=== PATIENT | male | born 1940 | race Caucasian/White ===

== ENCOUNTER 2023-05-21 11:57 | Outpatient (OUT) | payer MEDICARE, OTHER, SELFPAY ==
--- NOTE | 2023-05-21 12:23 | ECG_ITS ---
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
--- NOTE | 2023-05-21 12:59 | XR_ITS ---
The [address] [address] Patient Name: ERIK ALFONSO MRN: [id number] date: 1940 Sex: M Assigned Patient Location: [facility] Current Patient Location: [facility] Accession/Order Number: [id number] Exam Date: 05/21/2023 13:22 Report Date: 05/21/2023 13:56 At the request of: OTIS RODRIGUEZ Procedure: XR chest 2V EXAM: XR chest 2V HISTORY: PRE OP EXAM COMPARISON: None. TECHNIQUE: PA and lateral views of the chest. FINDINGS: The cardiomediastinal silhouette is normal. No focal consolidation is identified. There is no pneumothorax. No pleural effusion is noted. The osseous structures are intact. XR/XR chest 2V IMPRESSION: No acute cardiopulmonary process. Electronically authenticated by: DEVONTE FRYE Date: 05/21/2023 13:56
--- NOTE | 2023-05-21 13:30 | P.GSHP_ITS ---
History of Present Illness History of Present Illness Chief complaint: left uretero stone Narrative: Patient presents for preadmission testing. Please see HPI from Dr. Murphy dated 05/17/2023. Review of Systems ROS Narrative Please see ROS from Dr. Murphy dated 05/17/2023. [facility] Medical History (Updated 05/21/23 @ 13:29 by Jeannette Avila NP) Anticoagulated ?Z79.01 - correction (current) use of anticoagulants (ICD-10) Arthritis ?M19.90 - Unspecified osteoarthritis, unspecified site (ICD-10) BPH with obstruction/lower urinary tract symptoms ?N40.1 - Benign prostatic hyperplasia with lower urinary tract symptoms (ICD- 10) ?N13.8 - Other obstructive and reflux uropathy (ICD-10) Coronary artery disease ?I25.10 - Atherosclerotic heart disease of [place] coronary artery without angina pectoris (ICD-10) COVID-19 ?U07.1 - COVID-19 (ICD-10) Dysuria ?R30.0 - Dysuria (ICD-10) Flank pain ?R10.9 - Unspecified abdominal pain (ICD-10) Frequent urination ?R35.0 - Frequency of micturition (ICD-10) GERD (gastroesophageal reflux disease) ?K21.9 - Gastro-esophageal reflux disease without esophagitis (ICD-10) Gross hematuria ?R31.0 - Gross hematuria (ICD-10) High cholesterol ?E78.00 - Pure hypercholesterolemia, unspecified (ICD-10) History of blood transfusion (2019) ?Z92.89 - Personal history of other medical treatment (ICD-10) Hypertension ?I10 - Essential (primary) hypertension (ICD-10) Incomplete bladder emptying ?R33.9 - Retention of urine, unspecified (ICD-10) Kidney stones ?N20.0 - Calculus of kidney (ICD-10) Nocturia ?R35.1 - Nocturia (ICD-10) Pneumonia ?J18.9 - Pneumonia, unspecified organism (ICD-10) Rectal bleeding (2019) ?K62.5 - Hemorrhage of anus and rectum (ICD-10) Renal cyst ?N28.1 - Cyst of kidney, acquired (ICD-10) S/P extracorporeal shock wave therapy (~09/2016) ?Z98.890 - Other specified postprocedural states (ICD-10) S/P extracorporeal shock wave therapy (~08/2018) ?Z98.890 - Other specified postprocedural states (ICD-10) Sigmoidoscopy performed (~12/2018) ?Z98.890 - Other specified postprocedural states (ICD-10) Sleep apnea ?G47.30 - Sleep apnea, unspecified (ICD-10) Ureteral stone ?N20.1 - Calculus of ureter (ICD-10) Urinary urgency ?R39.15 - Urgency of urination (ICD-10) Surgical History (Updated 05/21/23 @ 13:29 by Jeannette Avila NP) H/O cardiac catheterization (~02/2018) ?Z98.890 - Other specified postprocedural states (ICD-10) H/O cardiac catheterization (~06/2020) ?Z98.890 - Other specified postprocedural states (ICD-10) H/O cataract extraction (~04/2019) ?Z98.49 - Cataract extraction status, unspecified eye (ICD-10) H/O cataract extraction (~05/2019) ?Z98.49 - Cataract extraction status, unspecified eye (ICD-10) H/O colonoscopy (~05/2010) ?Z98.890 - Other specified postprocedural states (ICD-10) H/O cystoscopy (~08/2016) ?Z98.890 - Other specified postprocedural states (ICD-10) H/O endoscopy (~12/2018) ?Z98.890 - Other specified postprocedural states (ICD-10) H/O endoscopy (~02/2021) ?Z98.890 - Other specified postprocedural states (ICD-10) History of hernia repair (~05/2010) ?Z98.890 - Other specified postprocedural states (ICD-10) ?Z87.19 - Personal history of other diseases of the digestive system (ICD-10) S/P arthroscopic knee surgery (~07/2003) ?Z98.890 - Other specified postprocedural states (ICD-10) S/P YAG capsulotomy (~06/2021) ?Z98.890 - Other specified postprocedural states (ICD-10) Family History (Updated 05/21/23 @ 12:57 by Jeannette Avila NP) Other Family history of diabetes mellitus Family history of heart disease Family history of hypertension Family history of myocardial infarction Social History (Updated 05/21/23 @ 12:47 by Jeannette Avila NP) Within the past year, how often did you have a drink containing alcohol: 4 or more times a week Within the past year, how many standard drinks containing alcohol did you have on a typical day: 1 or 2 Total score: 0 Score interpretation: A score less than 4 is consistent with normal alcohol consumption. Smoking status: Never smoker Highest level of school completed/degree received: high school graduate Meds Home Medications and Allergies Home Medications Medication Instructions Recorded Confirmed Type amlodipine 5 mg tablet 5 mg PO QPM 05/21/23 05/21/23 History atorvastatin 20 mg tablet 20 mg PO QPM 05/21/23 05/21/23 History clopidogrel 75 mg tablet 75 mg PO DAILY 05/21/23 05/21/23 History isosorbide dinitrate 30 mg tablet 30 mg PO QPM 05/21/23 05/21/23 History krill 350 mg-omega-3 90 mg-dha 24 cap PO 05/21/23 History mg-epa 50 be-ytnqjzy-pazkq capsule ([place]-3 Krill Oil) meloxicam 15 mg tablet 15 mg PO DAILY 05/21/23 05/21/23 History metoprolol tartrate 50 mg tablet 50 mg PO DAILY 05/21/23 05/21/23 History (Lopressor) multivitamin (Daily Multi-Vitamin 1 tab PO DAILY 05/21/23 05/21/23 History tablet) nitroglycerin 0.4 mg sublingual 0.4 mg sublingual Q5M 05/21/23 05/21/23 History tablet (Nitrostat) omeprazole 40 mg capsule,delayed 40 mg PO DAILY 05/21/23 05/21/23 History release paroxetine HCl 10 mg tablet 10 mg PO DAILY 05/21/23 05/21/23 History valsartan 80 mg tablet 80 mg PO DAILY 05/21/23 05/21/23 History Allergies Allergy/AdvReac Type Severity Reaction Status Date / Time No Known Drug Allergies Allergy Verified 05/21/23 12:37 Exam Narrative Exam Narrative: Constitutional: Awake, alert, comfortable, well-appearing, nontoxic, interactive, vital signs as charted Head: Normocephalic, atraumatic Neck: Supple, normal appearance, normal range of motion, no meningeal signs, no lymphadenopathy Respiratory: No respiratory distress, breath sounds clear Cardiovascular: Regular rate and rhythm, strong and regular heart tones Abdomen: Nontender, normal bowel sounds, soft, no CVA tenderness Musculoskeletal: Normal gait, no swelling or edema Skin: No rashes or induration, no lesions, only visible skin inspected Neuro: No neurological deficits, normal sensation Psychiatric: Oriented ?3, normal affect Assessment and Plan Assessment and Plan (1) Ureteral stone: Plan Cystoscopy, left retrograde, left ureteroscopy, laser, basket, left stent scheduled with Dr. Murphy 05/22/2023.
[2023-05-21 14:06] LABS: Basophils Percent Auto 0.6 % (0.2-2.0); Eosinophils Absolute Auto 0.3 10^3/uL (0.0-0.7); Hematocrit 40.3 % (42.0-54.0); Hemoglobin 13.5 g/dL (14.0-18.0); Immature Granulocytes Abs Auto 0.06 10^3/uL (0.00-0.03); Immature Granulocytes Pct Auto 0.9 % (0.0-0.5); Lymphocytes Absolute Auto 1.7 10^3/uL (1.2-3.8); Lymphocytes Percent Auto 24.5 % (20.5-60.0); Mean Corpuscular HGB Conc 33.5 g/dL (29.9-35.2); Mean Corpuscular Volume 98.5 fL (80.0-94.0); Mean Platelet Volume 10.6 fL (9.5-13.5); Monocytes Absolute Auto 0.8 10^3/uL (0.3-0.8); Monocytes Percent Auto 11.6 % (1.7-12.0); Neutrophils Percent Auto 58.4 % (43.0-75.0); Platelet Count 174 10^3/uL (150-450); Red Blood Count 4.09 10^6/uL (4.70-6.10); Red Cell Distribution Width 12.2 % (11.0-15.0); White Blood Count 6.8 10^3/uL (4.0-11.0)
[2023-05-21 14:13] LABS: INR 1.04; Partial Thromboplastin Time 27.4 sec (22.3-36.2)
[2023-05-21 14:54] LABS: Anion Gap 10.9; BUN Creatinine Ratio 21.9; Carbon Dioxide 28.7 mmol/L (21.0-32.0); Chloride 103 mmol/L (98-107); Estimated GFR (African America >60 (>=60); Estimated GFR (Non-African Ame 54 (>=60); Glucose 86 mg/dL (74-106); Potassium 4.6 mmol/L (3.5-5.1); Sodium 138 mmol/L (136-145)
== END 2023-05-21 11:58 | disposition home or self-care (01) ==
LOC: PST 12:03
PROVIDERS: Visit Provider Urology
DX: Z01.810 Encounter for preprocedural cardiovascular examination (principal); Z01.812 Encounter for preprocedural laboratory examination; N20.1 Calculus of ureter
CPT/HCPCS: 71046; 80048; 85025; 85610; 85730; 93005; G0463

== ENCOUNTER 2023-06-19 12:09 | Day surgery (SDC) | payer MEDICARE, OTHER, SELFPAY ==
[2023-05-21 13:09] VITALS: BP 113/66; PULSE 57; RESP 16; TEMP 36.4; O2SAT 95; BMI 33.5
--- NOTE | 2023-05-22 12:41 | PC.NURSE ---
1150- Patient arrives for surgery. Patient is interviewed by anesthesia. Anesthesia read note from Surgeon's office and read that Cardiac Clearance is needed prior to OR. Rakel at Dr. Murphy's office notified of Anesthesia's request for cardiac clearance. 1215- Dr. Oliveira's office notifed of request for Cardiac Clearance. 1230- Dr. Murphy and Dr. Woodson talk on the phone and decide that patient will need to be seen by [employer] prior to procedure. Patient and patient's spouse notitifed and verbalized a understanding.
[2023-06-19] VITALS (10 sets, daily range): BP systolic 121–175; BP diastolic 65–86; PULSE 58–74; RESP 14–23; TEMP 35.8–36; O2SAT 92–96; BMI 33.7
[2023-06-19] MEDS: LACTATED RINGER'S SOLUTION 1,000 ML 50 ML IV (12:48)
[2023-06-19] MEDS: CEFAZOLIN SODIUM/DEXTROSE,ISO 2 GM/50 ML PIGGYBACK IV (14:56)
[2023-06-19] MEDS: IOHEXOL 240 MG/ML - 10 ML VIAL INJ (15:50)
--- NOTE | 2023-06-19 16:44 | PM.URSON ---
Urology Surgery Operative Note Operative Note Procedure Date: 06/19/23 Time Out Performed: yes Pre-op Diagnosis: Left distal ureteral stone and kidney stones Post-op Diagnosis: same as pre-op Procedures performed: Cystoscopy, left retrograde pyelogram, ureteroscopy laser lithotripsy/stone extraction, stent placement Anesthesia: General-LMA ( Dr. Howard Ardon ) Primary Surgeon: Matilda Murphy Complications: none Estimated blood loss (mL): 0 Findings: Mild-mod bilobar prostatic hypertrophy with significantly elevated bladder neck. 2+ trabeculated bladder. Tight left UO/distal ureter, radiopaque distal stones and kidney stones. 2 distal stones underwent uncomplicated laser lithotripsy and stone extraction. Moderate proximal hydroureter. Specimens: left ureteral stone Drains: 6Fr x 22-30 cm JJ left ureteral stent Incision: none Indications for Procedures: 82 year old male recently diagnosed with multiple left distal ureteral stones and kidney stones who was evaluated in clinic. After discussion of risks/benefits of management options, he elected to proceed with staged cystoscopy, left retrograde pyelogram, ureteroscopy with laser lithotripsy/stone extraction, ureteral stent placement under general anesthesia. Risks were discussed including but not limited to bleeding, pain, infection, damage to surrounding structures, inability to treat the stone/place a stent, and need for additional procedures. The patient understands the stent is not permanent and needs to be removed or exchanged within 3 months to prevent encrustation, infection, invasive procedures and/or permanent renal damage. Detailed description of Procedure: After informed consent was obtained, the patient was brought to the operating room and transferred onto the operating table in supine position. Sequential compression devices were placed on bilateral lower extremities. The patient received the appropriate dose of preoperative IV antibiotics and general anesthesia was induced. They were positioned in modified dorsolithotomy with the appropriate pressure points padded, prepped, and draped in the usual sterile fashion for this procedure. An operative safety timeout was performed confirming the patient's identity, laterality and procedure, and all present agreed to proceed. I began by inserting a 22 [place] rigid cystoscope with 30 degree lens into the patient's urethra and bladder without difficulty. There were no bladder tumors, lesions, stones or foreign bodies. Bilateral ureteral orifices were orthotopic and patent. I turned my attention to the left ureteral orifice however had difficulty intubating with 6Fr open ended catheter for retrograde. Next a semirigid ureteroscope was able to identify and intubate the left UO. Contrast was injected for retrograde pyelogram with findings as above. Sensorwire was inserted up to the kidney. The distal ureteral stones were encountered with ureteroscope. A 275 ?m holmium laser fiber was used to break the stone into fragments which were then removed with a 2.2 tipless nitinol basket. After the stone was adequately treated, a full ureteroscopy to the proximal ureter was performed confirming no significant residual stones or fragments remained. Contrast was injected confirming no filling defects or extravasation of contrast, mild hydronephrosis. The wire was left in placed and pull down ureteroscopy was done to remove any remaining fragments via basket extraction. The wire was backloaded through the cystoscope and 6Fr x 22-30cm JJ variable length ureteral stent was advanced over the wire, noting adequate curl in the renal pelvis and bladder on fluoroscopic and direct visualization. The bladder was drained and inspected one final time to ensure adequate position of stent and no undue trauma to the bladder was done. The stones were sent for pathology and the cystoscope was removed. The patient tolerated the procedure well without complication. The patient was awakened from anesthesia and sent to PACU in stable condition. Plan: Discharge home with stent pain medications. Return in 1-2 weeks for treatment of kidney stones via left renoscopy, laser lithotripsy, stone extraction, stent exchange under general anesthesia ETT. Other Provider present: No Post Operative care instructions: See discharge instructions Attending Doc Confirm Attending Attestation: Yes
[2023-06-28 13:12] LABS: Calcium Oxalate Dihydrate 20 % (.); Calcium Oxalate Monohydrate 80 % (.); Size 4x3 mm (.)
== END 2023-06-19 18:00 | disposition home or self-care (01) ==
PROVIDERS: Visit Provider Urology
PROC: (CPT 52356; principal; 2023-06-19 13:35)
DX: N13.2 Hydronephrosis with renal and ureteral calculous obstruction (principal); I25.10 Atherosclerotic heart disease of native coronary artery without angina pectoris; Z79.01 Long term (current) use of anticoagulants; M19.90 Unspecified osteoarthritis, unspecified site; N40.1 Benign prostatic hyperplasia with lower urinary tract symptoms; N13.8 Other obstructive and reflux uropathy; Z86.16 Personal history of COVID-19; R31.0 Gross hematuria; E78.00 Pure hypercholesterolemia, unspecified; I10 Essential (primary) hypertension; R35.1 Nocturia; Z87.01 Personal history of pneumonia (recurrent); G47.30 Sleep apnea, unspecified; R39.15 Urgency of urination; N28.1 Cyst of kidney, acquired; Z79.899 Other long term (current) drug therapy; R30.0 Dysuria; R33.9 Retention of urine, unspecified; Z87.442 Personal history of urinary calculi; Z79.02 Long term (current) use of antithrombotics/antiplatelets; E66.9 Obesity, unspecified; Z68.33 Body mass index [BMI] 33.0-33.9, adult
CPT/HCPCS: 52356; 36415; 74420; 82365; 99999; C1874; J2704; Q9966

== ENCOUNTER 2023-07-12 08:26 | Outpatient (OUT) | payer MEDICARE, OTHER, SELFPAY ==
--- OUTSIDE RECORDS SUMMARY | 2023-08-06 23:37 | XMS_ITS | CCD ---
Author Name Unknown Address [address] [facility] [address] [place] [address] Organization [facility] Care Team Providers Care Second Watch Sergeant Name Role Phone Mast, Jesse E Unavailable Unavailable Unavailable Mast, Jesse Unavailable Mast, Jesse Unavailable Sona House Unavailable Unavailable Unavailable Mast, DO Jesse Primary Care Provider [phone] MD Leonides Frey Attending Provider [phone] Mast, DO Jesse Primary Care Provider [phone] MD Leonides Frey Attending Provider MD Erik Diaz Attending Provider Mast, DO Jesse Primary Care Provider Mast, DO Jesse Attending Provider [phone] Erik Diaz Unavailable MAST, JESSE E Primary Care Physician Mast, DO Jesse Primary Care Provider Mast, DO Jesse Attending Provider [phone] MD Gopal García Referring Provider [phone] MD Erik Diaz Attending Provider MD Summer Oliveira Attending Provider Summer Oliveira Referring Unavailable Mast, Dr. Jesse Payan Primary Care Unavailabl e Summer Oliveira Attending Unavailable Summer Oliveira Referring Unavailable Mast, Dr. Jesse Edward Primary Care Unavailabl e Summer Oliveira Attending Unavailable MAST, JESSE E Primary Care Physician [phone] Mast, DO Jesse Primary Care Provider [phone] ALTA Billy Attending Provider MD Summer Oliveira Attending Provider SUMMER OLIVEIRA Attending Unavailable MAST, JESSE EDWARD Primary Care Unavailable OLIVEIRA, PETERSEN M Referring Unavailable MAST, JESSE EDWARD Primary Care Unavailable OLIVEIRA, PETERSEN M Referring Unavailable MAST, JESSE EDWARD Primary Care Unavailable OLIVEIRA, PETERSEN M Referring Unavailable MAST, JESSE EDWARD Primary Care Unavailable OLIVEIRA, PETERSEN M Referring Unavailable MAST, JESSE EDWARD Primary Care Unavailable Mast, Jesse Primary Care Unavailable Erik Diaz Admitting Unavailable Erik Diaz Attending Unavailable Oliveira, Summer Attending Unavailable Mast, Jesse Primary Care Unavailable Oliveira, Summer Admitting Unavailable Deirdre Billy Admitting Unavailable Deirdre Billy Attending Unavailable Mast, Jesse Primary Care Unavailable Oliveira, Summer Attending Unavailable Mast, Jesse Primary Care Unavailable Oliveira, Petersen Admitting Unavailable Erik Diaz Attending Unavailable Mast, Jesse Primary Care Unavailable Erik Diaz Admitting Unavailable Mast, Jesse Primary Care Unavailable Mast, Jesse Attending Unavailable Mast, Jesse Admitting Unavailable Mast, Jesse Primary Care Unavailable Erik Diaz Attending Unavailable Erik Diaz Admitting Unavailable Mast, Jesse Primary Care Unavailable Gopal García Referring Unavailable Mast, Jesse Attending Unavailable Mast, Jesse Admitting Unavailable Mast DO, Jesse Edward Primary Care Provider [phone] Matilda Murphy Attending Unavailable LueMatilda Attending Unavailable Matilda Murphy MTate Attending Unavailable ALTA BILLY Attending Unavailab le Gopal GARCÍA Attending Unavailable Lue, Matilda MTate Attending Unavailable Gautam BLACKWELL Attending Unavailable Lue, Matilda MTate Attending Unavailable Lue Matilda MTate Attending Unavailable Lue Matilda MTate Admitting Unavailable Lue Matilda MTate Referring Unavailable Allergies Allergy Classification Reported Allergen(s) Allergy Type Date of Onset Reaction(s) Facility (19 sources) Angiotensin Converting Enzyme (Manuela) Inhibitors; Translations: [MANUELA Inhibitors] Allergy to drug (finding) 3 [facility] 3 Repository (1 source) Angiotensin-conv erting enzyme inhibitor agent Drug Intolerance 3 [facility] (1 source) No Known Medication Allergies; Translations: [No Known Medication Allergies] Propensity to adverse reactions (disorder) [facility] Repository Medications Current Medications Medication Drug Class(es) Dates Sig (Normalized) Sig (Original) amLODIPine 5 mg oral tablet (20 sources) Dihydropyridine Calcium Channel Lissa Start: 06-27-2020 End: 06-17-2023 take 1 tablet by mouth once daily amLODIPine 5 mg Tab 5 mg = 1 tab(s), Oral, Daily Start Date: 10/12/21 Status: Ordered ascorbic acid 1000 mg oral tablet (1 source) Vitamin C Start: 09-18-2016 take 1000 mg by mouth once daily Vitamin C 1,000 mg, Oral, Daily, Prophylaxis Start Date: 09/18/16 Status: Ordered atorvastatin 20 mg oral tablet (20 sources) HMG-CoA Reductase Inhibitor Start: 01-15-2019 take 20 mg by mouth once daily atorvastatin 20 mg, Oral, Daily, Refills(s) 0 Start Date: 04/16/19 Status: Ordered clopidogrel 75 mg oral tablet (20 sources) [id number] Platelet Inhibitor Start: 05-31-2021 take 1 tablet by mouth once daily clopidogrel 75 mg Tab 75 mg = 1 tab(s), Oral, Daily Start Date: 10/12/21 Status: Ordered Fish Oils (4 sources) Start: 04-16-2019 Fish Oil Oral, Refill(s) 0 Start Date: 04/16/19 Status: Ordered geriatric szjjtwgh-wqfa-dtvf (Complete Senior) tablet (1 source) take 1 tablet by mouth once daily geriatric ljfzfwec-nzpv-pib s (Complete Senior) tablet Take 1 tablet by mouth once daily. 0 Active isosorbide dinitrate 30 mg oral tablet (20 sources) Nitrate Vasodilator Start: 10-12-2021 take 1 tablet by mouth twice daily isosorbide dinitrate 30 mg oral tablet 30 mg = 1 tab(s), Oral, BID Start Date: 10/12/21 Status: Ordered take 1 tablet by gisela th every twenty-four hours Isosorbide Dinitrate 30 MG 1 tablet Orally once daily Active krill oil (20 sources) Start: 03-06-2018 take 1 capsule by mouth once daily Guucm-Chfdf-0-Bps-Igk-Mrailj (Krill Oil) 588-73-88-50 mg Capsule Active 1 CAP PO Daily March 05, 2018 11:00pm Start: 03-06-2018 take 1 capsule by mo [facility] once daily Ettze-Liizo-1-Hxq-Rqa-Bvlasa (Krill Oil) 266-48-79-50 mg Capsule Active 1 CAP PO Daily March 06, 2018 12:00am take 1 tablet by [facility] once daily Krill Oil 350 MG 1 Tablet Orally daily Active take 1 capsule by mo [facility] once daily Krill Oil 350 MG Oral Capsule TAKE 1 CAP [place] Daily Quantity: 0 Refills: 0 Ordered: 31-May-2021 DO Active yswmz-dsbud-6-lsg-tss-fpmvgs 201-64-06-50 mg capsule (1 source) take 1 capsule by mouth once daily gpqzr-npkez-5-cor-cxq-zbqehw 847-78-75-50 mg capsule Take 1 capsule by mouth once daily. 0 Active meloxicam 15 mg oral tablet (20 sources) Nonsteroidal Anti-inflammat ory Drug [facility] t: take 1 mg by mouth once daily meloxicam 15 mg Tab mg tab(s), Oral, Daily Start Date: 04/25/23 Status: Ordered Start: 03-14-2021 End: 03-17-2021 Meloxicam Discontinued MG TA BLET March 14, 2021 12:00am March 17, 2021 10:42am Start: 10-12-2019 End: 03-14-2021 take 7.5 mg by mouth once daily Meloxicam Discontinued 7.5 MG PO Daily June 23, 2020 1:00am March 14, 2021 6:33pm Start: 03-06-2018 End: 01-16-2019 take 15 mg by mouth once daily Meloxicam Discontinued 15 MG PO Daily March 06, 2018 12:00am January 16, 2019 2:09pm take [address] [facility] every twenty-four hours Meloxicam 7.5 MG 2 tablet Orally Once a day Active 24 hr metoprolol succinate 50 mg extended release oral tablet (20 sources) beta-Adrenergic Lissa Start: 03-06-2018 take 1 tablet by mouth once daily metoprolol succinate XL (Toprol-XL) 50 mg 24 hr tablet Take 1 tablet (50 mg) by mouth once daily. 0 01/01/2022 Active Start: 09-18-2016 take 1 tablet by gisela th once daily Metoprolol tartrate 50 mg Tab 50 mg = 1 tab(s), Oral, Daily, High blood pressure Start Date: 09/18/16 Status: Ordered Multi For Him (17 sources) Multi For Him Or ally Active Multivitamin preparation (7 sources) Start: 03-06-2018 take 1 tablet by mouth once daily Multivitamin Active 1 TAB PO Daily March 05, 2018 11:00pm Start: 03-06-2018 take 1 tablet by gisela th once daily Multivitamin Active 1 TAB PO Daily March 06, 2018 12:00am Multivitamins and Minerals (4 sources) Start: 09-18-2016 take 1 tablet by mouth once daily Multivitamins and Minerals 1 tab, Oral, Daily, Prophylaxis Start Date: 09/18/16 Status: Ordered Nitro Sublingual 0.4 0.4mg (17 sources) Nitro Sublingual 0.4 0.4mg 1 Sublingual Every 5min x3 Active nitroglycerin 0.4 mg sublingual tablet (20 sources) Nitrate Vasodilator Start: 06-27-2020 nitroglycerin 0.4 mg sublingual Tab 0.4 mg = 1 tab(s), SubLingual, q5min, PRN for chest pain Start Date: 10/12/21 Status: Ordered [place] 3 (17 sources) [place] 3 Active [place] 3 Not-Taki ng omeprazole 40 mg delayed release oral capsule (20 sources) Proton Pump Inhibitor Start: 10-12-2021 take 1 capsule by mouth once daily omeprazole 40 mg Cap-DR 40 mg = 1 cap(s), Oral, Daily Start Date: 10/12/21 Status: Ordered Start: 03-12-2021 End: 03-17-2021 take 40 mg by mouth twice daily Omeprazole Active 40 M G PO Twice daily March 17, 2021 8:42am Start: 01-16-2019 End: 06-23-2020 take 20 mg by mouth once daily Omeprazole Discontinued 20 MG PO Daily January 16, 2019 12:00am June 23, 2020 10:32am take 1 capsule by mo uth every other day omeprazole (PriLOSEC) [address] capsule Take 1 capsule (40 mg) by mouth every other day. 0 Active PARoxetine hydrochloride 10 mg oral tablet (20 sources) Serotonin Reuptake Inhibitor Start: 09-18-2016 take 1 tablet by mouth once daily paroxetine 10 mg Tab 10 mg = 1 tab(s), Oral, Daily, Other (see comment) Start Date: 09/18/16 Status: Ordered predniSONE 20 mg oral tablet (1 source) Start: 07-12-2021 predniSONE 20 MG 2 tabs daily for 5 days, then 1 tab daily for 5 days Orally Once a day Jun, Active sucralfate 1000 mg oral tablet (7 sources) Aluminum Complex Start: 03-12-2021 take 1 tablet by mouth twice daily Sucralfate (Carafate) 1 gram tablet Active 1 GM PO Twice daily 14 March 12, 2021 12:00am tamsulosin hydrochloride 0.4 mg oral capsule (1 source) alpha-Adrenergic Lissa Start: 05-17-2023 End: 05-11-2024 take 1 capsule by mouth once daily Flomax 0.4 mg Cap 0.4 mg = 1 cap(s), Oral, Daily, X 30 day(s), # 30 cap(s), Refills(s) 11, Pharmacy: [facility] [id number], 187, cm, 05/17/23 11:14:00 EDT, Height/Length Dosing, 113.5, kg, 05/17/23 11:14:00 EDT, Weight Dosing Start Date: 05/17/23 Stop Date: 05/11/24 Status: Ordered valsartan 80 mg oral tablet (20 sources) Angiotensin 2 Receptor Lissa Start: 06-23-2020 End: 06-17-2023 take 1 mg by mouth once daily valsartan 80 mg Tab mg tab(s), Oral, Daily, Refills(s) 0 Start Date: 10/10/20 Status: Ordered Completed/Discontinued Medications Medication Drug Class(es) Dates Sig (Normalized) Sig (Original) acetaminophen 325 mg / HYDROcodone bitartrate 5 mg oral tablet (7 sources) Opioid Agonist Start: 09-10-2018 End: 01-15-2019 take 1 tablet by mouth every six hours Hydrocodone-Acetam inophen ([place]) 5-325 mg tablet Discontinued 1 TAB PO Q6H September 10, 2018 January 15, 2019 2:21am aspirin 81 mg delayed release oral tablet (14 sources) Platelet Aggregation Inhibitor, Nonsteroidal Anti-inflammatory Drug Start: 06-27-2020 End: 03-17-2021 Aspirin (Shaista Low Dose Aspirin) 81 mg Tablet,Delayed Release (Dr/Ec) Discontinued 81 MG PO Daily June 27, 2020 1:00am March 17, 2021 10:42am Start: 03-06-2018 End: 01-16-2019 take 81 mg by mouth once daily Aspirin Discontinued 81 MG PO Daily March 06, 2018 12:00am January 16, 2019 2:09pm Complete Senior TABS (17 sources) Complete Senior TABS TAKE 1 TABLET DAILY. Quantity: 0 Refills: 0 Ordered: 31-May-2021 DO Active irbesartan 150 mg oral tablet (7 sources) Angiotensin 2 Receptor Lissa Start: End: take 150 mg by mouth once daily Irbesartan Discontinued 150 MG PO Daily January 15, 2019 12:00am June 23, 2020 10:31am 24 hr isosorbide mononitrate 30 mg extended release oral tablet (20 sources) Nitrate Vasodilator Start: End: take 1 tablet by mouth once daily isosorbide mononitrate ER (Imdur) 30 mg 24 hr tablet Take 1 tablet (30 mg) by mouth once daily. 0 07/25/2021 07/03/2023 Discontinued (Reorder) levoFLOXacin 500 mg oral tablet (7 sources) Quinolone Antimicrobial Start: End: take 1 tablet by mouth once daily Levofloxacin (Levaquin) 500 mg tablet Discontinued 500 MG PO Daily 7 7 September 10, 2018 1:00am September 17, 2018 1:01am lisinopril 5 mg oral tablet (7 sources) Angiotensin Converting Enzyme Inhibitor Start: End: take 5 mg by mouth once daily Lisinopril Discontinued 5 MG PO Daily March 06, 2018 12:00am January 15, 2019 2:21am Medrol Dose Pack as directed (17 sources) Medrol Dose Pack as directed as directed orally as directed Not-Taking mesalamine 1200 mg delayed release oral tablet (7 sources) Aminosalicylate Start: End: take 4.8 g by mouth once daily at breakfast Mesalamine Discontinued 4.8 GM PO Daily with breakfast 120 January 16, 2019 12:00am June 23, 2020 10:32am 24 hr oxybutynin chloride 5 mg extended release oral tablet (7 sources) Cholinergic Muscarinic Antagonist Start: End: take 1 tablet by mouth twice daily Oxybutynin Chloride (Ditropan Xl) 5 mg tablet extended release 24hr Discontinued 5 MG PO Twice daily September 10, 2018 1:00am January 15, 2019 2:21am regadenoson (Lexiscan) injection 0.4 mg (2 sources) Start: End: regadenoson (Lexiscan) injection 0.4 mg Problems Active Problems Problem Classification Problem Date Documented Date Episodic/Chronic Abdominal hernia (17 sources) Hiatal hernia; Translations: [Diaphragmatic hernia without obstruction or gangrene] Episodic Abdominal pain (20 sources) Abdominal pain; Translations: [Unspecified abdominal pain] Onset: 08-09-2022 Episodic Acute posthemorrhagic anemia (7 sources) Acute posthemorrhagic anemia; Translations: [Acute posthemorrhagic anemia] 03-14-2021 Episodic Anxiety disorders (20 sources) Obsessive-compulsive disorder; Translations: [Obsessive-compulsive disorder] Onset: 04-02-2022 Resolved: 04-02-2022 Chronic Calculus of urinary tract (19 sources) Kidney stone; Translations: [Calculus of kidney] Onset: 10-15-2022 Episodic Comment on above: left side Coronary atherosclerosis and other heart disease (20 sources) Coronary arteriosclerosis; Translations: [Coronary atherosclerosis of unspecified type of vessel, [place] or graft] Onset: 04-02-2022 Resolved: 04-02-2022 Chronic Deficiency and other anemia (17 sources) Anemia due to blood loss; Translations: [Iron deficiency anemia secondary to blood loss (chronic)] Chronic Digestive congenital anomalies (17 sources) Terminal esophageal web; 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 Disorders of lipid metabolism (20 sources) Hyperlipidemia; Translations: [Other and unspecified hyperlipidemia] Onset: 04-02-2022 Resolved: 04-02-2022 Chronic Diverticulosis and diverticulitis (17 sources) Diverticular disease of colon; Translations: [Diverticulosis of intestine, part unspecified, without perforation or abscess without bleeding] Chronic Esophageal disorders (1 source) Gastroesophageal reflux disease 07-18-20 Chronic Essential hypertension (20 sources) Benign essential hypertension; Translations: [Benign essential hypertension] Onset: 04-02-2022 Resolved: 04-02-2022 Chronic Gastritis and duodenitis (18 sources) Atrophic gastritis; Translations: [Unspecified chronic gastritis without bleeding] Onset: 04-02-2022 Resolved: 04-02-2022 Chronic Gastrointestinal hemorrhage (20 sources) Gastrointestinal hemorrhage; Translations: [Gastrointestinal hemorrhage, unspecified] Onset: 05-29-2021 Resolved: 05-29-2021 Episodic Genitourinary symptoms and ill-defined conditions (1 source) Procedure carried out on subject; Translations: [Encounter for fitting and adjustment of urinary device] Onset: 07-22-2023 Chronic Genitourinary symptoms and ill-defined conditions (20 sources) Microscopic hematuria; Translations: [Other microscopic hematuria] Onset: 10-15-2022 Episodic Hemorrhoids (17 sources) Hemorrhoids; Translations: [Unspecified hemorrhoids] Episodic Hyperplasia of prostate (7 sources) Benign prostatic hypertrophy without outflow obstruction; Translations: [Benign prostatic hyperplasia without lower urinary tract symptoms] Onset: 10-15-2022 Chronic Malaise and fatigue (6 sources) Fatigue; Translations: [Other malaise and fatigue] Onset: 05-02-2023 05-02-20 Episodic Osteoarthritis (11 sources) Arthritis of joint of right shoulder region; Translations: [Primary osteoarthritis, right shoulder] Onset: 02-05-2022 Resolved: 02-05-2022 Chronic Other aftercare (7 sources) Patient encounter status; Translations: [care home (current) use of non-steroidal anti-inflammatories (NSAID)] 03-15-20 Episodic Other aftercare (1 source) Long-term current use of anticoagulant; Translations: [care home (current) use of anticoagulants] Onset: 05-07-2023 Episodic Other diseases of kidney and ureters (1 source) Acquired renal cyst without neoplastic change; Translations: [Cyst of kidney, acquired] Onset: 05-07-2023 Episodic Other diseases of kidney and ureters (3 sources) Cyst of kidney 05-07-20 Episodic Other disorders of stomach and duodenum (7 sources) Dieulafoy vascular malformation of duodenum; Translations: [Dieulafoy lesion (hemorrhagic) of stomach and duodenum] 03-17-20 Episodic Other lower respiratory disease (15 sources) Dyspnea on exertion; Translations: [Other respiratory abnormalities] Onset: 05-02-2023 Resolved: 11-28-2022 05-02-20 Episodic Other lower respiratory disease (10 sources) Snoring; Translations: [Other respiratory abnormalities] Onset: 05-02-2023 Resolved: 11-28-2022 05-02-20 Episodic Other nervous system disorders (10 sources) Paresthesia of right upper limb; Translations: [Paresthesia of skin] Episodic Other nutritional; endocrine; and metabolic disorders (20 sources) Body mass index 30+ - obesity; Translations: [Body mass index (BMI) 32.0-32.9, adult] Chronic Other nutritional; endocrine; and metabolic disorders (2 sources) Body mass index (BMI) 34.0-34.9, adult Chronic Other nutritional; endocrine; and metabolic disorders (1 source) Body mass index (BMI) 33.0-33.9, adult Chronic Other nutritional; endocrine; and metabolic disorders (1 source) Drug-induced obesity; 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] Onset: 06-04-2023 06-04-20 Chronic Other screening for suspected conditions (not mental disorders or infectious disease) (18 sources) Cardiovascular stress test abnormal; Translations: [Other nonspecific abnormal results of function study of cardiovascular system] Onset: 05-02-2023 Resolved: 11-28-2022 05-02-20 Episodic Regional enteritis and ulcerative colitis (17 sources) Ulcerative colitis; Translations: [Ulcerative colitis, unspecified, without complications] Chronic Residual codes; unclassified (10 sources) Hypersomnia; Translations: [Hypersomnia, unspecified] Onset: 05-02-2023 Resolved: 11-28-2022 05-02-20 Chronic Residual codes; unclassified (11 sources) Sleep apnea; Translations: [Sleep apnea, unspecified] Onset: 05-02-2023 05-02-20 Chronic Residual codes; unclassified (6 sources) REM sleep behavior disorder; 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 Residual codes; unclassified (6 sources) Daytime somnolence; Translations: [Other hypersomnia] Chronic Residual codes; unclassified (4 sources) Sleep apnea, unspecified; Translations: [Sleep apnea, unspecified] Onset: 08-14-2022 Chronic Residual codes; unclassified (2 sources) Other hypersomnia Chronic Residual codes; unclassified (2 sources) REM sleep behavior disorder Chronic Residual codes; unclassified (2 sources) Obstructive sleep apnea syndrome; Translations: [Obstructive sleep apnea (adult) (pediatric)] Chronic Residual codes; unclassified (1 source) Obstructive sleep apnea (adult) (pediatric) Chronic Residual codes; unclassified (1 source) Obstructive sleep apnea (adult)(pediatric); Translations: [Obstructive sleep apnea (adult) (pediatric)] Onset: 11-22-2022 Chronic Residual codes; unclassified (1 source) Hypersomnia, unspecified; Translations: [Hypersomnia, unspecified] Onset: 08-01-2022 Chronic Unclassified (4 sources) Finding of sensation of bladder 10-12-19 20 Unclassified (2 sources) Drug therapy finding 05-07-20 23 Unclassified (1 source) Patient encounter status 05-17-20 23 Viral infection (7 sources) Disease caused by 2019-nCoV; Translations: [COVID-19] 08-18-20 21 Episodic Past or Other Problems Problem Classification Problem Date Documented Da te Episodic/Chronic Immunizations and screening for infectious disease (1 source) Encounter for immunization Onset: 12-01-2021 Resolved: 12-01-2021 Episodic Mood disorders (1 source) Mood disorders Onset: 06-04-2023 06-04-2023 Other gastrointestinal disorders (2 sources) Diarrhea, unspecified Onset: 07-12-2021 Resolved: 07-24-2021 Episodic Other nervous system disorders (2 sources) Paresthesia of skin Onset: 02-01-2022 Resolved: 02-21-2022 Episodic Other non-traumatic joint disorders (1 source) Pain in left knee; Translations: [Left knee pain, unspecified chronicity M25.562] Onset: 05-29-2021 Resolved: 05-29-2021 Episodic Other non-traumatic joint disorders (2 sources) Pain in right shoulder Onset: 02-01-2022 Resolved: 02-21-2022 Episodic Other nutritional; endocrine; and metabolic disorders (18 sources) Obesity; Translations: [Obesity, unspecified] Onset: 05-02-2023 Resolved: 06-04-2023 06-04-2023 Chronic Residual codes; unclassified (1 source) Localized edema Onset: 02-01-2022 Resolved: 02-01-2022 Episodic Residual codes; unclassified (4 sources) History of clinical finding in subject; Translations: [Personal history of other specified diseases] Resolved: 11-28-2022 Episodic Unclassified (17 sources) Never smoked tobacco; Translations: [Never a smoker] Unclassified (1 source) Onset: 06-04-2023 06-04-2023 Results Test Name Value Interpretation Reference Range Facil ity Consent for Procedure/Surger yon 07-22-2023 Consent for Procedure/Surgery [id number] Normal [facility] Consent for Treatmenton Consent for Treatment [id number] Normal [facility] Inpatient Patient Summaryon 07-22-2023 Inpatient Patient Summary [place] [id number] Clinical Summary Person Information Name: ERIK ALFONSO Age: 82 Years : 1940 Sex: Male PCP: JESSE GARCÍA DO Marital Status: Race: White Ethnicity: Non- or Language: British Visit Id: Visit Reason: URETERAL STONE Speciality: Acuity: Enc Type: Outpatient Med Service: Surgery Arrival: 07/22/2023 09:24:26 Discharge: Dispo Type: Address: [address] [place] [address] [id number] Provider Notes: Diagnosis: Encounter for removal of ureteral stent; Kidney stones Problems Active CAD (coronary artery disease) GERD (gastroesophageal reflux disease) Hyperlipidemia Antiplatelet or antithrombotic long-term use Incomplete bladder emptying BPH with obstruction/lower urinary tract symptoms Renal cyst, left Renal cyst Anticoagulated Gross hematuria Kidney stones Ureteral stone Abdominal tenderness Frequent urination Microhematuria Nocturia Urinary urgency Hesitancy Flank pain Feeling of incomplete bladder emptying Dysuria Smoking Status: Functional Status: Sensory Deficits: History of Falls: Mobility Assistance Prior to Admission: ADLs: Current Level of Assistance for Self-Care/Mobility: Cognitive Status: Allergies No Known Medication Allergies Laboratory or Other Results This Visit (last charted value for your 07/22/2023 visit) No Laboratory or Other Results This Visit Measurements: Height: 187 cm Weight: Blood Pressure: Not Valued / Not Valued BMI: Procedures No Procedures Documented Immunizations No Immunizations Documented This Visit Final Med List: amlodipine (amLODIPine 5 mg Tab) 1 Tablets By Mouth every day. atorvastatin 20 Milligram By Mouth every day. clopidogrel (clopidogrel 75 mg Tab) 1 Tablets By Mouth every day. isosorbide dinitrate (isosorbide dinitrate 30 mg oral tablet) 1 Tablets By Mouth 2 times a day. meloxicam (meloxicam 15 mg Tab) By Mouth every day. metoprolol (Metoprolol tartrate 50 mg Tab) 1 Tablets By Mouth every day. multivitamin with minerals (Multivitamins and Minerals) 1 tab By Mouth every day. nitroglycerin (nitroglycerin 0.4 mg sublingual Tab) 1 Tablets Sublingual every 5 minutes as needed for chest pain. omega-3 polyunsaturated fatty acids (Fish Oil) By Mouth. omeprazole (omeprazole 40 mg Cap-DR) 1 Capsules By Mouth every day. paroxetine (paroxetine 10 mg Tab) 1 Tablets By Mouth every day. tamsulosin (Flomax 0.4 mg Cap) 1 Capsules By Mouth every day for 30 Days. Refills: 11. valsartan (valsartan 80 mg Tab) By Mouth every day. Care Team Members: Attending Physician: Matilda Murphy MD Consulting Physician: Referring Physician: Matilda Murphy MD Follow up: With: Address: When: Matilda Murphy [address] [place] [address] [phone] Business (1) Comments: Office to schedule follow up in 6-8 weeks to review renal US Type Location Start Finish State URO Office Visit [facility] MARNIE Olvera 10/21/2023 8:45 AM 10/21/2023 9:00 AM Confirmed Patient Education Information: EU - Cystoscopy with Stent Removal Discharge Instructions (CUSTOM) Crispin [facility] IntraOperative Documentson 1 09-22-2022 IntraOperative Documents [id number] Crispin [facility] Main OR Intraoperative Recor don 07-22-2023 Main OR Intraoperative Record IntraOp Document Type FTURO Summary Primary Physician: Matilda Murphy MD Finalized Date/Time: 07/22/23 10:28:07 Pt. Name: ERIK ALFONSO Jessica DongB./Sex: 1940 Male Med Rec #: [id number] Physician: Matilda Murphy MD Financial #: [id number] Pt. Type: O Room/Bed: / Admit/Disch: 07/22/23 09:24:26 - Institution: Case Times FTURO Entry 1 Patient Times In Room 07/22/23 10:17:00 Out Room 07/22/23 10:33:00 Procedure Times Start 07/22/23 10:25:00 Stop 07/22/23 10:28:00 Anesthesia Times Last Modified By: Shawna KIM, Pia LEDESMA 07/22/23 10:27:57 Case Attendance FTURO Entry 1 Entry 2 Entry 3 Case Attendee Jeffrey ORTEGA, Matilda Matos RN, DAYAOR, Mae Gil CST Role Performed Surgeon - Primary Forging Machine Hand - Primary Scrub - Primary Time In 07/22/23 10:17:00 07/22/23 10:17:00 07/22/23 10:17:00 Time Out 07/22/23 10:33:00 07/22/23 10:33:00 07/22/23 10:33:00 Procedure CYSTOSCOPY LOCAL WITH CYSTOSCOPY LOCAL WITH CYSTOSCOPY LOCAL WITH STENT REMOVAL(Left) STENT REMOVAL(Left) STENT REMOVAL(Left) Comments Last Modified By: Shawna RN, CNOR, Shawna RN, DAYAOR, Shawna RN, DAYAORPia 07/22/23 Pia 07/22/23 Pia 07/22/23 10:27:58 10:27:58 10:27:58 Entry 4 Case Attendee Jennifer Pink Role Performed Staff - Other Time In 07/22/23 10:17:00 Time Out 07/22/23 10:33:00 Procedure CYSTOSCOPY LOCAL WITH STENT REMOVAL(Left) Comments in room observing for orientating Last Modified By: BALTAZAR Matos RN, Ruthann 07/22/23 10:27:58 Surgical Procedures FTURO Entry 1 Procedure Description Procedure CYSTOSCOPY LOCAL WITH Modifiers Left STENT REMOVAL Surgeon Description CYSTO WITH LEFT STENT REMOVAL Primary Procedure Yes Primary Surgeon Matilda Murphy MD Start 07/22/23 10:25:00 Stop 07/22/23 10:28:00 Anesthesia Type Local Surgical Service Urology Wound Class 2 - Clean-Contaminated Last Modified By: BALTAZAR Matos RN, Ruthann 07/22/23 10:27:59 General Case Data FTURO Pre-Care Text: Classifies surgical wound, implements aseptic technique, initiates traffic control Entry 1 Case Information OR URO 1 FT Case Level None Wound Class 2 - Clean-Contaminated Specialty Urology Preop Diagnosis URETERAL STONE and Postop Same As Preop Yes stent placement Postop Diagnosis URETERAL STONE and Outcomes Met? Yes stent placement Last Modified By: BALTAZAR Matos RN, Ruthann 07/22/23 09:33:38 Post-Care Text: The patient is free from signs and symptoms of infection EU IntraOp - FTURO Pre-Care Text: Implements protective measures prior to operative or invasive procedure, confirms identity before the operative or invasive procedure, verifies operative procedure, surgical site, and laterality Entry 1 EU Perioperative Protocols Procedure(s) CYSTOSCOPY LOCAL WITH Patient Identity Birthday, ID Band STENT REMOVAL(Left) Verified (select at Check, Patient least 2): Participation Consents / H and P HandP, Surgery/Procedure Operative Site N/A Verified Consent Marking Verified Surgical Site Yes Laterality Verified n/a Verified Procedure Verified Yes Availability Equipment, Medication Verified (If Applicable) Time Out Matilda Murphy MD, Time Out Complete 07/22/23 10:19:00 Participants BALTAZAR Matos RN, Ruthann, Louise REYNAGA, Joesph Garcia Laura C Allergies Reviewed? Yes Allergies Reviewed Self/Patient With Body Position Supine Prep Area penis Prep Agents Betadine Solution Skin. Condition Unable to Visualize Additional None Specimens Collected Vitals - EU Blood Pressure 130/71 Pulse 68 bpm Respirations 18 br/min SPO2 EBL 0 IandO - EU Total Intake 0 mL Total Output 0 mL Outcomes Met? Yes Last Modified By: BALTAZAR Matos RN, Ruthann 07/22/23 10:20:07 Post-Care Text: The patient is free from signs and symptoms of injury caused by extraneous objects Sign Out FTURO Entry 1 Before Patient Leaves OR Nurse verbally Yes Nurse verbally n/a confirms with the confirms with the team the name of team that the procedure(s) instrument, sponge, recorded and needle counts are correct (or N/A) Nurse verbally n/a Nurse verbally n/a confirms with the confirms with the team how the team whether there specimen is labeled are any equipment (including patient problems to be name), if applicable addressed Sign Out Complete 07/22/23 10:30:00 Last Modified By: BALTAZAR Matos RN, Ruthann 07/22/23 10:28:05 Case Comments Finalized By: BALTAZAR Matos RN, Ruthann Document Signatures Signed By: BALTAZAR Matos RN, Ruthann 07/22/23 10:28 Normal [facility] Main OR Preoperative Recordo n 07-22-2023 Main OR Preoperative Record Holding Area Document Type FTURO Summary Primary Physician: Matilda Murphy MD Finalized Date/Time: 07/22/23 10:19:17 Pt. Name: ERIK ALFONSO/Sex: 1940 Male Med Rec #: [id number] Physician: Matilda Murphy MD Financial #: [id number] Pt. Type: O Room/Bed: / Admit/Disch: 07/22/23 09:24:26 - Institution: Case Times Holding FTURO Pre-Care Text: Verifies consent for planned procedure, identifies individual values and wishes concerning care, includes family members in perioperative teaching Secures patient's records' belongings, and valuables, maintains patient's dignity and privacy, and maintains patient confidentiality Entry 1 In Holding 07/22/23 09:36:00 Outcomes Met? Yes Last Modified By: Haily Barrett LPN 07/22/23 09:36:48 Post-Care Text: The patient participates in decisions affecting his or her perioperative plan of care The patient's right to privacy is maintained Surgery Checklist FTURO Entry 1 Patient Birthday, ID Band Procedure History and Physical, Identification: Check, Patient Verification: Surgical Consent, With Participation Patient NPO after Midnight: n/a Date/Time: 07/22/23 09:36:00 Personal Items: Glasses, Jewelry Personal Items glasses, ring x 1 Comment: Limitations: up ad arlin Complaints of Pain: No Skin Integrity Intact, [place], Warm, & Dry Vitals - EU Blood Pressure 130/71 Pulse 68 bpm Respirations 18 br/min SPO2 95 % RN Reviewed Yes Last Modified By: BALTAZAR Matos RN, Ruthann 07/22/23 10:19:15 General Comments: Temp. 36.5 Finalized By: BALTAZAR Matos RN, Ruthann Document Signatures Signed By: Haily Barrett LPN 07/22/23 09:41 BALTAZAR Matos RN, Ruthann 07/22/23 10:19 Normal [facility] Operative Reporton Operative Report Patient: Jacob ALFONSO Age: 82 years Sex: Male : 1940 Associated Diagnoses: None Author: Matilda Murphy MD Procedure Operative Information Details: Date/ Time: 07/22/2023 10:31:00. Pre-Op Dx: Encounter for removal of ureteral stent ([id number] Z46.6, Discharge, Medical), Kidney stones ([id number] N20.0, Discharge, Medical). Post-Op Dx: Same. Anesthesia Type: Local. Procedure: Local Cystoscopy with Stent Removal. Complications: None. Risks/Benefits/Informed Consent: Surgical risks, benefits, details of the procedure have been explained to the patient, Full informed consent has been obtained. Intraoperative Information Prepped: The patient was placed in supine position, The patient was prepped with the Betadine solution. Anesthesia: 2% Xylocaine Jelly per urethra. Procedure: Cystoscopy and Left Stent Removal, The flexible Cystoscope was passed in retrograde fashion into the bladder without difficulty, The bladder was viewed in entirety and found to be without tumors or stones, Mild inflammation was seen surrounding the orifice with the stent seen protruding from it, The stent was then grasped and removed in its entirety. Specimens Removed: None. Devices Implanted: None. Postoperative Information Discharge: The patient tolerated the procedure well and was subsequently discharged home, Discussed stone analysis, CaOx monohydrate 80 %, dihydrate 20%. Follow up in 6 weeks with renal US, discuss potential treatment of right side. Normal [facility] Comment on above: Result Comment: Elec tronically Signed By: Matilda Murphy MD\.br\Date and Time Signed: 07/22/23 10:37 EST Outpatient Surgery Discharge Instructionon 07-22-2023 Outpatient Surgery Discharge Instruction [address] [address] Patient Discharge Instructions PERSON INFORMATION Name: ERIK ALFONSO Date of : 1940 Current Date: 07/22/2023 10:31:19 PHYSICIANS Admitting Physician: Matilda Murphy MD Comment: Discharge Diagnosis: Encounter for removal of ureteral stent; Kidney stones ERIK ALFONSO has been given the following list of follow-up instructions, prescriptions, and patient education materials: IF UNABLE TO CONTACT YOUR PHYSICIAN AND YOU FEEL IT IS AN EMERGENCY, GO TO THE NEAREST EMERGENCY ROOM OR CALL 911 Follow up: With: Address: When: Matilda Murphy [address] [place] [phone] [facility] (1) Comments: Office to schedule follow up in 6-8 weeks to review renal US Type Location Start [facility] URO Office Visit [facility] MARNIE Graton 10/21/2023 8:45 AM 10/21/2023 9:00 AM Confirmed Comment: PATIENT EDUCATION INFORMATION Instructions: Cystoscopy with Stent Removal ? Voiding after the procedure: there may be some pain, burning, urgency, frequency and blood tinged urine following the procedure. These symptoms usually resolve within 2-5 days. Drink the amount of fluid it takes to keep the urine pink to yellow or clear in color. Drinking enough water and fluids will help to ease any discomfort after your procedure. ? If you are having problems that seem out of the ordinary, please call. ? If unable to contact your physician and you feel it is an emergency, go to the nearest emergency room or call 911 ? Diet ? you may resume your normal diet. ? Activity ? you may resume your normal activities ? Call if you have a fever over 100 degrees. I, ERIK ALFONSO, have received the attached patient education materials/instructions and have verbalized understanding: May we do a follow up call? Yes No I was present when discharge instructions were given Patient Signature Date Clinican/Nurse Signature Date You may receive a survey from Rick Alonzo asking you to rate your care experience. Your feedback is important and will help us understand what we do well and how we can improve the quality of care we provide to you, your loved ones and our community. It?s an honor to serve you. Thank you for choosing [facility] Normal [facility] [id number] FF Normal [facility] Operative Reporton Operative Report [id number] Normal [facility] Lab Reportson 07-09-2023 Lab Reports [id number] FF Normal [facility] Operative Reporton Operative Report [id number] Normal [facility] Patient Correspondenceon Patient Correspondence [id number] Normal [facility] Cardiovascular Reporton 05-20 Cardiovascular Report [id number] Normal [facility] Lab Reportson 06-07-2023 Lab Reports [id number] IFF Normal [facility] NUCLEAR STRESS TESTon 2022 NUCLEAR STRESS TEST Interpreted By: Summer Jose, and Rito Grant STUDY: MYOCARDIAL PERFUSION STRESS TEST WITH LEXISCAN Performing facility: [facility], [address] [place] [address], [address] Provider: Summer Olievira MD, FACC PCP: Dr. Felicitas García Supervising provider: Summer Oliveira MD, [facility] INDICATION: CAD; HTN Pre-operative risk assessment for Urology scheduled at [facility] on [facility]. HISTORY: Gender: M; Age: 82 y/o ; Height: HT 182.9 cm cm; Weight: WT 113.399 kg kg. CAD; High Cholesterol; HTN; Denies smoking. Cardiac catheterization on . COMPARISON: Previous nuclear testing completed [id number] at [facility]. ACCESSION NUMBER(S): [id number] ORDERING CLINICIAN: SUMMER OLIVEIRA TECHNIQUE: TWO DAY protocol. Stress injection: Date:06-05-23, 34.5 mCi of Myoview IV 20 seconds after rapid injection of Lexiscan. Rest injection: Date: 06-06-23, 34.3 mCi of Myoview IV at rest. The patient had a rapid injection of 0.4 mg of Lexiscan IV over 10 seconds. Imaging was performed by gated tomographic technique. Reason for Lexiscan: dizziness/unsteady/fall risk STRESS TEST DATA: Resting heart rate was 59 BPM. Resting blood pressure was 126/76 mmHg. Peak blood pressure was 124/76 mmHg. Peak heart rate was 73 BPM. TEST TERMINATED DUE TO: Protocol completed FINDINGS: STRESS TEST RESULTS: Resting electrocardiogram revealed sinus bradycardia. There were no significant ischemic ECG changes or dysrhythmias. The patient did not have chest pains/symptoms during procedure. There was a normal recovery phase. IMAGING RESULTS: Image quality was good. Rest and stress tomographic images were reviewed and revealed normal perfusion without evidence of ischemia, myocardial infarction, or left ventricular dilatation with stress. Overall left ventricular systolic function appeared to be normal without regional wall motion abnormalities. Ejection fraction was 63%. TID is 1.18 and is normal. There was no evidence of attenuation artifact. IMPRESSION: Normal Lexiscan Myoview cardiac perfusion stress test. No evidence of ischemia or myocardial infarction by perfusion imaging. Normal left ventricular systolic function, ejection fraction 63%. When compared to a study from 2018 the previous study reported probable small area of inferolateral ischemia which is no longer seen.. Signed by: Summer Oliveira 06/06/2023 10:40 AM Dictation workstation: [id number] Normal [facility] Alanine Aminotransferaseon 1 ALT [Catalytic activity/Vol] 25 U/L Normal [facility] Comment on above: Performed By: #### L IPID, CBC, CMP #### [facility] [address] Alanine aminotransferase [En zymatic activity/volume] in Serum or PlasmaOrdered By: Summer Oliveira on 06-04-2023 ALT [Catalytic activity/Vol] 25 U/L [facility] Aspartate Amino Transferaseo n 06-04-2023 AST [Catalytic activity/Vol] 29 U/L Normal [facility] Comment on above: Performed By: #### B MP, ALT, AST, LIPID, CBC #### [facility] [address] Aspartate aminotransferase [ Enzymatic activity/volume] in Serum or PlasmaOrdered By: Summer Oliveira on 06-04-2023 AST [Catalytic activity/Vol] 29 U/L [facility] Basic Metabolic Panelon 05-19 Anion gap [Moles/Vol] 10.5 mmol/L Normal 6.0-15.0 [facility] Comment on above: Performed By: #### B MP, ALT, AST, LIPID, CBC #### [facility] [address] Calcium [Mass/Vol] 8.7 mg/dL Normal 8.6-10.3 [facility] Comment on above: Performed By: #### B MP, ALT, AST, LIPID, CBC #### [facility] [address] Chloride [Moles/Vol] 106 mmol/L Normal 98-107 [facility] Comment on above: Performed By: #### B MP, ALT, AST, LIPID, CBC #### [facility] [address] CO2 [Moles/Vol] 28.1 mmol/L Normal 21.0-31.0 [facility] Comment on above: Performed By: #### B MP, ALT, AST, LIPID, CBC #### [facility] [address] [place] [address] [place] Creatinine [Mass/Vol] 1.13 mg/dL Normal 0.70-1.30 [facility] Comment on above: Performed By: #### B MP, ALT, AST, LIPID, CBC #### [facility] [address] [place] [address] [place] GFR/1.73 sq M.predicted MDRD (S/P/Bld) [Vol rate/Area] mL/min/{1.73_m2} Normal [facility] Comment on above: Performed By: #### B MP, ALT, AST, LIPID, CBC #### [facility] [address] [place] [address] [place] Glucose [Mass/Vol] 99 mg/dL Normal 70-100 [facility] Comment on above: Result Comment: [place] om Glucose Reference Range is dependent on time and content of last meal. Glucose of more than 200 mg/dL in a nonstressed, ambulatory subject supports the diagnosis of Diabetes Mellitus. ADA recommended reference range Performed By: #### B MP, ALT, AST, LIPID, CBC #### [facility] [address] Potassium [Moles/Vol] 4.6 mmol/L Normal 3.5-5.1 [facility] Comment on above: Performed By: #### B MP, ALT, AST, LIPID, CBC #### [facility] [address] Sodium [Moles/Vol] 140 mmol/L Normal 136-145 [facility] Comment on above: Performed By: #### B MP, ALT, AST, LIPID, CBC #### [facility] [address] Urea nitrogen [Mass/Vol] 22 mg/dL Normal 7-25 [facility] Comment on above: Performed By: #### B MP, ALT, AST, LIPID, CBC #### [facility] [address] Basophils Auto (Bld) [#/Vol] Ordered By: Summer Oliveira on 06-04-2023 Basophils (Bld) [#/Vol] 0.0 10*3/uL 0.0-0.2 [facility] Basophils/100 WBC Auto (Bld) Ordered By: Summer Oliveira on 06-04-2023 Basophils/100 WBC (Bld) 0.8 % . F [facility] Calcium [Mass/volume] in Ser um or PlasmaOrdered By: Summer Oliveira on 06-04-2023 Calcium [Mass/Vol] 8.7 mg/dL 8.6-10.3 [facility] Carbon dioxide, total [Moles /volume] in Serum or PlasmaOrdered By: Summer Oliveira on 06-04-2023 CO2 [Moles/Vol] 28.1 mmol/L 21.0-31.0 [facility] Chloride [Moles/volume] in S daniel or PlasmaOrdered By: Summer Oliveira on 06-04-2023 Chloride [Moles/Vol] 106 mmol/L 98-107 [facility] Cholesterol [Mass/volume] in Serum or PlasmaOrdered By: Summer Oliveira on 06-04-2023 Cholesterol [Mass/Vol] 112 mg/dL 140-200 [facility] Comment on above: Chol less than 200 m g/dl low riskChol 201-239 mg/dl borderline riskChol 240 mg/dl and greater high risk Cholesterol in LDL Calc [Mas s/Vol]Ordered By: Summer Oliveira on 06-04-2023 Cholesterol in LDL [Mass/Vol] 49 mg/dL 0-100 [facility] Comment on above: LDL ATP III CLASSIFI CATIONLDL less than 100 mg/dL OptimalLDL 100-129 mg/dL Near or above optimalLDL 130-159 mg/dL Borderline highLDL 160-189 mg/dL HighLDL greater than 189 mg/dL Very high Cholesterol in VLDL Calc [Ma ss/Vol]Ordered By: Summer Oliveira on 06-04-2023 Cholesterol in VLDL [Mass/Vol] 20 mg/dL [facility] Complete Blood Count Auto Di ffon 06-04-2023 Basophils (Bld) [#/Vol] 0.0 10*3/uL Normal 0.0-0.2 [facility] Comment on above: Result Comment: PERF ORMED BY: [place] [address] PATHOLOGIST ELEMENTARY MATH TUTOR LATONIA VASQUEZ M.D. Performed By: #### B MP, ALT, AST, LIPID, CBC #### [facility] [address] [place] [address] [place] Basophils/100 WBC (Bld) 0.8 % Normal . [facility] Comment on above: Performed By: #### B MP, ALT, AST, LIPID, CBC #### [facility] [address] [place] [address] [place] Eosinophils (Bld) [#/Vol] 0.2 10*3/uL Normal 0.0-0.45 [facility] Comment on above: Performed By: #### B MP, ALT, AST, LIPID, CBC #### [facility] [address] [place] [address] [place] Eosinophils/100 WBC (Bld) 4.4 % Normal . [facility] Comment on above: Performed By: #### B MP, ALT, AST, LIPID, CBC #### [address] Erythrocyte distribution wid th (RBC) [Ratio] 12.7 % Normal 12.0-14.8 [facility] Comment on above: Performed By: #### B MP, ALT, AST, LIPID, CBC #### [address] Hematocrit (Bld) [Volume fraction] 39.7 % Normal 38.8-50.0 [facility] Comment on above: Performed By: #### B MP, ALT, AST, LIPID, CBC #### [address] Hemoglobin (Bld) [Mass/Vol] 13.5 g/dL Normal 13.0-17. 0 [facility] Comment on above: Performed By: #### B MP, ALT, AST, LIPID, CBC #### [address] Lymphocytes (Bld) [#/Vol] 1.5 10*3/uL Normal 1.00-4.8 [facility] Comment on above: Performed By: #### B MP, ALT, AST, LIPID, CBC #### [address] Lymphocytes/100 WBC (Bld) 28.3 % Normal . [facility] Comment on above: Performed By: #### B MP, ALT, AST, LIPID, CBC #### [address] MCH (RBC) [Entitic mass] 32.7 pg Normal 27.5-35.2 [facility] Comment on above: Performed By: #### B MP, ALT, AST, LIPID, CBC #### [address] MCV (RBC) [Entitic vol] 96.5 fL Normal 83.5-101 [facility] Comment on above: Performed By: #### B MP, ALT, AST, LIPID, CBC #### [place] [address] Mean Corpuscular HGB Conc 33.9 g/dL Normal 32.5-35.6 [facility] Comment on above: Performed By: #### B MP, ALT, AST, LIPID, CBC #### [facility] [address] Monocytes (Bld) [#/Vol] 0.5 10*3/uL Normal 0.0-0.8 [facility] Comment on above: Performed By: #### B MP, ALT, AST, LIPID, CBC #### [address] Monocytes/100 WBC (Bld) 10.1 % Normal . [facility] Comment on above: Performed By: #### B MP, ALT, AST, LIPID, CBC #### [address] Neutrophils (Bld) [#/Vol] 2.9 10*3/uL Normal 1.8-7.7 [facility] Comment on above: Performed By: #### B MP, ALT, AST, LIPID, CBC #### [address] Neutrophils/100 WBC (Bld) 56.4 % Normal . [facility] Comment on above: Performed By: #### B MP, ALT, AST, LIPID, CBC #### [address] NRBC% 0.1 /100{WBC} Normal 0-0.5 [facility] Comment on above: Performed By: #### B MP, ALT, AST, LIPID, CBC #### [address] Platelet mean volume (Bld) [Entitic vol] 9.0 fL Normal 6.6-10.1 [facility] Comment on above: Performed By: #### B MP, ALT, AST, LIPID, CBC #### [place] [address] [place] Platelets (Bld) [#/Vol] 140 10*3/uL Low 150-450 [facility] Comment on above: Performed By: #### B MP, ALT, AST, LIPID, CBC #### [facility] [address] RBC (Bld) [#/Vol] 4.12 10*6/uL Normal 3.90-5.60 [facility] Comment on above: Performed By: #### B MP, ALT, AST, LIPID, CBC #### [facility] [address] WBC (Bld) [#/Vol] 5.2 10*3/uL Normal 4.1-10.5 [facility] Comment on above: Performed By: #### B MP, ALT, AST, LIPID, CBC #### [facility] [address] Creatinine [Mass/volume] in Serum or PlasmaOrdered By: Summer Oliveira on 06-04-2023 Creatinine [Mass/Vol] 1.13 mg/dL 0.70-1.30 [facility] Eosinophils Auto (Bld) [#/Vo l]Ordered By: Summer Oliveira on 06-04-2023 Eosinophils (Bld) [#/Vol] 0.2 10*3/uL 0.0-0.45 [facility] Eosinophils/100 WBC Auto (Bl d)Ordered By: Summer Oliveira on 06-04-2023 Eosinophils/100 WBC (Bld) 4.4 % . [facility] Erythrocyte distribution wid th Auto (RBC) [Ratio]Ordered By: Summer Oliveira on 06-04-2023 Erythrocyte distribution wid th (RBC) [Ratio] 12.7 % 12.0-14.8 [facility] Glucose [Mass/volume] in Ser um or PlasmaOrdered By: Summer Oliveira on 06-04-2023 Glucose [Mass/Vol] 99 mg/dL 70-100 [facility] Comment on above: ADA recommended refe rence rangeRandom Glucose Reference Range is dependent on time and content of last meal. Glucose of more than 200 mg/dL in a nonstressed, ambulatory subject supports the diagnosis of Diabetes Mellitus. Hematocrit Auto (Bld) [Volum e fraction]Ordered By: Summer Oliveira on 06-04-2023 Hematocrit (Bld) [Volume fraction] 39.7 % 3 8.8-50.0 [facility] Hemoglobin [Mass/volume] in BloodOrdered By: Summer Oliveira on 06-04-2023 Hemoglobin (Bld) [Mass/Vol] 13.5 g/dL 13.0-17. 0 [facility] Leukocytes [#/volume] correc charity for nucleated erythrocytes in Blood by Automated counOrdered By: Summer Oliveira on 06-04-2023 WBC corrected for nucl RBC A uto (Bld) [#/Vol] 5.2 10*3/uL 4.1-10.5 [facility] Lipid Panelon 06-04-2023 Cholesterol [Mass/Vol] 112 mg/dL Low 140-200 [facility] Comment on above: Result Comment: Chol less than 200 mg/dl low risk Chol 201-239 mg/dl borderline risk Chol 240 mg/dl and greater high risk Performed By: #### L IPID, CBC, CMP #### [facility] [address] Cholesterol in HDL [Mass/Vol] 43 mg/dL Normal 23-92 [facility] Comment on above: Result Comment: HDL CHOL ATP-III CLASSIFICATION Cardiovascular Risk HDL > or equal to 60 mg/dL LOW HDL < 40 mg/dL HIGH Performed By: #### L IPID, CBC, CMP #### [facility] [address] Cholesterol.total/Cholestero l in HDL [Mass ratio] 2.6 {ratio} Normal <5.0 [facility] Comment on above: Result Comment: PERF ORMED BY: [facility] [address] [place] [address] PATHOLOGIST ELEMENTARY MATH TUTOR LATONIA VASQUEZ M.D. Performed By: #### L IPID, CBC, CMP #### [facility] [address] LDL Cholesterol,Calculated 49 mg/dL Normal 0-100 [facility] Comment on above: Result Comment: LDL ATP III CLASSIFICATION LDL less than 100 mg/dL Optimal LDL 100-129 mg/dL Near or above optimal LDL 130-159 mg/dL Borderline high LDL 160-189 mg/dL High LDL greater than 189 mg/dL Very high Performed By: #### L IPID, CBC, CMP #### [facility] [address] Triglyceride w/Reflex 101 mg/dL Normal 0-149 [facility] Comment on above: Result Comment: TRIG ATP III CLASSIFICATION TRIG less than 150 mg/dL Normal TRIG 150-199 mg/dL Borderline high TRIG 200-500 mg/dL High TRIG greater than 500 mg/dL Very high Standard traceable to the Center for Disease Conrtrol and Prevention (CDC) test method. Performed By: #### L IPID, CBC, CMP #### [facility] [address] VLDL CHOLESTEROL 20 mg/dL Normal [facility] Comment on above: Performed By: #### L IPID, CBC, CMP #### [facility] [address] Lymphocytes Auto (Bld) [#/Vo l]Ordered By: Summer Oliveira on 06-04-2023 Lymphocytes (Bld) [#/Vol] 1.5 10*3/uL 1.00-4.8 [facility] Lymphocytes/100 WBC Auto (Bl d)Ordered By: Summer Oliveira on 06-04-2023 Lymphocytes/100 WBC (Bld) 28.3 % . [facility] MCH Auto (RBC) [Entitic mass ]Ordered By: Summer Oliveira on 06-04-2023 MCH (RBC) [Entitic mass] 32.7 pg 27.5-35.2 [facility] MCHC Auto (RBC) [Mass/Vol]Or dered By: Summer Oliveira on 06-04-2023 MCHC (RBC) [Mass/Vol] 33.9 g/dL 32.5-35.6 [facility] MCV Auto (RBC) [Entitic vol] Ordered By: Summer Oliveira on 06-04-2023 MCV (RBC) [Entitic vol] 96.5 fL 83.5-101 [facility] Monocytes Auto (Bld) [#/Vol] Ordered By: Summer Oliveira on 06-04-2023 Monocytes (Bld) [#/Vol] 0.5 10*3/uL 0.0-0.8 [facility] Monocytes/100 WBC Auto (Bld) Ordered By: Summer Meansim on 06-04-2023 Monocytes/100 WBC (Bld) 10.1 % . [facility] Neutrophils Auto (Bld) [#/Vo l]Ordered By: Summer Meansim on 06-04-2023 Neutrophils (Bld) [#/Vol] 2.9 10*3/uL 1.8-7.7 [facility] Neutrophils/100 WBC Auto (Bl d)Ordered By: Smumer Meansim on 06-04-2023 Neutrophils/100 WBC (Bld) 56.4 % . [facility] No Panel InformationOrdered By: Summer Oliveira on 06-04-2023 Estimated GFR (CKD-EPI) > 60.0 mL/Min [facility] Creatinine Clearanc e (Chem N/A [facility] Nucleated erythrocytes [Pres ence] in Blood by Automated countOrdered By: Summer Oliveira on 06-04-2023 Nucleated RBC Auto Ql (Bld) 0.1 /100{WBC} 0-0.5 [facility] Platelet mean volume Auto (B ld) [Entitic vol]Ordered By: Summer Oliveira on 06-04-2023 Platelet mean volume (Bld) [Entitic vol] 9.0 fL 6.6-10.1 [facility] Platelets Auto (Bld) [#/Vol] Ordered By: Summer Oliveira on 06-04-2023 Platelets (Bld) [#/Vol] 140 10*3/uL 150-450 [facility] Potassium [Moles/volume] in Serum or PlasmaOrdered By: Summer Oliveira on 06-04-2023 Potassium [Moles/Vol] 4.6 mmol/L 3.5-5.1 [facility] RBC Auto (Bld) [#/Vol]Ordere d By: Summer Oliveira on 06-04-2023 RBC (Bld) [#/Vol] 4.12 10*6/uL 3.90-5.60 [facility] Serum or plasma anion gap de terminationOrdered By: Summer Oliveira on 06-04-2023 Anion gap [Moles/Vol] 10.5 mmol/L 6.0-15.0 [facility] Serum or plasma high density lipoprotein (HDL) cholesterol measurementOrdered By: Summer Oliveira on 06-04-2023 Cholesterol in HDL [Mass/Vol] 43 mg/dL 23- [facility] Comment on above: HDL CHOL ATP-III CLA SSIFICATION Cardiovascular RiskHDL > or equal to 60 mg/dL LOWHDL < 40 mg/dL HIGH Serum or plasma total choles terol/high density lipoprotein (HDL) cholesterol mass ratOrdered By: Summer Oliveira on 06-04-2023 Cholesterol.total/Cholestero l in HDL [Mass ratio] 2.6 {ratio} <5.0 [facility] Sodium [Moles/volume] in Ser um or PlasmaOrdered By: Summer Oliveira on 06-04-2023 Sodium [Moles/Vol] 140 mmol/L 136-145 [facility] Triglyceride [Mass/volume] i n Serum or PlasmaOrdered By: Summer Oliveira on 06-04-2023 Triglyceride [Mass/Vol] 101 mg/dL 0-149 [facility] Comment on above: TRIG ATP III CLASSIF ICATIONTRIG less than 150 mg/dL NormalTRIG 150-199 mg/dL Borderline highTRIG 200-500 mg/dL High TRIG greater than 500 mg/dL Very highStandard traceable to the Center for Disease Conrtrol and Prevention (CDC) test method. Urea nitrogen [Mass/volume] in Serum or PlasmaOrdered By: Summer Oliveira on 06-04-2023 Urea nitrogen [Mass/Vol] 22 mg/dL 7- [facility] WBC Auto (Bld) [#/Vol]Ordere d By: Summer Oliveira on 06-04-2023 WBC (Bld) [#/Vol] 5.2 10*3/uL 4.1-10.5 [facility] Lab Reportson 05-22-2023 Lab Reports [id number] D:127 Normal [facility] RAD - MISCon 05-22-2023 RAD - MISC [id number] :127 [facility] Formson 05-20-2023 Forms [id number] :127 [facility] Ambulatory Visit Summaryon 0 05-17-2023 Ambulatory Visit Summary NATYERIK DAVIS :1940 Visit Date:05/17/2023 Ambulatory Visit Instructions Your Diagnosis Ureteral stone Kidney stones Renal cyst, left BPH with obstruction/lower urinary tract symptoms Incomplete bladder emptying Antiplatelet or antithrombotic long-term use Tests Performed Urnls Dip Stick Auto w/o Microscopy POC 23916 Your Care Team Attending Physician - Matilda Murphy MD Primary Care Physician - JESSE GARCÍA DO This Is Your Medications List tamsulosin (Flomax 0.4 mg Cap) Contact prescribing physician if questions or concerns amlodipine (amLODIPine 5 mg Tab) atorvastatin clopidogrel (clopidogrel 75 mg Tab) isosorbide dinitrate (isosorbide dinitrate 30 mg oral tablet) meloxicam (meloxicam 15 mg Tab) metoprolol (Metoprolol tartrate 50 mg Tab) multivitamin with minerals (Multivitamins and Minerals) nitroglycerin (nitroglycerin 0.4 mg sublingual Tab) omega-3 polyunsaturated fatty acids (Fish Oil) omeprazole (omeprazole 40 mg Cap-DR) paroxetine (paroxetine 10 mg Tab) valsartan (valsartan 80 mg Tab) Procedures Performed Cystoscopic removal of ureteric stent (09/15/2018), ESWL of kidney (09/10/2018), cystoscopy, retrograde, stenting and cystoscopy, lithotripsy (09/21/2016), Cystoscope (08/19/2016), colonoscopy (05/28/2010), hernia (05/28/2010), Arthroscopy of knee, Cardiac catheterization, Cataract extraction and insertion of intraocular lens, Cataract extraction and insertion of intraocular lens, Endoscopy, Sigmoidoscopy, YAG - laser. Discharge Vitals Heart Rate (Peripheral) 66 Blood Pressure 127/70 Height 187 cm Height 74 in Weight 113.5 kg Weight 249.7 lb BMI 32.46 What to do next Scheduled Follow-Up Appointments Saturday 8:45 AM EST With: ROSALVA ORTEGA, Gautam Pereira Where: [facility] Chago Roa [facility] Patient Educationon 05-17-20 23 Patient Education Nephrology Laser Therapy for Kidney Stones, Care After This sheet gives you information about how to care for yourself after your procedure. Your health care provider may also give you more specific instructions. If you have problems or questions, contact your health care provider. What can I expect after the procedure? After the procedure, it is common to have: ? Pain. ? A burning sensation while urinating. ? Small amounts of blood in your urine. ? A need to urinate frequently. ? Pieces of kidney stone in your urine. ? Mild discomfort when urinating that may be felt in the back. You may experience this if you have a flexible tube (stent) in your ureter. Follow these instructions at home: Medicines ? Take gqqw-ugv-vpusnty and prescription medicines only as told by your health care provider. ? If you were prescribed an antibiotic medicine, take it as told by your health care provider. Do not stop taking the antibiotic even if you start to feel better. ? Ask your health care provider if the medicine prescribed to you: ? Requires you to avoid driving or using heavy machinery. ? Can cause constipation. You may need to take actions to prevent or treat constipation, such as: ? Take emus-uwh-ymqmsvv or prescription medicines. ? Eat foods that are high in fiber, such as beans, whole grains, and fresh fruits and vegetables. ? Limit foods that are high in fat and processed sugars, such as fried or sweet foods. Activity ? Return to your normal activities as told by your health care provider. Ask your health care provider what activities are safe for you. ? Do not drive for 24 hours if you were given a sedative during your procedure. General instructions ? If your health care provider approves, you may take a warm bath to ease discomfort and burning. ? Drink enough fluid to keep your urine pale yellow. Your health care provider may recommend drinking two 8 oz (237 mL) glasses of water per hour for a few hours after your procedure. ? You may be asked to strain your urine to collect any stone fragments that you pass. These fragments may be tested. ? Keep all follow-up visits as told by your health care provider. This is important. If you have a stent, you will need to return to your health care provider to have the stent removed. Contact a health care provider if you: ? Have pain or a burning feeling that lasts more than 2 days. ? Feel nauseous. ? Vomit more and more often. ? Have difficulty urinating. ? Have pain that gets worse or does not get better with medicine. Get help right away if: ? You are unable to urinate, even if your bladder feels full. ? You have: ? Bright red blood or blood clots in your urine. ? More blood in your urine. ? Severe pain or discomfort. ? A fever or shaking chills. ? Abdominal pain. ? Difficulty breathing. ? Swelling in your legs. Summary ? After the procedure, it is common to have a burning sensation while urinating and small amounts of blood in your urine. ? Take zufq-yuw-gyydiyk and prescription medicines only as told by your health care provider. ? Drink enough fluid to keep your urine pale yellow. ? Keep all follow-up visits as told by your health care provider. This is important. This information is not intended to replace advice given to you by your health care provider. Make sure you discuss any questions you have with your health care provider. Document Revised: 04/09/2022 Document Reviewed: 04/09/2022 [employer] Patient Education ? 2022 [employer] Laser Therapy for Kidney Stones Laser therapy for kidney stones is a procedure to break up small, hard mineral deposits that form in the kidney (kidney stones). The procedure is done using a device that produces a focused beam of light (laser). The laser breaks up kidney stones into pieces that are small enough to be passed out of the body through urination or removed from the body during the procedure. You may need laser therapy if you have kidney stones that are painful or block your urinary tract. This procedure is done by inserting a tube (ureteroscope) into your kidney through the urethral opening. The urethra is the part of the body that drains urine from the bladder. In women, the urethra opens above the vaginal opening. In men, the urethra opens at the tip of the penis. The ureteroscope is inserted through the urethra, and surgical instruments are moved through the bladder and the muscular tube that connects the kidney to the bladder (ureter) until they reach the kidney. Tell a health care provider about: ? Any allergies you have. ? All medicines you are taking, including vitamins, herbs, eye drops, creams, and xxod-qeh-igvkvmd medicines. ? Any problems you or family members have had with anesthetic medicines. ? Any blood disorders you have. ? Any surgeries you have had. ? Any medical conditions you have. ? Whether you are or may be . What are the ris (more content not included)... Normal [facility] Screenson 05-17-2023 Screens [id number] D:127 Normal [facility] Screens [id number] D:127 Normal [facility] Urology Office/Clinic Noteon 05-17-2023 Urology Office/Clinic Note Chief Complaint 3 week follow up to discuss stone treatment HPI Staff Erik is a 82 y.o. male here for 3 week follow up to discuss stone treatment. Previous Dx: BPH, dysuria, feeling of incomplete bladder emptying, flank pain, frequent urination, gross hematuria, hesitancy, kidney stones, microhematuria, nocturia, ureteral stone, urinary urgency. S/P cysto/stent removal done on 09/15/18, ESWL done on 09/10/18. Last seen SANDY on 04/25/23, previous [facility]WR patient. CT scan w/o contrast done on 04/27/23 showed left renal cyst, multiple bilateral renal stones largest RT 11mm & largest LT 7mm, 7mm stone LT ureter proximal to UVJ. IPSS SCORE 17. DAVID 5. PVR today 156ml. Dysuria: denies pain and burning Incomplete bladder emptying: denies Hematuria: denies visible blood Frequency: 3x a day Urgency: occasionally Nocturia: 2x a night Stream: denies hesitancy, good stream Leaking: denies Post void dripping: denies Wearing pads/ Depends: denies Urge incontinence: denies Stress incontinence: denies Incontinence without Sensory Awareness: denies Abdominal pain: denies Flank pain: denies History of Present Illness Tests reviewed: reviewed UA, CT I have reviewed the previous health record information and history for this patient from [facility]. I have reviewed and verified the staff HPI to be accurate for this encounter. There have been no associated fever, chills, flank pain, or blood in the urine. Denies any urinary infections since last encounter. Review of Systems PHQ Score Initial Depression Screen Score: 0 ROS - Provider Constitutional: denies weight loss, denies hot flashes. Eyes: denies eye problems. Gastrointestinal: denies nausea, denies vomiting. Cardiovascular: denies chest pain or angina. Integumentary: no dryness Musculoskeletal: denies musculoskeletal symptoms. ENMT: denies otolaryngeal symptoms. Respiratory: no shortness of breath. Heme/Lymph: denies easy bleeding tendency, denies easy bruising tendency. Psychiatric: no confusion, no anxiety. Genitourinary: See HPI. Physical Exam Vitals & Measurements HR: 66(Peripheral) BP: 127/70 HT: 74 in HT: 187 cm WT: 113.5 kg WT: 249.7 lb BMI: 32.46 General Appearance: alert, no distress, well nourished, well developed male. Genitourinary: Flank Pain: none. Bladder: nonpalpable. Assessment/Plan Prior Dr. García pt, last seen by SANDY 3 wks ago, here to discuss stone tx. Pt here with his , Jacey, today. DAVID 5. 1. Ureteral stone (N20.1: Calculus of ureter) Same stone present since 07/2022 CT AP wo con 04/27/23 [facility] - No hydro. No ureteral dilation however, large stone at the distal L ureter just proximal to the UVJ 7 mm. Personal review: L UVJ stone 6 x 10 mm. 11/26/22 - BUN 20. Crea 1.02. eGFR >60. Thinks he passed some small frags after ESWL. Never passed stone from Jul. Reviewed CT with pt with diagram. Explained risk of permanent kidney damage, possibility of stricture, staged procedures. Discussed surgical options, ESWL was not very successful in the past, URS/laser litho (will require staged procedures given extent of stone burden), vs refer for PCNL (most invasive, one procedure). Patient elects to proceed with staged ureteroscopy. -Will schedule staged L URS, L laser litho/stone extraction, L stent placement. The procedural risks, benefits, details, and treatment alternatives have been discussed with the patient. These include bleeding, infection, inability to break or retrieve all of the stone, injury to the ureter (the tube which connects the kidney to the bladder), injury to the kidney scarring of the ureter, and need for repeat procedures, among others. Full informed consent has been obtained. Will order General anesthesia. 2. Kidney stones (N20.0: Calculus of kidney) CT AP wo con 04/27/23 [facility] - Several bilateral renal stones. Largest on the R 11 mm and 7 mm on the L. Personal review: 9 stones in L kidney, largest 7 mm. 7 stones on the R. -We will address nonobstructive stones at the time of ureteral stone surgery per #1. Discussed staged fashion given greater than 2 cm stone burden. -We will address right-sided stones in the future 3. Renal cyst, left (N28.1: Cyst of kidney, acquired) CT AP wo con 04/27/23 [facility] - LMP hypodensity posteriorly 2.5 cm. Potential tiny cyst at the LLP. -Follow-up with renal ultrasound in 1 year 4. BPH with obstruction/lower urinary tract symptoms (N40.1: Benign prostatic hyperplasia with lower urinary tract symptoms) IPSS 17. Discussed bladder pathophysiology and potential treatment options. May be further impacted by left distal stone. -Start Flomax 0.4 mg qd. SEs discussed. Rx sent to [facility]. -Reassess after stone treatment 5. Incomplete bladder emptying (R33.9: Retention of urine, unspecified) PVR today 156 ml. -See #4 -Tamsulosin. Timed voiding. 6. Antiplatelet or antithrombotic long-term use (Z79.02: care home (current) use of antithrombotics/antiplatelets) Clopidogrel (more content not included)... Normal [facility] Comment on above: Result Comment: Elec tronically Signed By: Matilda Murphy MD\.br\Date and Time Signed: 05/17/23 16:48 EDT\.br\Electronically Co-Signed By: Nika Watson\.br\Date and Time Co-Signed: 05/17/23 11:51 EDT\.br\Electronically Co-Signed By: Nika Watson\.br\Date and Time Co-Signed: 05/17/23 11:[address]T RAD - CT Reporton 04-30-[address] - [address] Report [id number]:127 Normal [facility] RAD - CT Reporton 04-29-2023 RAD - CT Report [id number]:127 Normal [facility] CT abdomen pelvis wo conon 0 04-27-2023 CT abdomen pelvis [place] [address] CT Scan Report Signed Patient: Erik Alfonso MR#: [id number] : 1940 Acct:[id number] Age/Sex: 82 / M ADM Date: 04/27/23 Loc: CT Room: Type: [facility] Attending Dr: Deirdre Billy PA-C Copies to: Deirdre Billy PA-C Ordering Provider: Deirdre Billy PA-C Date of Service: 04/27/23 CT/CT abdomen pelvis wo con: R31.0, N20.0, N20.1 CT ABDOMEN AND PELVIS WITHOUT CONTRAST COMPARISON: 08/09/2022 CLINICAL DATA: Left flank pain and gross hematuria. History kidney stones. Spiral images were obtained through the abdomen and pelvis without contrast. This CT exam was performed using one or more following dose reduction techniques: Automated exposure control, adjustment of the mA and/or kV according to patient size, or use of iterative reconstruction technique. Limited cuts through the lung bases show minor atelectasis or scarring. Evaluation of the intra-abdominal organs is slightly limited by the absence of contrast. No calcified gallstones are identified. The liver, spleen, pancreas and adrenal glands show no acute findings. There is mild bilateral perinephric fibrofatty stranding. There is a left renal hypodensity at the midpole posteriorly measuring approximately 2.5 cm in size with a corresponding cysts on the comparison enhanced study. There is also potential tiny cyst at the lower pole on the left. There are several bilateral renal stones. The largest on the right measures 11 mm and on the left 7 mm. No hydronephrosis is present. No ureteral dilatation is seen however there is still a large stone at the distal left ureter just proximal to the ureterovesical junction measuring 7 mm in size. There is atherosclerotic plaque involving the aorta, iliac and some of the visceral arteries. There are tiny lymph nodes. No ascites is seen. There is a small umbilical hernia containing fat. There are normal caliber small bowel loops. Mild stool is present throughout the colon. There are some left-sided diverticula. Levoscoliotic curvature and degenerative changes are noted at the spine Images through the pelvis show normal caliber small bowel loops. The appendix is not definitely seen. There is mild distal colonic stool. There are additional descending and sigmoid diverticula, without associated active inflammation. The prostate is not significantly enlarged though it does contain calcified calcification. The urinary bladder is partially distended and there is still diffuse wall thickening. No free fluid is seen. CT/CT abdomen pelvis wo con IMPRESSION: LEFT RENAL CYSTS. MULTIPLE BILATERAL RENAL STONES. NO HYDRONEPHROSIS HOWEVER THERE IS A PERSISTENT STONE AT THE DISTAL LEFT URETER JUST PROXIMAL TO THE URETEROVESICAL JUNCTION. CONTINUED URINARY BLADDER WALL THICKENING DIVERTICULOSIS. Impression dictated by: Jossie Pineda M.D.04/27/2023 12:33 PM Dictation Location: [place] [address] Transcribed By: [facility] 04/27/23 1233 Dictated By: Jossie Pineda MD 04/27/23 1225 Signed By: 04/27/23 1233 [facility] Ambulatory Visit Summaryon 0 04-25-2023 Ambulatory Visit Summary ERIK ALFONSO :1940 Visit Date:04/25/2023 Ambulatory Visit Instructions Your Diagnosis Gross hematuria BPH (benign prostatic hyperplasia) Kidney stones Ureteral stone Tests Performed Urnls Dip Stick Auto w/o Microscopy POC [address]71 CT Abdomen/Pelvis w/o Contrast -- Results Pending -- Please visit your patient portal for your results or contact your primary care physician. Your Care Team Attending Physician - DEIRDRE BILLY PA-C Primary Care Physician - JESSE GARCÍA DO This Is Your Medications List amlodipine (amLODIPine 5 mg Tab) atorvastatin clopidogrel (clopidogrel 75 mg Tab) isosorbide dinitrate (isosorbide dinitrate 30 mg oral tablet) meloxicam (meloxicam 15 mg Tab) metoprolol (Metoprolol tartrate 50 mg Tab) multivitamin with minerals (Multivitamins and Minerals) nitroglycerin (nitroglycerin 0.4 mg sublingual Tab) omega-3 polyunsaturated fatty acids (Fish Oil) omeprazole (omeprazole 40 mg Cap-DR) paroxetine (paroxetine 10 mg Tab) valsartan (valsartan 80 mg Tab) Procedures Performed Cystoscopic removal of ureteric stent (09/15/2018), ESWL of kidney (09/10/2018), cystoscopy, retrograde, stenting and cystoscopy, lithotripsy (09/21/2016), Cystoscope (08/19/2016), colonoscopy (05/28/2010), hernia (05/28/2010), Arthroscopy of knee, Cardiac catheterization, Cataract extraction and insertion of intraocular lens, Cataract extraction and insertion of intraocular lens, Endoscopy, Sigmoidoscopy, YAG - laser. Discharge Vitals Temperature (Temporal Artery) 36.7 ?C Heart Rate (Peripheral) 62 Blood Pressure 132/68 Height 187 cm Height 74 in Weight 113.5 kg Weight 249.7 lb BMI 32.46 What to do next Scheduled Follow-Up Appointments Saturday. 2023 8:45 AM EST With: ROSALVA ORTEGA, Gautam Pereira Where: [facility] Patient Educationon 04-25-20 Patient Education Nephrology Dietary Guidelines to Help Prevent Kidney Stones Kidney stones are deposits of minerals and salts that form inside your kidneys. Your risk of developing kidney stones may be greater depending on your diet, your lifestyle, the medicines you take, and whether you have certain medical conditions. Most people can lower their chances of developing kidney stones by following the instructions below. Your dietitian may give you more specific instructions depending on your overall health and the type of kidney stones you tend to develop. What are tips for following this plan? Reading food labels ? Choose foods with no salt added or low-salt labels. Limit your salt (sodium) intake to less than 1,500 mg a day. ? Choose foods with calcium for each meal and snack. Try to eat about 300 mg of calcium at each meal. Foods that contain 200?500 mg of calcium a serving include: ? 8 oz (237 mL) of milk, gvzzdho-tvxcycspzbxa-pmzas milk, and calcium-fortifiedfruit juice. Calcium-fortified means that calcium has been added to these drinks. ? 8 oz (237 mL) of kefir, yogurt, and soy yogurt. ? 4 oz (114 g) of tofu. ? 1 oz (28 g) of cheese. ? 1 cup (150 g) of dried figs. ? 1 cup (91 g) of cooked broccoli. ? One 3 oz (85 g) can of sardines or mackerel. Most people need 1,000?1,500 mg of calcium a day. Talk to your dietitian about how much calcium is recommended for you. Shopping ? Buy plenty of fresh fruits and vegetables. Most people do not need to avoid fruits and vegetables, even if these foods contain nutrients that may contribute to kidney stones. ? When shopping for convenience foods, choose: ? Whole pieces of fruit. ? Pre-made salads with dressing on the side. ? Low-fat fruit and yogurt smoothies. ? Avoid buying frozen meals or prepared deli foods. These can be high in sodium. ? Look for foods with live cultures, such as yogurt and kefir. ? Choose high-fiber grains, such as whole-wheat breads, oat bran, and wheat cereals. Cooking ? Do not add salt to food when cooking. Place a salt shaker on the table and allow each person to add his or her own salt to taste. ? Use vegetable protein, such as beans, textured vegetable protein (TVP), or tofu, instead of meat in pasta, casseroles, and soups. Meal planning ? Eat less salt, if told by your dietitian. To do this: ? Avoid eating processed or pre-made food. ? Avoid eating fast food. ? Eat less animal protein, including cheese, meat, poultry, or fish, if told by your dietitian. To do this: ? Limit the number of times you have meat, poultry, fish, or cheese each week. Eat a diet free of meat at least 2 days a week. ? Eat only one serving each day of meat, poultry, fish, or seafood. ? When you prepare animal protein, cut pieces into small portion sizes. For most meat and fish, one serving is about the size of the palm of your hand. ? Eat at least five servings of fresh fruits and vegetables each day. To do this: ? Keep fruits and vegetables on hand for snacks. ? Eat one piece of fruit or a handful of berries with breakfast. ? Have a salad and fruit at lunch. ? Have two kinds of vegetables at dinner. ? Limit foods that are high in a substance called oxalate. These include: ? Spinach (cooked), rhubarb, beets, sweet potatoes, and Georgian chard. ? Peanuts. ? Potato chips, maldivian fries, and baked potatoes with skin on. ? Nuts and nut products. ? Chocolate. ? If you regularly take a diuretic medicine, make sure to eat at least 1 or 2 servings of fruits or vegetables that are high in potassium each day. These include: ? Avocado. ? Banana. ? [place], prune, carrot, or tomato juice. ? Baked potato. ? Cabbage. ? Beans and split peas. Lifestyle ? Drink enough fluid to keep your urine pale yellow. This is the most important thing you can do. Spread your fluid intake throughout the day. ? If you drink alcohol: ? Limit how much you use to: ? 0?1 drink a day for women who are not . ? 0?2 drinks a day for men. ? Be aware of how much alcohol is in your drink. In the [place] one drink equals one 12 oz bottle of beer (355 mL), one 5 oz glass of wine (148 mL), or one 1? oz glass of hard liquor (44 mL). ? Lose weight if told by your health care provider. Work with your dietitian to find an eating plan and weight loss strategies that work best for you. General information ? Talk to your health care provider and dietitian about taking daily supplements. You may be told the following depending on your health and the cause of your kidney stones: ? Not to take supplements with vitamin C. ? To take a calcium supplement. ? To take a daily probiotic supplement. ? To take other supplements such as magnesium, fish oil, or vitamin B6. ? Take nzai-gux-baqsyvs and prescription medicines only as told by your health care provider. These include supplements. What foods should I limit? Limit your in (more content not included)... Normal [facility] Urology Office/Clinic Noteon 04-25-2023 Urology Office/Clinic Note Chief Complaint OV due to intermittent hematuria HPI Staff Pt is here today for OV due to intermittent hematuria. Previous DX: abdominal tenderness, BPH, dysuria, feeling of incomplete bladder emptying, flank pain, frequent urination, hesitancy, kidney stones, microhematuria, nocturia, ureteral stone, urinary urgency. S/P Cysto/stent removal done 09/15/18. ESWL done 09/10/18. Dysuria: denies pain and burning Incomplete bladder emptying: denies Hematuria: Pt states he's seen blood 2x this last week Frequency: 3x a day Urgency: occasionally depending on water intake Nocturia: 2x a night Stream: denies hesitancy, medium to weak stream, very slow stream Leaking: denies Post void dripping: denies Wearing pads/ Depends: denies Urge incontinence: yes Stress incontinence: denies Incontinence without Sensory Awareness: denies Abdominal pain: denies Flank pain: denies History of Present Illness staff HPI reviewed and agree. Review of Systems PHQ Score Initial Depression Screen Score: 0 no fever, chills, malaise, myalgia. no rash/lesions. no chest pain, palpitations, or SOB. no abdominal pain, nausea, vomiting. no unilateral calf swelling, redness, pain Physical Exam Vitals & Measurements T: 36.7 ?C(Temporal Artery) HR: 62(Peripheral) BP: 132/68 HT: 74 in HT: 187 cm WT: 113.5 kg WT: 249.7 lb BMI: 32.46 General: nontoxic, NAD Mouth: moist mucosa Lungs: normal respiratory effort Cardio: regular rate, good distal perfusion Abdomen: nondistended, no suprapubic distention or tenderness, no CVA tenderness Neurologic: Grossly normal Skin: No rashes or suspicious lesions Assessment/Plan RWR pt. 1. Gross hematuria (R31.0: Gross hematuria) UA today shows large blood and small leuks. denies UTI sx. will not send for cx at this time. Pt states he had seen visible blood in his urine this week, but none since stopping the Plavix. Pt states that he had some L lower abdominal pain, but mild/intermittent. Pt states that there seems to be some clots occasionally. No difficulty voiding/straining/hesitancy. Advised pt that this may be a stone, due to his history of stones. Will order STAT CT. Advised pt that if this is not caused by a stone, we would need to continue hematuria eval w cysto/cytology (and consider additional upper tract imaging). Advised pt to stay off the Plavix for now and to increase fluid intake. ER if fever, vomiting, severe pain, unable to void. -Will order CT AP w/o Con for stat, pt will get this done at [facility]. -Hold off the Plavix. -Increase Fluid Intake. 2. BPH (benign prostatic hyperplasia) (N40.0: Benign prostatic hyperplasia without lower urinary tract symptoms) S/p Cysto 08/19/16 IPSS 13(13) QoL 3(5) Pt currently not on any BPH medications at this time. PSA 10/08/22- 2.89 10/10/21- 2.86 PSA has remained stable within normal range. Pt wishes to continue checking. Due again in sep 2023. 3. Kidney stones (N20.0: Calculus of kidney) S/p Lithotripsy S/P ESWL 09/10/18 CT 08/09/22 - multiple bilateral renal calculi measuring up to 7 mm on the left and 9 mm on the right. See #1 4. Ureteral stone (N20.1: Calculus of ureter) CT 08/09/22 - a distal left ureteral stone just proximal to the ureterovesical junction measuring 5 mm in size. Per previous note Sep 2022 pt felt he passed that stone. However never had f/u imaging to confirm. See #1 We will call pt. All questions/concerns were discussed. Pt to call the office if he encounters any issues prior. Pt acknowledges understanding. Follow-up With When Contact Information DEIRDRE BILLY PA-C, URL [id number] [place] [address] Additional Instructions: We will call pt. Patient Education Dietary Guidelines to Help Prevent Kidney Stones IRhiannon, personally scribed for Deirdre Billy PA-C on 04/25/2023 13:44:15. . Documentation recorded by the yomi Montoya accurately reflects the services(s) I performed and decisions made by me. Authenticated by Deirdre Billy PA-C on 04/25/2023 14:22:25. Problem List/Past Medical History Ongoing Abdominal tenderness BPH (benign prostatic hyperplasia) Dysuria Feeling of incomplete bladder emptying Flank pain Frequent urination Gross hematuria Hesitancy Kidney stones Microhematuria Nocturia Ureteral stone Urinary urgency Historical No qualifying data Procedure/Surgical History Cystoscopic removal of ureteric stent (09/15/2018), ESWL of kidney (09/10/2018), cystoscopy, retrograde, stenting and cystoscopy, lithotripsy (09/21/2016), Cystoscope (08/19/2016), colonoscopy (05/28/2010), hernia (05/28/2010), Arthroscopy of knee, Cardiac catheterization, Cataract extraction and insertion of intraocular lens, Cataract extraction and insertion of intraocular lens, Endoscopy, Sigmoidoscopy, YAG - laser. Medications amLODIPine 5 mg Tab, 5 mg= 1 tab(s), Oral, Ena (more content not included)... Normal [facility] Comment on above: Result Comment: Elec tronically Signed By: DEIRDRE BILLY PA-C\.br\Date and Time Signed: 04/25/23 14:22 EDT\.br\Electronically Co-Signed By: Rhiannon Montoya\.br\Date and Time Co-Signed: 04/25/23 13:44 EDT Reminderson 01-21-2023 Reminders - From: Joanna Kim To: MARNIE Blackwell; Sent: 01/21/2023 10:54:15 EDT Show up: 12/22/2023 10:54:00 EDT Subject: Reminder Message Reminder Message Please Remember to:_ PATIENT RELATED REMINDER:_ ( ) Call Patient ( ) Ask Patient to ( ) Call Relative ( ) Schedule Patient ( ) Follow up on Results ( X ) Other: Pt needs PSA & KUB order PROVIDER RELATED REMINDER:_ ( ) Line Installation Supervisor ( ) Call Pharmacy ( ) Call Lab ( ) Other: Special Instructions:_ Comments:_ Normal [facility] Office Visit (Cardiology)on 11-28-2022 Follow-up visit Diagnoses/Problems Assessed ASHD (arteriosclerotic heart disease) (414.00) (I25.10) 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) Essential hypertension, benign (401.1) (I10) Hyperlipidemia (272.4) (E78.5) Class 1 obesity with body mass index (BMI) of 33.0 to 33.9 in adult (278.00,V85.33) (E66.9,Z68.33) Never a smoker Sleep apnea (780.57) (G47.30) Orders ASHD (arteriosclerotic heart disease), Hyperlipidemia Renew: Atorvastatin Calcium 20 MG Oral Tablet; TAKE 1 TABLET AT BEDTIME Class 1 obesity with body mass index (BMI) of 33.0 to 33.9 in adult Healthy Weight Tips; Status:Complete - Retrospective Authorization; Done: [id number] Some eating tips that can help you lose weight.; Status:Complete - Retrospective Authorization; Done: [id number] Essential hypertension, benign Renew: Metoprolol Succinate ER 50 MG Oral Tablet Extended Release 24 Hour; Take 1 tablet once daily SocHx: Never a smoker Tobacco Use Screening; Status:Complete; Done: [id number] Patient Instructions Please bring all medicines, vitamins, and herbal supplements with you when you come to the office. Prescriptions will not be filled unless you are compliant with your follow up appointments or have a follow up appointment scheduled as per instruction of your physician. Refills should be requested at the time of your visit. Follow up in 6 months Same meds The provider reviewed the following test(s) and result(s) with the patient: ECG Chief Complaint ERIK ALFONSO is being seen for a 6 month follow-up of. Patient is in the office for follow-up for the problems noted below. He was tested for sleep apnea and it was confirmed and he started using CPAP machine with excellent results. He is very pleased with that. He saw sleep specialist Dr. Diaz last week. The note from the visit was reviewed by myself. The patient also lost weight by lifestyle changes which she is happy about. His recently had left shoulder surgery with complications of broken humerus bone. She is recovering at this time and is taking care of her. His lab data were reviewed and his lipids are excellent. He denies any angina or need for nitroglycerin. He maintains active lifestyle. Apart from obesity physical examination was unremarkable. ASSESSMENT AND PLAN: 1. Coronary artery disease involving the LAD with 70% ostial LAD lesion based on cardiac catheterization June 2020 that was assessed with FFR and was found to be physiologically insignificant. Patient is doing well on present medical therapy with minimal symptoms and no adjustments were needed. Risk factor for CAD have been controlled. Reminded the patient to let me know if his symptoms change in the way that we have to investigate further for his LAD lesion 2. Hypertension, presently controlled. No medication changes needed 3. obesity, patient went through lifestyle changes with low-calorie diet and reduce his alcohol consumption and as a result his weight has come down with the plan to further work on it. 4. Dyslipidemia. On atorvastatin , LDL is on target 5. 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 Presently stable 6. Sleep apnea on CPAP machine with excellent results and with no side effect of the device. Summer Oliveira MD, [facility] Surgical History Problems History of Cardiac catheterization History of Cataract surgery History of Complete colonoscopy Managed By: Dana ORTEGA, Martin Ross (Gastroenterology) History of Endoscopy History of Hernia repair History of Knee surgery History of Lithotripsy History of Sigmoidoscopy Past Medical History Problems History of Abnormal stress test (794.39) (R94.39) Resolved Date: 28 Nov 2022 History of Dyspnea on exertion (786.09) (R06.09) History of fatigue (V13.89) (Z87.898) History of Hypersomnia (780.54) (G47.10) History of Loud snoring (786.09) (R06.83) Current Meds Medication NameInstruction amLODIPine Besylate 5 MG Oral TabletTake 1 tablet daily Atorvastatin Calcium 20 MG Oral TabletTAKE 1 TABLET AT BEDTIME Clopidogrel Bisulfate 75 MG Oral TabletTake 1 tablet daily Complete Senior TABSTAKE 1 TABLET DAILY. Isosorbide Mononitrate ER 30 MG Oral Tablet Extended Release 24 HourTake 1 tablet daily Krill Oil 350 MG Oral CapsuleTAKE 1 CAPSULE Daily Meloxicam 15 MG Oral TabletTAKE 1 TABLET DAILY. Metoprolol Succinate ER 50 MG Oral Tablet Extended Release 24 HourTake 1 tablet once daily Nitrostat 0.4 MG Sublingual Tablet Sublingual Omeprazole 40 MG Oral Capsule Delayed ReleaseTAKE 1 CAPSULE EVERYOTHER DAY PARoxetine HCl - 10 MG Oral TabletTAKE 1 TABLET DAILY. Valsartan 80 MG Oral TabletTake 1 tablet daily Allergies Medication MANUELA Inhibitors Adverse Reaction; Cough; Recorded By: Patricia Jacob; 05/20/2021 1:17:56 PM Social History Problems Caffeine use (V49.89) (Z78.9) 3 cups coffee daily Consumes alcohol (V49.89) (Z78.9) slight Never a smoker No illicit drug use Rev (more content not included)... Normal [facility] [employer] Tobacco Screening.on 023 Adult depression screening assessment No [facility] 250 DO Work Phone: Fall risk assessment a) No falls within the last year [facility] [place] 250 DO Work Phone: Tobacco use status [facility]PH[facility] b) No [facility] 250 DO Work Phone: Basic Metabolic Panelon 11-17 Anion gap [Moles/Vol] 10.0 mmol/L Normal 6.0-15.0 [facility] Comment on above: Order Comment: FASTI CORI. JKW Performed By: #### C BC, BMP #### [address] Calcium [Mass/Vol] 8.8 mg/dL Normal 8.6-10.3 [facility] Comment on above: Order Comment: FASTI NG. JKW Result Comment: PERF ORMED BY: [place] [address] PATHOLOGIST ELEMENTARY MATH TUTOR LATONIA VASQUEZ M.D. Performed By: #### C BC, BMP #### [facility] [address] [place] [address] [place] Chloride [Moles/Vol] 107 mmol/L Normal 98-107 [facility] Comment on above: Order Comment: FASTI NG. JKW Performed By: #### C BC, BMP #### [facility] [address] [place] [address] [place] CO2 [Moles/Vol] 29.1 mmol/L Normal 21.0-31.0 [facility] Comment on above: Order Comment: FASTI NG. JKW Performed By: #### C BC, BMP #### [facility] [address] [place] [address] [place] Creatinine [Mass/Vol] 1.02 mg/dL Normal 0.70-1.30 [facility] Comment on above: Order Comment: FASTI NG. JKW Performed By: #### C BC, BMP #### [facility] [address] [place] [address] [place] GFR/1.73 sq M.predicted MDRD (S/P/Bld) [Vol rate/Area] mL/min/{1.73_m2} Normal [facility] Comment on above: Order Comment: FASTI NG. JKW Performed By: #### C BC, BMP #### [facility] [address] [place] [address] [place] Glucose [Mass/Vol] 98 mg/dL Normal 70-100 [facility] Comment on above: Order Comment: FASTI NG. JKW Result Comment: [facility] Glucose Reference Range is dependent on time and content of last meal. Glucose of more than 200 mg/dL in a nonstressed, ambulatory subject supports the diagnosis of Diabetes Mellitus. ADA recommended reference range Performed By: #### C BC, BMP #### [facility] [address] [place] [address] [place] Potassium [Moles/Vol] 4.1 mmol/L Normal 3.5-5.1 [facility] Comment on above: Order Comment: FASTI NG. JKW Performed By: #### C BC, BMP #### [facility] [address] [place] [id number] [place] Sodium [Moles/Vol] 142 mmol/L Normal 136-145 [facility] Comment on above: Order Comment: FASTI NG. JKW Performed By: #### C BC, BMP #### [facility] [address] [place] [address] [place] Urea nitrogen [Mass/Vol] 20 mg/dL Normal 7-25 [facility] Comment on above: Order Comment: FASTI NG. JKW Performed By: #### C BC, BMP #### [facility] [address] [place] [address] [place] Basophils Auto (Bld) [#/Vol] Ordered By: Summer Oliveira on 11-26-2022 Basophils (Bld) [#/Vol] 0.0 10*3/uL 0.0-0.2 [facility] Basophils/100 WBC Auto (Bld) Ordered By: Summer Oliveira on 11-26-2022 Basophils/100 WBC (Bld) 0.6 % . [facility] Calcium [Mass/volume] in Ser um or PlasmaOrdered By: Summer Oliveira on 11-26-2022 Calcium [Mass/Vol] 8.8 mg/dL 8.6-10.3 [facility] Carbon dioxide, total [Moles /volume] in Serum or PlasmaOrdered By: Sumemr Oliveira on 11-26-2022 CO2 [Moles/Vol] 29.1 mmol/L 21.0-31.0 [facility] Chloride [Moles/volume] in S daniel or PlasmaOrdered By: Summer Oliveira on 11-26-2022 Chloride [Moles/Vol] 107 mmol/L 98-107 [facility] Complete Blood Count Auto Di ffon 11-26-2022 Basophils (Bld) [#/Vol] 0.0 10*3/uL Normal 0.0-0.2 [facility] Comment on above: Order Comment: FASTI NG. JKW Result Comment: PERF ORMED BY: [facility] [address] [place] [address] PATHOLOGIST ELEMENTARY MATH TUTOR LATONIA VASQUEZ M.D. Performed By: #### C LING, BMP #### [facility] [address] Basophils/100 WBC (Bld) 0.6 % Normal . [facility] Comment on above: Order Comment: FASTI NG. JKW Performed By: #### C LING, BMP #### [facility] [address] [place] [address] Eosinophils (Bld) [#/Vol] 0.2 10*3/uL Normal 0.0-0.45 [facility] Comment on above: Order Comment: FASTI NG. JKW Performed By: #### C BC, BMP #### [address] Eosinophils/100 WBC (Bld) 4.6 % Normal . [facility] Comment on above: Order Comment: FASTI NG. JKW Performed By: #### C BC, BMP #### [address] Erythrocyte distribution wid th (RBC) [Ratio] 13.6 % Normal 12.0-14.8 [facility] Comment on above: Order Comment: FASTI NG. JKW Performed By: #### C BC, BMP #### [address] Hematocrit (Bld) [Volume fraction] 41.8 % Normal 38.8-50.0 [facility] Comment on above: Order Comment: FASTI NG. JKW Performed By: #### C BC, BMP #### [address] Hemoglobin (Bld) [Mass/Vol] 14.3 g/dL Normal 13.0-17. 0 [facility] Comment on above: Order Comment: FASTI NG. JKW Performed By: #### C BC, BMP #### [address] Lymphocytes (Bld) [#/Vol] 1.5 10*3/uL Normal 1.00-4.8 [facility] Comment on above: Order Comment: FASTI NG. JKW Performed By: #### C BC, BMP #### [address] Lymphocytes/100 WBC (Bld) 30.6 % Normal . [facility] Comment on above: Order Comment: FASTI NG. JKW Performed By: #### C BC, BMP #### [address] [place] [address] [place] MCH (RBC) [Entitic mass] 32.9 pg Normal 27.5-35.2 [facility] Comment on above: Order Comment: FASTI NG. JKW Performed By: #### C BC, BMP #### [address] MCV (RBC) [Entitic vol] 96.1 fL Normal 83.5-101 [facility] Comment on above: Order Comment: FASTI NG. JKW Performed By: #### C BC, BMP #### [address] Mean Corpuscular HGB Conc 34.2 g/dL Normal 32.5-35.6 [facility] Comment on above: Order Comment: FASTI NG. JKW Performed By: #### C BC, BMP #### [address] Monocytes (Bld) [#/Vol] 0.5 10*3/uL Normal 0.0-0.8 [facility] Comment on above: Order Comment: FASTI NG. JKW Performed By: #### C BC, BMP #### [address] Monocytes/100 WBC (Bld) 9.7 % Normal . [facility] Comment on above: Order Comment: FASTI NG. JKW Performed By: #### C BC, BMP #### [address] Neutrophils (Bld) [#/Vol] 2.7 10*3/uL Normal 1.8-7.7 [facility] Comment on above: Order Comment: FASTI NG. JKW Performed By: #### C BC, BMP #### [address] Neutrophils/100 WBC (Bld) 54.5 % Normal . [facility] Comment on above: Order Comment: FASTI NG. JKW Performed By: #### C BC, BMP #### [address] [place] [address] [place] NRBC% 0.1 /100{WBC} Normal 0-0.5 [facility] Comment on above: Order Comment: FASTI NG. JKW Performed By: #### C BC, BMP #### [facility] [address] Platelet mean volume (Bld) [Entitic vol] 8.7 fL Normal 6.6-10.1 [facility] Comment on above: Order Comment: FASTI NG. JKW Performed By: #### C BC, BMP #### [facility] [address] Platelets (Bld) [#/Vol] 143 10*3/uL Low 150-450 [facility] Comment on above: Order Comment: FASTI NG. JKW Performed By: #### C BC, BMP #### [address] RBC (Bld) [#/Vol] 4.35 10*6/uL Normal 3.90-5.60 [facility] Comment on above: Order Comment: FASTI NG. JKW Performed By: #### C BC, BMP #### [address] WBC (Bld) [#/Vol] 5.0 10*3/uL Normal 4.1-10.5 [facility] Comment on above: Order Comment: FASTI NG. JKW Performed By: #### C BC, BMP #### [address] Creatinine [Mass/volume] in Serum or PlasmaOrdered By: Summer Oliveira on 11-26-2022 Creatinine [Mass/Vol] 1.02 mg/dL 0.70-1.30 [facility] Eosinophils Auto (Bld) [#/Vo l]Ordered By: Summer Oliveira on 11-26-2022 Eosinophils (Bld) [#/Vol] 0.2 10*3/uL 0.0-0.45 [facility] Eosinophils/100 WBC Auto (Bl d)Ordered By: Summer Oliveira on 11-26-2022 Eosinophils/100 WBC (Bld) 4.6 % . [facility] [facility] Erythrocyte distribution wid th Auto (RBC) [Ratio]Ordered By: Summer Oliveira on 11-26-2022 Erythrocyte distribution wid th (RBC) [Ratio] 13.6 % 12.0-14.8 [facility] Glucose [Mass/volume] in Ser um or PlasmaOrdered By: Summer Oliveira on 11-26-2022 Glucose [Mass/Vol] 98 mg/dL 70-100 [facility] Comment on above: ADA recommended refe rence rangeRandom Glucose Reference Range is dependent on time and content of last meal. Glucose of more than 200 mg/dL in a nonstressed, ambulatory subject supports the diagnosis of Diabetes Mellitus. Hematocrit Auto (Bld) [Volum e fraction]Ordered By: Summer Oliveira on 11-26-2022 Hematocrit (Bld) [Volume fraction] 41.8 % 3 8.8-50.0 [facility] Hemoglobin [Mass/volume] in BloodOrdered By: Summer Oliveira on 11-26-2022 Hemoglobin (Bld) [Mass/Vol] 14.3 g/dL 13.0-17. 0 [facility] Leukocytes [#/volume] correc charity for nucleated erythrocytes in Blood by Automated counOrdered By: Summer Oliveira on 11-26-2022 WBC corrected for nucl RBC A uto (Bld) [#/Vol] 5.0 10*3/uL 4.1-10.5 [facility] Lymphocytes Auto (Bld) [#/Vo l]Ordered By: Summer Oliveira on 11-26-2022 Lymphocytes (Bld) [#/Vol] 1.5 10*3/uL 1.00-4.8 [facility] Lymphocytes/100 WBC Auto (Bl d)Ordered By: Summer Oliveira on 11-26-2022 Lymphocytes/100 WBC (Bld) 30.6 % . [facility] MCH Auto (RBC) [Entitic mass ]Ordered By: Summer Oliveira on 11-26-2022 MCH (RBC) [Entitic mass] 32.9 pg 27.5-35.2 [facility] MCHC Auto (RBC) [Mass/Vol]Or dered By: Summer Oliveira on 11-26-2022 MCHC (RBC) [Mass/Vol] 34.2 g/dL 32.5-35.6 [facility] MCV Auto (RBC) [Entitic vol] Ordered By: Summer Oliveira on 11-26-2022 MCV (RBC) [Entitic vol] 96.1 fL 83.5-101 [facility] Monocytes Auto (Bld) [#/Vol] Ordered By: Summer Meansim on 11-26-2022 Monocytes (Bld) [#/Vol] 0.5 10*3/uL 0.0-0.8 [facility] Monocytes/100 WBC Auto (Bld) Ordered By: Summer Oliveira on 11-26-2022 Monocytes/100 WBC (Bld) 9.7 % . [facility] Neutrophils Auto (Bld) [#/Vo l]Ordered By: Summer Oliveira on 11-26-2022 Neutrophils (Bld) [#/Vol] 2.7 10*3/uL 1.8-7.7 [facility] Neutrophils/100 WBC Auto (Bl d)Ordered By: Summer Oliveira on 11-26-2022 Neutrophils/100 WBC (Bld) 54.5 % . [facility] No Panel InformationOrdered By: Summer Oliveira on 11-26-2022 Estimated GFR (CKD-EPI) > 60.0 mL/Min [facility] Creatinine Clearanc e (Chem N/A [facility] No Panel Informationon 11-26 54.5\S\54.5 Normal . [facility] [address] DO Work Phone: 8.7\S\8.7 Normal 6.6-10.1 [facility] DO Work Phone: 143\S\143 below low threshold 150-450 [facility] Work Phone: 13.6\S\13.6 Normal 12.0-14.8 [facility] 250 DO Work Phone: 34.2\S\34.2 Normal 32.5-35.6 [facility] 250 DO Work Phone: 32.9\S\32.9 Normal 27.5-35.2 [facility] 250 DO Work Phone: 2.7\S\2.7 Normal 1.8-7.7 [facility] 250 DO Work Phone: 0.1\S\0.1 Normal 0-0.5 [facility] DO Work Phone: 0.6\S\0.6 Normal . [facility] DO Work Phone: 4.6\S\4.6 Normal . [facility] DO Work Phone: 9.7\S\9.7 Normal . [facility] DO Work Phone: 30.6\S\30.6 Normal . [facility] DO Work Phone: 0.0\S\0.0 Normal 0.0-0.2 [facility] DO Work Phone: Comment on above: PERFORMED BY:[place] [address] [address] [place], [place] [phone] MEDICAL DIRECTORLATONIA VASQUEZ M.D. 0.2\S\0.2 Normal 0.0-0.45 [facility] [address] DO Work Phone: 0.5\S\0.5 Normal 0.0-0.8 [facility] DO Work Phone: 1.5\S\1.5 Normal 1.00-4.8 [facility] DO Work Phone: 96.1\S\96.1 Normal 83.5-101 [facility] DO Work Phone: 41.8\S\41.8 Normal 38.8-50.0 [facility] DO Work Phone: 14.3\S\14.3 Normal 13.0-17.0 [facility] DO Work Phone: 4.35\S\4.35 Normal 3.90-5.60 [facility] DO Work Phone: 5.0\S\5.0 Normal 4.1-10.5 [facility] DO Work Phone: > 60.0 Normal [facility] DO Work Phone: 10.0\S\10.0 Normal 6.0-15.0 [facility] DO Work Phone: 8.8\S\8.8 Normal 8.6-10.3 [facility] [address] DO Work Phone: Comment on above: PERFORMED BY:[place] [address] [address] [place], [place] [phone] MEDICAL DIRECTORLATONIA VASQUEZ M.D. 29.1\S\29.1 Normal 21.0-31.0 [facility] DO Work Phone: 107\S\107 Normal 98-107 [facility] DO Work Phone: 4.1\S\4.1 Normal 3.5-5.1 [facility] DO Work Phone: 142\S\142 Normal 136-145 [facility] DO Work Phone: 1.02\S\1.02 Normal 0.70-1.30 [facility] DO Work Phone: 20\S\20 Normal 7-25 [facility] DO Work Phone: 98\S\98 Normal 70-100 [facility] DO Work Phone: Comment on above: Random Glucose Refer ence Range is dependent on time and content of last meal. Glucose of more than 200 mg/dL in a nonstressed, ambulatory subject supports the diagnosis of Diabetes Mellitus. ADA recommended reference range Nucleated erythrocytes [Pres ence] in Blood by Automated countOrdered By: Summer Oliveira on 11-26-2022 Nucleated RBC Auto Ql (Bld) 0.1 /100{WBC} 0-0.5 [facility] Platelet mean volume Auto (B ld) [Entitic vol]Ordered By: Summer Oliveira on 11-26-2022 Platelet mean volume (Bld) [Entitic vol] 8.7 fL 6.6-10.1 [facility] Platelets Auto (Bld) [#/Vol] Ordered By: Summer Oliveira on 11-26-2022 Platelets (Bld) [#/Vol] 143 10*3/uL 150-450 [facility] Potassium [Moles/volume] in Serum or PlasmaOrdered By: Summer Oliveira on 11-26-2022 Potassium [Moles/Vol] 4.1 mmol/L 3.5-5.1 [facility] RBC Auto (Bld) [#/Vol]Ordere d By: Summer Oliveira on 11-26-2022 RBC (Bld) [#/Vol] 4.35 10*6/uL 3.90-5.60 [facility] Serum or plasma anion gap de terminationOrdered By: Summer Oliveira on 11-26-2022 Anion gap [Moles/Vol] 10.0 mmol/L 6.0-15.0 [facility] Sodium [Moles/volume] in Ser um or PlasmaOrdered By: Summer Oliveira on 11-26-2022 Sodium [Moles/Vol] 142 mmol/L 136-145 [facility] Urea nitrogen [Mass/volume] in Serum or PlasmaOrdered By: Summer Oliveira on 11-26-2022 Urea nitrogen [Mass/Vol] 20 mg/dL 7-25 [facility] WBC Auto (Bld) [#/Vol]Ordere d By: Summer Oliveira on 11-26-2022 WBC (Bld) [#/Vol] 5.0 10*3/uL 4.1-10.5 [facility] Screenson 10-16-2022 Screens [id number] D:127 Normal [facility] Ambulatory Visit Summaryon 0 10-15-2022 Ambulatory Visit Summary ERIK ALFONSO :1940 Visit Date:10/15/2022 Ambulatory Visit Instructions Your Diagnosis BPH (benign prostatic hyperplasia) Kidney stone Microhematuria Ureteral stone Tests Performed Urnls Dip Stick Auto w/o Microscopy POC 25175 XR Abdomen 1 View -- Results Pending -- Please visit your patient portal for your results or contact your primary care physician. Your Care Team Attending Physician - HOMAR ORTEGA, Gopal Lopez Primary Care Physician - JESSE GARCÍA DO This Is Your Medications List amlodipine (amLODIPine 5 mg Tab) ascorbic acid (Vitamin C) atorvastatin clopidogrel (clopidogrel 75 mg Tab) isosorbide dinitrate (isosorbide dinitrate 30 mg oral tablet) meloxicam (meloxicam 7.5 mg oral tablet) metoprolol (Metoprolol tartrate 50 mg Tab) multivitamin with minerals (Multivitamins and Minerals) nitroglycerin (nitroglycerin 0.4 mg sublingual Tab) omega-3 polyunsaturated fatty acids (Fish Oil) omeprazole (omeprazole 40 mg Cap-DR) paroxetine (paroxetine 10 mg Tab) valsartan (valsartan 80 mg Tab) Procedures Performed Cystoscopic removal of ureteric stent (09/15/2018), ESWL of kidney (09/10/2018), cystoscopy, retrograde, stenting and cystoscopy, lithotripsy (09/21/2016), Cystoscope (08/19/2016), colonoscopy (05/28/2010), hernia (05/28/2010), Arthroscopy of knee. Discharge Vitals Heart Rate (Peripheral) 55 Blood Pressure 188/84 Height 187 cm Height 74 in Weight 113.5 kg Weight 249.7 lb BMI 32.46 What to do next Scheduled Follow-Up Appointments Saturday 8:15 AM EST With: Gopal GARCÍA MD [facility] Patient Educationon 10-15-19 23 Patient Education Urology Dietary Guidelines to Help Prevent Kidney Stones Kidney stones are deposits of minerals and salts that form inside your kidneys. Your risk of developing kidney stones may be greater depending on your diet, your lifestyle, the medicines you take, and whether you have certain medical conditions. Most people can reduce their chances of developing kidney stones by following the instructions below. Depending on your overall health and the type of kidney stones you tend to develop, your dietitian may give you more specific instructions. What are tips for following this plan? Reading food labels ? Choose foods with no salt added or low-salt labels. Limit your sodium intake to less than 1500 mg per day. ? Choose foods with calcium for each meal and snack. Try to eat about 300 mg of calcium at each meal. Foods that contain 200?500 mg of calcium per serving include: ? 8 oz (237 ml) of milk, fortified nondairy milk, and fortified fruit juice. ? 8 oz (237 ml) of kefir, yogurt, and soy yogurt. ? 4 oz (118 ml) of tofu. ? 1 oz of cheese. ? 1 cup (300 g) of dried figs. ? 1 cup (91 g) of cooked broccoli. ? 1?3 oz can of sardines or mackerel. ? Most people need 1000 to 1500 mg of calcium each day. Talk to your dietitian about how much calcium is recommended for you. Shopping ? Buy plenty of fresh fruits and vegetables. Most people do not need to avoid fruits and vegetables, even if they contain nutrients that may contribute to kidney stones. ? When shopping for convenience foods, choose: ? Whole pieces of fruit. ? Premade salads with dressing on the side. ? Low-fat fruit and yogurt smoothies. ? Avoid buying frozen meals or prepared deli foods. ? Look for foods with live cultures, such as yogurt and kefir. Cooking ? Do not add salt to food when cooking. Place a salt shaker on the table and allow each person to add his or her own salt to taste. ? Use vegetable protein, such as beans, textured vegetable protein (TVP), or tofu instead of meat in pasta, casseroles, and soups. Meal planning ? Eat less salt, if told by your dietitian. To do this: ? Avoid eating processed or premade food. ? Avoid eating fast food. ? Eat less animal protein, including cheese, meat, poultry, or fish, if told by your dietitian. To do this: ? Limit the number of times you have meat, poultry, fish, or cheese each week. Eat a diet free of meat at least 2 days a week. ? Eat only one serving each day of meat, poultry, fish, or seafood. ? When you prepare animal protein, cut pieces into small portion sizes. For most meat and fish, one serving is about the size of one deck of cards. ? Eat at least 5 servings of fresh fruits and vegetables each day. To do this: ? Keep fruits and vegetables on hand for snacks. ? Eat 1 piece of fruit or a handful of berries with breakfast. ? Have a salad and fruit at lunch. ? Have two kinds of vegetables at dinner. ? Limit foods that are high in a substance called oxalate. These include: ? Spinach. ? Rhubarb. ? Beets. ? Potato chips and maldivian fries. ? Nuts. ? If you regularly take a diuretic medicine, make sure to eat at least 1?2 fruits or vegetables high in potassium each day. These include: ? Avocado. ? Banana. ? [place], prune, carrot, or tomato juice. ? Baked potato. ? Cabbage. ? Beans and split peas. General instructions ? Drink enough fluid to keep your urine clear or pale yellow. This is the most important thing you can do. ? Talk to your health care provider and dietitian about taking daily supplements. Depending on your health and the cause of your kidney stones, you may be advised: ? Not to take supplements with vitamin C. ? To take a calcium supplement. ? To take a daily probiotic supplement. ? To take other supplements such as magnesium, fish oil, or vitamin B6. ? Take all medicines and supplements as told by your health care provider. ? Limit alcohol intake to no more than 1 drink a day for non women and 2 drinks a day for men. One drink equals 12 oz of beer, 5 oz of wine, or 1? oz of hard liquor. ? Lose weight if told by your health care provider. Work with your dietitian to find strategies and an eating plan that works best for you. What foods are not recommended? Limit your intake of the following foods, or as told by your dietitian. Talk to your dietitian about specific foods you should avoid based on the type of kidney stones and your overall health. Grains Breads. Bagels. Rolls. Baked goods. Salted crackers. Cereal. Pasta. Vegetables Spinach. Rhubarb. Beets. Canned vegetables. Pickles. Olives. Meats and other protein foods Nuts. Nut butters. Large portions of meat, poultry, or fish. Salted or cured meats. Deli meats. Hot dogs. Sausages. Dairy Cheese. Beverages Regular soft drinks. Regular vegetable juice. Seasonings and other foods Seasoning blends with salt. Salad dr (more content not included)... Normal [facility] Urology Office/Clinic Noteon 10-15-2022 Urology Office/Clinic Note Chief Complai nt pt here for a 1 yr f/u with PSA HPI Staff Pt is a 82 yr old Male here for a 1 yr f/u to a PSA. Pts previous PSA 2.860 done 10/10/21. Pt current PSA 2.890 done 10/08/22. Pts previous DX: BPH, dysuria, feeling of incomplete bladder emptying, flank pain, frequent urination, hesitancy, kidney stone, microhematuria, nocturia, ureteral stone, urinary urgency. S/P ESWL 09/10/18, cysto 08/19/16/ lithotripsy 09/21/16. UA shows Trace Leuks. IPSS 13. Dysuria: denies Incomplete bladder emptying: denies Hematuria: no visible , UA shows small amounts Frequency: denies Urgency: denies Nocturia: 1-2 times per night Stream: weak stream, some start stop, some hesitation Leaking: denies Post void dripping: denies Wearing pads/ Depends: denies Urge incontinence: denies Stress incontinence: denies Incontinence without Sensory Awareness: denies Abdominal pain: denies Flank pain: denies Sexual complaints: denies History of Present Illness Tests Reviewed: Reviewed UA. I have reviewed and verified the staff HPI to be accurate for this encounter.Rice I have reviewed the previous health record information and history for this patient from . There have been no associated fever, chills, flank pain, or blood in the urine. Denies any urinary infections since last encounter. Review of Systems PHQ Score Initial Depression Screen Score: 0 ROS - Provider Constitutional: denies weight loss, denies hot flashes. Eyes: denies eye problems. Gastrointestinal: denies nausea, denies vomiting. Cardiovascular: denies chest pain or angina. Integumentary: no dryness Musculoskeletal: denies musculoskeletal symptoms. ENMT: denies otolaryngeal symptoms. Respiratory: no shortness of breath. Heme/Lymph: denies easy bleeding tendency, denies easy bruising tendency. Psychiatric: no confusion, no anxiety. Genitourinary: denies dysuria, denies hematuria, denies discharge, denies urinary frequency, denies urinary hesitancy, denies nocturia, denies incontinence, denies genital sores, denies decreased libido, and denies erectile dysfunction. Physical Exam Vitals & Measurements HR: 55(Peripheral) BP: 188/84 HT: 74 in HT: 187 cm WT: 113.5 kg WT: 249.7 lb BMI: 32.46 General Appearance: alert, no distress, well nourished, well developed male. Genitourinary: normal scrotum, normal testes, normal urethra, normal epididymis, normal vas deferens/spermatic cord. Flank Pain: none. Bladder: nonpalpable. Assessment/Plan 1. BPH (benign prostatic hyperplasia) (N40.0: Benign prostatic hyperplasia without lower urinary tract symptoms) cysto 08/19/16 IPSS(13) QoL(5) PT currently not on any BPH medications at this time PSA 10/08/22- 2.890 10/10/21- 2.860 PSA has remained stable within normal range. We will continue to monitor in a year with a repeat PSA. Pt agrees with this plan. Overall he is voiding well and have no bothersome urinary sx. All questions and concerns were discussed. Pt acknowledge and understands. Pt will call our office with any changes in urinary symptoms. 2. Kidney stone (N20.0: Calculus of kidney) lithotripsy 09/21/16 S/P ESWL 09/10/18 KUB done 08/09/22 showed multiple bilateral renal calculi measuring up to 7 mm on the left and 9 mm on the right. PT stated at the time of the KUB he had flank pain but has since went away. He is aware that he may still have stones that he can pass at any time that may or may not cause pain. We will continue to monitor for stones in a year with a repeat KUB. He is aware that if he develops any stone complications prior to next office visit he can contact our office. 3. Microhematuria (R31.29: Other microscopic hematuria) UA today shows small blood and trace KALEIGH PT denies any sx of UTI. He has a hx of micro hematuria. Pt denies any episodes of gross hematuria. He is aware to monitor for any visible blood or blood clots in his urine and if he develops any he is to contact our office. 4. Ureteral stone (N20.1: Calculus of ureter) KUB done 08/09/22 showed a distal left ureteral stone just proximal to the ureterovesical junction measuring 5 mm in size. This patient had the left lower quadrant pain back before [place] actually July family doctor got the CAT scan and is stones bilaterally 7 mm on the left and 9 on the right nonobstructing but had a distal 5 on the left that he feels he subsequently passed still has traces of blood 1+ in the urine. This is from his kidney stones he is a non-smoker he is never seen any blood. Told to drink plenty of fluids and we will get a KUB next year and just track the stone if he has a lot of pain one-sided the other he may need the ER. Or call us the office. Second issue is patient had a PSA this PSA was actually fairly low. PSA was at 2.5 so he is actually doing very well I believe his PSA could be done next year as well #2 I believe his KUB should be done next year and to be seen as needed with any pain. We will go from there incidentally he is on (more content not included)... Normal [facility] Comment on above: Result Comment: Elec tronically Signed By: Gopal GARCÍA MD\.br\Date and Time Signed: 10/15/22 09:20 EST\.br\Electronically Co-Signed By: Carmen Mathew\.br\Date and Time Co-Signed: 10/15/22 09:07 EST Lab Reportson 10-09-2022 Lab Reports [id number]#[id number] D:127 Normal [facility] Albumin [Mass/volume] in Ser um or PlasmaOrdered By: Jesse Mast on 10-08-2022 Albumin [Mass/Vol] 3.8 g/dL 3.2-5.5 [facility] Basophils Auto (Bld) [#/Vol] Ordered By: Jesse Mast on 10-08-2022 Basophils (Bld) [#/Vol] 0.0 10*3/uL 0.0-0.2 [facility] Basophils/100 WBC Auto (Bld) Ordered By: Jesse Mast on 10-08-2022 Basophils/100 WBC (Bld) 0.4 % . [facility] Bilirubin.total [Mass/volume ] in Serum or PlasmaOrdered By: Jesse Mast on 10-08-2022 Bilirubin [Mass/Vol] 1.0 mg/dL 0.3-1.2 [facility] Calcium [Mass/volume] in Ser um or PlasmaOrdered By: Jesse Mast on 10-08-2022 Calcium [Mass/Vol] 8.8 mg/dL 8.2-10.2 [facility] Carbon dioxide, total [Moles /volume] in Serum or PlasmaOrdered By: Jesse Mast on 10-08-2022 CO2 [Moles/Vol] 27.4 mmol/L 22.0-30.0 [facility] Cholesterol in LDL Calc [Mas s/Vol]Ordered By: Jesse Mast on 10-08-2022 Cholesterol in LDL [Mass/Vol] 54 mg/dL 0-100 [facility] Comment on above: LDL ATP III CLASSIFI CATIONLDL less than 100 mg/dL OptimalLDL 100-129 mg/dL Near or above optimalLDL 130-159 mg/dL Borderline highLDL 160-189 mg/dL HighLDL greater than 189 mg/dL Very high Cholesterol in VLDL Calc [Ma ss/Vol]Ordered By: Jesse García on 10-08-2022 Cholesterol in VLDL [Mass/Vol] 11 mg/dL [facility] Complete Blood Count Auto Di ffon 10-08-2022 Basophils (Bld) [#/Vol] 0.000329693 10*3/uL Normal 0.0-0.2 10*3/uL [employer] Other Basophils/100 WBC (Bld) 0.400 % . % [employer] Other Eosinophils (Bld) [#/Vol] 0.712424689 10*3/uL Normal 0.0-0.45 10*3/uL [employer] Other Eosinophils/100 WBC (Bld) 0.800 % . % [employer] Other Erythrocyte distribution width (RBC) [Ratio] 12.400 % Normal 12.0-14.8 % [employer] Other Hematocrit (Bld) [Volume fraction] 43.200 % Normal 38.8-50.0 % [employer] Other Hemoglobin (Bld) [Mass/Vol] 14.969007 g/dL Normal 13.0-17.0 g/dL [employer] Other Lymphocytes (Bld) [#/Vol] 1.053361933 10*3/uL Normal 1.00-4.8 10*3/uL [employer] Other Lymphocytes/100 WBC (Bld) 19.400 % . % [employer] Other MCH (RBC) [Entitic mass] 32.2000 pg Normal 27.5-35.2 pg [employer] Other MCV (RBC) [Entitic vol] 95.2000 fL Normal 83.5-101 fL [employer] Other Monocytes (Bld) [#/Vol] 0.929328580 10*3/uL Normal 0.0-0.8 10*3/uL [employer] Other Monocytes/100 WBC (Bld) 9.100 % . % [employer] Other Neutrophils (Bld) [#/Vol] 6.070161480 10*3/uL Normal 1.8-7.7 10*3/uL [employer] Other Neutrophils/100 WBC (Bld) 70.300 % . % [employer] Other Platelet mean volume (Bld) [Entitic vol] 9.4000 fL Normal 6.6-10.1 fL [employer] Other WBC (Bld) [#/Vol] 9.874594818 10*3/uL Normal 4.1-10.5 10*3/uL [employer] Other Complete Blood Count Auto Diff 9.3 10*3/uL Normal 4.1-10.5 10*3/uL [employer] Other Complete Blood Count Auto Diff 33.8 g/dL Normal 32.5-35.6 g/dL [employer] Other Complete Blood Count Auto Diff 0.1 /100{WBC} Normal 0-0.5 /100{WBC} [employer] Other Basophils (Bld) [#/Vol] 0.0 10*3/uL Normal 0.0-0.2 [facility] Comment on above: Order Comment: Reaso n for Exam Hypertension Result Comment: PERF ORMED BY: [place] [id number] PATHOLOGIST ELEMENTARY MATH TUTOR LATONIA VASQUEZ M.D. Performed By: #### L IPID, CBC, CMP #### [address] Basophils/100 WBC (Bld) 0.4 % Normal . [facility] Comment on above: Order Comment: Reaso n for Exam Hypertension Performed By: #### L IPID, CBC, CMP #### [address] Eosinophils (Bld) [#/Vol] 0.1 10*3/uL Normal 0.0-0.45 [facility] Comment on above: Order Comment: Reaso n for Exam Hypertension Performed By: #### L IPID, CBC, CMP #### [address] Eosinophils/100 WBC (Bld) 0.8 % Normal . [facility] Comment on above: Order Comment: Reaso n for Exam Hypertension Performed By: #### L IPID, CBC, CMP #### [address] Erythrocyte distribution wid th (RBC) [Ratio] 12.4 % Normal 12.0-14.8 [facility] Comment on above: Order Comment: Reaso n for Exam Hypertension Performed By: #### L IPID, CBC, CMP #### [address] Hematocrit (Bld) [Volume fraction] 43.2 % Normal 38.8-50.0 [facility] Comment on above: Order Comment: Reaso n for Exam Hypertension Performed By: #### L IPID, CBC, CMP #### [facility] [address] [place] [address] [place] Hemoglobin (Bld) [Mass/Vol] 14.6 g/dL Normal 13.0-17. 0 [facility] Comment on above: Order Comment: Reaso n for Exam Hypertension Performed By: #### L IPID, CBC, CMP #### [place] [address] [place] Lymphocytes (Bld) [#/Vol] 1.8 10*3/uL Normal 1.00-4.8 [facility] Comment on above: Order Comment: Reaso n for Exam Hypertension Performed By: #### L IPID, CBC, CMP #### [facility] [address] [place] [address] [place] Lymphocytes/100 WBC (Bld) 19.4 % Normal . [facility] Comment on above: Order Comment: Reaso n for Exam Hypertension Performed By: #### L IPID, CBC, CMP #### [facility] [address] MCH (RBC) [Entitic mass] 32.2 pg Normal 27.5-35.2 [facility] Comment on above: Order Comment: Reaso n for Exam Hypertension Performed By: #### L IPID, CBC, CMP #### [facility] [address] MCV (RBC) [Entitic vol] 95.2 fL Normal 83.5-101 [facility] Comment on above: Order Comment: Reaso n for Exam Hypertension Performed By: #### L IPID, CBC, CMP #### [facility] [address] [place] [address] Mean Corpuscular HGB Conc 33.8 g/dL Normal 32.5-35.6 [facility] Comment on above: Order Comment: Reaso n for Exam Hypertension Performed By: #### L IPID, CBC, CMP #### [facility] [address] [place] [address] [place] Monocytes (Bld) [#/Vol] 0.8 10*3/uL Normal 0.0-0.8 [facility] Comment on above: Order Comment: Reaso n for Exam Hypertension Performed By: #### L IPID, CBC, CMP #### [facility] [address] [place] [address] [place] Monocytes/100 WBC (Bld) 9.1 % Normal . [facility] Comment on above: Order Comment: Reaso n for Exam Hypertension Performed By: #### L IPID, CBC, CMP #### [facility] [address] [place] [address] [place] Neutrophils (Bld) [#/Vol] 6.5 10*3/uL Normal 1.8-7.7 [facility] Comment on above: Order Comment: Reaso n for Exam Hypertension Performed By: #### L IPID, CBC, CMP #### [facility] [address] Neutrophils/100 WBC (Bld) 70.3 % Normal . [facility] Comment on above: Order Comment: Reaso n for Exam Hypertension Performed By: #### L IPID, CBC, CMP #### [facility] [address] NRBC% 0.1 /100{WBC} Normal 0-0.5 [facility] Comment on above: Order Comment: Reaso n for Exam Hypertension Performed By: #### L IPID, CBC, CMP #### [facility] [address] Platelet mean volume (Bld) [Entitic vol] 9.4 fL Normal 6.6-10.1 [facility] Comment on above: Order Comment: Reaso n for Exam Hypertension Performed By: #### L IPID, CBC, CMP #### [address] WBC (Bld) [#/Vol] 9.3 10*3/uL Normal 4.1-10.5 [facility] Comment on above: Order Comment: Reaso n for Exam Hypertension Performed By: #### L IPID, CBC, CMP #### [address] Complete Blood Count Auto Di ffOrdered By: Jesse García on 10-08-2022 Platelets (Bld) [#/Vol] 156 10*3/uL Normal 150-450 [facility] Comment on above: Order Comment: Reaso n for Exam Hypertension Performed By: #### L IPID, CBC, CMP #### [facility] [address] RBC (Bld) [#/Vol] 4.53 10*6/uL Normal 3.90-5.60 [facility] Comment on above: Order Comment: Reaso n for Exam Hypertension Performed By: #### L IPID, CBC, CMP #### [address] Comprehensive Metabolic Pane trav 10-08-2022 Albumin [Mass/Vol] 3.271673 g/dL Normal 3.2-5.5 g/dL N [facility] [employer] Other Bilirubin [Mass/Vol] 1.2133845 mg/dL Normal 0.3-1.2 mg /dL [employer] Other Calcium [Mass/Vol] 8.5729947 mg/dL Normal 8.2-10.2 mg/ dL [employer] Other CO2 [Moles/Vol] 27.76954220 mmol/L Normal 22.0-30.0 mmol/L [employer] Other Creatinine [Mass/Vol] 1.95224898 mg/dL Normal 0.64-1.2 7 mg/dL [employer] Other Potassium [Moles/Vol] 4.70075492 mmol/L Normal 3.5-5.1 mmol/L [employer] Other Protein [Mass/Vol] 6.460525 g/dL Low 6.1-7.9 g/dL N [facility] [employer] Other Comprehensive Metabolic Panel 60 [employer] Other Comprehensive Metabolic Panel > 60 [employer] Other Comprehensive Metabolic Panel 2.2 g/dL [employer] Other Albumin [Mass/Vol] 3.8 g/dL Normal 3.2-5.5 [facility] Comment on above: Order Comment: Reaso n for Exam Hypertension Reason for Exam Hyperlipidemia Performed By: #### L IPID, CBC, CMP #### [facility] [address] ALT [Catalytic activity/Vol] 23 U/L Normal 10-60 [employer] Other Comment on above: Order Comment: Reaso n for Exam Hypertension Reason for Exam Hyperlipidemia Performed By: #### L IPID, CBC, CMP #### [facility] [address] [place] [address] [place] Anion gap [Moles/Vol] 9.9 mmol/L Normal 6.0-15.0 [facility] Comment on above: Order Comment: Reaso n for Exam Hypertension Reason for Exam Hyperlipidemia Performed By: #### L IPID, CBC, CMP #### [facility] [address] Bilirubin [Mass/Vol] 1.0 mg/dL Normal 0.3-1.2 [facility] Comment on above: Order Comment: Reaso n for Exam Hypertension Reason for Exam Hyperlipidemia Performed By: #### L IPID, CBC, CMP #### [facility] [address] Calcium [Mass/Vol] 8.8 mg/dL Normal 8.2-10.2 [facility] Comment on above: Order Comment: Reaso n for Exam Hypertension Reason for Exam Hyperlipidemia Performed By: #### L IPID, CBC, CMP #### [facility] [address] CO2 [Moles/Vol] 27.4 mmol/L Normal 22.0-30.0 [facility] Comment on above: Order Comment: Reaso n for Exam Hypertension Reason for Exam Hyperlipidemia Performed By: #### L IPID, CBC, CMP #### [facility] [address] [place] [address] [place] Creatinine [Mass/Vol] 1.17 mg/dL Normal 0.64-1.27 [facility] Comment on above: Order Comment: Reaso n for Exam Hypertension Reason for Exam Hyperlipidemia Performed By: #### L IPID, CBC, CMP #### [facility] [address] [place] [address] [place] Estimated GFR ( Sandra > 60 Normal [facility] Comment on above: Order Comment: Reaso n for Exam Hypertension Reason for Exam Hyperlipidemia Result Comment: GFR estimated reference range: According to KDOQI guidelines, <60 ml/min/1.73m2 is sufficient to diagnose a patient with chronic kidney disease. Performed By: #### L IPID, CBC, CMP #### [facility] [address] Estimated GFR (Non- Am 60 Normal [facility] Comment on above: Order Comment: Reaso n for Exam Hypertension Reason for Exam Hyperlipidemia Performed By: #### L IPID, CBC, CMP #### [facility] [address] Globulin (S) [Mass/Vol] 2.2 g/dL Normal [facility] Comment on above: Order Comment: Reaso n for Exam Hypertension Reason for Exam Hyperlipidemia Performed By: #### L IPID, CBC, CMP #### [facility] [address] Potassium [Moles/Vol] 4.3 mmol/L Normal 3.5-5.1 [facility] Comment on above: Order Comment: Reaso n for Exam Hypertension Reason for Exam Hyperlipidemia Performed By: #### L IPID, CBC, CMP #### [facility] [address] Protein [Mass/Vol] 6.0 g/dL Low 6.1-7.9 [facility] Comment on above: Order Comment: Reaso n for Exam Hypertension Reason for Exam Hyperlipidemia Performed By: #### L IPID, CBC, CMP #### [facility] [address] Comprehensive Metabolic Pane lOrdered By: Jesse García on 10-08-2022 Albumin/Globulin [Mass ratio] 1.7 {ratio} [facility] Comment on above: Order Comment: Reaso n for Exam Hypertension Reason for Exam Hyperlipidemia Performed By: #### L IPID, CBC, CMP #### [facility] [address] ALP [Catalytic activity/Vol] 75 U/L Normal 32-92 [facility] Comment on above: Order Comment: Reaso n for Exam Hypertension Reason for Exam Hyperlipidemia Performed By: #### L IPID, CBC, CMP #### [facility] [address] [place] [id number] [facility] AST [Catalytic activity/Vol] 21 U/L Normal 10-42 [facility] Comment on above: Order Comment: Reaso n for Exam Hypertension Reason for Exam Hyperlipidemia Performed By: #### L IPID, CBC, CMP #### [facility] [address] [place] [id number] [place] Chloride [Moles/Vol] 107 mmol/L Normal 95-114 [facility] Comment on above: Order Comment: Reaso n for Exam Hypertension Reason for Exam Hyperlipidemia Performed By: #### L IPID, CBC, CMP #### [facility] [address] [place] [id number] [place] Glucose [Mass/Vol] 96 mg/dL Normal 70-100 [facility] Comment on above: ADA recommended refe rence rangeRandom Glucose Reference Range is dependent on time and content of last meal. Glucose of more than 200 mg/dL in a nonstressed, ambulatory subject supports the diagnosis of Diabetes Mellitus. Order Comment: Reaso n for Exam Hypertension Reason for Exam Hyperlipidemia Result Comment: [place] om Glucose Reference Range is dependent on time and content of last meal. Glucose of more than 200 mg/dL in a nonstressed, ambulatory subject supports the diagnosis of Diabetes Mellitus. ADA recommended reference range Performed By: #### L IPID, CBC, CMP #### [facility] [address] [place] [id number] [place] Sodium [Moles/Vol] 140 mmol/L Normal 136-146 [facility] Comment on above: Order Comment: Reaso n for Exam Hypertension Reason for Exam Hyperlipidemia Performed By: #### L IPID, CBC, CMP #### [facility] [address] [place] [id number] [place] Urea nitrogen [Mass/Vol] 26 mg/dL High 9-23 [facility] Comment on above: Order Comment: Reaso n for Exam Hypertension Reason for Exam Hyperlipidemia Performed By: #### L IPID, CBC, CMP #### [facility] [address] [place] [id number] [place] Creatinine and Glomerular fi ltration rate.predicted panel (S/P/Bld)Ordered By: Jesse García on 10-08-2022 Creatinine [Mass/Vol] 1.17 mg/dL 0.64-1.27 [facility] Eosinophils Auto (Bld) [#/Vo l]Ordered By: Jesse García on 10-08-2022 Eosinophils (Bld) [#/Vol] 0.1 10*3/uL 0.0-0.45 [facility] Eosinophils/100 WBC Auto (Bl d)Ordered By: Jesse Mast on 10-08-2022 Eosinophils/100 WBC (Bld) 0.8 % . [facility] Erythrocyte distribution wid th Auto (RBC) [Ratio]Ordered By: Jesse Mast on 10-08-2022 Erythrocyte distribution wid th (RBC) [Ratio] 12.4 % 12.0-14.8 [facility] Estimated glomerular filtrat ion rate (GFR) non- AmericanOrdered By: [facility] on 10-08-2022 GFR/1.73 sq M.predicted radha g non-blacks MDRD (S/P/Bld) [Vol rate/Area] 60 mL/Min [facility] Globulin Calc (S) [Mass/Vol] Ordered By: [facility] on 10-08-2022 Globulin (S) [Mass/Vol] 2.2 g/dL [facility] Hematocrit Auto (Bld) [Volum e fraction]Ordered By: [facility] on 10-08-2022 Hematocrit (Bld) [Volume fraction] 43.2 % 3 8.8-50.0 [facility] Hemoglobin [Mass/volume] in BloodOrdered By: [facility] on 10-08-2022 Hemoglobin (Bld) [Mass/Vol] 14.6 g/dL 13.0-17. 0 [facility] Leukocytes [#/volume] correc charity for nucleated erythrocytes in Blood by Automated counOrdered By: [facility] on 10-08-2022 WBC corrected for nucl RBC A uto (Bld) [#/Vol] 9.3 10*3/uL 4.1-10.5 [facility] Lipid Panelon 10-08-2022 Cholesterol in LDL Elph Qn 54 mg/dL Normal 0-100 mg/ dL [employer] Other Lipid Panel 58 mg/dL Normal 35-149 mg/dL [employer] Other Lipid Panel 11 mg/dL [employer] Other LDL Cholesterol,Calculated 54 mg/dL Normal 0-100 [facility] Comment on above: Order Comment: Reaso n for Exam Hypertension Reason for Exam Hyperlipidemia Result Comment: LDL ATP III CLASSIFICATION LDL less than 100 mg/dL Optimal LDL 100-129 mg/dL Near or above optimal LDL 130-159 mg/dL Borderline high LDL 160-189 mg/dL High LDL greater than 189 mg/dL Very high Performed By: #### L IPID, CBC, CMP #### [facility] [address] Triglyceride w/Reflex 58 mg/dL Normal 35-149 [facility] Comment on above: Order Comment: Reaso n for Exam Hypertension Reason for Exam Hyperlipidemia Result Comment: TRIG ATP III CLASSIFICATION TRIG less than 150 mg/dL Normal TRIG 150-199 mg/dL Borderline high TRIG 200-500 mg/dL High TRIG greater than 500 mg/dL Very high Standard traceable to the Center for Disease Conrtrol and Prevention (CDC) test method. Performed By: #### L IPID, CBC, CMP #### [facility] [address] [place] [id number] [place] VLDL CHOLESTEROL 11 mg/dL Normal [facility] Comment on above: Order Comment: Reaso n for Exam Hypertension Reason for Exam Hyperlipidemia Performed By: #### L IPID, CBC, CMP #### [facility] [address] [place] [id number] [facility] Lipid PanelOrdered By: Jeses García on 10-08-2022 Cholesterol [Mass/Vol] 114 mg/dL Low 140-200 [facility] Comment on above: Chol less than 200 m g/dl low riskChol 201-239 mg/dl borderline riskChol 240 mg/dl and greater high risk Order Comment: Reaso n for Exam Hypertension Reason for Exam Hyperlipidemia Result Comment: Chol less than 200 mg/dl low risk Chol 201-239 mg/dl borderline risk Chol 240 mg/dl and greater high risk Performed By: #### L IPID, CBC, CMP #### [facility] [address] [place] [id number] [place] Cholesterol in HDL [Mass/Vol] 48 mg/dL Normal 29-71 [facility] Comment on above: HDL CHOL ATP-III CLA SSIFICATION Cardiovascular RiskHDL > or equal to 60 mg/dL LOWHDL < 40 mg/dL HIGH Order Comment: Reaso n for Exam Hypertension Reason for Exam Hyperlipidemia Result Comment: HDL CHOL ATP-III CLASSIFICATION Cardiovascular Risk HDL > or equal to 60 mg/dL LOW HDL < 40 mg/dL HIGH Performed By: #### L IPID, CBC, CMP #### [facility] [address] Cholesterol.total/Cholestero l in HDL [Mass ratio] 2.4 {ratio} Normal <5.0 [facility] Comment on above: Order Comment: Reaso n for Exam Hypertension Reason for Exam Hyperlipidemia Result Comment: PERF ORMED BY: [facility] [address] [place] [address] PATHOLOGIST ELEMENTARY MATH TUTOR LATONIA VASQUEZ M.D. Performed By: #### L IPID, CBC, CMP #### [facility] [address] Lymphocytes Auto (Bld) [#/Vo l]Ordered By: Jesse Mast on 10-08-2022 Lymphocytes (Bld) [#/Vol] 1.8 10*3/uL 1.00-4.8 [facility] Lymphocytes/100 WBC Auto (Bl d)Ordered By: Jesse Mast on 10-08-2022 Lymphocytes/100 WBC (Bld) 19.4 % . [facility] MCH Auto (RBC) [Entitic mass ]Ordered By: Jesse Mast on 10-08-2022 MCH (RBC) [Entitic mass] 32.2 pg 27.5-35.2 [facility] MCHC Auto (RBC) [Mass/Vol]Or dered By: Jesse Mast on 10-08-2022 MCHC (RBC) [Mass/Vol] 33.8 g/dL 32.5-35.6 [facility] MCV Auto (RBC) [Entitic vol] Ordered By: Jesse Mast on 10-08-2022 MCV (RBC) [Entitic vol] 95.2 fL 83.5-101 [facility] Monocytes Auto (Bld) [#/Vol] Ordered By: Jesse Mast on 10-08-2022 Monocytes (Bld) [#/Vol] 0.8 10*3/uL 0.0-0.8 [facility] Monocytes/100 WBC Auto (Bld) Ordered By: Jesse García on 10-08-2022 Monocytes/100 WBC (Bld) 9.1 % . [facility] Neutrophils Auto (Bld) [#/Vo l]Ordered By: Jesse García on 10-08-2022 Neutrophils (Bld) [#/Vol] 6.5 10*3/uL 1.8-7.7 [facility] Neutrophils/100 WBC Auto (Bl d)Ordered By: Jesse García on 10-08-2022 Neutrophils/100 WBC (Bld) 70.3 % . [facility] No Panel InformationOrdered By: Jesse García on 10-08-2022 Estimated GFR () > 60 mL/Min [facility] Comment on above: GFR estimated refere nce range: According to KDOQI guidelines, <60 ml/min/1.73m2 is sufficient to diagnose a patient with chronic kidney disease. Pharmacy Creatinine Clearance (Chem N/A [facility] No Panel InformationOrdered By: Gopal García on 10-08-2022 Prostate Specific Antigen Total 2.890 ng/mL 0.000-4.000 [facility] Nucleated erythrocytes [Pres ence] in Blood by Automated countOrdered By: Jesse García on 10-08-2022 Nucleated RBC Auto Ql (Bld) 0.1 /100{WBC} 0-0.5 [facility] PSA Total (Not a Screen)on 0 10-08-2022 PSA Total (Not a Screen) 2.890 ng/mL Normal 0.000-4.00 0 [facility] Comment on above: Result Comment: PERF ORMED BY: [facility] [address] [place] [address] PATHOLOGIST ELEMENTARY MATH TUTOR LATONIA VASQUEZ M.D. Performed By: #### L IPID, CBC, CMP #### [facility] [address] Platelet mean volume Auto (B ld) [Entitic vol]Ordered By: Jesse García on 10-08-2022 Platelet mean volume (Bld) [Entitic vol] 9.4 fL 6.6-10.1 [facility] Potassium [Moles/volume] in Serum or PlasmaOrdered By: Jesse Mast on 10-08-2022 Potassium [Moles/Vol] 4.3 mmol/L 3.5-5.1 [facility] Protein [Mass/volume] in Ser um or PlasmaOrdered By: Jesse Mast on 10-08-2022 Protein [Mass/Vol] 6.0 g/dL 6.1-7.9 [facility] Serum or plasma alanine cavanaugh otransferase measurement without P-5'-P (enzymatic activiOrdered By: [facility] on 10-08-2022 ALT No additional P-5'-P [Ca talytic activity/Vol] 23 U/L 10-60 [facility] Serum or plasma anion gap de terminationOrdered By: [facility] on 10-08-2022 Anion gap [Moles/Vol] 9.9 mmol/L 6.0-15.0 [facility] Triglyceride [Mass/volume] i n Serum or PlasmaOrdered By: [facility] on 10-08-2022 Triglyceride [Mass/Vol] 58 mg/dL 35-149 [facility] Comment on above: TRIG ATP III CLASSIF ICATIONTRIG less than 150 mg/dL NormalTRIG 150-199 mg/dL Borderline highTRIG 200-500 mg/dL High TRIG greater than 500 mg/dL Very highStandard traceable to the Center for Disease Conrtrol and Prevention (CDC) test method. WBC Auto (Bld) [#/Vol]Ordere d By: Jesse García on 10-08-2022 WBC (Bld) [#/Vol] 9.3 10*3/uL 4.1-10.5 [facility] Blood Urea Nitrogenon 2021 Urea nitrogen [Mass/Vol] 16 mg/dL Normal - [facility] Comment on above: Performed By: #### L IPID, CBC, CMP #### [address] abdomen pelvis w conon CT abdomen pelvis w con [facility] [employer] Other CT abdomen pelvis w con [facility] Main [facility] Other CT abdomen pelvis w con [address] [facility] [employer] Other CT abdomen pelvis w con [place] [address] [facility] [employer] Other CT abdomen pelvis w con CT Scan Report [facility] [employer] Other CT abdomen pelvis w con Signed [facility] [employer] Other CT abdomen pelvis w con Patient: Erik Alfonso MR#: [id number] [facility] [employer] Other CT abdomen pelvis w con [address] [facility] [employer] Other CT abdomen pelvis w con : 1940 Acct:[id number] [facility] [employer] Other CT abdomen pelvis w con Age/Sex: 81 / M ADM Date: 08/09/22 [facility] [employer] Other CT abdomen pelvis w con Loc: CT Room: Type: [facility] [employer] Other CT abdomen pelvis w con Attending Dr: Jesse García DO [employer] Other CT abdomen pelvis w con Copies to: Jesse García [employer] Other CT abdomen pelvis w con Ordering Provider: Jesse García DO [facility] [employer] Other CT abdomen pelvis w con Date of Service: 08/09/[address] [employer] [address] abdomen pelvis w con CT/CT abdomen pelvis w con: RLQ abdominal pain [facility] [employer] Other CT abdomen pelvis w con CT ABDOMEN AND PELVIS WITH CONTRAST [facility] [employer] Other CT abdomen pelvis w con COMPARISON: 03/12/[address] [facility] [address] abdomen pelvis w con CLINICAL DATA: Right-sided umbilical pain. Previous repair. [employer] Other CT abdomen pelvis w con Spiral images were obtained through the abdomen pelvis following oral and 90 mL of [id number]. [employer] Other CT abdomen pelvis w con This CT exam was performed using one or more following dose reduction techniques: Automated exposure [employer] Other CT abdomen pelvis w con control, adjustment of the mA and/or kV according to patient size, or use of iterative [employer] Other CT abdomen pelvis w hmd reconstruction technique. [employer] Other CT abdomen pelvis w con Limited cuts through the lung bases show minor atelectasis or scarring. [employer] Other CT abdomen pelvis w con Fatty infiltration of the liver is present. No intrahepatic masses are seen. There are no [employer] Other CT abdomen pelvis w con calcified gallstones. The spleen, pancreas and adrenal glands show no acute findings. There are [employer] Other CT abdomen pelvis w con symmetric bilateral renal nephrograms, without hydronephrosis. There are multiple bilateral renal [employer] Other CT abdomen pelvis w con calculi measuring up to 7 mm on the left and 9 mm on the right. There is also a left renal cyst. [employer] Other CT abdomen pelvis w con There is no ureteral dilatation however there is a distal left ureteral stone just proximal to the [employer] Other CT abdomen pelvis w con ureterovesical junction measuring 5 mm in size. [employer] Other CT abdomen pelvis w con The abdominal aorta is normal caliber and there is minor plaque. There are no enlarged lymph nodes [employer] Other CT abdomen pelvis w con or ascites. The small bowel loops are not dilated. There is mild stool within the colon. Patient [place] [employer] Other CT abdomen pelvis w con has a tiny umbilical hernia containing fat. Appearance is similar to the prior. There is slight [employer] Other CT abdomen pelvis w con levoscoliotic curvature and degenerative changes involving the spine. [employer] Other CT abdomen pelvis w con Images through the pelvis show normal caliber small bowel loops. There is stool at the cecum and [employer] Other CT abdomen pelvis w con mild at the distal colon. There are some descending and sigmoid diverticula. No active [employer] Other CT abdomen pelvis w con inflammation is present. The urinary bladder is not well-distended and the wall appears thickened. [place] [employer] Other CT abdomen pelvis w con The prostate is within normal limits for size and contains calcification. No ascites is seen. [place] [employer] Other CT abdomen pelvis w con CT/CT abdomen pelvis w con [facility] [employer] Other CT abdomen pelvis w con IMPRESSION: [employer] Other CT abdomen pelvis w con BILATERAL NEPHROLITHIASIS. [employer] Other CT abdomen pelvis w con NONOBSTRUCTING DISTAL LEFT URETERAL STONE. [employer] Other CT abdomen pelvis w con LEFT RENAL CYST. [employer] Other CT abdomen pelvis w con FATTY LIVER. [employer] Other CT abdomen pelvis w con DIVERTICULOSIS. [facility] [employer] Other CT abdomen pelvis w con URINARY BLADDER WALL THICKENING THAT MAY RELATE TO UNDERDISTENTION. [facility] [employer] Other CT abdomen pelvis w con SMALL FAT-CONTAINING UMBILICAL HERNIA, SIMILAR TO THE COMPARISON. [facility] [employer] Other CT abdomen pelvis w con NO OTHER ACUTE FINDINGS. [facility] [employer] Other CT abdomen pelvis w con Impression dictated by: Jossie Pineda M.D.08/09/2022 10:45 AM [facility] [employer] Other CT abdomen pelvis w con Dictation Location: [address] [employer] Other CT abdomen pelvis w con Transcribed By: [facility] 08/09/22 1045 [facility] [facility] Other CT abdomen pelvis w con Dictated By: Jossie Pineda MD 08/09/[address] [place] [address] abdomen pelvis w con Signed By: [employer] Other CT abdomen pelvis w con 08/09/22 1045 [facility] [employer] Other CT abdomen pelvis w con [facility] [place] [address] [place] [address] CT Scan Report Signed Patient: Erik Alfonso MR#: [id number] : 1940 Acct:[id number] Age/Sex: 81 / M ADM Date: 08/09/22 Loc: CT Room: Type: [facility] Attending Dr: Jesse García DO Copies to: Jesse García DO Ordering Provider: Jesse García DO Date of Service: 08/09/22 CT/CT abdomen pelvis w con: RLQ abdominal pain CT ABDOMEN AND PELVIS WITH CONTRAST COMPARISON: 03/12/2021 CLINICAL DATA: Right-sided umbilical pain. Previous repair. Spiral images were obtained through the abdomen pelvis following oral and 90 mL of Isovue-300. This CT exam was performed using one or more following dose reduction techniques: Automated exposure control, adjustment of the mA and/or kV according to patient size, or use of iterative reconstruction technique. Limited cuts through the lung bases show minor atelectasis or scarring. Fatty infiltration of the liver is present. No intrahepatic masses are seen. There are no calcified gallstones. The spleen, pancreas and adrenal glands show no acute findings. There are symmetric bilateral renal nephrograms, without hydronephrosis. There are multiple bilateral renal calculi measuring up to 7 mm on the left and 9 mm on the right. There is also a left renal cyst. There is no ureteral dilatation however there is a distal left ureteral stone just proximal to the ureterovesical junction measuring 5 mm in size. The abdominal aorta is normal caliber and there is minor plaque. There are no enlarged lymph nodes or ascites. The small bowel loops are not dilated. There is mild stool within the colon. Patient has a tiny umbilical hernia containing fat. Appearance is similar to the prior. There is slight levoscoliotic curvature and degenerative changes involving the spine. Images through the pelvis show normal caliber small bowel loops. There is stool at the cecum and mild at the distal colon. There are some descending and sigmoid diverticula. No active inflammation is present. The urinary bladder is not well-distended and the wall appears thickened. The prostate is within normal limits for size and contains calcification. No ascites is seen. CT/CT abdomen pelvis w con IMPRESSION: BILATERAL NEPHROLITHIASIS. NONOBSTRUCTING DISTAL LEFT URETERAL STONE. LEFT RENAL CYST. FATTY LIVER. DIVERTICULOSIS. URINARY BLADDER WALL THICKENING THAT MAY RELATE TO UNDERDISTENTION. SMALL FAT-CONTAINING UMBILICAL HERNIA, SIMILAR TO THE COMPARISON. NO OTHER ACUTE FINDINGS. Impression dictated by: Jossie Pineda M.D.08/09/2022 10:45 AM Dictation Location: [place] [address] Transcribed By: [facility] 08/09/22 1045 Dictated By: Jossie Pineda MD 08/09/22 1037 Signed By: 08/09/22 1045 [facility] Creatinineon 08-09-2022 Creatinine [Mass/Vol] 1.17 mg/dL Normal 0.64-1.27 [facility] Comment on above: Performed By: #### L IPID, CBC, CMP #### [facility] [address] [place] [address] [place] Estimated GFR ( Sandra > 60 Normal [facility] Comment on above: Result Comment: GFR estimated reference range: According to KDOQI guidelines, <60 ml/min/1.73m2 is sufficient to diagnose a patient with chronic kidney disease. PERFORMED BY: [place] [address] PATHOLOGIST ELEMENTARY MATH TUTOR LATONIA VASQUEZ M.D. Performed By: #### L IPID, CBC, CMP #### [facility] [address] Estimated GFR (Non- Am 60 Normal [facility] Comment on above: Performed By: #### L IPID, CBC, CMP #### [facility] [address] Creatinine and Glomerular fi ltration rate.predicted panel (S/P/Bld)Ordered By: Jesse García on 08-09-2022 Creatinine [Mass/Vol] 1.17 mg/dL 0.64-1.27 [facility] Estimated glomerular filtrat ion rate (GFR) non- AmericanOrdered By: [facility] on 08-09-2022 GFR/1.73 sq M.predicted radha g non-blacks MDRD (S/P/Bld) [Vol rate/Area] 60 mL/Min [facility] No Panel InformationOrdered By: [facility] on 08-09-2022 Estimated GFR () > 60 mL/Min [facility] Comment on above: GFR estimated refere nce range: According to KDOQI guidelines, <60 ml/min/1.73m2 is sufficient to diagnose a patient with chronic kidney disease. 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) Never a smoker Class 1 obesity with body mass index (BMI) of 34.0 to 34.9 in adult (278.00,V85.34) (E66.9,Z68.34) Loud snoring (786.09) (R06.83) Fatigue (780.79) (R53.83) Orders ASHD (arteriosclerotic heart disease), Essential hypertension, benign, Hyperlipidemia Basic Metabolic Panel; Status:Active - Retrospective Authorization; Requested for:[id number]; Complete Blood Count; Status:Active - Retrospective Authorization; Requested for:[id number]; Class 1 obesity with body mass index (BMI) of 34.0 to 34.9 in adult Healthy Weight Tips; Status:Complete - Retrospective Authorization; Done: [id number] Some eating tips that can help you lose weight.; Status:Complete - Retrospective Authorization; Done: [id number] Fatigue, Loud snoring Adult Sleep Medicine Referral Evaluation and Treatment Evaluate AND Treat Status: Hold For - Scheduling,Retrospective Authorization Requested for: [id number] SocHx: Never a smoker Tobacco Use Screening; Status:Complete; Done: [id number] Patient Instructions Please bring all medicines, vitamins, and herbal supplements with you when you come to the office. Prescriptions will not be filled unless you are compliant with your follow up appointments or have a follow up appointment scheduled as per instruction of your physician. Refills should be requested at the time of your visit. Follow up in 6 months sleep study ordered labs Chief Complaint ERIK ALFONSO is being seen for a 6 month follow-up of. Patient is in the office with his for follow-up for the problems as noted below. He reports his chronic dyspnea which has not changed from previously. His weight is 6 pounds above his previous visit due to activities. There is a clinical suspicion of sleep apnea as confirmed by his . Sleep study is recommended and will likely be scheduled. He denies any use of nitroglycerin no orthopnea PND and no lower extremity edema. lab data from November 2021 were reviewed with him and his numbers look great. ASSESSMENT AND PLAN: 1. Coronary artery disease involving the LAD with 70% ostial LAD lesion based on cardiac catheterization June 2020 that was assessed with FFR and was found to be physiologically insignificant. Patient is doing well on present medical therapy with minimal symptoms and no adjustments were needed. Risk factor for CAD have been controlled. Reminded the patient to let me know if his symptoms change in the way that we have to investigate further for his LAD lesion 2. Hypertension, presently controlled. No medication changes needed 3. obesity, encouraged the patient cut back calorie intake and continued to exercise on regular basis at [employer] 4. Dyslipidemia. On atorvastatin , LDL is on target 5. 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 Presently stable 6. Dyspnea on exertion and fatigue following COVID-19 infection which has not resolved yet. His exam was normal in that regard, he also has dry cough which has not resolved either. 7. Suspected sleep apnea for which patient is advised to have sleep study and he is agreeable Summer Oliveira MD, [facility] Surgical History Problems History of Cardiac catheterization History of Cataract surgery History of Complete colonoscopy Managed By: Dana ORTEGA, Martin Ross (Gastroenterology) History of Endoscopy History of Hernia repair History of Knee surgery History of Lithotripsy History of Sigmoidoscopy Current Meds Medication NameInstruction amLODIPine Besylate 5 MG Oral TabletTake 1 tablet daily Atorvastatin Calcium 20 MG Oral TabletTAKE 1 TABLET AT BEDTIME Clopidogrel Bisulfate 75 MG Oral TabletTake 1 tablet daily Complete Senior TABSTAKE 1 TABLET DAILY. Isosorbide Mononitrate ER 30 MG Oral Tablet Extended Release 24 HourTake 1 tablet daily Krill Oil 350 MG Oral CapsuleTAKE 1 CAPSULE Daily Meloxicam 15 MG Oral TabletTAKE 1 TABLET DAILY. Metoprolol Succinate ER 50 MG Oral Tablet Extended Release 24 HourTake 1 tablet once daily Nitrostat 0.4 MG Sublingual Tablet Sublingual Omeprazole 40 MG Oral Capsule Delayed ReleaseTAKE 1 CAPSULE EVERYOTHER DAY PARoxetine HCl - 10 MG Oral TabletTAKE 1 TABLET DAILY. Valsartan 80 MG Oral TabletTake 1 tablet daily Allergies Medication MANUELA Inhibitors Adverse Reaction; Cough; Recorded By: Patricia Jacob; 05/20/2021 1:17:56 PM Social History Problems Caffeine use (V49.89) (Z78.9) 3 cups coffee daily Consumes alcohol (V49.89) (Z78.9) socially Never a smoker No illicit drug use Review of Systems Constitutional: not feeling tired. Cardiovascular: no intermittent leg claudication and as noted in HPI. Respiratory: no cough and no shortness of breath (more content not included)... Normal [employer] Tobacco Screening.on 022 Adult depression screening assessment No [facility] [employer] 250 DO Work Phone: Fall risk assessment b) One or more fall s in the last year [facility] [employer] 250 DO Work Phone: Tobacco use status CPHS b) No [facility] 250 DO Work Phone: XR shoulder RT min 2V*on XR shoulder RT min 2V* [facility] [employer] Other XR shoulder RT min 2V* [facility] [employer] Other XR shoulder RT min 2V* [address] [place] [address] [employer] Other XR shoulder RT min 2V* [place] [address] [facility] [employer] Other XR shoulder RT min 2V* XRay Report N [facility] [employer] Other XR shoulder RT min 2V* Signed No rt [employer] Other XR shoulder RT min 2V* Patient: Erik Alfonso MR#: [id number] [facility] [employer] Other XR shoulder RT min 2V* 7129 No rt [employer] Other XR shoulder RT min 2V* : 1940 Acct:[id number] [facility] [employer] Other XR shoulder RT min 2V* Age/Sex: 81 / M A DM Date: 02/01/22 [employer] Other XR shoulder RT min 2V* Loc: XDS Room: [facility] [employer] Other XR shoulder RT min 2V* Attending Dr: Jesse García DO [employer] Other XR shoulder RT min 2V* Copies to: Jesse García DO [employer] Other XR shoulder RT min 2V* Ordering Provider : Jesse García DO [employer] Other XR shoulder RT min 2V* Date of Service: 02/01/22 [employer] Other XR shoulder RT min 2V* [id number]) XR/XR shoulder RT min 2V*: Acute pain of right shoulder [employer] Other XR shoulder RT min 2V* RIGHT SHOULDER - - 3 views [employer] Other XR shoulder RT min 2V* CLINICAL HISTORY: Right shoulder pain fall one month ago. [employer] Other XR shoulder RT min 2V* COMPARISON: None [employer] Other XR shoulder RT min 2V* FINDINGS: No [employer] Other XR shoulder RT min 2V* Mild degenerative changes of the right AC and glenohumeral joints. No acute bony process is seen. [employer] Other XR shoulder RT min 2V* Subacromial space appears maintained. Visualized right lung field is clear. [employer] Other XR shoulder RT min 2V* 5 XR/XR shoulder RT min 2V* [employer] Other XR shoulder RT min 2V* IMPRESSION: N [employer] Other XR shoulder RT min 2V* MILD DEGENERATIVE CHANGES OF THE RIGHT SHOULDER WITHOUT ACUTE BONY PROCESS. [facility] [employer] Other XR shoulder RT min 2V* Impression dictat ed by: Cory Shepherd Jr., D.OTate02/01/2022 4:14 PM [facility] [employer] Other XR shoulder RT min 2V* Dictation Locatio n: [id number]-[id number] [facility] [employer] Other XR shoulder RT min 2V* Transcribed By: Randall WS 02/01/[address] [place] [address] [employer] Other XR shoulder RT min 2V* Dictated By: Eligio Shepherd Jr, DO 02/01/[address] [place] [address] [employer] Other XR shoulder RT min 2V* Signed By: No rt [employer] Other XR shoulder RT min 2V* 02/01/22 [facility] [employer] Other Laboratory - Chemistry and C hemistry - challengeon 11-28-2021 Cholesterol [Mass/Vol] 116\S\116 below low threshold 140- 200 [employer] 250 DO Work Phone: Comment on above: Chol less than 200 m g/dl low risk Chol 201-239 mg/dl borderline risk Chol 240 mg/dl and greater high risk Cholesterol in LDL [Mass/Vol] 54\S\54 Normal 0-100 [facility] [employer] DO Work Phone: Comment on above: LDL ATP III CLASSIFI CATION LDL less than 100 mg/dL Optimal LDL 100-129 mg/dL Near or above optimal LDL 130-159 mg/dL Borderline high LDL 160-189 mg/dL High LDL greater than 189 mg/dL Very high No Panel Informationon 11-28 57.2\S\57.2 Normal . [facility] [employer] 250 DO Work Phone: 9.5\S\9.5 Normal 6.6-10.1 [facility] 250 DO Work Phone: 151\S\151 Normal 150-450 [facility] 250 DO Work Phone: 13.2\S\13.2 Normal 12.0-14.8 [facility] 250 DO Work Phone: 33.9\S\33.9 Normal 32.5-35.6 [facility] 250 DO Work Phone: 31.4\S\31.4 Normal 27.5-35.2 [facility] 250 DO Work Phone: 3.0\S\3.0 Normal 1.8-7.7 [facility] 250 DO Work Phone: 0.1\S\0.1 Normal 0-0.5 [facility] 250 DO Work Phone: 0.7\S\0.7 Normal . [facility] 250 DO Work Phone: 4.6\S\4.6 Normal . [facility] 250 DO Work Phone: 10.2\S\10.2 Normal . [facility] 250 DO Work Phone: 27.3\S\27.3 Normal . [facility] 250 DO Work Phone: 0.0\S\0.0 Normal 0.0-0.2 [facility] 250 DO Work Phone: Comment on above: PERFORMED BY:[facility] [place], [place] [id number] MEDICAL DIRECTORLATONIA VASQUEZ M.D. 0.2\S\0.2 Normal 0.0-0.45 [facility] 250 DO Work Phone: 0.5\S\0.5 Normal 0.0-0.8 [facility] 250 DO Work Phone: 1.4\S\1.4 Normal 1.00-4.8 [facility] 250 DO Work Phone: 92.5\S\92.5 Normal 83.5-101 [facility] 250 DO Work Phone: 43.1\S\43.1 Normal 38.8-50.0 [facility] 250 DO Work Phone: 14.6\S\14.6 Normal 13.0-17.0 [facility] 250 DO Work Phone: 4.66\S\4.66 Normal 3.90-5.60 [facility] 250 DO Work Phone: 5.3\S\5.3 Normal 4.1-10.5 [facility] 250 DO Work Phone: 9.2\S\9.2 Normal 8.2-10.2 [facility] 250 DO Work Phone: 24.1\S\24.1 Normal 22.0-30.0 [facility] 250 DO Work Phone: 104\S\104 Normal 95-114 [facility] 250 DO Work Phone: 4.3\S\4.3 Normal 3.5-5.1 [facility] 250 DO Work Phone: 140\S\140 Normal 136-146 [facility] 250 DO Work Phone: > 60 Normal [facility] 250 DO Work Phone: Comment on above: GFR estimated refere nce range: According to KDOQI guidelines, <60 ml/min/1.73m2 is sufficient to diagnose a patient with chronic kidney disease. 1.14\S\1.14 Normal 0.64-1.27 [facility] Work Phone: 11\S\11 Normal 9-23 [facility] Work Phone: 103\S\103 above high threshold 70-100 [facility] DO Work Phone: Comment on above: Random Glucose Refer ence Range is dependent on time and content of last meal. Glucose of more than 200 mg/dL in a nonstressed, ambulatory subject supports the diagnosis of Diabetes Mellitus. ADA recommended reference range 25\S\25 Normal 10-42 [facility] DO Work Phone: 22\S\22 Normal 10-60 [place] [address] DO Work Phone: 2.8\S\2.8 Normal <5.0 [place] [address] DO Work Phone: Comment on above: PERFORMED BY:[place] [id number] [place], [place] [id number] MEDICAL DIRECTORLATONIA VASQUEZ M.D. 20\S\20 Normal [place] [address] DO Work Phone: 101\S\101 Normal 35-149 [place] [address] DO Work Phone: Comment on above: TRIG ATP III CLASSIF ICATION TRIG less than 150 mg/dL Normal TRIG 150-199 mg/dL Borderline high TRIG 200-500 mg/dL High TRIG greater than 500 mg/dL Very high Standard traceable to the Center for Disease Conrtrol and Prevention (CDC) test method. 42\S\42 Normal 29-71 [facility] DO Work Phone: Comment on above: HDL CHOL ATP-III CLA SSIFICATION Cardiovascular Risk HDL > or equal to 60 mg/dL LOW HDL < 40 mg/dL HIGH Tobacco Screening.on 022 Adult depression screening assessment No [facility] art[facility] 250 DO Work Phone: Fall risk assessment b) One or more fall s in the last year [facility] [place] 250 DO Work Phone: Tobacco use status CPHS b) No M [facility] 250 DO Work Phone: Laboratory - Chemistry and C hemistry - challengeon 06-02-2021 Cholesterol [Mass/Vol] 121\S\121 below low threshold 140- 200 [facility] 250A [employer] Work Phone: Comment on above: Chol less than 200 m g/dl low risk Chol 201-239 mg/dl borderline risk Chol 240 mg/dl and greater high risk Cholesterol in LDL [Mass/Vol] 57\S\57 Normal 0-100 [facility] [employer] Work Phone: Comment on above: LDL ATP III CLASSIFI CATION LDL less than 100 mg/dL Optimal LDL 100-129 mg/dL Near or above optimal LDL 130-159 mg/dL Borderline high LDL 160-189 mg/dL High LDL greater than 189 mg/dL Very high No Panel Informationon 06-02 9.2\S\9.2 Normal 8.2-10.2 [facility] [employer] 250A [employer] Work Phone: 25.0\S\25.0 Normal 22.0-30.0 [facility] 250A [place] Work Phone: 103\S\103 above high threshold 70-100 [facility] 250A [employer] Work Phone: Comment on above: Random Glucose Refer ence Range is dependent on time and content of last meal. Glucose of more than 200 mg/dL in a nonstressed, ambulatory subject supports the diagnosis of Diabetes Mellitus. ADA recommended reference range 4.3\S\4.3 Normal 3.5-5.1 [facility] [employer] 250A [place] Work Phone: 138\S\138 Normal 136-146 [facility] 250A [place] Work Phone: > 60 Normal [facility] 250A [place] Work Phone: Comment on above: GFR estimated refere nce range: According to KDOQI guidelines, <60 ml/min/1.73m2 is sufficient to diagnose a patient with chronic kidney disease. 1.08\S\1.08 Normal 0.64-1.27 [facility] 250A [place] Work Phone: 12\S\12 Normal 9-23 [facility] 250A [place] Work Phone: 26\S\26 Normal 10-42 [facility] 250A [place] Work Phone: 20\S\20 Normal 10-60 [facility] 250A [place] Work Phone: 2.7\S\2.7 Normal <5.0 [facility] 250[address] [place] Work Phone: Comment on above: PERFORMED BY:[place] [address] [address] [place], [place] [phone] MEDICAL DIRECTORLATONIA VASQUEZ M.D. 19\S\19 Normal [facility] 250A [place] Work Phone: 95\S\95 Normal 35-149 [facility] 250A [place] Work Phone: Comment on above: TRIG ATP III CLASSIF ICATION TRIG less than 150 mg/dL Normal TRIG 150-199 mg/dL Borderline high TRIG 200-500 mg/dL High TRIG greater than 500 mg/dL Very high Standard traceable to the Center for Disease Conrtrol and Prevention (CDC) test method. 45\S\45 Normal 29-71 [facility] 250A [place] Work Phone: Comment on above: HDL CHOL ATP-III CLA SSIFICATION Cardiovascular Risk HDL > or equal to 60 mg/dL LOW HDL < 40 mg/dL HIGH Tobacco Screening.on 021 Fall risk assessment a) No falls within the last year [facility] [employer] [place] 250 DO Work Phone: Tobacco use status CP b) No M [facility] [employer] 250 DO Work Phone: Vital Signs Date Time Vital Sign Value Performing Clinician Facility 06-05-2023 09:35-0400 Body height 182.[address] 06-05-2023 09:35-0400 Body mass index (BMI) [Ratio] 33.91 kg/m2 [address] 06-05-2023 09:35-0400 Body weight 113.[address] 06-05-2023 09:35-0400 Diastolic blood pressure 76 mm[Hg] [address] 06-05-2023 09:35-0400 Heart rate 59 /min [address] 06-05-2023 09:35-0400 Systolic blood pressure 126 mm[Hg] [address] 04-25-2023 13:08-0400 Blood Pressure Location DEIRDRE MARIAJOSE [facility] 04-25-2023 13:08-0400 Body temperature 98.06 [degF] DEIRDRE MARIAJOSE [facility] 04-25-2023 13:08-0400 Diastolic blood pressure 68 mm[Hg] DEIRDRE SEVILLARY [facility] 04-25-2023 13:08-0400 Heart rate 62 /min DEIRDRE SEVILLARY [facility] 04-25-2023 13:08-0400 Systolic blood pressure 132 mm[Hg] DEIRDRE SEVILLARY [facility] 04-01-2023 10:15-0400 Body height 182.25 cm Jesse Mast Other [employer] Other 04-01-2023 10:15-0400 Body mass index (BMI) [Ratio] 32.64 kg/m2 Jesse Mast Other [employer] Other 04-01-2023 10:15-0400 Body temperature 96.8 [degF] Jesse Mast Other [employer] Other 04-01-2023 10:15-0400 Body weight 108.41 kg Jesse Mast Other [employer] Other 04-01-2023 10:15-0400 Diastolic blood pressure 72 mm[Hg] Jesse Mast Other [employer] Other 04-01-2023 10:15-0400 Respiratory rate 18 /min Jesse Mast Other [employer] Other 04-01-2023 10:15-0400 SaO2% (BldA) [Mass fraction] 97 % Jesse Mast Other [employer] Other 04-01-2023 10:15-0400 Systolic blood pressure 130 mm[Hg] Jesse Mast Other [employer] Other 11-28-2022 09:09-0400 Body height 182.88 cm Jesse E Mast Work Phone: [facility] 250 DO Work Phone: 11-28-2022 09:09-0400 Body mass index (BMI) [Ratio] 33.09 kg/m2 Jesse E Mast Work Phone: [facility] 250 DO Work Phone: 11-28-2022 09:09-0400 Body surface area Derived from formula 2.32 m2 Jesse E Mast Work Phone: [facility] 250 DO Work Phone: 11-28-2022 09:09-0400 Body weight 110.68 kg Jesse E Mast Work Phone: [facility] 250 DO Work Phone: 11-28-2022 09:09-0400 Diastolic blood pressure 76 mm[Hg] Jesse E Mast Work Phone: [facility] 250 DO Work Phone: 11-28-2022 09:09-0400 Heart rate 60 /min Jesse E Mast Work Phone: [facility] 250 DO Work Phone: 11-28-2022 09:09-0400 Systolic blood pressure 132 mm[Hg] Jesse E Mast Work Phone: [facility] [employer] 250 DO Work Phone: 11-22-2022 11:30-0400 Body height 182.25 cm Erik Diaz Other [employer] Other 11-22-2022 11:30-0400 Body mass index (BMI) [Ratio] 33.73 kg/m2 rEik Diaz Other [employer] [employer] Other 11-22-2022 11:30-0400 Body weight 112.04 kg Erik Diaz Other [employer] Other 11-22-2022 11:30-0400 Diastolic blood pressure 78 mm[Hg] Erik Diaz Other [employer] Other 11-22-2022 11:30-0400 SaO2% (BldA) [Mass fraction] 95 % Erik Diaz Other [employer] Other 11-22-2022 11:30-0400 Systolic blood pressure 138 mm[Hg] Erik Diaz Other [employer] Other 10-15-2022 08:27-0500 Blood Pressure Location Gopal Acheive [facility] 10-15-2022 08:27-0500 Diastolic blood pressure 84 mm[Hg] Gopal Acheive [facility] 10-15-2022 08:27-0500 Heart rate 55 /min [employer] [facility] 10-15-2022 08:27-0500 Systolic blood pressure 188 mm[Hg] Gopal Acheive [facility] 10-04-2022 14:00-0500 Body height 182.25 cm Jesse Mast Other [employer] Other 10-04-2022 14:00-0500 Body mass index (BMI) [Ratio] 34.67 kg/m2 Jesse Mast Other [employer] Other 10-04-2022 14:00-0500 Body temperature 97.5 [degF] Jesse Mast Other [employer] Other 10-04-2022 14:00-0500 Body weight 115.17 kg Jesse Mast Other [employer] Other 10-04-2022 14:00-0500 Diastolic blood pressure 72 mm[Hg] Jesse Mast Other [employer] Other 10-04-2022 14:00-0500 Respiratory rate 18 /min Jesse Mast Other [employer] Other 10-04-2022 14:00-0500 SaO2% (BldA) [Mass fraction] 94 % Jesse Mast Other [employer] Other 10-04-2022 14:00-0500 Systolic blood pressure 118 mm[Hg] Jesse Mast Other [employer] Other 08-06-2022 10:30-0500 Body height 182.25 cm Jesse Mast Other [employer] Other 08-06-2022 10:30-0500 Body mass index (BMI) [Ratio] 34.14 kg/m2 Jesse Mast Other [employer] Other 08-06-2022 10:30-0500 Body weight 113.4 kg Jesse Mast Other [employer] Other 08-06-2022 10:30-0500 Diastolic blood pressure 82 mm[Hg] Jesse Mast Other [employer] Other 08-06-2022 10:30-0500 Respiratory rate 18 /min Jesse Mast Other [employer] Other 08-06-2022 10:30-0500 SaO2% (BldA) [Mass fraction] 94 % Jesse Mast Other [employer] Other 08-06-2022 10:30-0500 Systolic blood pressure 130 mm[Hg] Jesse Mast Other [employer] Other 08-01-2022 16:00-0500 Body height 182.25 cm Erik Diaz Other [employer] Other 08-01-2022 16:00-0500 Body mass index (BMI) [Ratio] 34.96 kg/m2 Erik Diaz Other [employer] Other 08-01-2022 16:00-0500 Body temperature 98 [degF] Erik Diaz Other [employer] Other 08-01-2022 16:00-0500 Body weight 116.12 kg Erik Diaz Other [employer] Other 08-01-2022 16:00-0500 Diastolic blood pressure 81 mm[Hg] Erik Diaz Other [employer] Other 08-01-2022 16:00-0500 SaO2% (BldA) [Mass fraction] 97 % Erik Diaz Other [employer] Other 08-01-2022 16:00-0500 Systolic blood pressure 138 mm[Hg] Erik Diaz Other [employer] Other 06-05-2022 08:51-0400 Body height 182.88 cm Jesse E Mast Work Phone: [facility] DO Work Phone: 06-05-2022 08:51-0400 Body mass index (BMI) [Ratio] 34.72 kg/m2 Jesse E Mast Work Phone: [facility] DO Work Phone: 06-05-2022 08:51-0400 Body surface area Derived from formula 2.37 m2 Jesse E Mast Work Phone: [facility] DO Work Phone: 06-05-2022 08:51-0400 Body weight 116.12 kg Jesse E Mast Work Phone: [facility] [employer] [facility] DO Work Phone: 06-05-2022 08:51-0400 Diastolic blood pressure 60 mm[Hg] Jesse E Mast Work Phone: [facility] 250 DO Work Phone: 06-05-2022 08:51-0400 Heart rate 60 /min Jesse E Mast Work Phone: [facility] DO Work Phone: 06-05-2022 08:51-0400 Systolic blood pressure 122 mm[Hg] Jesse E Mast Work Phone: [facility] DO Work Phone: 04-02-2022 10:15-0400 Body height 182.25 cm Jesse Mast Other [employer] Other 04-02-2022 10:15-0400 Body mass index (BMI) [Ratio] 33.46 kg/m2 Jesse Mast Other [employer] Other 04-02-2022 10:15-0400 Body temperature 97 [degF] Jesse Mast Other [employer] Other 04-02-2022 10:15-0400 Body weight 111.13 kg Jesse Mast Other [employer] Other 04-02-2022 10:15-0400 Diastolic blood pressure 78 mm[Hg] Jesse Mast Other [employer] Other 04-02-2022 10:15-0400 Respiratory rate 18 /min Jesse Mast Other [employer] Other 04-02-2022 10:15-0400 SaO2% (BldA) [Mass fraction] 95 % Jesse Mast Other [employer] Other 04-02-2022 10:15-0400 Systolic blood pressure 130 mm[Hg] Jesse Mast Other [employer] Other 02-21-2022 15:45-0400 Body height 182.25 cm Jesse Mast Other [employer] Other 02-21-2022 15:45-0400 Body mass index (BMI) [Ratio] 33.39 kg/m2 Jesse Mast Other [employer] Other 02-21-2022 15:45-0400 Body temperature 95.4 [degF] Jesse Mast Other [employer] Other 02-21-2022 15:45-0400 Body weight 110.91 kg Jesse Mast Other [employer] Other 02-21-2022 15:45-0400 Diastolic blood pressure 78 mm[Hg] Jesse Mast Other [employer] Other 02-21-2022 15:45-0400 Respiratory rate 18 /min Jesse Mast Other [employer] Other 02-21-2022 15:45-0400 SaO2% (BldA) [Mass fraction] 97 % Jesse Mast Other [employer] Other 02-21-2022 15:45-0400 Systolic blood pressure 130 mm[Hg] Jesse Mast Other [employer] Other 02-05-2022 10:00-0400 Body height 182.25 cm Jesse Mast Other [employer] Other 02-05-2022 10:00-0400 Body mass index (BMI) [Ratio] 34.28 kg/m2 Jesse Mast Other [employer] Other 02-05-2022 10:00-0400 Body weight 113.85 kg Jesse Mast Other [employer] Other 02-05-2022 10:00-0400 Diastolic blood pressure 81 mm[Hg] Jesse Mast Other [employer] Other 02-05-2022 10:00-0400 Respiratory rate 18 /min Jesse Mast Other [employer] Other 02-05-2022 10:00-0400 SaO2% (BldA) [Mass fraction] 96 % Jesse Mast Other [employer] Other 02-05-2022 10:00-0400 Systolic blood pressure 134 mm[Hg] Jesse Mast Other [employer] Other 02-01-2022 15:15-0400 Body height 182.25 cm Jesse Mast Other [employer] Other 02-01-2022 15:15-0400 Body mass index (BMI) [Ratio] 34.55 kg/m2 Jesse Mast Other [employer] Other 02-01-2022 15:15-0400 Body weight 114.76 kg Jesse Mast Other [employer] Other 02-01-2022 15:15-0400 Diastolic blood pressure 75 mm[Hg] Jesse Mast Other [employer] Other 02-01-2022 15:15-0400 Respiratory rate 18 /min Jesse Mast Other [employer] Other 02-01-2022 15:15-0400 SaO2% (BldA) [Mass fraction] 95 % Jesse Mast Other [employer] Other 02-01-2022 15:15-0400 Systolic blood pressure 152 mm[Hg] Jesse Mast Other [employer] Other 11-23-2021 10:31-0400 Body height 182.88 cm Jesse E Mast Work Phone: [employer] [employer] DO Work Phone: 11-23-2021 10:31-0400 Body mass index (BMI) [Ratio] 33.91 kg/m2 Jesse E Mast Work Phone: [employer] [employer] 250 DO Work Phone: 11-23-2021 10:31-0400 Body surface area Derived from formula 2.34 m2 Jesse E Mast Work Phone: [employer] 250 DO Work Phone: 11-23-2021 10:31-0400 Body weight 113.4 kg Jesse E Mast Work Phone: [facility] DO Work Phone: 11-23-2021 10:31-0400 Diastolic blood pressure 85 mm[Hg] Jesse E Mast Work Phone: [facility] 250 DO Work Phone: 11-23-2021 10:31-0400 Heart rate 60 /min Jesse E Mast Work Phone: [facility] 250 DO Work Phone: 11-23-2021 10:31-0400 Systolic blood pressure 137 mm[Hg] Jesse E Mast Work Phone: [facility] DO Work Phone: 10-02-2021 11:15-0500 Body height 182.25 cm Jesse Mast Other [employer] Other 10-02-2021 11:15-0500 Body mass index (BMI) [Ratio] 34 kg/m2 Jesse Mast Other [employer] Other 10-02-2021 11:15-0500 Body weight 112.95 kg Jesse Mast Other [employer] Other 10-02-2021 11:15-0500 Diastolic blood pressure 82 mm[Hg] Jesse Mast Other [employer] Other 10-02-2021 11:15-0500 Respiratory rate 18 /min Jesse Mast Other [employer] Other 10-02-2021 11:15-0500 SaO2% (BldA) [Mass fraction] 97 % Jesse Mast Other [employer] Other 10-02-2021 11:15-0500 Systolic blood pressure 149 mm[Hg] Jesse Mast Other [employer] Other 07-24-2021 12:15-0500 Body height 182.25 cm Jesse Mast Other [employer] Other 07-24-2021 12:15-0500 Body mass index (BMI) [Ratio] 33.77 kg/m2 Jesse Mast Other [employer] Other 07-24-2021 12:15-0500 Body temperature 96.6 [degF] Jesse Mast Other [employer] Other 07-24-2021 12:15-0500 Body weight 112.18 kg Jesse Mast Other [employer] Other 07-24-2021 12:15-0500 Diastolic blood pressure 90 mm[Hg] Jesse Mast Other [employer] Other 07-24-2021 12:15-0500 Respiratory rate 18 /min Jesse Mast Other [employer] Other 07-24-2021 12:15-0500 SaO2% (BldA) [Mass fraction] 94 % Jesse Mast Other [employer] Other 07-24-2021 12:15-0500 Systolic blood pressure 130 mm[Hg] Jesse Mast Other [employer] Other 07-12-2021 14:45-0500 Body height 182.25 cm Jesse Mast Other [employer] Other 07-12-2021 14:45-0500 Body mass index (BMI) [Ratio] 33.89 kg/m2 Jesse Mast Other [employer] Other 07-12-2021 14:45-0500 Body temperature 97.2 [degF] Jesse Mast Other [employer] Other 07-12-2021 14:45-0500 Body weight 112.58 kg Jesse Mast Other [employer] Other 07-12-2021 14:45-0500 Diastolic blood pressure 72 mm[Hg] Jesse Mast Other [employer] Other 07-12-2021 14:45-0500 Respiratory rate 18 /min Jesse Mast Other [employer] Other 07-12-2021 14:45-0500 SaO2% (BldA) [Mass fraction] 96 % Jesse Mast Other [employer] Other 07-12-2021 14:45-0500 Systolic blood pressure 120 mm[Hg] Jesse Mast Other [employer] Other 06-02-2021 00:00-0400 57 1 Jesse E Mast Work Phone: [facility] [address] [place] Work Phone: Comment on above: FSL 05-31-2021 10:10-0400 Body height 182.88 cm Jesse E Mast Work Phone: [facility] DO Work Phone: 05-31-2021 10:10-0400 Body mass index (BMI) [Ratio] 33.23 kg/m2 Jesse E Mast Work Phone: [facility] DO Work Phone: 05-31-2021 10:10-0400 Body surface area Derived from formula 2.32 m2 Jesse E Mast Work Phone: [facility] DO Work Phone: 05-31-2021 10:10-0400 Body weight 111.13 kg Jesse E Mast Work Phone: [facility] DO Work Phone: 05-31-2021 10:10-0400 Diastolic blood pressure 64 mm[Hg] Jesse E Mast Work Phone: [facility] DO Work Phone: 05-31-2021 10:10-0400 Heart rate 60 /min Jesse E Mast Work Phone: [facility] DO Work Phone: 05-31-2021 10:10-0400 Systolic blood pressure 130 mm[Hg] Jesse E Mast Work Phone: [facility] DO Work Phone: 05-29-2021 10:15-0400 Body height 182.25 cm Jesse Mast Other [employer] Other 05-29-2021 10:15-0400 Body mass index (BMI) [Ratio] 33.16 kg/m2 Jesse Mast Other [employer] Other 05-29-2021 10:15-0400 Body temperature 97 [degF] Jesse Mast Other [employer] Other 05-29-2021 10:15-0400 Body weight 110.13 kg Jesse Mast Other [employer] Other 05-29-2021 10:15-0400 Diastolic blood pressure 80 mm[Hg] Jesse Mast Other [employer] Other 05-29-2021 10:15-0400 Respiratory rate 18 /min Jesse Mast Other [employer] Other 05-29-2021 10:15-0400 SaO2% (BldA) [Mass fraction] 96 % Jesse Mast Other [employer] Other 05-29-2021 10:15-0400 Systolic blood pressure 118 mm[Hg] Jesse Mast Other [employer] Other Encounters Encounter Date Encounter Type Care Provider Facility Start: 07-22-2023 End: 07-23-2023 ambulatory Matilda Murphy Facility:[facility] Start: 07-22-2023 End: 07-22-2023 Patient encounter procedure Matilda Murphy [facility] Start: 07-17-2023 End: 07-18-2023 ambulatory Matilda Murphy Facility:CD:[id number] Start: 06-19-2023 End: 06-20-2023 ambulatory Matilda Murphy Facility:CD:[id number] Start: 06-06-2023 End: 06-06-2023 ambulatory [facility] Start: 06-05-2023 End: 06-06-2023 ambulatory [facility] Start: 06-05-2023 End: 06-05-2023 Encounter for preprocedural cardiovascular examination [facility] Start: 06-05-2023 End: 06-05-2023 Subsequent hospital visit by physician Fiona Olvera Stress Room 1 [facility] Comment on above: ASHD (arteriosclerot ic heart disease) (Primary Dx) Start: 06-04-2023 End: 06-04-2023 ambulatory [facility] Facility:[facility] Start: 06-04-2023 End: 06-04-2023 Encounter for preprocedural cardiovascular examination [facility] Start: 06-04-2023 End: 06-04-2023 ambulatory DO Jesse Mast Work Phone: [facility] Work Phone: Start: 06-04-2023 End: 06-04-2023 Patient encounter procedure DO Jesse Mast Work Phone: [facility]-Lab [place] Work Phone: Start: 05-22-2023 ambulatory Matilda Murphy Facility:C [id number] Start: 05-17-2023 End: 05-18-2023 ambulatory Matildanazia Murphy Facility: [place] Start: 05-08-2023 End: 05-09-2023 ambulatory Matilda Murphy Facility: [place] Start: 05-08-2023 End: 05-08-2023 Patient encounter procedure [facility] Start: 04-27-2023 End: 04-27-2023 ambulatory Deirdre Billy Facility:[facility] Start: 04-27-2023 End: 04-27-2023 ambulatory DO Jesse Mast Work Phone: [facility] Work Phone: Start: 04-27-2023 End: 04-27-2023 Patient encounter procedure DO Jesse Mast Work Phone: [facility]-CT Scan [facility] [place] Work Phone: Start: 04-25-2023 End: 04-26-2023 ambulatory PA-C DEIRDRE BILLY Facility:[facility] Start: 04-25-2023 End: 04-25-2023 Patient encounter procedure DEIRDRE BILLY [facility] [place] Start: 04-01-2023 End: 04-01-2023 ambulatory Jesse Mast Other [facility] [employer] Other Start: 04-01-2023 Patient encounter procedure Jesse Mast [facility] [place] Start: 03-19-2023 Rx Renewal Jesse E Mast Work Phone: [facility] 250 DO Work Phone: Start: 11-28-2022 Chart Update Jesse E Mast Work Phone: [facility] 250 DO Work Phone: Start: 11-28-2022 Office outpatient vi sit 25 minutes Jesse E Mast Work Phone: [facility] 250 DO Work Phone: Start: 11-28-2022 ambulatory [facility] Facility :[facility] Start: 11-26-2022 End: 11-26-2022 ambulatory [facility] Facility:[facility] Start: 11-26-2022 End: 11-26-2022 ambulatory DO Jesse Mast Work Phone: [facility] Work Phone: Start: 11-26-2022 End: 11-26-2022 Patient encounter procedure DO Jesse Mast Work Phone: [facility] Start: 11-22-2022 Office outpatient vi sit 25 minutes Erik Diaz [facility] Start: 11-22-2022 End: 11-22-2022 ambulatory DO Jesse Mast Work Phone: [facility] [employer] Other Start: 11-22-2022 End: 11-22-2022 Patient encounter procedure DO Jesse Mast Work Phone: [facility]-Sleep Lab Work Phone: Start: 10-15-2022 End: 10-16-2022 ambulatory Gopal GARCÍA Facility:[facility] Start: 10-15-2022 End: 10-15-2022 Patient encounter procedure Gopal GARCÍA [facility] Start: 10-08-2022 Telephone encounter Jesse Mast [facility] Start: 10-08-2022 End: 10-08-2022 ambulatory Jesse Mast [facility] [employer] Other Start: 10-08-2022 End: 10-08-2022 Patient encounter procedure DO Jesse Mast Work Phone: [facility]-Lab [facility] Start: 10-04-2022 End: 10-04-2022 ambulatory Jesse Mast Other [employer] Other Start: 10-04-2022 Office outpatient vi sit 25 minutes Jesse Mast [facility] Start: 08-14-2022 End: 08-14-2022 ambulatory Jesse Mast Facility:[facility] Start: 08-09-2022 End: 08-09-2022 ambulatory Jesse Mast Facility:[facility] Start: 08-09-2022 End: 08-09-2022 ambulatory DO Jesse Mast Work Phone: [facility] Work Phone: Start: 08-09-2022 End: 08-09-2022 Patient encounter procedure DO Jesse Mast Work Phone: [facility]-CT Scan [facility] [place] Work Phone: Start: 08-06-2022 End: 08-06-2022 ambulatory Jesse Mast Other [employer] Other Start: 08-06-2022 Office outpatient vi sit 25 minutes Jesse Mast [facility] Start: 08-01-2022 End: 08-01-2022 ambulatory Erik Diaz Facility:[facility] Start: 08-01-2022 End: 08-01-2022 Patient encounter procedure DO Jesse Mast Work Phone: [facility]-Sleep Lab Start: 08-01-2022 End: 08-01-2022 ambulatory DO Jesse Mast Work Phone: [facility] Work Phone: Start: 08-01-2022 Office outpatient vi sit 40 minutes Erik Diaz [facility] Start: 06-05-2022 Office outpatient vi sit 25 minutes Jesse E Mast Work Phone: [facility] 250 DO Work Phone: Start: 06-05-2022 ambulatory Summer Oliveira Facility : Start: 05-08-2022 End: 05-08-2022 Patient encounter procedure DO Jesse Mast Work Phone: [facility]-Covid Vaccine Off Site Start: 04-02-2022 End: 04-02-2022 ambulatory Jesse Mast Other [employer] Other Start: 04-02-2022 Office outpatient vi sit 25 minutes Jesse Mast [facility] Start: 04-02-2022 Rx Renewal Jesse E Mast Work Phone: [facility] 250 DO Work Phone: Start: 02-21-2022 End: 02-21-2022 ambulatory Jesse Mast Other [employer] Other Start: 02-21-2022 Office outpatient vi sit 15 minutes Jesse Mast [facility] Start: 02-05-2022 End: 02-05-2022 ambulatory Jesse Mast Other [employer] Other Start: 02-05-2022 Patient encounter procedure Jesse Mast [facility] [place] Start: 02-01-2022 End: 02-01-2022 ambulatory Jesse Mast Other [employer] Other Start: 02-01-2022 Office outpatient vi sit 25 minutes Jesse Mast [facility] [place] Start: 01-02-2022 Rx Renewal Jesse E Mast Work Phone: [facility] [facility] DO Work Phone: Start: 12-01-2021 ([facility] C Vac) [facility] Co vid Vaccine Sona House [facility] Start: 12-01-2021 End: 12-01-2021 ambulatory Sona House Other [employer] Other Start: 11-29-2021 Chart Update Jesse E Mast Work Phone: [facility] 250 DO Work Phone: Start: 11-23-2021 Office outpatient vi sit 25 minutes Jesse E Mast Work Phone: [facility] 250 DO Work Phone: Start: 10-09-2021 End: 10-09-2021 ambulatory Jesse Mast Other [employer] Other Start: 10-09-2021 Telephone encounter Jesse Mast [facility] [place] Start: 10-02-2021 End: 10-02-2021 ambulatory Jesse Mast Other [employer] Other Start: 10-02-2021 Patient encounter procedure Jesse Mast [facility] [place] Start: 07-25-2021 Rx Renewal Jesse E Mast Work Phone: [facility] 250 DO Work Phone: Start: 07-24-2021 End: 07-24-2021 ambulatory Jesse Mast Other [employer] Other Start: 07-24-2021 Office outpatient vi sit 15 minutes Jesse Mast [facility] Start: 07-12-2021 End: 07-12-2021 ambulatory Jesse Mast Other [employer] Other Start: 07-12-2021 Office outpatient vi sit 15 minutes Jesse Mast [facility] Start: 07-11-2021 End: 07-11-2021 ambulatory Jesse Mast Other [employer] Other Start: 07-11-2021 Telephone encounter Jesse Mast [facility] Start: 06-12-2021 Chart Update Jesse E Mast Work Phone: [facility] [address] [place] Work Phone: Start: 05-31-2021 Office outpatient vi sit 25 minutes [facility] E [facility]ast [facility]: [facility] DO Work Phone: Start: 05-29-2021 Office outpatient vi sit 15 minutes Jesse Mast [facility] Procedures Date Procedure Procedure Detail Performing Clinician Start: 07-17-2023 Ureteroscopy and electrohydraulic lithotripsy of calculus of ureter Matilda Lue Comment on above: cysto/LRG/ URS/laser /basket w/ L stent exchange Start: 06-19-2023 Ureteroscopy and genia ctrohydraulic lithotripsy of calculus of ureter Matilda Lue Comment on above: w/ L stent placement Start: 06-06-2023 Cv strs tst xers&/or rx cont ecg trcg only Summer Oliveira MD Work Phone: Start: 06-05-2023 NUCLEAR STRESS TEST HAS VILLALTA OLIVEIRA Start: 06-04-2023 Aspartate aminotrans ferase [Enzymatic activity/volume] in Serum or Plasma [facility] Start: 06-04-2023 Basic metabolic 2000 panel - Serum or Plasma [facility] Start: 06-04-2023 CBC panel - Blood by Automated count [facility] Start: 06-04-2023 Lipid panel [facility] Start: 06-04-2023 Alanine aminotransfe rase [Enzymatic activity/volume] in Serum or Plasma [facility] Start: 04-27-2023 CT of abdomen and pe lvis without contrast DO Jesse Mast Work Phone: Start: 08-09-2022 Computed tomography of abdomen and pelvis with contrast DO Jesse Mast Work Phone: Start: 09-15-2018 Cystoscopic removal of ureteric stent Gopal GARCÍA Start: 09-10-2018 Extracorporeal shock wave lithotripsy of calculus of kidney Gopal GARCÍA Start: 09-21-2016 cystoscopy, retrogra de, stenting and cystoscopy, lithotripsy Gopal GARCÍA Start: 08-19-2016 Cystoscope, device (physical object) Gopal GARCÍA Start: 05-28-2010 Colonoscopy Gopal ERICH E Start: 05-28-2010 hernia Gopal ERICH E Arthroscopy of knee Gopal R ICE Cardiac catheterization Jesse E Mast Work Phone: Cardiac catheterization LUCIANA BILLY Cataract extraction and insertion of intraocular lens DEIRDRE BILLY Cataract surgery Jesse E Mast Work Phone: Endoscopy Jesse E Mast Work Phone: Endoscopy DEIRDRE BILLY Hernia repair Jesse E Mast Work Phone: Lithotripsy Jesse E Mast Work Phone: Operative procedure on knee Jesse E Mast Work Phone: Sigmoidoscopy Jesse E Mast Work Phone: Sigmoidoscopy DEIRDRE BILLY Total colonoscopy Jesse E Mas t Work Phone: YAG - laser (physical object) DEIRDRE BILLY Plan of Treatment Date Care Activity Detail Author Start: 05-22-2027 DTaP/Tdap/Td Vaccine s (2 - Td or Tdap) DTaP/Tdap/Td Vaccines (2 - Td or Tdap) [facility] Start: 12-11-2023 End: 12-11-2023 Patient encounter procedure 12/11/2023 9:50 AM EDT Office Visit [facility] [address] [id number] Summer Oliveira MD 703 [facility] [address], [address] [address] [facility] Start: 10-21-2023 ambulatory Ambulatory Facility:[facility] Start: 09-15-2023 COVID-19 Vaccine (6 - Additional dose for Olga series) COVID-19 Vaccine (6 - Additional dose for Olga series) [facility] Start: 06-04-2023 FUV, Provider: Summer Oliveira, Status: Pen, Time: 9:20 AM FUV, Provider: Summer Oliveira, Status: Pen, Time: 9:20 AM [facility] 250 DO Work Phone: Start: 11-28-2022 FUV, Provider: Summer Oliveira, Status: Pen, Time: 9:00 AM FUV, Provider: Summer Oliveira, Status: Pen, Time: 9:00 AM [facility] 250 DO Work Phone: Start: 07-03-2022 NPV, Provider: Yolande Brewster, Status: Pen, Time: 11:15 AM NPV, Provider: Yolande Brewster, Status: Pen, Time: 11:15 AM [facility] Work Phone: Start: 06-05-2022 FUV, Provider: Summer Oliveira, Status: Pen, Time: 8:50 AM FUV, Provider: Summer Oliveira, Status: Pen, Time: 8:50 AM [facility] 250 DO Work Phone: Start: 11-23-2021 FUV, Provider: Summer Oliveira, Status: Pen, Time: 9:50 AM FUV, Provider: Summer Oliveira, Status: Pen, Time: 9:50 AM [facility] 250 DO Work Phone: Start: 1940 Lipid panel Lipid Panel [facility] Start: 1940 Medicare Annual Wellness Visit Medicare Annual Wellness Visit (AWV) [facility] Immunizations Immunization Date Immunization Notes Care Provider Henry grimaldo 05-16-2022 Fluzone High-Dose Quadrivalent 0.7 ML Intramuscular Suspension Prefilled Syringe Jesse E Mast Work Phone: [facility] 250 DO Work Phone: 05-16-2022 influenza virus vaccine, unspecified formulation Gopal GARCÍA [facility] 05-08-2022 Moderna COVID-19 Biv al Booster 50 MCG/0.5ML Intramuscular Suspension Jesse E Mast Work Phone: [facility] 12-01-2021 COVID-19 Moderna Sona Fitt Other [facility] 06-20-2021 Moderna COVID-19 Vaccine 100 MCG/0.5ML Intramuscular Suspension Jesse E Mast Work Phone: [facility] 05-11-2021 influenza, high dose seasonal, preservative-free Jesse Mast Other [facility] [employer] Other 05-11-2021 Fluzone High-Dose Quadrivalent 0.7 ML Intramuscular Suspension Prefilled Syringe Jesse E Mast Work Phone: [facility] 250 DO Work Phone: 05-11-2021 influenza virus vaccine, unspecified formulation Gopal RICE [facility] 11-06-2020 SARS-CoV-2 (COVID-19 ) Ad26 vaccine, recombinant Gopal RICE [facility] 11-03-2020 Moderna COVID-19 Vaccine 100 MCG/0.5ML Intramuscular Suspension Jesse E Mast Work Phone: [facility] 10-09-2020 SARS-CoV-2 (COVID-19 ) Ad26 vaccine, recombinant Gopal RICE [facility] Comment on above: Result Comment: dupl ication 10-06-2020 Moderna COVID-19 Vac cine 100 MCG/0.5ML Intramuscular Suspension Jesse E Mast Work Phone: [facility] 05-19-2020 influenza virus vacc ine, unspecified formulation Gopal RICE [facility] 05-05-2020 Fluzone High-Dose Quadrivalent 0.7 ML Intramuscular Suspension Prefilled Syringe Jesse E Mast Work Phone: [facility] 250 DO Work Phone: 05-05-2020 influenza virus vacc ine, unspecified formulation Jesse E Mast Work Phone: [facility] 07-03-2019 zoster vaccine recombinant Jesse E Mast Work Phone: [facility] 05-19-2019 influenza virus vacc ine, live, attenuated, for intranasal use Gopal RICE [facility] 05-06-2019 zoster vaccine recombinant Jesse E Mast Work Phone: [facility] 05-03-2019 influenza virus vacc ine, unspecified formulation Jesse E Mast Work Phone: [facility] 05-03-2019 influenza, high dose seasonal, preservative-free Jesse E Mast Work Phone: [place] [address] DO Work Phone: 05-28-2018 pneumococcal polysaccharide vaccine, 23 valent Jesse E Mast Work Phone: [facility] 05-23-2018 influenza virus vacc ine, unspecified formulation Jesse E Mast Work Phone: [place] [address] DO Work Phone: 05-23-2018 pneumococcal conjuga te vaccine, 13 valent Jesse E Mast Work Phone: [place] [address] DO Work Phone: 05-22-2017 influenza virus vacc ine, unspecified formulation Gopal RICE [facility] 05-22-2017 influenza, seasonal, injectable Jesse E Mast Work Phone: [place] [address] DO Work Phone: 05-22-2017 tetanus toxoid, redu nathan diphtheria toxoid, and acellular pertussis vaccine, adsorbed Jesse E Mast Work Phone: [facility] 09-05-2015 pneumococcal conjuga te vaccine, 13 valent Jesse E Mast Work Phone: [facility] 08-19-2015 pneumococcal conjuga te vaccine, 13 valent Jesse E Mast Work Phone: [facility] 250 DO Work Phone: 05-19-2014 influenza, high dose seasonal, preservative-free Jesse Mast Other [facility] [employer] Other 06-22-2008 zoster vaccine, live Jesse E Mast Work Phone: [facility] Payers Date Payer Category Payer Unknown 2022 Self-pay [id number] 2016 Unknown [id number] 2014 Unknown [id number] 2014 Unknown [id number] 1897ac 2007 Medicare [id number] 2007 Medicare MEDICARE MEDICAR E PART A AND B [id number] 2007-Present [address] [place] [address] [id number]. [id number] 1942 Unknown [id number] 2.16.840.1.816021.3.579.2.356 1942 Unknown [id number] 2.16.840.1.311750.3.579.2.356 1942 Unknown [id number] 2.16.840.1.527837.3.579.2.1244 1942 Unknown [id number] 2.16.840.1.082025.3.579.2.1246 1942 Unknown [id number] 2.16.840.1.447532.3.579.2.1246 1942 Unknown [id number] 2.16.840.1.532498.3.579.2.1246 1942 Unknown [id number] 2.16.840.1.157199.3.579.2.1246 1942 Unknown [id number] 2.16.840.1.676565.3.579.2.1246 1942 Unknown [id number] 2.16.840.1.356248.3.579.2.727 1942 Unknown [id number] 2.16.840.1.981092.3.579.2.727 1942 Unknown [id number] 2.16.840.1.003493.3.579.2.727 1942 Unknown [id number] 2.16.840.1.526519.3.579.2.727 1942 Unknown [id number] 2.16.840.1.977081.3.579.2.727 1942 Unknown [id number] 2.16.840.1.852014.3.579.2.727 1942 Unknown [id number] 2.16.840.1.866950.3.579.2.727 1942 Unknown [id number] 2.16.840.1.018942.3.579.2.727 Unknown [id number] 2.16.840.1.800020.3.579.2.531 Unknown [id number] 2.16.840.1.081614.3.579.2.531 Unknown [id number] 2.16.840.1.901970.3.579.2.531 Unknown [id number] 2.16.840.1.875039.3.579.2.531 Unknown [id number] 2.16.840.1.780588.3.579.2.531 Unknown [id number] 2.16.840.1.171407.3.579.2.531 Unknown [id number] 2.16.840.1.446223.3.579.2.531 Unknown [id number] 2.16.840.1.708924.3.579.2.531 Social History Date Type Detail Facility Start: 06-04-2023 No illicit drug use No illicit drug use [facility] 250 DO Work Phone: Comment on above: 3 cups coffee daily; socially; slight; Start: 06-04-2023 Sex Assigned At F [facility] Start: 08-18-2021 End: 05-17-2023 Tobacco smoking status NHIS Never smoked tobacco (finding) [facility] Start: 1940 Sex Assigned At Male F [facility] Tobacco smoking status Never [facility] Start: 06-04-2023 Tobacco use and exposure Smokeless tobacco non-user [facility] Work Phone: Start: 06-04-2023 Alcohol intake Current drinke r of alcohol (finding) [facility] Work Phone: Start: 1940 Sex Assigned At Not on file [facility] Work Phone: Start: 05-27-2023 End: 06-06-2023 Exposure to SARS-CoV-2 (event) Not sure [facility] Medical Equipment Procedure Code Equipment Code Equipment Origin al Text Equipment Identifier Dates ESWL, one kidney STENT CONTOUR 4 .8FR X 22-30CM FDA Start: 09-10-2018 ESWL, one kidney STENT CONTOUR 4 .8FR X 22-30CM FDA Start: 09-10-2018 ESWL, one kidney STENT CONTOUR 4 .8FR X 22-30CM FDA Start: 09-10-2018 ESWL, one kidney STENT CONTOUR 4 .8FR X 22-30CM FDA Start: 09-10-2018 ESWL, one kidney STENT CONTOUR 4 .8FR X 22-30CM FDA Start: 09-10-2018 ESWL, one kidney STENT CONTOUR 4 .8FR X 22-30CM FDA Start: 09-10-2018 ESWL, one kidney STENT CONTOUR 4 .8FR X 22-30CM FDA Start: 09-10-2018 Femoral artery closure plug/patch, synthetic polymer [id number] FDA Start: 06-27-2020 Functional Status Date Assessment Result Facility 07-22-2023 Functional Status N/A [facility] 04-25-2023 Functional Status N/A [facility] 10-15-2022 Functional Status N/A [facility] Clinical Notes 05-29-2021 to 07-22-2023 Note Date & Type Note Facility 07-22-2023 Note [id number] [facility] 07-22-2023 Note Cystoscopy with Sten t Removal ? Voiding after the procedure: there may be some pain, burning, urgency, frequency and blood tinged urine following the procedure. These symptoms usually resolve within 2-5 days. Drink the amount of fluid it takes to keep the urine pink to yellow or clear in color. Drinking enough water and fluids will help to ease any discomfort after your procedure. ? If you are having problems that seem out of the ordinary, please call. ? If unable to contact your physician and you feel it is an emergency, go to the nearest emergency room or call 911 ? Diet ? you may resume your normal diet. ? Activity ? you may resume your normal activities ? Call if you have a fever over 100 degrees. [facility] 07-22-2023 Hospital Discharg e instructions Patient Education 07/22/2023 10:31:18 [facility] - Cystoscopy with Stent Removal Discharge Instructions (CUSTOM) Cystoscopy with Stent Removal Voiding after the procedure: there may be some pain, burning, urgency, frequency and blood tinged urine following the procedure. These symptoms usually resolve within 2-5 days. Drink the amount of fluid it takes to keep the urine pink to yellow or clear in color. Drinking enough water and fluids will help to ease any discomfort after your procedure. If you are having problems that seem out of the ordinary, please call. If unable to contact your physician and you feel it is an emergency, go to the nearest emergency room or call 911 Diet you may resume your normal diet. Activity you may resume your normal activities Call if you have a fever over 100 degrees. Follow Up Care 07/18/2023 09:25:59 With:Matilda Murphy Address: [address] [place] [phone] Business (1) When: Unknown Comments:Office to schedule follow up in 6-8 weeks to review renal [facility] 04-25-2023 Hospital Discharg e instructions Patient Education 04/25/2023 13:40:03 Dietary Guidelines to Help Prevent Kidney Stones Dietary Guidelines to Help Prevent Kidney Stones Kidney stones are deposits of minerals and salts that form inside your kidneys. Your risk of developing kidney stones may be greater depending on your diet, your lifestyle, the medicines you take, and whether you have certain medical conditions. Most people can lower their chances of developing kidney stones by following the instructions below. Your dietitian may give you more specific instructions depending on your overall health and the type of kidney stones you tend to develop. What are tips for following this plan? Reading food labels Choose foods with no salt added or low-salt labels. Limit your salt (sodium) intake to less than 1,500 mg a day. Choose foods with calcium for each meal and snack. Try to eat about 300 mg of calcium at each meal. Foods that contain 200 500 mg of calcium a serving include: ?8 oz (237 mL) of milk, itxjozl-aqcorqmggbbn-weqml milk, and calcium-fortifiedfruit juice. Calcium-fortified means that calcium has been added to these drinks. ?8 oz (237 mL) of kefir, yogurt, and soy yogurt. ?4 oz (114 g) of tofu. ?1 oz (28 g) of cheese. ?1 cup (150 g) of dried figs. ?1 cup (91 g) of cooked broccoli. ?One 3 oz (85 g) can of sardines or mackerel. Most people need 1,000 1,500 mg of calcium a day. Talk to your dietitian about how much calcium is recommended for you. Shopping Buy plenty of fresh fruits and vegetables. Most people do not need to avoid fruits and vegetables, even if these foods contain nutrients that may contribute to kidney stones. When shopping for convenience foods, choose: ?Whole pieces of fruit. ?Pre-made salads with dressing on the side. ?Low-fat fruit and yogurt smoothies. Avoid buying frozen meals or prepared deli foods. These can be high in sodium. Look for foods with live cultures, such as yogurt and kefir. Choose high-fiber grains, such as whole-wheat breads, oat bran, and wheat cereals. Cooking Do not add salt to food when cooking. Place a salt shaker on the table and allow each person to add his or her own salt to taste. Use vegetable protein, such as beans, textured vegetable protein (TVP), or tofu, instead of meat in pasta, casseroles, and soups. Meal planning Eat less salt, if told by your dietitian. To do this: ?Avoid eating processed or pre-made food. ?Avoid eating fast food. Eat less animal protein, including cheese, meat, poultry, or fish, if told by your dietitian. To do this: ?Limit the number of times you have meat, poultry, fish, or cheese each week. Eat a diet free of meat at least 2 days a week. ?Eat only one serving each day of meat, poultry, fish, or seafood. ?When you prepare animal protein, cut pieces into small portion sizes. For most meat and fish, one serving is about the size of the palm of your hand. Eat at least five servings of fresh fruits and vegetables each day. To do this: ?Keep fruits and vegetables on hand for snacks. ?Eat one piece of fruit or a handful of berries with breakfast. ?Have a salad and fruit at lunch. ?Have two kinds of vegetables at dinner. Limit foods that are high in a substance called oxalate. These include: ?Spinach (cooked), rhubarb, beets, sweet potatoes, and Georgian chard. ?Peanuts. ?Potato chips, maldivian fries, and baked potatoes with skin on. ?Nuts and nut products. ?Chocolate. If you regularly take a diuretic medicine, make sure to eat at least 1 or 2 servings of fruits or vegetables that are high in potassium each day. These include: ?Avocado. ?Banana. ?[place], prune, carrot, or tomato juice. ?Baked potato. ?Cabbage. ?Beans and split peas. Lifestyle Drink enough fluid to keep your urine pale yellow. This is the most important thing you can do. Spread your fluid intake throughout the day. If you drink alcohol: ?Limit how much you use to: ?0 1 drink a day for women who are not . ?0 2 drinks a day for men. ?Be aware of how much alcohol is in your drink. In the [place] one drink equals one 12 oz bottle of beer (355 mL), one 5 oz glass of wine (148 mL), or one 1 oz glass of hard liquor (44 mL). Lose weight if told by your health care provider. Work with your dietitian to find an eating plan and weight loss strategies that work best for you. General information Talk to your health care provider and dietitian about taking daily supplements. You may be told the following depending on your health and the cause of your kidney stones: ?Not to take supplements with vitamin C. ?To take a calcium supplement. ?To take a daily probiotic supplement. ?To take other supplements such as magnesium, fish oil, or vitamin B6. Take sgll-wts-psogkwo and prescription medicines only as told by your health care provider. These include supplements. What foods should I limit? Limit your intake of the following foods, or eat them as told by your dietitian. Vegetables Spinach. Rhubarb. Beets. Canned vegetables. Pickles. Olives. Baked potatoes with skin. Grains Wheat bran. Baked goods. Salted crackers. Cereals high in sugar. Meats and other proteins Nuts. Nut butters. Large portions of meat, poultry, or fish. Salted, precooked, or cured meats, such as sausages, meat loaves, and hot dogs. Dairy Cheese. Beverages Regular soft drinks. Regular vegetable juice. Seasonings and condiments Seasoning blends with salt. Salad dressings. Soy sauce. Ketchup. Barbecue sauce. Other foods Canned soups. Canned pasta sauce. Casseroles. Pizza. Lasagna. Frozen meals. Potato chips. Estonian fries. The items listed above may not be a complete list of foods and beverages you should limit. Contact a dietitian for more information. What foods should I avoid? Talk to your dietitian about specific foods you should avoid based on the type of kidney stones you have and your overall health. Fruits Grapefruit. The item listed above may not be a complete list of foods and beverages you should avoid. Contact a dietitian for more information. Summary Kidney stones are deposits of minerals and salts that form inside your kidneys. You can lower your risk of kidney stones by making changes to your diet. The most important thing you can do is drink enough fluid. Drink enough fluid to keep your urine pale yellow. Talk to your dietitian about how much calcium you should have each day, and eat less salt and animal protein as told by your dietitian. This information is not intended to replace advice given to you by your health care provider. Make sure you discuss any questions you have with your health care provider. Document Revised: 04/16/2022 Document Reviewed: 04/16/2022 [employer] Patient Education 2022 [employer]. Follow Up Care 04/24/2023 14:12:10 With:MARIAJOSE HOLM, DEIRDRE Garay, URL Address: [address] [place] [address] When: Unknown Comments:We will call pt. [facility] 04-01-2023 Evaluation note Encounter Date Diagnosis Assessment Notes Mar, Medicare annual wellness visit, subsequent (ICD-10 - Z00.00) Personalized health advice was given to the beneficiary including a written plan for screenings discussed and provided. Advanced care planning reviewed and/or information given as requested. The above visit was performed by ARIELLE Stover/ ERIC, under direct supervision of Dr. Jesse García DO. Document reviewed and amended by provider signed below. His chronic problems are under adequate control. Continue current treatment. I commended him on his weight loss, continue lifestyle treatment as he is already doing. Recheck in 6 months, sooner if problems [employer] Other 04-06-2023 Evaluation note* Encounter Date Diagnosis Assessment Notes Treatment Notes Treatment Clinical Notes Nov, Obstructive sleep apnea (ICD-10 - G47.33) Fortunately the patient is using and benefiting from treatment. I reviewed his original sleep test, showing severe obstructive sleep apnea with an AHI of 35 events per hour. This is in contrast to his excellent download, showing an AHI of 1. He does note substantial daytime improvement and improved sleep quality. He will call if any problems, but we anticipate return in 1 year Nov, Excessive daytime sleepiness (ICD-10 - G47.19) This is dramatically improved since initiating treatment Nov, BMI 33.0-33.9,adult (ICD-10 - Z68.33) His weight has been coming down, and he is working at that. He does note that he has discontinued alcohol use, which may have helped with the weight loss. 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 He is not thrashing and is not having vivid nightmares with movement, as he did before. Treating the sleep apnea may have reduced sleep disturbance and disruption. He will call if symptoms return Nov, Other Call if any questions or problems. Patient is advised to work on healthy diet choices and appropriate servings, weight control, regular exercise as directed, and reduce fat intake. Use machine regularly, and keep up with mask changes as needed. Call if problems with mask toleration, increased sleepiness, or poor response to treatment. . [employer] Other 02-27-2023 Hospital Discharge instructions Patient Education 10/15/2022 09:05:59 Dietary Guidelines to Help Prevent Kidney Stones Dietary Guidelines to Help Prevent Kidney Stones Kidney stones are deposits of minerals and salts that form inside your kidneys. Your risk of developing kidney stones may be greater depending on your diet, your lifestyle, the medicines you take, and whether you have certain medical conditions. Most people can reduce their chances of developing kidney stones by following the instructions below. Depending on your overall health and the type of kidney stones you tend to develop, your dietitian may give you more specific instructions. What are tips for following this plan? Reading food labels Choose foods with no salt added or low-salt labels. Limit your sodium intake to less than 1500 mg per day. Choose foods with calcium for each meal and snack. Try to eat about 300 mg of calcium at each meal.Foods that contain 200 500 mg of calcium per serving include: ?8 oz (237 ml) of milk, fortified nondairy milk, and fortified fruit juice. ?8 oz (237 ml) of kefir, yogurt, and soy yogurt. ?4 oz (118 ml) of tofu. ?1 oz of cheese. ?1 cup (300 g) of dried figs. ?1 cup (91 g) of cooked broccoli. ?1 3 oz can of sardines or mackerel. Most people need 1000 to 1500 mg of calcium each day. Talk to your dietitian about how much calciumis recommended for you. Shopping Buy plenty of fresh fruits and vegetables. Most people do not need to avoid fruits and vegetables, even if they contain nutrients that may contribute to kidney stones. When shopping for convenience foods, choose: ?Whole pieces of fruit. ?Premade salads with dressing on the side. ?Low-fat fruit and yogurt smoothies. Avoid buying frozen meals or prepared deli foods. Look for foods with live cultures, such as yogurt and kefir. Cooking Do not add salt to food when cooking. Place a salt shaker on the table and allow each person to addhis or her own salt to taste. Use vegetable protein, such as beans, textured vegetable protein (TVP), or tofu instead of meat in pasta, casseroles, and soups. Meal planning Eat less salt, if told by your dietitian. To do this: ?Avoid eating processed or premade food. ?Avoid eating fast food. Eat less animal protein, including cheese, meat, poultry, or fish, if told by your dietitian. To dothis: ?Limit the number of times you have meat, poultry, fish, or cheese each week. Eat a diet free of meat at least 2 days a week. ?Eat only one serving each day of meat, poultry, fish, or seafood. ?When you prepare animal protein, cut pieces into small portion sizes. For most meat and fish, one serving is about the size of one deck of cards. Eat at least 5 servings of fresh fruits and vegetables each day. To do this: ?Keep fruits and vegetables on hand for snacks. ?Eat 1 piece of fruit or a handful of berries with breakfast. ?Have a salad and fruit at lunch. ?Have two kinds of vegetables at dinner. Limit foods that are high in a substance called oxalate. These include: ?Spinach. ?Rhubarb. ?Beets. ?Potato chips and maldivian fries. ?Nuts. If you regularly take a diuretic medicine, make sure to eat at least 1 2 fruits or vegetables high in potassium each day. These include: ?Avocado. ?Banana. ?[place], prune, carrot, or tomato juice. ?Baked potato. ?Cabbage. ?Beans and split peas. General instructions Drink enough fluid to keep your urine clear or pale yellow. This is the most important thing you can do. Talk to your health care provider and dietitian about taking daily supplements. Depending on your health and the cause of your kidney stones, you may be advised: ?Not to take supplements with vitamin C. ?To take a calcium supplement. ?To take a daily probiotic supplement. ?To take other supplements such as magnesium, fish oil, or vitamin B6. Take all medicines and supplements as told by your health care provider. Limit alcohol intake to no more than 1 drink a day for non women and 2 drinks a day for men. One drink equals 12 oz of beer, 5 oz of wine, or 1 oz of hard liquor. Lose weight if told by your health care provider. Work with your dietitian to find strategies and an eating plan that works best for you. What foods are not recommended? Limit your intake of the following foods, or as told by your dietitian. Talk to your dietitian about specific foods you should avoid based on the type of kidney stones and your overall health. Grains Breads. Bagels. Rolls. Baked goods. Salted crackers. Cereal. Pasta. Vegetables Spinach. Rhubarb. Beets. Canned vegetables. Pickles. Olives. Meats and other protein foods Nuts. Nut butters. Large portions of meat, poultry, or fish. Salted or cured meats. Deli meats. Hotdogs. Sausages. Dairy Cheese. Beverages Regular soft drinks. Regular vegetable juice. Seasonings and other foods Seasoning blends with salt. Salad dressings. Canned soups. Soy sauce. Ketchup. Barbecue sauce. Canned pasta sauce. Casseroles. Pizza. Lasagna. Frozen meals. Potato chips. Estonian fries. Summary You can reduce your risk of kidney stones by making changes to your diet. The most important thing you can do is drink enough fluid. You should drink enough fluid to keep your urine clear or pale yellow. Ask your health care provider or dietitian how much protein from animal sources you should eat eachday, and also how much salt and calcium you should have each day. This information is not intended to replace advice given to you by your health care provider. Make sure you discuss any questions you have with your health care provider. Document Released: 11/30/2011 Document Revised: 11/25/2019 Document Reviewed: 07/16/2017 [employer] Patient Education 2020 [employer]. Follow Up Care 10/12/2021 11:30:14 With:HOMAR ORTEGA, Gopal Lopez, URL Address: [address] [place], [place] [id number]- When:1 year Comments:w/ PSA & KUB [facility] 02-16-2023 Evaluation note* Encounter Date Diagnosis Assessment Notes Treatment Notes Treatment Clinical Notes Sep, Hyperlipidemia (ICD-10 - E78.5) Continue atorvastatin, routine labs ordered, further treatment pending results Sep, Hypertension (ICD-10 - I10) BP controlled, continue Rx Sep, BMI 34.0-34.9,adult (ICD-10 - Z68.34) We talked at length about the need for weight loss, and strategies to do so. I encouraged healthier eating choices, smaller portions, increase physical activity. He says he thinks things are going back to the gym and walking on the treadmill, he admits he really enjoyed that when he did. 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 He tolerated the procedure well Sep, Obsessive-compulsive disorder (ICD-10 - F42) Controlled, continue Rx [employer] Other 12-19-2022 Evaluation note* Encounter Date Diagnosis Assessment Notes Treatment Notes Treatment Clinical Notes Jul, RLQ abdominal pain (ICD-10 - R10.31) His exam is unremarkable and I am unable to reproduce his pain on today's exam. He had a CT scan about 18 months ago that did not show any pathology in this area. Nevertheless, given his persistent symptoms I advised we repeat CT abdomen/pelvis, further treatment pending results. [employer] Other 12-14-2022 Evaluation note* Encounter Date Diagnosis Assessment Notes Treatment Notes Treatment Clinical Notes Jul, Sleep apnea (ICD-10 - G47.30) His history and physical certainly suggest the diagnosis of sleep apnea and I am very suspicious that the disorder is indeed present. I discussed the diagnosis and its implications in detail and the patient and his expressed good understanding. We extensively reviewed treatment options. I encouraged him to continue efforts at progressive weight loss, but I anticipate he will likely end up needing positive airway pressure treatment at least to start with. I reviewed the availability of inspire therapy and discussed its qualification criteria. Based on high pretest probability we will check home sleep testing, and he is comfortable with starting auto CPAP. We anticipate return for 31 to 90-day visit I also encouraged him to decrease alcohol (now three or more per night) as this will help with weight reduction indirectly reduce apnea severity Jul, Excessive daytime sleepiness (ICD-10 - G47.19) He does have nonrestorative sleep and excessive daytime sleepiness despite adequate sleep time. I am suspicious that sleep apnea treatment will resolve this problem Jul, Hypertension (ICD-10 - I10) Control of sleep apnea will frequently have a positive effect on blood pressure control, and may additionally reduce blood pressure lability. 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 He does not have tremor or other signs of Parkinson's, and they have not noticed cognitive impairment (both was can be associated with RBD). There have been episodes where he has injured his (punching, kicking in his sleep), and he has rolled out of bed one night. I am hopeful this will improve or resolve with control of underlying sleep apnea. Should it persist, separate treatment may prove necessary. Jul, BMI 34.0-34.9,adult (ICD-10 - Z68.34) Weight reduction is broadly beneficial but has particularly important effects on sleep apnea severity. Jul, Other The diagnosis o f Sleep Apnea was reviewed in detail, and handout materials were provided. The patient expresses good understanding, We also reviewed the medical and accident risks associated with sleep apnea and excessive fatigue. The patient is advised to adhere to a proper sleep hygiene schedule and to assure adequate total sleep time; The patient was advised to continue efforts at progressive weight loss, including decreased overall caloric intake quantity and better food choices.The patient was advised to call or return any difficulties arise, including changes in symptoms and/or problems with treatment [employer] Other 08-15-2022 Evaluation note* Encounter Date Diagnosis Assessment Notes Treatment Notes Treatment Clinical Notes Mar, Hypertension (ICD-10 - I10) BP controlled, continue present Rx. Work on weight loss. 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 He says he has not needed his nitroglycerin in a very long time. Continue to follow with cardiology Mar, Obsessive-compulsive disorder (ICD-10 - F42) Stable. He has been on the Paxil for years, he is comfortable with continuing it indefinitely and I think that is reasonable Mar, Antral gastritis (ICD-10 - K29.50) Currently asymptomatic. I advised he can try stretching out his omeprazole to every other day and see how he does. [employer] Other 07-06-2022 Evaluation note* Encounter Date Diagnosis Assessment Notes Treatment Notes Treatment Clinical Notes Feb, Acute pain of right shoulder (ICD-10 - M25.511) Feb, Arm paresthesia, right (ICD-10 - R20.2) Feb, Other Symptoms are mu ch improved, he is quite pleased. He still has some mild symptomatology. No changes to therapy at this time. I agree with avoiding overuse, heavy lifting, straining with that shoulder. He is returning later this month for routine follow-up, we will recheck at that time. 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 He tolerated the procedure well. Observe response over the next 2 weeks, then recheck. We again discussed that his paresthesias in his arm are unlikely related to shoulder pathology and may be customer response representative of cervical radiculopathy [employer] Other 06-16-2022 Evaluation note* Encounter Date Diagnosis Assessment Notes Treatment Notes Treatment Clinical Notes Jan, Acute pain of right shoulder (ICD-10 - M25.511) Clinically suspect rotator cuff pathology. Check x-ray, if negative he like to return for steroid injection next week. Apply ice for now Jan, Arm paresthesia, right (ICD-10 - R20.2) I cannot reproduce this on exam, and I told him I do not think this relates to the rotator cuff pathology. He may be having a cervical radiculopathy, we will pursue further investigation on this if symptoms persist after treating his shoulder Jan, Pedal edema (ICD-10 - R60.0) Likely multifactorial, related to the recent hot, humid weather, increased sodium intake, weight gain, amlodipine. I encouraged him to keep his feet elevated, bring the weight down, limit sodium intake. [employer] Other 04-15-2022 Evaluation note* Encounter Date Diagnosis Assessment Notes Treatment Notes Treatment Clinical Notes Nov, Encounter for immunization (ICD-10 - Z23) Patient presents for COVID-19 vaccination BOOSTER #2. Pre-screening form answers evaluated with patient. Patient denies current illness or allergic reaction to component of COVID-19 vaccine. Patient provided with current copy of EUA. [employer] Other 02-14-2022 Evaluation note* Encounter Date Diagnosis Assessment Notes Treatment Notes Treatment Clinical Notes Sep, Medicare annual wellness visit, initial (ICD-10 - Z00.00) Personalized health advice was given to the beneficiary including a written plan for screenings discussed and provided. Advanced care planning reviewed and/or information given as requested. The above visit was performed by Lili VENTURA, under direct supervision of Dr. Jesse García DO. Document reviewed and amended by provider signed below. His overall status appears largely unchanged. I encouraged weight loss, walking 30 minutes 3 or 4 times a week. He may try and do this at the mall or the indoor walking track until the weather warms up. He says his eating habits are already fairly good, he is eating small portions and trying to avoid unhealthy food choices. Cut the omeprazole dose down to 40 mg daily and let me know if he has any breakthrough symptoms. Also, try increasing meloxicam up to 15 mg daily and see if that helps with his joint pains. I offered getting x-rays but he declines and I think that is reasonable. Recheck in 6 months, sooner if problems. [employer] Other 12-06-2021 Evaluation note* Encounter Date Diagnosis Assessment Notes Treatment Notes Treatment Clinical Notes Jul, Diarrhea, unspecified type (ICD-10 - R19.7) Diarrhea now resolved. We discussed that this likely represented a flare of his ulcerative colitis, and it is currently quiet. His last colonoscopy was approximately 3 years ago, I do not think this needs to be repeated right now. He had seen Dr. Ivan, he was trialed on a daily maintenance medicine for inflammatory bowel disease but it was cost prohibitive and he is done well with no meds until now. IBD warning signs reviewed. Call me if problems arise. Recheck in 2 months as already scheduled [employer] Other 11-24-2021 Evaluation note* Encounter Date Diagnosis Assessment Notes Treatment Notes Treatment Clinical Notes Jun, Diarrhea, unspecified type (ICD-10 - R19.7) Check stool studies for completeness, this may represent a flare of his ulcerative colitis. I will treat him with a short burst of oral prednisone, then recheck early next month. Warning signs reviewed, call or go to ER if problems arise. [employer] Other 10-11-2021 Evaluation note* Encounter Date Diagnosis Assessment Notes Treatment Notes Treatment Clinical Notes May, Left knee pain, unspecified chronicity (ICD-10 - M25.562) He is having some improvement with meloxicam, continue the same. Discussed other treatment options, consider steroid injection in the future. He wants to hold off on this for today. He may try OTC glucosamine with chondroitin. Recheck in 3 months, sooner if problems. May, Gastrointestinal hemorrhage, unspecified gastrointestinal hemorrhage type (ICD-10 - K92.2) Refill omeprazole as per GI. No evidence of recurrent bleeding. [employer] Other Evaluation + Plan note Future Appointments Appointment Date:10/21/2023 08:15:00 AM Scheduled Provider:Gopal GARCÍA MD Location:[facility] Appointment Type:URO Office Visit Diagnostic Tests Pending * PSA Total 10/15/22 [facility] Evaluation + Plan note Future Appointments Appointment Date:10/21/2023 08:45:00 AM Scheduled Provider:Gautam BLACKWELL MD Location:[facility] Appointment Type:URO Office Visit [facility] Evaluation + Plan note Future Appointments Appointment Date:05/17/2023 08:00:00 AM Scheduled Provider:Matilda Murphy MD Location:[facility] Appointment Type:URO Office Visit Appointment Date:10/21/2023 08:45:00 AM Scheduled Provider:Gautam BLACKWELL MD Location:[facility] Appointment Type:URO Office Visit [facility] evaluation noteNo [facility] [employer] Other Evaluation noteNo assessment information available [facility] Work Phone: Evaluation note* Diagnosis ASHD (arteriosclerotic heart disease)- Primary Coronary atherosclerosis of unspecified type of vessel, [place] or graft documented in this encounter [facility] Work Phone: History general Narrative - Reported* Type Description Date Medical History Hypertension Medical History Medullary sponge kidney Medical History Obsessive-compulsive disorder Medical History Schatzki's Ring Medical History ULCERS Medical History DIVERTICULITIS Surgical History Arthroscopy: L knee Surgical History Hernia Repair: 2009; right ingu inal Surgical History EGD [DR. [place]] 03-10-14 Surgical History COLONOSCOPY 06-06-2010 Surgical History ESWL 10-01-2016 Surgical History SIGMOIDOSCOPY 01/16/2019 Surgical History EGD Surgical History BILAT-CATARACT 2018 Hospitalization History see above Hospitalization History [facility] [employer] Other History general Narrative - Reported* Type Description Date Medical History Hypertension Medical History Medullary sponge kidney Medical History Obsessive-compulsive disorder Medical History Schatzki's Ring Medical History ULCERS Medical History DIVERTICULITIS Medical History Kidney stones Surgical History Arthroscopy: L knee Surgical History Hernia Repair: 2009; right ingu inal Surgical History EGD [DR. [place]] 03-10-14 Surgical History COLONOSCOPY 06-06-2010 Surgical History ESWL 10-01-2016 Surgical History SIGMOIDOSCOPY 01/16/2019 Surgical History EGD Surgical History BILAT-CATARACT 2018 Hospitalization History see above Hospitalization History [facility] 9 [employer] Other History general Narrative - Reported* Type Description Date Medical History Hypertension Medical History Medullary sponge kidney Medical History Obsessive-compulsive disorder Medical History Schatzki's Ring Medical History ULCERS Medical History DIVERTICULITIS Medical History Kidney stones Medical History Sleep apnea Surgical History Arthroscopy: L knee Surgical History Hernia Repair: 2009; right ingu inal Surgical History EGD [DR. [place]] 03-10-14 Surgical History COLONOSCOPY 06-06-2010 Surgical History ESWL 10-01-2016 Surgical History SIGMOIDOSCOPY 01/16/2019 Surgical History EGD Surgical History BILAT-CATARACT 2018 Hospitalization History see above Hospitalization History [facility] 9 [employer] Other Hospital course Narrative No data available for this section [facility] Discharge instructions No data available for this section [facility] progress note No data available for this section [facility] [place] Chief Complaint * ERIK ALFONSO is being seen for a 6 month follow-up of. * Patient is in the office for follow-up for the problems noted below accompanied by his . He wasdiagnosed this past summer with bleeding ulcer requiring blood transfusions. He was advised not to take aspirin anymore. He has had no recurrences and presently has no symptoms of chest pain orthopnea PND or palpitations. His weight remains way above target. Apart from his obesity his physical examination was normal. * ASSESSMENT AND PLAN: * 1. Coronary artery disease involving the LAD with 70% ostial LAD lesion based on cardiac catheterization June 2020 that was assessed with FFR and was found to be physiologically insignificant. Patient is doing well on present medical therapy, due to recent bleeding ulcer he will be kept away from aspirin and since he has significant CAD will add Plavix 75 mg daily and monitor his CBC regularly. Patient has been taken meloxicam 50 mg daily which increases his risk of GI bleed. I advised the patient to continue PPI but reduce meloxicam down to 7.5 mg daily * 2. Hypertension, presently controlled. No medication changes needed * 3. obesity, encouraged the patient cut back calorie intake and continued to exercise on regular basis at [employer] * 4. Dyslipidemia. On atorvastatin under great control, will continue to follow lipid profile * 5. 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 Presently stable * Summer Oliveira MD, FACC * ERIK ALFONSO is being seen for a 6 month follow-up of. * Patient is in the office for follow-up of for the problems noted below accompanied by his . Thepatient had COVID-19 infection New Year's Diane despite being fully vaccinated and was very symptomatic. He continued to have fatigue and dyspnea on exertion with no underlying cardiac and pulmonary demetrius nges. His pressure is under control. He has no angina orthopnea PND lower extremity edema. He is due for blood work which is scheduled. His weight remains above target and remains in obesity. * ASSESSMENT AND PLAN: * 1. Coronary artery disease involving the LAD with 70% ostial LAD lesion based on cardiac catheterization June 2020 that was assessed with FFR and was found to be physiologically insignificant. Patient is doing well on present medical therapy with minimal symptoms and no adjustments were needed.Risk factor for CAD have been controlled. * 2. Hypertension, presently controlled. No medication changes needed * 3. obesity, encouraged the patient cut back calorie intake and continued to exercise on regular basis at [employer] * 4. Dyslipidemia. On atorvastatin ,will continue to follow lipid profile * 5. 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 Presently stable * 6. Dyspnea on exertion and fatigue following COVID-19 infection which has not resolved yet. His exam was normal in that regard * Summer Oliveira MD, FACC * ERIK HAGENHOLZ is being seen for a 6 month follow-up of. * Patient is in the office with his for follow-up for the problems as noted below. He reports his chronic dyspnea which has not changed from previously. His weight is 6 pounds above his previous visit due to activities. There is a clinical suspicion of sleep apnea as confirmed by his . Sleepstudy is recommended and will likely be scheduled. He denies any use of nitroglycerin no orthopnea PND and no lower extremity edema. lab data from November 2021 were reviewed with him and his numbers look great. * ASSESSMENT AND PLAN: * 1. Coronary artery disease involving the LAD with 70% ostial LAD lesion based on cardiac catheterization June 2020 that was assessed with FFR and was found to be physiologically insignificant. Patient is doing well on present medical therapy with minimal symptoms and no adjustments were needed.Risk factor for CAD have been controlled. Reminded the patient to let me know if his symptoms change in the way that we have to investigate further for his LAD lesion * 2. Hypertension, presently controlled. No medication changes needed * 3. obesity, encouraged the patient cut back calorie intake and continued to exercise on regular basis at [employer] * 4. Dyslipidemia. On atorvastatin , LDL is on target * 5. 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 Presently stable * 6. Dyspnea on exertion and fatigue following COVID-19 infection which has not resolved yet. His exam was normal in that regard, he also has dry cough which has not resolved either. * 7. Suspected sleep apnea for which patient is advised to have sleep study and he is agreeable * Summer Oliveira MD, FACC * ERIK HAGENHOLZ is being seen for a 6 month follow-up of. * Patient is in the office with his for follow-up for the problems as noted below. He reports his chronic dyspnea which has not changed from previously. His weight is 6 pounds above his previous visit due to activities. There is a clinical suspicion of sleep apnea as confirmed by his . Sleepstudy is recommended and will likely be scheduled. He denies any use of nitroglycerin no orthopnea PND and no lower extremity edema. lab data from November 2021 were reviewed with him and his numbers look great. * ASSESSMENT AND PLAN: * 1. Coronary artery disease involving the LAD with 70% ostial LAD lesion based on cardiac catheterization June 2020 that was assessed with FFR and was found to be physiologically insignificant. Patient is doing well on present medical therapy with minimal symptoms and no adjustments were needed.Risk factor for CAD have been controlled. Reminded the patient to let me know if his symptoms change in the way that we have to investigate further for his LAD lesion * 2. Hypertension, presently controlled. No medication changes needed * 3. obesity, encouraged the patient cut back calorie intake and continued to exercise on regular basis at [employer] * 4. Dyslipidemia. On atorvastatin , LDL is on target * 5. 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 Presently stable * 6. Dyspnea on exertion and fatigue following COVID-19 infection which has not resolved yet. His exam was normal in that regard, he also has dry cough which has not resolved either. * 7. Suspected sleep apnea for which patient is advised to have sleep study and he is agreeable * Summer Oliveira MD, FACC * ERIK ALFONSO is being seen for a 6 month follow-up of. * Patient is in the office with his for follow-up for the problems as noted below. He reports his chronic dyspnea which has not changed from previously. His weight is 6 pounds above his previous visit due to activities. There is a clinical suspicion of sleep apnea as confirmed by his . Sleepstudy is recommended and will likely be scheduled. He denies any use of nitroglycerin no orthopnea PND and no lower extremity edema. lab data from November 2021 were reviewed with him and his numbers look great. * ASSESSMENT AND PLAN: * 1. Coronary artery disease involving the LAD with 70% ostial LAD lesion based on cardiac catheterization June 2020 that was assessed with FFR and was found to be physiologically insignificant. Patient is doing well on present medical therapy with minimal symptoms and no adjustments were needed.Risk factor for CAD have been controlled. Reminded the patient to let me know if his symptoms change in the way that we have to investigate further for his LAD lesion * 2. Hypertension, presently controlled. No medication changes needed * 3. obesity, encouraged the patient cut back calorie intake and continued to exercise on regular basis at [employer] * 4. Dyslipidemia. On atorvastatin , LDL is on target * 5. 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 Presently stable * 6. Dyspnea on exertion and fatigue following COVID-19 infection which has not resolved yet. His exam was normal in that regard, he also has dry cough which has not resolved either. * 7. Suspected sleep apnea for which patient is advised to have sleep study and he is agreeable * Summer Oliveira MD, FACC * ERIK ALFONSO is being seen for a 6 month follow-up of. * Patient is in the office with his for follow-up for the problems as noted below. He reports his chronic dyspnea which has not changed from previously. His weight is 6 pounds above his previous visit due to activities. There is a clinical suspicion of sleep apnea as confirmed by his . Sleepstudy is recommended and will likely be scheduled. He denies any use of nitroglycerin no orthopnea PND and no lower extremity edema. lab data from November 2021 were reviewed with him and his numbers look great. * ASSESSMENT AND PLAN: * 1. Coronary artery disease involving the LAD with 70% ostial LAD lesion based on cardiac catheterization June 2020 that was assessed with FFR and was found to be physiologically insignificant. Patient is doing well on present medical therapy with minimal symptoms and no adjustments were needed.Risk factor for CAD have been controlled. Reminded the patient to let me know if his symptoms change in the way that we have to investigate further for his LAD lesion * 2. Hypertension, presently controlled. No medication changes needed * 3. obesity, encouraged the patient cut back calorie intake and continued to exercise on regular basis at [employer] * 4. Dyslipidemia. On atorvastatin , LDL is on target * 5. 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 Presently stable * 6. Dyspnea on exertion and fatigue following COVID-19 infection which has not resolved yet. His exam was normal in that regard, he also has dry cough which has not resolved either. * 7. Suspected sleep apnea for which patient is advised to have sleep study and he is agreeable * Summer Oliveira MD, FACC * ERIK ALFONSO is being seen for a 6 month follow-up of. * Patient is in the office with his for follow-up for the problems as noted below. He reports his chronic dyspnea which has not changed from previously. His weight is 6 pounds above his previous visit due to activities. There is a clinical suspicion of sleep apnea as confirmed by his . Sleepstudy is recommended and will likely be scheduled. He denies any use of nitroglycerin no orthopnea PND and no lower extremity edema. lab data from November 2021 were reviewed with him and his numbers look great. * ASSESSMENT AND PLAN: * 1. Coronary artery disease involving the LAD with 70% ostial LAD lesion based on cardiac catheterization June 2020 that was assessed with FFR and was found to be physiologically insignificant. Patient is doing well on present medical therapy with minimal symptoms and no adjustments were needed.Risk factor for CAD have been controlled. Reminded the patient to let me know if his symptoms change in the way that we have to investigate further for his LAD lesion * 2. Hypertension, presently controlled. No medication changes needed * 3. obesity, encouraged the patient cut back calorie intake and continued to exercise on regular basis at [employer] * 4. Dyslipidemia. On atorvastatin , LDL is on target * 5. 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 Presently stable * 6. Dyspnea on exertion and fatigue following COVID-19 infection which has not resolved yet. His exam was normal in that regard, he also has dry cough which has not resolved either. * 7. Suspected sleep apnea for which patient is advised to have sleep study and he is agreeable * Summer Oliveira MD, FACC * ERIK ALFONSO is being seen for a 6 month follow-up of. * Patient is in the office for follow-up for the problems noted below. He was tested for sleep apnea and it was confirmed and he started using CPAP machine with excellent results. He is very pleased with that. He saw sleep specialist Dr. Diaz last week. The note from the visit was reviewed by myself. The patient also lost weight by lifestyle changes which she is happy about. His recently hadleft shoulder surgery with complications of broken humerus bone. She is recovering at this time andis taking care of her. His lab data were reviewed and his lipids are excellent. He denies any angina or need for nitroglycerin. He maintains active lifestyle. Apart from obesity physical examination was unremarkable. * ASSESSMENT AND PLAN: * 1. Coronary artery disease involving the LAD with 70% ostial LAD lesion based on cardiac catheterization June 2020 that was assessed with FFR and was found to be physiologically insignificant. Patient is doing well on present medical therapy with minimal symptoms and no adjustments were needed.Risk factor for CAD have been controlled. Reminded the patient to let me know if his symptoms change in the way that we have to investigate further for his LAD lesion * 2. Hypertension, presently controlled. No medication changes needed * 3. obesity, patient went through lifestyle changes with low-calorie diet and reduce his alcohol consumption and as a result his weight has come down with the plan to further work on it. * 4. Dyslipidemia. On atorvastatin , LDL is on target * 5. 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 Presently stable * 6. Sleep apnea on CPAP machine with excellent results and with no side effect of the device. * Summer Oliveira MD, [facility] Family History No Family History Records FoundUnknown Family Member Name Dates Details Family history of myocardial infarction: Father(V17.3, Z82.49) Status:Active Unknown Family Member Name Dates Details Family history of myocardial infarction: Father(V17.3, Z82.49) Status:Active Unknown Family Member Name Dates Details Family history of myocardial infarction: Father(V17.3, Z82.49) Status:Active Unknown Family Member Name Dates Details Family history of myocardial infarction: Father(V17.3, Z82.49) Status:Active Unknown Family Member Name Dates Details Family history of myocardial infarction: Father(V17.3, Z82.49) Status:Active Unknown Family Member Name Dates Details Family history of myocardial infarction: Father(V17.3, Z82.49) Status:Active Unknown Family Member Name Dates Details Family history of myocardial infarction: Father(V17.3, Z82.49) Status:Active Unknown Family Member Name Dates Details Family history of myocardial infarction: Father(V17.3, Z82.49) Status:Active Relationship Condition Age at Onset Recorded Date/T margarita father Heart disease Unknown family member Heart disease Unknown Unknown Family Member Name Dates Details Family history of myocardial infarction: Father(V17.3, Z82.49) Status:Active Unknown Family Member Name Dates Details Family history of myocardial infarction: Father(V17.3, Z82.49) Status:Active Unknown Family Member Name Dates Details Family history of myocardial infarction: Father(V17.3, Z82.49) Status:Active Unknown Family Member Name Dates Details Family history of myocardial infarction: Father(V17.3, Z82.49) Status:Active Unknown Family Member Name Dates Details Family history of myocardial infarction: Father(V17.3, Z82.49) Status:Active Unknown Family Member Name Dates Details Family history of myocardial infarction: Father(V17.3, Z82.49) Status:Active Unknown Family Member Name Dates Details Family history of myocardial infarction: Father(V17.3, Z82.49) Status:Active Unknown Family Member Name Dates Details Family history of myocardial infarction: Father(V17.3, Z82.49) Status:Active Advance Directives No Advanced Directives Records Found Advance Directive Response Recorded Date/ Time Advance Directives No August 27, 2017 4:38pm Advance Directive Response Recorded Date/ Time Advance Directives No August 27, 2017 3:38pm Chief Complaint and Reason for Visit Chief Complaint Vaccine G47.10 Chief Complaint G47.10 R10.31 Chief Complaint E78.5 I10 N40.0 Sleep apnea 31-90 day follow up Chief Complaint E78.5 I10 N40.0 Sleep apnea 31-90 day follow up I25.10 E78.5 I10 Chief Complaint n20.0 n20.1 r31.0 Chief Complaint n20.0 n20.1 r31.0 e78.5 i25.10 i10 Summary Purpose Additional Source Comments REASON FOR VISIT (unrecogniz ed section and content) Specialty Diagnoses / Procedures Referred By Contac t Referred To Contact Radiology Diagnoses Preop cardiovascular exam ASHD (arteriosclerotic heart disease) Essential hypertension, benign Procedures Nuclear Stress Test CHG MYOCARDIAL SPECT MULTIPLE STUDIES CHG MYOCARDIAL SPECT SINGLE STUDY AT REST OR STRESS Summer Oliveira MD [address] [facility] [address], [address] [address] [address] [facility] [address] [facility] [address] [place] [address] Referral ID Status Reason Start Date Expiration Date V isits Requested Visits Authorized [id number] Authorized 06/04/2023 06/03/2024 5 5 Care Teams (unrecognized sec tion and content) Team Status: Inactive Member Role Status Dates Jesse Mast , DO Primary Care Provider, Attending Provid er Active Team Status: Inactive Member Role Status Dates Jesse Mast , DO Primary Care Provider Active Erik Diaz MD Attending Provider Active Team Status: Active Member Role Status Dates Jesse Mast , DO Primary Care Provider Active Team Status: Inactive Member Role Status Dates Jesse Mast , DO Primary Care Provider Active Leonides Frey MD Attending Provider Active Team Status: Inactive Member Role Status Dates Jesse Mast , DO Primary Care Provider, Attending Provid er Active Gopal García MD Referring Provider Active Team Status: Inactive Member Role Status Dates Jesse Mast , DO Primary Care Provider Active Summer Oliveira MD Attending Provider Active Team Status: Inactive Member Role Status Dates Jesse Mast , DO Primary Care Provider Active Deirdre Billy PA-C Attending Provider Active [employer] Relationship Specialty Start Date End Date Mast, Jesse Edward, DO [address] [facility], [facility] [place] [address] PCP - General 08/19/1998 Goals (unrecognized section and content) Goals may be documented in a n alternate section (unrecognized sect ion and content) No Status Records FoundNo Status Records FoundNo Status Records FoundNo Status Records FoundNo Status Records FoundNo Status Records Found INFORMATION SOURCE (unrecogn ized section and content) DATE CREATED AUTHOR 11/30/2022 [employer] DATE CREATED AUTHOR AUTHOR'S ORGANIZ ATION 11/30/2022 [facility] DATE CREATED AUTHOR AUTHOR'S ORGANIZ ATION 06/05/2023 [facility] DATE CREATED AUTHOR AUTHOR'S ORGANIZ ATION 06/10/2023 [facility] DATE CREATED AUTHOR AUTHOR'S ORGANIZ ATION 06/12/2023 [facility] DATE CREATED AUTHOR AUTHOR'S MCKENNA ATION 07/23/2023 [facility] FOR RECORDS PERTAINING TO PATIENTS WHO ARE OR HAVE BEEN ENROLLED IN A CHEMICAL DEPENDENCY/SUBSTANCEABUSE PROGRAM, SOME INFORMATION MAY BE OMITTED. This clinical summary was aggregated from multiple sources. Caution should be exercised in using it in the provision of clinical care. This summary normalizes information from multiple sources, and as a consequence, information in this document may materially change the coding, format and clinical context of patient data. In addition, data may be omitted in some cases. CLINICAL DECISIONS SHOULD BE BASED ON THE PRIMARY CLINICAL RECORDS. [employer] [facility]. provides no warranty or guarantee of the accuracy or completeness of information in this document.
== END 2023-07-12 08:27 | disposition home or self-care (01) ==
LOC: PST 08:26
PROVIDERS: Visit Provider Urology
DX: Z01.818 Encounter for other preprocedural examination (principal); N20.2 Calculus of kidney with calculus of ureter

== ENCOUNTER 2023-07-17 11:53 | Day surgery (SDC) | payer MEDICARE, OTHER, SELFPAY ==
[2023-07-17] VITALS (10 sets, daily range): BP systolic 124–162; BP diastolic 66–91; PULSE 54–68; RESP 12–20; TEMP 36.2–36.3; O2SAT 93–98; BMI 33.0
--- NOTE | 2023-07-17 12:15 | XR_ITS ---
[address] [address] Patient Name: ERIK ALFONSO MRN: [id number] date: 1940 Sex: M Assigned Patient Location: [facility] Current Patient Location: Accession/Order Number: [id number] Exam Date: 07/17/2023 12:08 Report Date: 07/18/2023 09:53 At the request of: OTIS RODRIGUEZ Procedure: XR abdomen 1V EXAM: XR abdomen 1V HISTORY: kidney stones COMPARISON: None. TECHNIQUE: AP view of the abdomen. FINDINGS: Nonobstructive bowel gas pattern is noted. There are bilateral renal calculi, largest on the left measuring up to 6 mm and largest on the right measuring up to 7 mm. Indwelling left double-J ureteral stent. The osseous structures are intact. XR/XR abdomen 1V IMPRESSION: Bilateral nephrolithiasis. Indwelling left double-J ureteral stent. Electronically authenticated by: DEVONTE FRYE Date: 07/18/2023 09:53
[2023-07-17] MEDS: LACTATED RINGER'S SOLUTION 1,000 ML 50 ML IV (12:51)
[2023-07-17] MEDS: CEFAZOLIN SODIUM 2,000 MG in 0.9 % SODIUM CHLORIDE 50 ML 100 MG IV (13:49)
[2023-07-17] MEDS: IOHEXOL 240 MG/ML - 50 ML VIAL INJ (15:14)
[2023-07-17] MEDS: 0.9 % SODIUM CHLORIDE 1,000 ML 1000 ML IV (15:45)
--- NOTE | 2023-07-17 15:46 | PM.URSON ---
Urology Surgery Operative Note Operative Note Procedure Date: 07/17/23 Time Out Performed: yes Pre-op Diagnosis: Left kidney stones Post-op Diagnosis: same as pre-op Procedures performed: Cystoscopy, left retrograde pyelogram, ureteroscopy with laser lithotripsy/stone extraction, stent exchange Anesthesia: General-ET (Dr. Woodson) Primary Surgeon: Matilda Murphy Complications: none Estimated blood loss (mL): 0 Findings: Mod bilobar prostatic hypertrophy with significantly elevated bladder neck. 2+ trabeculated bladder. No left hydronephrosis or extravasation. Significant angled UPJ. Multiple stones in all calyces (total ~ 7) small stones basket extracted, radiopaque lower pole stones x2 fragmented ~ 6-7 mm each and removed. Significant angulation into mid and lower poles. Multiple rossy's plaques. Specimens: left kidney stones Drains: 4.8Fr x 22-30 cm JJ left ureteral stent Incision: none Indications for Procedures: 82 year old male recently diagnosed with multiple left distal ureteral stones and kidney stones who was evaluated in clinic underwent first stage ureteroscopy with laser lithotripsy/stone removal, stent placement on 06/19/23 for ureteral stones. Here today for second stage to treat kidney stones given total >2 cm stone burden. Risks were discussed including but not limited to bleeding, pain, infection, damage to surrounding structures, inability to treat the stone/place a stent, and need for additional procedures. The patient understands the stent is not permanent and needs to be removed or exchanged within 3 months to prevent encrustation, infection, invasive procedures and/or permanent renal damage. Detailed description of Procedure: After informed consent was obtained, the patient was brought to the operating room and transferred onto the operating table in supine position. Sequential compression devices were placed on bilateral lower extremities. The patient received the appropriate dose of preoperative IV antibiotics and general anesthesia ETT was induced. They were positioned in modified dorsolithotomy with the appropriate pressure points padded, prepped, and draped in the usual sterile fashion for this procedure. An operative safety timeout was performed confirming the patient's identity, laterality and procedure, and all present agreed to proceed. I began by inserting a 22 [place] rigid cystoscope with 30 degree lens into the patient's urethra and bladder without difficulty. There were no bladder tumors, lesions, stones. Mild hematuria was noted (patient on Plavix). Bilateral ureteral orifices were orthotopic and patent. I turned my attention to the left ureteral orifice and the indwelling stent was brought to the meatus with graspers. A Sensor wire was inserted into the stent up to the renal pelvis confirmed on fluoroscopy, stent was removed without difficulty. An 11/13 [place] by 36 cm ureteral access sheath was inserted over the wire in a sequential fashion to gain access to the renal pelvis. Next a flexible ureteroscope was inserted through the sheath and advanced to the renal pelvis under fluoroscopic guidance. A 275 ?m [place]/YAG laser fiber was used to break the stone into fragments which were then removed with a 1.8 tipless nitinol basket. All other smaller stones were basket extracted. Findings as above. After all the stones were adequately treated, a full renoscopy was performed confirming no significant residual stones or fragments remained. Contrast was injected to assist with mapping for the renoscopy. The wire was reinserted and a pull down ureteroscopy was performed removing any stone fragments from the ureter. The wire was backloaded through the cystoscope and 4.8Fr x 22-32 cm JJ variable length ureteral stent was advanced over the wire, noting adequate curl in the renal pelvis and bladder on fluoroscopic and direct visualization. The bladder was drained and inspected one final time to ensure adequate position of stent and no undue trauma to the bladder was done. The stones were sent for pathology and the cystoscope was removed. The patient tolerated the procedure well without complication. The patient was awakened from anesthesia and sent to PACU in stable condition. Plan: Discharge home with stent pain medications. Follow up next week for in-office cystoscopy, stent removal. Other Provider present: No Post Operative care instructions: See discharge instructions Attending Doc Confirm Attending Attestation: Yes
[2023-07-17] MEDS: LACTATED RINGER'S SOLUTION 1,000 ML 75 ML IV (16:19)
--- NOTE | 2023-07-17 16:54 | PC.NURSE ---
Denies urge to void
[2023-07-26 14:09] LABS: Calcium Oxalate Dihydrate 20 % (.); Calcium Oxalate Monohydrate 80 % (.); Size 6x3 mm (.)
== END 2023-07-17 17:22 | disposition home or self-care (01) ==
PROVIDERS: Visit Provider Urology
PROC: (CPT 52356; principal; 2023-07-17 13:30)
DX: N20.2 Calculus of kidney with calculus of ureter (principal); N32.89 Other specified disorders of bladder; Z79.02 Long term (current) use of antithrombotics/antiplatelets; N40.1 Benign prostatic hyperplasia with lower urinary tract symptoms; N28.1 Cyst of kidney, acquired; I25.10 Atherosclerotic heart disease of native coronary artery without angina pectoris; E78.5 Hyperlipidemia, unspecified; G47.30 Sleep apnea, unspecified; E66.9 Obesity, unspecified; Z68.33 Body mass index [BMI] 33.0-33.9, adult; I11.9 Hypertensive heart disease without heart failure; I43 Cardiomyopathy in diseases classified elsewhere
CPT/HCPCS: 52356; 74018; 74420; 82365; 99999; J2704; Q9966

== ENCOUNTER 2023-09-26 11:35 | Outpatient (OUT) | payer MEDICARE, OTHER, SELFPAY ==
--- OUTSIDE RECORDS SUMMARY | 2023-09-26 11:49 | XMS_ITS | CCD ---
Author Name Unknown Address [address] [facility] [address] [place] [address] Organization [facility] Care Team Providers Care Polls Or Surveys Interviewer Name Role Phone Mast, Jesse E Unavailable Unavailable Unavailable Mast, Jesse Unavailable Mast, Jesse Unavailable Sona House Unavailable Unavailable Unavailable Mast, DO Jesse Primary Care Provider [phone] MD Leonides Frey Attending Provider [phone] Mast, DO Jesse Primary Care Provider [phone] MD Leonides Frey Attending Provider MD Erik Diaz Attending Provider Mast, DO Jesse Primary Care Provider Mast, DO Jesse Attending Provider [phone] Erik Diaz Unavailable MAST, JESSE E Primary Care Physician [phone] Mast, DO Jesse Primary Care Provider Mast, DO Jesse Attending Provider [phone] MD Gopal Graf Referring Provider [phone] MD Erik Diaz Attending Provider MD Summer Bejarano Attending Provider [phone] Summer Bejarano Referring Unavailable Mast, Dr. Jesse Payan Primary Care Unavailabl e Summer Bejarano Attending Unavailable Summer Bejarano Referring Unavailable Mast, Dr. Jesse Edward Primary Care Unavailabl e Summre Bejarano Attending Unavailable MAST, JESSE E Primary Care Physician Mast, DO Jesse Primary Care Provider [phone] ALTA Bernstein Attending Provider MD Summer Bejarano Attending Provider [phone] SUMMER BEJARANO Attending Unavailable MAST, JESSE EDWARD Primary Care Unavailable BEJARANO, SUMMER M Referring Unavailable MAST, JESSE EDWARD Primary Care Unavailable BEJARANO, WHEELER M Referring Unavailable MAST, JESSE EDWARD Primary Care Unavailable BEJARANO, WHEELER M Referring Unavailable MAST, JESSE EDWARD Primary Care Unavailable BEJARANO, SUMMER M Referring Unavailable MAST, JESSE EDWARD Primary Care Unavailable Mast DO, Jesse Edward Primary Care Provider Stefania Arenas Unavailable Summer Bejarano Admitting Unavailable Summer Bejarano Attending Unavailable Mast, Jesse Primary Care Unavailable Lue, Matilda M Admitting Unavailable Lue, Matilda M Attending Unavailable Mast, Jesse Primary Care Unavailable Lue, Matilda M Admitting Unavailable Lue, Matilda M Attending Unavailable Mast, Jesse Primary Care Unavailable Gopal Graf Referring Unavailable Mast, Jesse Primary Care Unavailable Mast, Jesse Attending Unavailable Mast, Jesse Admitting Unavailable Erik Diaz Admitting Unavailable Erik Diaz Attending Unavailable Mast, Jesse Primary Care Unavailable Bejarano, Wheeler Admitting Unavailable Summer Bejarano Attending Unavailable Mast, Jesse Primary Care Unavailable Deirdre Bernstein Admitting Unavailable Deirdre Bernstein Attending Unavailable Mast, Jesse Primary Care Unavailable Lue, Matilda M. Attending Unavailable Gopal GRAF Attending Unavailable MARIAJOSEDEIRDRE Attending Unavailable Lue, Matilda M. Attending Unavailable Lue, Matilda M. Attending Unavailable Gautam CRUZ Attending Unavailable Lue, Matilda M. Attending Unavailable Lue, Matilda M. Referring Unavailable Lue, Matilda M. Admitting Unavailable Lue, Matilda M. Attending Unavailable Lue, Matilda M. Attending Unavailable Lue, Matilda M. Attending Unavailable Allergies Allergy Classification Reported Allergen(s) Allergy Type Date of Onset Reaction(s) Facility (19 sources) Angiotensin Converting Enzyme (Manuela) Inhibitors; Translations: [MANUELA Inhibitors] Allergy to drug (finding) 3 [facility] 3 Repository (1 source) Angiotensin-conv erting enzyme inhibitor agent Drug Intolerance 3 [facility] (1 source) No Known Medication Allergies; Translations: [No Known Medication Allergies] Propensity to adverse reactions (disorder) [facility] Repository Medications Current Medications Medication Drug [...] Refills(s) 0 Start Date: 04/16/19 Status: Ordered benzonatate 100 mg oral capsule (1 source) Non-narcotic Antitussive Start: 09-18-2023 take 1 capsule by mouth three times daily as needed Tessalon Perles 100 MG 1 capsule as needed Orally Three times a day for 7 days Aug, Active clopidogrel 75 mg oral tablet (20 sources) P2Y12 Platelet Inhibitor Start: 05-31-2021 take 1 tablet by mouth once daily clopidogrel 75 mg Tab 75 mg = 1 tab(s), Oral, Daily Start Date: 10/12/21 Status: Ordered Fish Oils (4 sources) Start: 04-16-2019 Fish Oil Oral, Refill(s) 0 Start Date: 04/16/19 Status: Ordered geriatric uufiwmyo-ncih-jtys (Complete Senior) tablet (1 source) take 1 tablet by mouth once daily geriatric zjpkiney-crys-xss s (Complete Senior) tablet Take 1 tablet [...] take 1 capsule by mouth once daily Dinzr-Lbadj-4-Bbs-Utx-Eeibqu (Krill Oil) 843-58-73-50 mg Capsule Active 1 CAP PO Daily March 05, 2018 11:00pm Start: 03-06-2018 take 1 capsule by mo ut once daily Fricd-Vhvbt-4-Mnu-Yde-Zskfbk (Krill Oil) 221-81-94-50 mg Capsule Active 1 CAP PO Daily March 06, 2018 12:00am take 1 tablet by gisela th once daily Krill Oil 350 MG 1 Tablet Orally daily Active take 1 capsule by mo uth once daily Krill Oil 350 MG Oral Capsule TAKE 1 CAP [place] Daily Quantity: 0 Refills: 0 Ordered: 31-May-2021 DO Active vrklp-pjpbd-4-vhd-vql-ltoyod 912-37-39-50 mg capsule (1 source) take 1 capsule by mouth once daily tlvca-wkqaz-2-hai-bju-fijjns 972-91-04-50 mg capsule Take 1 capsule by mouth once daily. 0 Active meloxicam 15 mg oral tablet (20 sources) Nonsteroidal Anti-inflammat ory Drug [facility] t: take 1 mg by mouth once [...] 16, 2019 2:09pm take 2 tablets by mo [facility] every twenty-four hours Meloxicam 7.5 MG 2 [...] Start: 09-18-2016 take 1 tablet by gisela once daily Metoprolol tartrate 50 mg Tab 50 mg = 1 tab(s), Oral, Daily, High blood pressure Start Date: 09/18/16 Status: Ordered Multi For Him (18 sources) Multi For Him Or ally Active Multivitamin preparation (7 sources) Start: 03-06-2018 take 1 tablet by mouth once daily Multivitamin Active 1 TAB PO Daily March 05, 2018 11:00pm Start: 03-06-2018 [facility] Multivitamin Active 1 TAB PO Daily March 06, 2018 12:00am Multivitamins and Minerals (4 sources) Start: 09-18-2016 take 1 tablet by mouth once daily Multivitamins and Minerals 1 tab, Oral, Daily, Prophylaxis Start Date: 09/18/16 Status: Ordered Nitro Sublingual 0.4 0.4mg (18 sources) Nitro Sublingual 0.4 0.4mg 1 Sublingual Every 5min x3 Active nitroglycerin 0.4 mg sublingual tablet (20 sources) Nitrate Vasodilator Start: 06-27-2020 nitroglycerin 0.4 mg sublingual Tab 0.4 mg = 1 tab(s), SubLingual, q5min, PRN for chest pain Start Date: 10/12/21 Status: Ordered Varna 3 (18 sources) Varna 3 Active Varna 3 Not-Taki ng omeprazole 40 mg delayed release oral capsule (20 sources) Proton Pump Inhibitor Start: 10-12-2021 take 1 capsule by mouth once daily omeprazole 40 mg Cap-DR 40 mg = 1 cap(s), Oral, Daily Start Date: 10/12/21 Status: Ordered Start: 03-12-2021 End: 03-17-2021 take 40 mg by mouth twice daily Omeprazole Active 40 M G PO Twice daily 60 March 17, 2021 8:42am Start: 01-16-2019 End: 06-23-2020 take 20 mg by mouth once daily Omeprazole Discontinued 20 MG PO Daily January 16, 2019 12:00am June 23, 2020 10:32am take 1 capsule by [facility] every other day Omeprazole 40 MG 1 capsule orally every other day for 90 days Active oseltamivir 75 mg oral capsule (1 source) Neuraminidase Inhibitor Start: 09-18-2023 take 1 capsule by mouth every twelve hours Tamiflu 75 MG 1 capsule Orally Twice a day for 5 day(s) Aug, Active PARoxetine hydrochloride 10 mg oral tablet [...] day(s), # 30 cap(s), Refills(s) 11, Pharmacy: [facility] [id number], 187, cm, 05/17/23 11:14:00 EDT, Height/Length Dosing, [...] by mouth every six hours Hydrocodone-Acetam inophen ([place]) 5-325 mg tablet Discontinued 1 TAB PO [...] tablet Discontinued 500 MG PO Daily 7 September 10, 2018 1:00am September 17, [...] Active Problems Problem Classification Problem Date Documented Da te Episodic/Chronic Abdominal hernia (18 sources) Hiatal hernia; Translations: [Diaphragmatic hernia without obstruction or gangrene] Episodic Abdominal pain (20 sources) Abdominal pain; Translations: [Unspecified abdominal pain] Episodic Acute posthemorrhagic anemia (7 sources) Acute posthemorrhagic anemia; Translations: [Acute posthemorrhagic anemia] 03-14-2021 Episodic Anxiety disorders (20 sources) Obsessive-compulsive disorder; Translations: [Obsessive-compulsive disorder] Onset: 2 Resolved: 2 Chronic Calculus of urinary tract (20 sources) Kidney stone; Translations: [Calculus of kidney] Onset: 3 Episodic Comment on above: left side Coronary atherosclerosis and other heart disease (20 sources) Coronary arteriosclerosis; Translations: [Coronary atherosclerosis of unspecified type of vessel, [place] or graft] Onset: 2 Resolved: 2 Chronic Deficiency and other anemia (18 sources) Anemia due to blood loss; Translations: [Iron deficiency anemia secondary to blood loss (chronic)] Chronic Digestive congenital anomalies (18 sources) Terminal esophageal web; 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 Disorders of lipid metabolism (20 sources) Hyperlipidemia; Translations: [Other and unspecified hyperlipidemia] Onset: 2 Resolved: 2 Chronic Diverticulosis and diverticulitis (18 sources) Diverticular disease of colon; Translations: [Diverticulosis of intestine, part unspecified, without perforation or abscess without bleeding] Chronic Esophageal disorders (1 source) Gastroesophageal reflux disease 07-18-2023 Chronic Essential hypertension (20 sources) Benign essential hypertension; Translations: [Benign essential hypertension] Onset: 2 Resolved: 2 Chronic Gastritis and duodenitis (19 sources) Atrophic gastritis; Translations: [Unspecified chronic gastritis without bleeding] Onset: 2 Resolved: 2 Chronic Gastrointestinal hemorrhage (20 sources) Gastrointestinal hemorrhage; Translations: [Gastrointestinal hemorrhage, unspecified] Onset: 1 Resolved: 1 Episodic Genitourinary symptoms and ill-defined conditions (1 source) Procedure carried out on subject; Translations: [Encounter for fitting and adjustment of urinary device] Onset: 3 Chronic Hemorrhoids (18 sources) Hemorrhoids; Translations: [Unspecified hemorrhoids] Episodic Hyperplasia of prostate (7 sources) Benign prostatic hypertrophy without outflow obstruction; Translations: [Benign prostatic hyperplasia without lower urinary tract symptoms] Onset: 3 Chronic Influenza (1 source) Influenza due to other identified influenza virus with other respiratory manifestations Episodic Malaise and fatigue (6 sources) Fatigue; Translations: [Other malaise and fatigue] Onset: 3 05-02-2023 Episodic Osteoarthritis (12 sources) Arthritis of joint of right shoulder region; Translations: [Primary osteoarthritis, right shoulder] Onset: 2 Resolved: 2 Chronic Other aftercare (7 sources) Patient encounter status; Translations: [half-way (current) use of non-steroidal anti-inflammatories (NSAID)] 03-15-2021 Episodic Other aftercare (1 source) Long-term current use of anticoagulant; Translations: [half-way (current) use of anticoagulants] Onset: 3 Episodic Other diseases of kidney and ureters (1 source) Acquired renal cyst without neoplastic change; Translations: [Cyst of kidney, acquired] Onset: 3 Episodic Other diseases of kidney and ureters (3 sources) Cyst of kidney 05-07-2023 Episodic Other disorders of stomach and duodenum (7 sources) Dieulafoy vascular malformation of duodenum; Translations: [Dieulafoy lesion (hemorrhagic) of stomach and duodenum] 03-17-2021 Episodic Other lower respiratory disease (15 sources) Dyspnea on exertion; Translations: [Other respiratory abnormalities] Onset: 3 Resolved: 3 05-02-2023 Episodic Other lower respiratory disease (10 sources) Snoring; Translations: [Other respiratory abnormalities] Onset: 3 Resolved: 3 05-02-2023 Episodic Other nervous system disorders (11 sources) Paresthesia of right upper limb; Translations: [...] source) Drug-induced obesity; 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] Onset: 3 06-04-2023 Chronic Other screening for suspected conditions (not mental disorders or infectious disease) (18 sources) Cardiovascular stress test abnormal; Translations: [Other nonspecific abnormal results of function study of cardiovascular system] Onset: 3 Resolved: 3 05-02-2023 Episodic Regional enteritis and ulcerative colitis (18 sources) Ulcerative colitis; Translations: [Ulcerative colitis, unspecified, without complications] Chronic Residual codes; unclassified (10 sources) Hypersomnia; Translations: [Hypersomnia, unspecified] Onset: 3 Resolved: 3 05-02-2023 Chronic Residual codes; unclassified (12 sources) Sleep apnea; Translations: [Sleep apnea, unspecified] Onset: 3 05-02-2023 Chronic Residual codes; unclassified (7 sources) REM sleep behavior disorder; 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 Residual codes; unclassified (7 sources) Daytime somnolence; Translations: [Other hypersomnia] Chronic Residual codes; unclassified (3 sources) Sleep apnea, unspecified; Translations: [Sleep apnea, unspecified] Onset: 3 Chronic Residual codes; unclassified (2 sources) Other hypersomnia Chronic Residual codes; unclassified (2 sources) REM sleep behavior disorder Chronic Residual codes; unclassified (3 sources) Obstructive sleep apnea syndrome; Translations: [Obstructive sleep apnea (adult) (pediatric)] Chronic Residual codes; unclassified (1 source) Obstructive sleep apnea (adult) (pediatric) Chronic Residual codes; unclassified (1 source) Obstructive sleep apnea (adult)(pediatric); Translations: [Obstructive sleep apnea (adult) (pediatric)] Onset: 3 Chronic Unclassified (4 sources) Finding of sensation of bladder 10-12-2019 Unclassified (2 sources) Drug therapy finding 05-07-2023 Unclassified (1 source) Patient encounter status 05-17-2023 Viral infection (7 sources) Disease caused by 2019-nCoV; Translations: [COVID-19] 08-18-2021 Episodic Past or Other Problems Problem Classification Problem Date Documented Da te Episodic/Chronic Genitourinary symptoms and ill-defined conditions (20 sources) Microscopic hematuria; Translations: [Other microscopic hematuria] Onset: 10-15-2022 Episodic Immunizations and screening for infectious disease (1 [...] smoker] Unclassified (1 source) Onset: 06-04-2023 06-04-2023 Unclassified (1 source) Cough, unspecified type R05.9 Results Test Name Value Interpretation Reference Range Facility RAD - CT Reporton 09-19-2023 RAD - CT Report [id number] .00TI[address] [facility] COVID/FLU RT-PCRon SARS-CoV-2 (COVID-19) RNA TWILA+probe Ql (Unsp spec) Negative [facility] Other COVID/FLU RT-PCR Positive [facility] Other COVID/FLU RT-PCR Negative [facility] Other RAD - CT Reporton 09-17-2023 RAD - CT Report [id number] [facility] CT urogramon 09-16-2023 CT urogram [facility] Main [address] [address] [address] Scan Report Signed Patient: Erik García MR#: [id number] : 1940 Acct:[id number] Age/Sex: 83 / M ADM Date: 09/16/23 Loc: CT Room: Type: [facility] Attending Dr: Matilda Murphy MD Copies to: Matilda Murphy MD Ordering Provider: Matilda Murphy MD Date of Service: 09/16/23 CT/CT urogram: N20.0 CT ABDOMEN AND PELVIS WITH AND WITHOUT INTRAVENOUS CONTRAST: CT UROGRAM CLINICAL HISTORY: Hematuria for 6 months. Kidney stone follow-up COMPARISON: CT abdomen and pelvis 04/27/2023. TECHNIQUE: Spiral images were obtained through the abdomen and pelvis were obtained before and after the administration of intravenous contrast. CT urogram protocol was utilized. This CT exam was performed using one or more following dose reduction techniques: Automated exposure control, adjustment of the mA and/or kV according to patient size, or use of iterative reconstruction technique. FINDINGS: Lung Bases: [Mild bibasilar scarring.] Organs:Noncontrast study demonstrates bilateral nephrolithiasis, largest stone seen involving the right kidney measuring 7 mm. There is persistent left-sided hydronephrosis and hydroureter with a punctate stone involving the distal left ureter series 3 image 143. The hydronephrosis is seen past this punctate stone to the level of the left UVJ without definitive obstructing mass or stone. No right-sided hydronephrosis is seen. Postcontrast series demonstrates a small cyst involving the left kidney. No enhancing renal or collecting system mass. No focal ureteral abnormality is seen. Urinary bladder demonstrates diffuse wall thickening without focal abnormality. Prostate gland is normal in size. Liver portal vein gallbladder spleen pancreas and adrenal glands appear unremarkable. Abdominal aorta appears normal in caliber.[ GI: Stomach is grossly unremarkable. Small bowel appears nondilated. Sigmoid diverticulosis.[ Pelvis:[No lymphadenopathy.] Peritoneum/Retroperit oneum:No free air, free fluid or lymphadenopathy.[ Abd wall/Bones:Abdominal wall demonstrates no acute findings. Osseous structures demonstrate degenerative change. No aggressive bony lesions.[ CT/CT urogram IMPRESSION: 1. Bilateral nephrolithiasis. 2. Left-sided hydronephrosis and hydroureter without obstructing stone or mass. A punctate stone is seen within the distal left ureter best seen on series 3 image 143. Underlying UVJ stricture cannot BE excluded. This can be correlated with cystoscopy. Impression dictated by: Roseanna Turner Jr.OTate09/16/2023 12:12 PM Dictation Location: [place] [address] Transcribed By: [facility] 09/16/23 1212 Dictated By: Cory Shepherd Jr, DO 09/16/23 1206 Signed By: 09/16/23 1212 [facility] ISTAT XRay CREon 09-16-2023 Creatinine [Mass/Vol] 1.5 mg/dL High 0.6-1.3 [facility] Comment on above: Result Comment: ER/E SD physician is notified/shown all ISTAT results. Critical values may be confirmed by laboratory testing if deemed necessary by ER attending doctor. Performed By: #### I SCRE #### [address] ISTAT GFR 46.482 [facility] Comment on above: Result Comment: PERF ORMED BY: [place] [address] PATHOLOGIST HVAC CONTROLS TECHNICIAN LATONIA VASQUEZ M.D. Performed By: #### I SCRE #### [facility] [address] [place] [address] RAD - Ultrasound Reporton RAD - Ultrasound Report [id number]. 00TIFF Normal [facility] US renal BIon 09-02-2023 US renal BI [facility] Main [place] [address] [place] [address] Ultrasound Report Signed Patient: Erik García MR#: [id number] : 1940 Acct:[id number] Age/Sex: 82 / M ADM Date: 09/02/23 Loc: Room: Type: [facility] Attending Dr: Matilda Murphy MD Ordering Provider: Matilda Murphy MD Date of Service: 09/02/23 US/US renal BI: N20.1 Copies to: Matilda Murphy MD BILATERAL RENAL AND BLADDER ULTRASOUND CLINICAL HISTORY: Ureteral stone. COMPARISON: CT abdomen and pelvis 04/27/2023. Estimation of renal size is approximately 4.9 cm on the right and 12.4 cm on the left. Bilateral nephrolithiasis confirmed on the prior CT study, largest measuring 12 mm involving the right kidney. There is persistent left-sided hydronephrosis likely related to the patient's known ureteral calculus. No contour deforming mass is seen. 2 cm cyst left kidney. The urinary bladder is partially distended with a volume of 139.06 ml. No shadowing stone or focal lesion. No significant postvoid residual. US/US renal BI IMPRESSION: BILATERAL NEPHROLITHIASIS WITH LEFT-SIDED HYDRONEPHROSIS CONSISTENT WITH THE HISTORY OF DISTAL URETERAL CALCULUS. Impression dictated by: Cory Shepherd Jr., D.OTate09/02/2023 12:01 PM Dictation Location: [place] [address] Tech: Leia Dobbins Transcribed By: SARAH 09/02/23 1201 Dictated By: Cory Shepherd Jr, DO 09/02/23 1157 Signed By: 09/02/23 1201 [facility] Consent for Procedure/Surger yon 07-22-2023 Consent for Procedure/Surgery [id number] .00TIFF [facility] Consent for Treatmenton Consent for Treatment [id number] .00TIFF [facility] Inpatient Patient Summaryon 07-22-2023 Inpatient Patient Summary [place] [id number] Clinical Summary Person Information Name: ERIK GARCÍA Age: 82 Years : 1940 Sex: Male PCP: JESSE GARCÍA DO Marital Status: Race: White Ethnicity: Non- or Language: Swedish Visit Id: Visit Reason: URETERAL STONE Speciality: Acuity: Enc Type: Outpatient Med Service: Surgery Arrival: 07/22/2023 09:24:26 Discharge: Dispo Type: Address: [address] [place] [phone] Provider Notes: Diagnosis: Encounter for removal of [...] Follow up: With: Address: When: Matilda Murphy [address] [place] [phone] Business (1) Comments: Office to schedule follow up in 6-8 weeks to review renal US Type Location Start Finish State URO Office Visit [facility] [place] 10/21/2023 8:45 AM 10/21/2023 9:00 AM Confirmed Patient Education Information: EU - Cystoscopy with Stent Removal Discharge Instructions (CUSTOM) Normal [facility] IntraOperative Documentson 1 09-22-2022 IntraOperative Documents [id number] .00TIFF Normal [facility] Main OR Intraoperative Recor don 07-22-2023 Main OR Intraoperative Record IntraOp Document Type FTURO Summary Primary Physician: Matilda Murphy MD Finalized Date/Time: 07/22/23 10:28:07 Pt. Name: NATY ERIK Lopez D.O.B./Sex: 1940 Male Med Rec #: [id number] Physician: Matilda Murphy MD Financial #: [id number] Pt. Type: O Room/Bed: / Admit/Disch: 07/22/23 09:24:26 - Institution: Case Times FTURO Entry 1 Patient Times In Room 07/22/23 10:17:00 Out Room 07/22/23 10:33:00 Procedure Times Start 07/22/23 10:25:00 Stop 07/22/23 10:28:00 Anesthesia Times Last Modified By: Shawna KIM, Pia LEDESMA 07/22/23 10:27:57 Case Attendance FTURO Entry 1 Entry 2 Entry 3 Case Attendee Jeffrey ORTEGA, Matilda Matos RN, DAYAOR, Louise REYNAGA, Mae Palacio Role Performed Surgeon - Primary Worm Farm Laborer - Primary Scrub - Primary Time In 07/22/23 10:17:00 07/22/23 10:17:00 07/22/23 10:17:00 Time Out 07/22/23 10:33:00 07/22/23 10:33:00 07/22/23 10:33:00 Procedure CYSTOSCOPY LOCAL WITH CYSTOSCOPY LOCAL WITH CYSTOSCOPY LOCAL WITH STENT REMOVAL(Left) STENT REMOVAL(Left) STENT REMOVAL(Left) Comments Last Modified By: Shawna RN, DAYAOR, BALTAZAR Matos RN, BALTAZAR Matos RN, Ruthann 07/22/23 Pia 07/22/23 Pia 07/22/23 10:27:58 10:27:58 10:27:58 Entry 4 Case Attendee Jennifer Pink Lissa Role Performed Staff - Other Time In [...] Complete 07/22/23 10:19:00 Participants BALTAZAR Matos RN, PiaLouise murphy CST, Joesph Garcia Laura C Allergies Reviewed? Yes [...] BALTAZAR Matos RN, Ruthann 07/22/23 10:[address] [facility] Main OR Preoperative Recordo n 07-22-2023 Main OR Preoperative Record Holding Area Document Type FTURO Summary Primary Physician: Matilda Murphy MD Finalized Date/Time: 07/22/23 10:19:17 Pt. Name: ERIK GARCÍA/Sex: 1940 Male Med Rec #: [id number] Physician: Matilda Murphy MD Financial #: [id number] Pt. Type: O Room/Bed: / Admit/Disch: 07/22/23 [...] Complaints of Pain: No Skin Integrity Intact, [place], Warm, & Dry Vitals - EU Blood Pressure 130/71 Pulse 68 bpm Respirations 18 br/min SPO2 95 % RN Reviewed Yes Last Modified By: BALTAZAR Matos RN, Ruthann 07/22/23 10:19:15 General Comments: Temp. 36.5 Finalized By: BALTAZAR Matos RN, Ruthann Document Signatures Signed By: Haily Barrett LPN 07/22/23 09:41 BALTAZAR Matos RN, Ruthann 07/22/23 10:[address] [facility] Operative Reporton 3 Operative Report Patient: ERIK GARCÍA Age: 82 years Sex: Male : 1940 Associated Diagnoses: None Author: Matilda Murphy MD Procedure Operative Information Details: Date/ Time: 07/22/2023 10:31:00. Pre-Op Dx: Encounter for removal of ureteral stent ([id number] Z46.6, Discharge, Medical), Kidney stones (GIS79-MF N20.0, Discharge, Medical). Post-Op Dx: Same. Anesthesia Type: Local. Procedure: Local Cystoscopy with Stent Removal. Complications: None. Risks/Benefits/Inform ed Consent: Surgical risks, benefits, details of the [...] discuss potential treatment of right side. Normal [facility] Comment on above: Result Comment: Elec tronically Signed By: Matilda Murphy MD\.br\Date and Time Signed: 07/22/23 10:37 EST Outpatient Surgery Discharge Instructionon 07-22-2023 Outpatient Surgery Discharge Instruction [address] [address] Patient Discharge Instructions PERSON INFORMATION Name: ERIK GARCÍA Date of : 1940 Current Date: 07/22/2023 10:31:19 PHYSICIANS Admitting Physician: Matilda Murphy MD Comment: Discharge Diagnosis: Encounter for removal of ureteral stent; Kidney stones ERIK GARCÍA has been given the following list of follow-up instructions, prescriptions, and patient education materials: IF UNABLE TO CONTACT YOUR PHYSICIAN AND YOU FEEL IT IS AN EMERGENCY, GO TO THE NEAREST EMERGENCY ROOM OR CALL 911 Follow up: With: Address: When: Matilda Murphy [address] [place] [phone] [facility] (1) Comments: Office to schedule follow up in 6-8 weeks to review renal US Type Location Start [facility] URO Office Visit [facility] Anders 10/21/2023 8:45 AM 10/21/2023 9:00 AM Confirmed [...] you have a fever over 100 degrees. NATY Haji DAVID W, have received the attached patient education materials/instruction s and have verbalized understanding: May we do [...] to serve you. Thank you for choosing [facility] Normal [facility] 07-19-2023 [facility] [id number]#1 .00TIFF Normal [facility] Operative Reporton 3 Operative Report [id number]#1 .00TIFF Normal [facility] Lab Reportson 07-09-2023 Lab Reports [id number]#1. 00TIFF Normal [facility] Operative Reporton 3 Operative Report [id number]#1 .00TIFF Normal [facility] Patient Correspondenceon Patient Correspondence [id number]#1 .00[address] [facility] Cardiovascular Reporton 05-20 Cardiovascular Report [id number]#1 .00[address] Normal [facility] Lab Reportson 06-07-2023 Lab Reports [id number]#1 [address] [facility] NUCLEAR STRESS TESTon 2022 NUCLEAR STRESS TEST Interpreted By: Summer Bejarano and Giannuzzi Michael STUDY: MYOCARDIAL PERFUSION STRESS TEST WITH LEXISCAN Performing facility: [facility], [address] [place] [address], [address], [address] Provider: Summer Bejarano MD, FACC PCP: Dr. Felicitas García Supervising provider: Summer Bejarano MD, FACC INDICATION: CAD; HTN Pre-operative risk assessment for Urology scheduled at [facility] on D. HISTORY: Gender: M; Age: 82 y/o ; Height: HT 182.9 cm cm; Weight: WT 113.399 kg kg. CAD; High Cholesterol; HTN; Denies smoking. Cardiac catheterization on . COMPARISON: Previous nuclear [id number] [place] [facility] ACCESSION NUMBER(S): [id number] ORDERING CLINICIAN: SUMMER BEJARANO TECHNIQUE: TWO DAY protocol. Stress injection: Date:06-05-23, 34.5 mCi of Myoview IV 20 seconds after rapid injection of Lexiscan. Rest injection: Date: 06-06-23, 34.3 mCi of Myoview IV at rest. The patient had a rapid injection of 0.4 mg of Lexiscan IV over 10 seconds. Imaging was performed by gated tomographic technique. Reason for Lexiscan: dizziness/unsteady/fa ll risk STRESS TEST DATA: Resting heart rate [...] is no longer seen.. Signed by: Summer Bejarano 06/06/2023 10:40 AM Dictation workstation: [id number] [facility] Alanine Aminotransferaseon 1 ALT [Catalytic activity/Vol] 25 U/L Normal [facility] Comment on above: Performed By: #### B MP, AST, ALT, LIPID, CBC #### [facility] [address] Alanine aminotransferase [En zymatic activity/volume] in Serum or PlasmaOrdered By: Summer Bejarano on 06-04-2023 ALT [Catalytic activity/Vol] 25 U/L [facility] Aspartate Amino Transferaseo n 06-04-2023 AST [Catalytic activity/Vol] 29 U/L Normal 13-39 [facility] Comment on above: Performed By: #### B MP, AST, ALT, LIPID, CBC #### [facility] [address] Aspartate aminotransferase [ Enzymatic activity/volume] in Serum or PlasmaOrdered By: Summer Bejarano on 06-04-2023 AST [Catalytic activity/Vol] 29 U/L 13-39 [facility] Basic Metabolic Panelon 05-19 Anion gap [Moles/Vol] 10.5 mmol/L Normal 6.0-15.0 [facility] Comment on above: Performed By: #### B MP, AST, ALT, LIPID, CBC #### [facility] [address] Calcium [Mass/Vol] 8.7 mg/dL Normal 8.6-10.3 [facility] Comment on above: Performed By: #### B MP, AST, ALT, LIPID, CBC #### [facility] [address] Chloride [Moles/Vol] 106 mmol/L Normal 98-107 [facility] Comment on above: Performed By: #### B MP, AST, ALT, LIPID, CBC #### [facility] [address] CO2 [Moles/Vol] 28.1 mmol/L Normal 21.0-31.0 [facility] Comment on above: Performed By: #### B MP, AST, ALT, LIPID, CBC #### [facility] [address] [place] [address] [place] Creatinine [Mass/Vol] 1.13 mg/dL Normal 0.70-1.30 [facility] Comment on above: Performed By: #### B MP, AST, ALT, LIPID, CBC #### [facility] [address] [place] [address] [place] GFR/1.73 sq M.predicted MDRD (S/P/Bld) [Vol rate/Area] mL/min/{1.73_m2} [facility] Comment on above: Performed By: #### B MP, AST, ALT, LIPID, CBC #### [facility] [address] Glucose [Mass/Vol] 99 mg/dL Normal 70-100 [facility] Comment on above: Result Comment: [facility] Glucose Reference Range is dependent on time and content of last meal. Glucose of more than 200 mg/dL in a nonstressed, ambulatory subject supports the diagnosis of Diabetes Mellitus. ADA recommended reference range Performed By: #### B MP, AST, ALT, LIPID, CBC #### [facility] [address] Potassium [Moles/Vol] 4.6 mmol/L Normal 3.5-5.1 [facility] Comment on above: Performed By: #### B MP, AST, ALT, LIPID, CBC #### [facility] [address] Sodium [Moles/Vol] 140 mmol/L Normal 136-145 [facility] Comment on above: Performed By: #### B MP, AST, ALT, LIPID, CBC #### [facility] [address] Urea nitrogen [Mass/Vol] 22 mg/dL Normal 7-25 [facility] Comment on above: Performed By: #### B MP, AST, ALT, LIPID, CBC #### [facility] [address] Basophils Auto (Bld) [#/Vol] Ordered By: Summer Bejarano on 06-04-2023 Basophils (Bld) [#/Vol] 0.0 10*3/uL 0.0-0.2 [facility] Basophils/100 WBC Auto (Bld) Ordered By: Summer Bejarano on 06-04-2023 Basophils/100 WBC (Bld) 0.8 % . F [facility] Calcium [Mass/volume] in Ser um or PlasmaOrdered By: Summer Bejarano on 06-04-2023 Calcium [Mass/Vol] 8.7 mg/dL 8.6-10.3 [facility] Carbon dioxide, total [Moles /volume] in Serum or PlasmaOrdered By: Summer Bejarano on 06-04-2023 CO2 [Moles/Vol] 28.1 mmol/L 21.0-31.0 [facility] Chloride [Moles/volume] in S daniel or PlasmaOrdered By: Summer Bejarano on 06-04-2023 Chloride [Moles/Vol] 106 mmol/L 98-107 [facility] Cholesterol [Mass/volume] in Serum or PlasmaOrdered By: Summer Bejarano on 06-04-2023 Cholesterol [Mass/Vol] 112 mg/dL 140-200 [facility] Comment on above: Chol less than 200 m g/dl low riskChol 201-239 mg/dl borderline riskChol 240 mg/dl and greater high risk Cholesterol in LDL Calc [Mas s/Vol]Ordered By: Summer Bejarano on 06-04-2023 Cholesterol in LDL [Mass/Vol] 49 mg/dL 0-100 [facility] Comment on above: LDL ATP III CLASSIFI CATIONLDL less than 100 mg/dL OptimalLDL 100-129 mg/dL Near or above optimalLDL 130-159 mg/dL Borderline highLDL 160-189 mg/dL HighLDL greater than 189 mg/dL Very high Cholesterol in VLDL Calc [Ma ss/Vol]Ordered By: Summer Bejarano on 06-04-2023 Cholesterol in VLDL [Mass/Vol] 20 mg/dL [facility] Complete Blood Count Auto Di ffon 06-04-2023 Basophils (Bld) [#/Vol] 0.0 10*3/uL Normal 0.0-0.2 [facility] Comment on above: Result Comment: PERF ORMED BY: [place] [address] PATHOLOGIST HVAC CONTROLS TECHNICIAN LATONIA VASQUEZ M.D. Performed By: #### B MP, AST, ALT, LIPID, CBC #### [facility] [address] [place] [address] [place] Basophils/100 WBC (Bld) 0.8 % Normal . F [facility] Comment on above: Performed By: #### B MP, AST, ALT, LIPID, CBC #### [facility] [address] [place] [address] [place] Eosinophils (Bld) [#/Vol] 0.2 10*3/uL Normal 0.0-0.45 [facility] Comment on above: Performed By: #### B MP, AST, ALT, LIPID, CBC #### [address] Eosinophils/100 WBC (Bld) 4.4 % Normal . [facility] Comment on above: Performed By: #### B MP, AST, ALT, LIPID, CBC #### [address] Erythrocyte distribution width (RBC) [Ratio] 12.7 % Normal 12.0-14.8 [facility] Comment on above: Performed By: #### B MP, AST, ALT, LIPID, CBC #### [address] Hematocrit (Bld) [Volume fraction] 39.7 % Normal 38.8-50.0 [facility] Comment on above: Performed By: #### B MP, AST, ALT, LIPID, CBC #### [address] Hemoglobin (Bld) [Mass/Vol] 13.5 g/dL Normal 13.0-17.0 [facility] Comment on above: Performed By: #### B MP, AST, ALT, LIPID, CBC #### [address] Lymphocytes (Bld) [#/Vol] 1.5 10*3/uL Normal 1.00-4.8 [facility] Comment on above: Performed By: #### B MP, AST, ALT, LIPID, CBC #### [address] Lymphocytes/100 WBC (Bld) 28.3 % Normal . [facility] Comment on above: Performed By: #### B MP, AST, ALT, LIPID, CBC #### [address] MCH (RBC) [Entitic mass] 32.7 pg Normal 27.5-35.2 [facility] Comment on above: Performed By: #### B MP, AST, ALT, LIPID, CBC #### [address] MCV (RBC) [Entitic vol] 96.5 fL Normal 83.5-101 F [facility] Comment on above: Performed By: #### B MP, AST, ALT, LIPID, CBC #### [address] Mean Corpuscular HGB Conc 33.9 g/dL Normal 32.5-35.6 [facility] Comment on above: Performed By: #### B MP, AST, ALT, LIPID, CBC #### [address] Monocytes (Bld) [#/Vol] 0.5 10*3/uL Normal 0.0-0.8 [facility] Comment on above: Performed By: #### B MP, AST, ALT, LIPID, CBC #### [address] Monocytes/100 WBC (Bld) 10.1 % Normal . F [facility] Comment on above: Performed By: #### B MP, AST, ALT, LIPID, CBC #### [address] Neutrophils (Bld) [#/Vol] 2.9 10*3/uL Normal 1.8-7.7 [facility] Comment on above: Performed By: #### B MP, AST, ALT, LIPID, CBC #### [address] Neutrophils/100 WBC (Bld) 56.4 % Normal . [facility] Comment on above: Performed By: #### B MP, AST, ALT, LIPID, CBC #### [address] NRBC% 0.1 /100{WBC} Normal 0-0.5 [facility] Comment on above: Performed By: #### B MP, AST, ALT, LIPID, CBC #### [address] Platelet mean volume (Bld) [Entitic vol] 9.0 fL Normal 6.6-10.1 [facility] Comment on above: Performed By: #### B MP, AST, ALT, LIPID, CBC #### [facility] [address] Platelets (Bld) [#/Vol] 140 10*3/uL Low 150-450 [facility] Comment on above: Performed By: #### B MP, AST, ALT, LIPID, CBC #### [facility] [address] RBC (Bld) [#/Vol] 4.12 10*6/uL Normal 3.90-5.60 [facility] Comment on above: Performed By: #### B MP, AST, ALT, LIPID, CBC #### [facility] [address] WBC (Bld) [#/Vol] 5.2 10*3/uL Normal 4.1-10.5 [facility] Comment on above: Performed By: #### B MP, AST, ALT, LIPID, CBC #### [facility] [address] Creatinine [Mass/volume] in Serum or PlasmaOrdered By: Summer Bejarano on 06-04-2023 Creatinine [Mass/Vol] 1.13 mg/dL 0.70-1.30 [facility] Eosinophils Auto (Bld) [#/Vo l]Ordered By: Summer Bejarano on 06-04-2023 Eosinophils (Bld) [#/Vol] 0.2 10*3/uL 0.0-0.45 [facility] Eosinophils/100 WBC Auto (Bl d)Ordered By: Smumer Bejarano on 06-04-2023 Eosinophils/100 WBC (Bld) 4.4 % . [facility] Erythrocyte distribution wid th Auto (RBC) [Ratio]Ordered By: Summer Bejarano on 06-04-2023 Erythrocyte distribution width (RBC) [Ratio] 12.7 % 12.0-14.8 [facility] Glucose [Mass/volume] in Ser um or PlasmaOrdered By: Summer Bejarano on 06-04-2023 Glucose [Mass/Vol] 99 mg/dL 70-100 [facility] Comment on above: ADA recommended refe rence rangeRandom Glucose Reference Range is dependent on time and content of last meal. Glucose of more than 200 mg/dL in a nonstressed, ambulatory subject supports the diagnosis of Diabetes Mellitus. Hematocrit Auto (Bld) [Volum e fraction]Ordered By: Summer Bejarano on 06-04-2023 Hematocrit (Bld) [Volume fraction] 39.7 % 38.8-50.0 [facility] Hemoglobin [Mass/volume] in BloodOrdered By: Summer Bejarano on 06-04-2023 Hemoglobin (Bld) [Mass/Vol] 13.5 g/dL 13.0-17.0 [facility] Leukocytes [#/volume] correc charity for nucleated erythrocytes in Blood by Automated counOrdered By: Summer Bejarano on 06-04-2023 WBC corrected for nucl RBC Auto (Bld) [#/Vol] 5.2 10*3/uL 4.1-10.5 [facility] Lipid Panelon 06-04-2023 Cholesterol [Mass/Vol] 112 mg/dL Low 140-200 [facility] Comment on above: Result Comment: Chol less than 200 mg/dl low risk Chol 201-239 mg/dl borderline risk Chol 240 mg/dl and greater high risk Performed By: #### B MP, AST, ALT, LIPID, CBC #### [facility] [address] [place] [address] [place] Cholesterol in HDL [Mass/Vol] 43 mg/dL Normal 23-92 [facility] Comment on above: Result Comment: HDL CHOL ATP-III CLASSIFICATION Cardiovascular Risk HDL > or equal to 60 mg/dL LOW HDL < 40 mg/dL HIGH Performed By: #### B MP, AST, ALT, LIPID, CBC #### [facility] [address] [place] [id number] [facility] Cholesterol.total/Linda sterol in HDL [Mass ratio] 2.6 {ratio} Normal <5.0 [facility] Comment on above: Result Comment: PERF ORMED BY: [place] [address] PATHOLOGIST HVAC CONTROLS TECHNICIAN LATONIA VASQUEZ M.D. Performed By: #### B MP, AST, ALT, LIPID, CBC #### [address] LDL Cholesterol,Calculated 49 mg/dL Normal 0-100 [facility] Comment on above: Result Comment: LDL ATP III CLASSIFICATION LDL less than 100 mg/dL Optimal LDL 100-129 mg/dL Near or above optimal LDL 130-159 mg/dL Borderline high LDL 160-189 mg/dL High LDL greater than 189 mg/dL Very high Performed By: #### B MP, AST, ALT, LIPID, CBC #### [address] Triglyceride w/Reflex 101 mg/dL Normal 0-149 [facility] Comment on above: Result Comment: TRIG ATP III CLASSIFICATION TRIG less than 150 mg/dL Normal TRIG 150-199 mg/dL Borderline high TRIG 200-500 mg/dL High TRIG greater than 500 mg/dL Very high Standard traceable to the Center for Disease Conrtrol and Prevention (CDC) test method. Performed By: #### B MP, AST, ALT, LIPID, CBC #### [facility] [address] [place] [address] VLDL CHOLESTEROL 20 mg/dL Normal [facility] Comment on above: Performed By: #### B MP, AST, ALT, LIPID, CBC #### [facility] [address] [place] [address] Lymphocytes Auto (Bld) [#/Vo l]Ordered By: Summer Bejarano on 06-04-2023 Lymphocytes (Bld) [#/Vol] 1.5 10*3/uL 1.00-4.8 [facility] Lymphocytes/100 WBC Auto (Bl d)Ordered By: Summer Bejarano on 06-04-2023 Lymphocytes/100 WBC (Bld) 28.3 % . [facility] MCH Auto (RBC) [Entitic mass ]Ordered By: Summer Bejarano on 06-04-2023 MCH (RBC) [Entitic mass] 32.7 pg 27.5-35.2 [facility] MCHC Auto (RBC) [Mass/Vol]Or dered By: Summer Bejarano on 06-04-2023 MCHC (RBC) [Mass/Vol] 33.9 g/dL 32.5-35.6 [facility] MCV Auto (RBC) [Entitic vol] Ordered By: Summer Bejarano on 06-04-2023 MCV (RBC) [Entitic vol] 96.5 fL 83.5-101 F [facility] Monocytes Auto (Bld) [#/Vol] Ordered By: Summer Bejarano on 06-04-2023 Monocytes (Bld) [#/Vol] 0.5 10*3/uL 0.0-0.8 [facility] Monocytes/100 WBC Auto (Bld) Ordered By: Summer Bejarano on 06-04-2023 Monocytes/100 WBC (Bld) 10.1 % . F [facility] Neutrophils Auto (Bld) [#/Vo l]Ordered By: Summer Bejarano on 06-04-2023 Neutrophils (Bld) [#/Vol] 2.9 10*3/uL 1.8-7.7 [facility] Neutrophils/100 WBC Auto (Bl d)Ordered By: Summer Bejarano on 06-04-2023 Neutrophils/100 WBC (Bld) 56.4 % . [facility] No Panel InformationOrdered By: Summer Bejarano on 06-04-2023 Estimated GFR (CKD-EPI) > 60.0 mL/Min [facility] Creatinine Clearance (Chem N/A [facility] Nucleated erythrocytes [Pres ence] in Blood by Automated countOrdered By: Summer Bejarano on 06-04-2023 Nucleated RBC Auto Ql (Bld) 0.1 /100{WBC} 0-0.5 [facility] Platelet mean volume Auto (B ld) [Entitic vol]Ordered By: Summer Bejarano on 06-04-2023 Platelet mean volume (Bld) [Entitic vol] 9.0 fL 6.6-10.1 [facility] Platelets Auto (Bld) [#/Vol] Ordered By: Summer Bejarano on 06-04-2023 Platelets (Bld) [#/Vol] 140 10*3/uL 150-450 [facility] Potassium [Moles/volume] in Serum or PlasmaOrdered By: Summer Bejarano on 06-04-2023 Potassium [Moles/Vol] 4.6 mmol/L 3.5-5.1 [facility] RBC Auto (Bld) [#/Vol]Ordere d By: Summer Bejarano on 06-04-2023 RBC (Bld) [#/Vol] 4.12 10*6/uL 3.90-5.60 [facility] Serum or plasma anion gap de terminationOrdered By: Summer Bejarano on 06-04-2023 Anion gap [Moles/Vol] 10.5 mmol/L 6.0-15.0 [facility] Serum or plasma high density lipoprotein (HDL) cholesterol measurementOrdered By: Summer Bejarano on 06-04-2023 Cholesterol in HDL [Mass/Vol] 43 mg/dL 23-92 [facility] Comment on above: HDL CHOL ATP-III CLA SSIFICATION Cardiovascular RiskHDL > or equal to 60 mg/dL LOWHDL < 40 mg/dL HIGH Serum or plasma total choles terol/high density lipoprotein (HDL) cholesterol mass ratOrdered By: Summer Bejarano on 06-04-2023 Cholesterol.total/Linda sterol in HDL [Mass ratio] 2.6 {ratio} <5.0 [facility] Sodium [Moles/volume] in Ser um or PlasmaOrdered By: Summer Bejarano on 06-04-2023 Sodium [Moles/Vol] 140 mmol/L 136-145 [facility] Triglyceride [Mass/volume] i n Serum or PlasmaOrdered By: Summer Bejarano on 06-04-2023 Triglyceride [Mass/Vol] 101 mg/dL 0-149 [facility] Comment on above: TRIG ATP III CLASSIF ICATIONTRIG less than 150 mg/dL NormalTRIG 150-199 mg/dL Borderline highTRIG 200-500 mg/dL High TRIG greater than 500 mg/dL Very highStandard traceable to the Center for Disease Conrtrol and Prevention (CDC) test method. Urea nitrogen [Mass/volume] in Serum or PlasmaOrdered By: Summer Bejarano on 06-04-2023 Urea nitrogen [Mass/Vol] 22 mg/dL 7-25 [facility] WBC Auto (Bld) [#/Vol]Ordere d By: Summer Bejarano on 06-04-2023 WBC (Bld) [#/Vol] 5.2 10*3/uL 4.1-10.5 [facility] Lab Reportson 05-22-2023 Lab Reports [id number]#1 .00CD:[address] [facility] RAD - MISCon 05-22-2023 RAD - MISC [id number]#1 .00CD:[address] [facility] Formson 05-20-2023 Forms [id number]#1 .00CD:[address] [facility] Ambulatory Visit Summaryon 0 05-17-2023 Ambulatory Visit Summary ERIK GARCÍA :1940 Visit Date:05/17/2023 Ambulatory Visit Instructions Your Diagnosis Ureteral stone Kidney stones Renal cyst, left BPH with obstruction/lower urinary tract symptoms Incomplete bladder emptying Antiplatelet or antithrombotic long-term use Tests Performed Urnls Dip Stick Auto w/o Microscopy POC [id number] Your Care Team Attending Physician - Jeffrey ORTEGA, Matilda Moraes Primary Care Physician - JESSE GARCÍA DO [...] ORTEGA, Gautam Pereira Where: [facility] Patient Educationon 05-17-20 23 Patient Education Nephrology [...] these instructions at home: Medicines ? Take cwcz-zwa-evlbddm and prescription medicines only as told by [...] or treat constipation, such as: ? Take mtud-lsk-farcern or prescription medicines. ? Eat foods that [...] of blood in your urine. ? Take gqzr-opn-dwddxnf and prescription medicines only as told by [...] provider. Document Revised: 04/09/2022 Document Reviewed: 04/09/2022 [employer] Patient Education ? 2022 [employer] Laser Therapy for Kidney Stones Laser [...] including vitamins, herbs, eye drops, creams, and jcvd-qkd-hadukhb medicines. ? Any problems you or family members have had with anesthetic medicines. ? Any blood disorders you have. ? Any surgeries you have had. ? Any medical conditions you have. ? Whether you are or may be . What are the ris (more content not included)... Normal [facility] Screenson 05-17-2023 Screens [id number]# 1.00CD:[address] [facility] Screens [id number]# 1.00CD:[address] [facility] Urology Office/Clinic Noteon 05-17-2023 Urology Office/Clinic [...] Pain: none. Bladder: nonpalpable. Assessment/Plan Prior Dr. Graf pt, last seen by SANDY 3 wks ago, here to discuss stone tx. Pt here with his , Jacey, today. DAVID 5. 1. Ureteral stone (N20.1: Calculus of ureter) Same stone present since 07/2022 CT [facility] con 04/[place] [facility] [place] hydro. No ureteral dilation however, [...] Kidney stones (N20.0: Calculus of kidney) [facility] con 04/27/23 [facility] [place] Several bilateral renal stones. Largest on [...] kidney, acquired) CT AP wo con 04/27/23 [facility] [place] LMP hypodensity posteriorly 2.5 cm. Potential tiny cyst at the [facility]. -Follow-up with renal ultrasound in 1 year 4. BPH with obstruction/lower urinary tract symptoms (N40.1: Benign prostatic hyperplasia with lower urinary tract symptoms) IPSS 17. Discussed bladder pathophysiology and potential treatment options. May be further impacted by left distal stone. -Start Flomax 0.4 mg qd. SEs discussed. Rx sent to [facility]. -Reassess after stone treatment 5. Incomplete bladder emptying (R33.9: Retention of urine, unspecified) PVR today 156 ml. -See #4 -Tamsulosin. Timed voiding. 6. 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 Normal [facility] Comment on above: Result Comment: Elec tronically Signed By: Matilda Murphy MD\.br\Date and Time Signed: 05/17/23 16:48 EDT\.br\Electronically Co-Signed By: Nika Watson\.br\Date and Time Co-Signed: 05/17/23 11:51 EDT\.br\Electronically Co-Signed By: Nika Watson\.br\Date and Time Co-Signed: 05/17/23 11:52 EDT RAD - CT Reporton 04-30-2023 [address] - [address] Report [id number]#1. 00CD:[address] [facility] CT abdomen pelvis wo conon 0 04-27-2023 CT abdomen pelvis wo con [facility] [place] [address] CT Scan Report Signed Patient: Erik García MR#: [id number] : 1940 Acct:[id number] Age/Sex: 82 / M ADM Date: 04/27/23 Loc: CT Room: Type: [facility] Attending Dr: Deirdre Bernstein PA-C Copies to: Deirdre Bernstein PA-C Ordering Provider: Deirdre Bernstein PA-C Date of Service: 04/27/23 CT/CT abdomen [...] Jossie Pineda M.D.04/27/2023 12:33 PM Dictation Location: [place] [address] Transcribed By: [facility] 04/27/23 1233 Dictated By: Jossie Pineda MD 04/27/23 1225 Signed By: 04/27/23 1233 [facility] Ambulatory Visit Summaryon 0 04-25-2023 Ambulatory Visit Summary ERIK GARCÍA :1940 Visit Date:04/25/2023 Ambulatory Visit Instructions Your Diagnosis Gross hematuria BPH (benign prostatic hyperplasia) Kidney stones Ureteral stone Tests Performed Urnls Dip Stick Auto w/o Microscopy POC [address]472 CT Abdomen/Pelvis w/o Contrast -- Results Pending -- Please visit your patient portal for your results or contact your primary care physician. Your Care Team Attending Physician - DEIRDRE BERNSTEIN PA-C Primary Care Physician - JESSE GARCÍA [...] ORTEGA, Gautam Pereira Where: [facility] Patient Educationon 04-25-20 Patient Education Nephrology Dietary [...] ? 8 oz (237 mL) of milk, calcium-fortifiednon- dairy milk, and calcium-fortifiedfrui t juice. Calcium-fortified means that calcium has been [...] Spinach (cooked), rhubarb, beets, sweet potatoes, and [place] Islander chard. ? Peanuts. ? Potato chips, english fries, and baked potatoes with skin on. ? Nuts and nut products. ? Chocolate. ? If you regularly take a diuretic medicine, make sure to eat at least 1 or 2 servings of fruits or vegetables that are high in potassium each day. These include: ? Avocado. ? Banana. ? Elkin, prune, carrot, or tomato juice. ? Baked [...] fish oil, or vitamin B6. ? Take rzli-jmi-agedspk and prescription medicines only as told by your health care provider. These include supplements. What foods should I limit? Limit your in (more content not included)... Normal [facility] Urology Office/Clinic Noteon 04-25-2023 Urology Office/Clinic Note [...] to be some clots occasionally. No difficulty voiding/straining/hes itancy. Advised pt that this may be a [...] stat, [place] [facility] -Hold off the Plavix. -Increase Fluid Intake. [...] acknowledges understanding. Follow-up With When Contact Information MARIAJOSE HOLM, DEIRDRE Garay, URL [address] [place] [address] Additional Instructions: We will call pt. Patient Education Dietary Guidelines to Help Prevent Kidney Stones I, Rhiannon Montoya, personally scribed for Deirdre Bernstein PA-C on 04/25/2023 13:44:15. . Documentation recorded by the scribjarrod Montoya accurately reflects the services(s) I performed and decisions made by me. Authenticated by Deirdre Bernstein PA-C on 04/25/2023 14:22:25. Problem List/Past Medical [...] Oral, Ena (more content not included)... Normal [facility] Comment on above: Result Comment: Elec tronically Signed By: DEIRDRE BERNSTEIN PA-C\.br\Date and Time Signed: 04/25/23 14:22 EDT\.br\Electronically Co-Signed By: Rhiannon Montoya\.br\Date and Time Co-Signed: 04/25/23 13:44 EDT Reminderson 01-21-2023 Reminders - From: Joanna Kim To: MARNIE Cruz; Sent: 01/21/2023 10:54:15 EDT Show up: 12/22/2023 10:54:00 EDT Subject: Reminder Message Reminder Message Please Remember to:_ PATIENT RELATED REMINDER:_ ( ) Call Patient ( ) Ask Patient to ( ) Call Relative ( ) Schedule Patient ( ) Follow up on Results ( X ) Other: Pt needs PSA & KUB order PROVIDER RELATED REMINDER:_ ( ) Parking Enforcement Specialist ( ) Call Pharmacy ( ) Call Lab ( ) Other: Special Instructions:_ Comments:_ [facility] Office Visit (Cardiology)on 11-28-2022 Follow-up visit [...] Weight Tips; Status:Complete - Retrospective Authorization; Done: [id number] Some eating tips that can help you lose weight.; Status:Complete - Retrospective Authorization; Done: [id number] Essential hypertension, benign Renew: Metoprolol Succinate ER 50 MG Oral Tablet Extended Release 24 Hour; Take 1 tablet once daily SocHx: Never a smoker Tobacco Use Screening; Status:Complete; Done: [id number] Patient Instructions Please bring all medicines, vitamins, [...] with the patient: ECG Chief Complaint ERIK GARCÍA is being seen for a 6 month [...] no side effect of the device. Summer Bejarano MD, [facility] Surgical History Problems History of Cardiac catheterization [...] use Rev (more content not included)... Normal [facility] Tobacco Screening.on 023 Adult depression screening assessment No [facility] [employer] 250 DO Work Phone: Fall risk assessment a) No falls within the last year [facility] [employer] 250 DO Work Phone: Tobacco use status CPHS b) No [facility] [employer] 250 DO Work Phone: Basic Metabolic Panelon 11-17 Anion gap [Moles/Vol] 10.0 mmol/L Normal 6.0-15.0 [facility] Comment on above: Order Comment: FASTI NG. JKW Performed By: #### C BC, BMP ####[facility] [place] [place] [address] [facility] Calcium [Mass/Vol] 8.8 mg/dL Normal 8.6-10.3 [facility] Comment on above: Order Comment: FASTI NG. JKW Result Comment: PERF ORMED BY: [facility] [address] [place] [address] PATHOLOGIST HVAC CONTROLS TECHNICIAN LATONIA VASQUEZ M.D. Performed By: #### C BC, BMP ####[facility] [place] [place] [address] [facility] Chloride [Moles/Vol] 107 mmol/L Normal 98-107 [facility] Comment on above: Order Comment: FASTI NG. JKW Performed By: #### C BC, BMP ####[place] [address] [place] [address] [facility] CO2 [Moles/Vol] 29.1 mmol/L Normal 21.0-31.0 [facility] Comment on above: Order Comment: FASTI NG. JKW Performed By: #### C BC, BMP ####[address] [address] [facility] Creatinine [Mass/Vol] 1.02 mg/dL Normal 0.70-1.30 [facility] Comment on above: Order Comment: FASTI NG. JKW Performed By: #### C BC, BMP ####[address] [address] [place] GFR/1.73 sq M.predicted MDRD (S/P/Bld) [Vol rate/Area] mL/min/{1.73_m2} [facility] Comment on above: Order Comment: FASTI NG. JKW Performed By: #### C BC, BMP ####[address] [address] [facility] Glucose [Mass/Vol] 98 mg/dL Normal 70-100 [facility] Comment on above: Order Comment: FASTI NG. JKW Result Comment: [facility] Glucose Reference Range is dependent on time and content of last meal. Glucose of more than 200 mg/dL in a nonstressed, ambulatory subject supports the diagnosis of Diabetes Mellitus. ADA recommended reference range Performed By: #### C BC, BMP ####[address] [address] [place] Potassium [Moles/Vol] 4.1 mmol/L Normal 3.5-5.1 [facility] Comment on above: Order Comment: FASTI NG. JKW Performed By: #### C BC, BMP ####[address] [address] [facility] Sodium [Moles/Vol] 142 mmol/L Normal 136-145 [facility] Comment on above: Order Comment: FASTI NG. JKW Performed By: #### C BC, BMP ####[place] [address] [place] [id number] [facility] Urea nitrogen [Mass/Vol] 20 mg/dL Normal 7-25 [facility] Comment on above: Order Comment: ALLIE CARRINGTON JKW Performed By: #### C BC, BMP ####[place] [address] Basophils Auto (Bld) [#/Vol] Ordered By: Summer Bejarano on 11-26-2022 Basophils (Bld) [#/Vol] 0.0 10*3/uL 0.0-0.2 [facility] Basophils/100 WBC Auto (Bld) Ordered By: Summer Bejarano on 11-26-2022 Basophils/100 WBC (Bld) 0.6 % . F [facility] Calcium [Mass/volume] in Ser um or PlasmaOrdered By: Summer Bejarano on 11-26-2022 Calcium [Mass/Vol] 8.8 mg/dL 8.6-10.3 [facility] Carbon dioxide, total [Moles /volume] in Serum or PlasmaOrdered By: Summer Bejarano on 11-26-2022 CO2 [Moles/Vol] 29.1 mmol/L 21.0-31.0 [facility] Chloride [Moles/volume] in S daniel or PlasmaOrdered By: Summer Bejarano on 11-26-2022 Chloride [Moles/Vol] 107 mmol/L 98-107 [facility] Complete Blood Count Auto Di ffon 11-26-2022 Basophils (Bld) [#/Vol] 0.0 10*3/uL Normal 0.0-0.2 [facility] Comment on above: Order Comment: ALLIE NelsonKW Result Comment: PERF ORMED BY: [facility] [address] [place] [id number] PATHOLOGIST HVAC CONTROLS TECHNICIAN LATONIA VASQUEZ M.D. Performed By: #### C LING, BMP ####[place] [address] Basophils/100 WBC (Bld) 0.6 % Normal . F [facility] Comment on above: Order Comment: FASTI NG. JKW Performed By: #### C BC, BMP ####[address] Eosinophils (Bld) [#/Vol] 0.2 10*3/uL Normal 0.0-0.45 [facility] Comment on above: Order Comment: FASTI NG. JKW Performed By: #### C BC, BMP ####[address] Eosinophils/100 WBC (Bld) 4.6 % Normal . [facility] Comment on above: Order Comment: FASTI NG. JKW Performed By: #### C BC, BMP ####[address] Erythrocyte distribution width (RBC) [Ratio] 13.6 % Normal 12.0-14.8 [facility] Comment on above: Order Comment: FASTI NG. JKW Performed By: #### C BC, BMP ####[address] Hematocrit (Bld) [Volume fraction] 41.8 % Normal 38.8-50.0 [facility] Comment on above: Order Comment: FASTI NG. JKW Performed By: #### C BC, BMP ####[address] Hemoglobin (Bld) [Mass/Vol] 14.3 g/dL Normal 13.0-17.0 [facility] Comment on above: Order Comment: FASTI NG. JKW Performed By: #### C BC, BMP ####[address] Lymphocytes (Bld) [#/Vol] 1.5 10*3/uL Normal 1.00-4.8 [facility] Comment on above: Order Comment: FASTI NG. JKW Performed By: #### C BC, BMP ####[address] Lymphocytes/100 WBC (Bld) 30.6 % Normal . [facility] Comment on above: Order Comment: FASTI NG. JKW Performed By: #### C BC, BMP ####[address] MCH (RBC) [Entitic mass] 32.9 pg Normal 27.5-35.2 [facility] Comment on above: Order Comment: FASTI NG. JKW Performed By: #### C BC, BMP ####[address] MCV (RBC) [Entitic vol] 96.1 fL Normal 83.5-101 F [facility] Comment on above: Order Comment: FASTI NG. JKW Performed By: #### C BC, BMP ####[address] Mean Corpuscular HGB Conc 34.2 g/dL Normal 32.5-35.6 [facility] Comment on above: Order Comment: FASTI NG. JKW Performed By: #### C BC, BMP ####[address] Monocytes (Bld) [#/Vol] 0.5 10*3/uL Normal 0.0-0.8 [facility] Comment on above: Order Comment: FASTI NG. JKW Performed By: #### C BC, BMP ####[address] Monocytes/100 WBC (Bld) 9.7 % Normal . F [facility] Comment on above: Order Comment: FASTI NG. JKW Performed By: #### C BC, BMP ####[address] Neutrophils (Bld) [#/Vol] 2.7 10*3/uL Normal 1.8-7.7 [facility] Comment on above: Order Comment: FASTI NG. JKW Performed By: #### C BC, BMP ####[address] Neutrophils/100 WBC (Bld) 54.5 % Normal . [facility] Comment on above: Order Comment: FASTI NG. JKW Performed By: #### C LING, BMP ####[address] NRBC% 0.1 /100{WBC} Normal 0-0.5 [facility] Comment on above: Order Comment: FASTI NG. JKW Performed By: #### C BC, BMP ####[place] [id number] [facility] Platelet mean volume (Bld) [Entitic vol] 8.7 fL Normal 6.6-10.1 [facility] Comment on above: Order Comment: FASTI NG. JKW Performed By: #### C LING, BMP ####[address] Platelets (Bld) [#/Vol] 143 10*3/uL Low 150-450 [facility] Comment on above: Order Comment: FASTI NG. JKW Performed By: #### C LING, BMP ####[address] RBC (Bld) [#/Vol] 4.35 10*6/uL Normal 3.90-5.60 [facility] Comment on above: Order Comment: FASTI NG. JKW Performed By: #### C BC, BMP ####[place] [id number] [facility] WBC (Bld) [#/Vol] 5.0 10*3/uL Normal 4.1-10.5 [facility] Comment on above: Order Comment: FASTI NG. JKW Performed By: #### C BC, BMP ####[address] Creatinine [Mass/volume] in Serum or PlasmaOrdered By: Summer Bejarano on 11-26-2022 Creatinine [Mass/Vol] 1.02 mg/dL 0.70-1.30 [facility] Eosinophils Auto (Bld) [#/Vo l]Ordered By: Summer Bejarano on 11-26-2022 Eosinophils (Bld) [#/Vol] 0.2 10*3/uL 0.0-0.45 [facility] Eosinophils/100 WBC Auto (Bl d)Ordered By: Summer Bejarano on 11-26-2022 Eosinophils/100 WBC (Bld) 4.6 % . [facility] Erythrocyte distribution wid th Auto (RBC) [Ratio]Ordered By: Summer Bejarano on 11-26-2022 Erythrocyte distribution width (RBC) [Ratio] 13.6 % 12.0-14.8 [facility] Glucose [Mass/volume] in Ser um or PlasmaOrdered By: Summer Bejarano on 11-26-2022 Glucose [Mass/Vol] 98 mg/dL 70-100 [facility] Comment on above: ADA recommended refe rence rangeRandom Glucose Reference Range is dependent on time and content of last meal. Glucose of more than 200 mg/dL in a nonstressed, ambulatory subject supports the diagnosis of Diabetes Mellitus. Hematocrit Auto (Bld) [Volum e fraction]Ordered By: Summer Bejarano on 11-26-2022 Hematocrit (Bld) [Volume fraction] 41.8 % 38.8-50.0 [facility] Hemoglobin [Mass/volume] in BloodOrdered By: Summer Bejarano on 11-26-2022 Hemoglobin (Bld) [Mass/Vol] 14.3 g/dL 13.0-17.0 [facility] Leukocytes [#/volume] correc charity for nucleated erythrocytes in Blood by Automated counOrdered By: Summer Bejarano on 11-26-2022 WBC corrected for nucl RBC Auto (Bld) [#/Vol] 5.0 10*3/uL 4.1-10.5 [facility] Lymphocytes Auto (Bld) [#/Vo l]Ordered By: Summer Bejarano on 11-26-2022 Lymphocytes (Bld) [#/Vol] 1.5 10*3/uL 1.00-4.8 [facility] Lymphocytes/100 WBC Auto (Bl d)Ordered By: Summer Bejarano on 11-26-2022 Lymphocytes/100 WBC (Bld) 30.6 % . [facility] MCH Auto (RBC) [Entitic mass ]Ordered By: Summer Bejarano on 11-26-2022 MCH (RBC) [Entitic mass] 32.9 pg 27.5-35.2 [facility] MCHC Auto (RBC) [Mass/Vol]Or dered By: Summer Bejarano on 11-26-2022 MCHC (RBC) [Mass/Vol] 34.2 g/dL 32.5-35.6 [facility] MCV Auto (RBC) [Entitic vol] Ordered By: Summer Bejarano on 11-26-2022 MCV (RBC) [Entitic vol] 96.1 fL 83.5-101 F [facility] Monocytes Auto (Bld) [#/Vol] Ordered By: Summer Bejarano on 11-26-2022 Monocytes (Bld) [#/Vol] 0.5 10*3/uL 0.0-0.8 [facility] Monocytes/100 WBC Auto (Bld) Ordered By: Summer Bejarano on 11-26-2022 Monocytes/100 WBC (Bld) 9.7 % . F [facility] Neutrophils Auto (Bld) [#/Vo l]Ordered By: Summer Bejarano on 11-26-2022 Neutrophils (Bld) [#/Vol] 2.7 10*3/uL 1.8-7.7 [facility] Neutrophils/100 WBC Auto (Bl d)Ordered By: Summer Bejarano on 11-26-2022 Neutrophils/100 WBC (Bld) 54.5 % . [facility] No Panel InformationOrdered By: Summer Bejarano on 11-26-2022 Estimated GFR (CKD-EPI) > 60.0 mL/Min [facility] Creatinine Clearance (Chem N/A [facility] No Panel Informationon 11-26 54.5\S\54.5 Normal . [facility] [employer] 250 DO Work Phone: 8.7\S\8.7 Normal 6.6-10.1 [facility] 250 DO Work Phone: 143\S\143 below low threshold 150-[address] [facility] 250 DO Work Phone: 13.6\S\13.6 Normal 12.0-14.[address] [facility] 250 DO Work Phone: 34.2\S\34.2 Normal 32.5-35.[address] [facility] 250 DO Work Phone: 32.9\S\32.9 Normal 27.5-35.[address] [facility] 250 DO Work Phone: 2.7\S\2.7 Normal 1.8-7.[address] [facility] 250 DO Work Phone: 0.1\S\0.1 Normal 0-0.[address] [facility] 250 DO Work Phone: 0.6\S\0.[address] [facility] 250 DO Work Phone: 4.6\S\4.[address] [facility] 250 DO Work Phone: 9.7\S\9.[address] [facility] 250 DO Work Phone: 30.6\S\30.[address] [facility] 250 DO Work Phone: 0.0\S\0.0 Normal 0.0-0.[address] [facility] 250 DO Work Phone: Comment on above: PERFORMED BY:[facility] [place], [place] [id number] MEDICAL DIRECTORLATONIA VASQUEZ M.D. 0.2\S\0.2 Normal 0.0-0.[address] [facility] 250 DO Work Phone: 0.5\S\0.5 Normal 0.0-0.[address] [facility] 250 DO Work Phone: 1.5\S\1.5 Normal 1.00-4.[address] [facility] 250 DO Work Phone: 96.1\S\96.1 Normal 83.5-[address] [facility] 250 DO Work Phone: 41.8\S\41.8 Normal 38.8-50.[address] [facility] 250 DO Work Phone: 14.3\S\14.3 Normal 13.0-17.[address] [facility] 250 DO Work Phone: 4.35\S\4.35 Normal 3.90-5.[address] [facility] 250 DO Work Phone: 5.0\S\5.0 Normal 4.1-10.[address] [facility] 250 DO Work Phone: > 60.[address] [facility] 250 DO Work Phone: 10.0\S\10.0 Normal 6.0-15.[address] [facility] 250 DO Work Phone: 8.8\S\8.8 Normal 8.6-10.[address] [facility] 250 DO Work Phone: Comment on above: PERFORMED BY:[facility] [place] [phone] MEDICAL DIRECTORLATONIA VASQUEZ M.D. 29.1\S\29.1 Normal 21.0-31.[address] [facility] 250 DO Work Phone: 107\S\107 Normal 98-[address] [facility] 250 DO Work Phone: 4.1\S\4.1 Normal 3.5-5.[address] [facility] 250 DO Work Phone: 142\S\142 Normal 136-[address] [facility] 250 DO Work Phone: 1.02\S\1.02 Normal 0.70-1.[address] [facility] 250 DO Work Phone: 20\S\20 Normal 7-[address] [facility] 250 DO Work Phone: 98\S\98 Normal 70-[address] [facility] 250 DO Work Phone: Comment on above: Random Glucose Refer ence Range is dependent on time and content of last meal. Glucose of more than 200 mg/dL in a nonstressed, ambulatory subject supports the diagnosis of Diabetes Mellitus. ADA recommended reference range Nucleated erythrocytes [Pres ence] in Blood by Automated countOrdered By: Summer Bejarano on 11-26-2022 Nucleated RBC Auto Ql (Bld) 0.1 /100{WBC} 0-0.5 [facility] Platelet mean volume Auto (B ld) [Entitic vol]Ordered By: Summer Bejarano on 11-26-2022 Platelet mean volume (Bld) [Entitic vol] 8.7 fL 6.6-10.1 [facility] Platelets Auto (Bld) [#/Vol] Ordered By: Summer Bejarano on 11-26-2022 Platelets (Bld) [#/Vol] 143 10*3/uL 150-450 [facility] Potassium [Moles/volume] in Serum or PlasmaOrdered By: Summer Bejarano on 11-26-2022 Potassium [Moles/Vol] 4.1 mmol/L 3.5-5.1 [facility] RBC Auto (Bld) [#/Vol]Ordere d By: Summer Bejarano on 11-26-2022 RBC (Bld) [#/Vol] 4.35 10*6/uL 3.90-5.60 [facility] Serum or plasma anion gap de terminationOrdered By: Summer Bejarano on 11-26-2022 Anion gap [Moles/Vol] 10.0 mmol/L 6.0-15.0 [facility] Sodium [Moles/volume] in Ser um or PlasmaOrdered By: Summer Meansim on 11-26-2022 Sodium [Moles/Vol] 142 mmol/L 136-145 [facility] Urea nitrogen [Mass/volume] in Serum or PlasmaOrdered By: Wheeler Bejarano on 11-26-2022 Urea nitrogen [Mass/Vol] 20 mg/dL 7-25 [facility] WBC Auto (Bld) [#/Vol]Ordere d By: Summer Bejarano on 11-26-2022 WBC (Bld) [#/Vol] 5.0 10*3/uL 4.1-10.5 [facility] Screenson 10-16-2022 Screens [id number]# 1.00CD:[address] [facility] Ambulatory Visit Summaryon 0 10-15-2022 Ambulatory Visit Summary ERIK GARCÍA :1940 Visit Date:10/15/2022 Ambulatory Visit Instructions Your Diagnosis BPH (benign prostatic hyperplasia) Kidney stone Microhematuria Ureteral stone Tests Performed Urnls Dip Stick Auto w/o Microscopy POC 42698 XR Abdomen 1 View -- Results Pending -- Please visit your patient portal for your results or contact your primary care physician. Your Care Team Attending Physician - Gopal GRAF MD Primary Care Physician - JESSE GARCÍA [...] Follow-Up Appointments Saturday 8:15 AM EST With: HOMAR ORTEGA, Gopal Lopez Where: [facility] Patient Educationon 10-15-19 Patient Education Urology Dietary Guidelines to Help [...] Rhubarb. ? Beets. ? Potato chips and english fries. ? Nuts. ? If you regularly take a diuretic medicine, make sure to eat at least 1?2 fruits or vegetables high in potassium each day. These include: ? Avocado. ? Banana. ? Elkin, prune, carrot, or tomato juice. ? Baked [...] dr (more content not included)... Normal [facility] Urology Office/Clinic Noteon 10-15-2022 Urology Office/Clinic Note Chief Complaint pt here for a 1 yr f/u [...] the left lower quadrant pain back before July family doctor got the CAT scan [...] is on (more content not included)... Normal [facility] Comment on above: Result Comment: Elec tronically Signed By: Gopal GRAF MD\.br\Date and Time Signed: 10/15/22 09:20 EST\.br\Electronically Co-Signed By: Carmen Mathew\.br\Date and Time Co-Signed: 10/15/22 09:07 EST Lab Reportson 10-09-2022 Lab Reports [id number] .00CD:[address] [facility] Albumin [Mass/volume] in Ser um or PlasmaOrdered By: Jesse Mast on 10-08-2022 Albumin [Mass/Vol] 3.8 g/dL 3.2-5.5 [facility] Basophils Auto (Bld) [#/Vol] Ordered By: Jesse Mast on 10-08-2022 Basophils (Bld) [#/Vol] 0.0 10*3/uL 0.0-0.2 [facility] Basophils/100 WBC Auto (Bld) Ordered By: Jesse Mast on 10-08-2022 Basophils/100 WBC (Bld) 0.4 % . F [facility] Bilirubin.total [Mass/volume ] in Serum or PlasmaOrdered By: Jesse Mast on 10-08-2022 Bilirubin [Mass/Vol] 1.0 mg/dL 0.3-1.2 [facility] Calcium [Mass/volume] in Ser um or PlasmaOrdered By: Jesse Mast on 10-08-2022 Calcium [Mass/Vol] 8.8 mg/dL 8.2-10.2 [facility] Carbon dioxide, total [Moles /volume] in Serum or PlasmaOrdered By: Jesse Mast on 10-08-2022 CO2 [Moles/Vol] 27.4 mmol/L 22.0-30.0 [facility] Cholesterol in LDL Calc [Mas s/Vol]Ordered By: Jesse García on 10-08-2022 Cholesterol in LDL [Mass/Vol] 54 mg/dL 0-100 [facility] Comment on above: LDL ATP III CLASSIFI CATIONLDL less than 100 mg/dL OptimalLDL 100-129 mg/dL Near or above optimalLDL 130-159 mg/dL Borderline highLDL 160-189 mg/dL HighLDL greater than 189 mg/dL Very high Cholesterol in VLDL Calc [Ma ss/Vol]Ordered By: Jesse García on 10-08-2022 Cholesterol in VLDL [Mass/Vol] 11 mg/dL [facility] Complete Blood Count Auto Di ffon 10-08-2022 Basophils (Bld) [#/Vol] [id number] 10*3/uL Normal 0.0-0.2 10*3/uL [employer] Other Basophils/100 WBC (Bld) 0.400 % . % N [employer] Other Eosinophils (Bld) [#/Vol] 0.035820236 10*3/uL Normal 0.0-0.45 10*3/uL [employer] Other Eosinophils/100 WBC (Bld) 0.800 % . % [employer] Other Erythrocyte distribution width (RBC) [Ratio] 12.400 % Normal 12.0-14.8 % [employer] Other Hematocrit (Bld) [Volume fraction] 43.200 % Normal 38.8-50.0 % [employer] Other Hemoglobin (Bld) [Mass/Vol] 14.910502 g/dL Normal 13.0-17.0 g/dL [employer] Other Lymphocytes (Bld) [#/Vol] 1.044033680 10*3/uL Normal 1.00-4.8 10*3/uL [employer] Other Lymphocytes/100 WBC (Bld) 19.400 % . % [employer] Other MCH (RBC) [Entitic mass] 32.2000 pg Normal 27.5-35.2 pg [employer] Other MCV (RBC) [Entitic vol] 95.2000 fL Normal 83.5-101 fL [employer] Other Monocytes (Bld) [#/Vol] 0.276267223 10*3/uL Normal 0.0-0.8 10*3/uL [employer] Other Monocytes/100 WBC (Bld) 9.100 % . % N [employer] Other Neutrophils (Bld) [#/Vol] 6.770698820 10*3/uL Normal 1.8-7.7 10*3/uL [employer] Other Neutrophils/100 WBC (Bld) 70.300 % . % [employer] Other Platelet mean volume (Bld) [Entitic vol] 9.4000 fL Normal 6.6-10.1 fL [employer] Other WBC (Bld) [#/Vol] 9.662358991 10*3/uL Normal 4.1 -10.5 10*3/uL [employer] Other Complete Blood Count Auto Diff 9.3 10*3/uL Normal 4.1-10.5 10*3/uL [employer] Other Complete Blood Count Auto Diff 33.8 g/dL Normal 32.5-35.6 g/dL [employer] Other Complete Blood Count Auto Diff 0.1 /100{WBC} Normal 0-0.5 /100{WBC} [employer] Other Basophils (Bld) [#/Vol] 0.0 10*3/uL Normal 0.0-0.2 [facility] Comment on above: Order Comment: Reaso n for Exam Hypertension Result Comment: PERF ORMED BY: [facility] [address] [place] [address] PATHOLOGIST HVAC CONTROLS TECHNICIAN LATONIA VASQUEZ M.D. Performed By: #### C BC, CMP, LIPID ####[place] [id number] [facility] Basophils/100 WBC (Bld) 0.4 % Normal . F [facility] Comment on above: Order Comment: Reaso n for Exam Hypertension Performed By: #### C BC, CMP, LIPID ####[place] [id number] [facility] Eosinophils (Bld) [#/Vol] 0.1 10*3/uL Normal 0.0-0.45 [facility] Comment on above: Order Comment: Reaso n for Exam Hypertension Performed By: #### C BC, CMP, LIPID ####[place] [id number] [facility] Eosinophils/100 WBC (Bld) 0.8 % Normal . [facility] Comment on above: Order Comment: Reaso n for Exam Hypertension Performed By: #### C BC, CMP, LIPID ####[place] [id number] [facility] Erythrocyte distribution width (RBC) [Ratio] 12.4 % Normal 12.0-14.8 [facility] Comment on above: Order Comment: Reaso n for Exam Hypertension Performed By: #### C BC, CMP, LIPID ####[place] [id number] [facility] Hematocrit (Bld) [Volume fraction] 43.2 % Normal 38.8-50.0 [facility] Comment on above: Order Comment: Reaso n for Exam Hypertension Performed By: #### C BC, CMP, LIPID ####[address] [address] [facility] Hemoglobin (Bld) [Mass/Vol] 14.6 g/dL Normal 13.0-17.0 [facility] Comment on above: Order Comment: Reaso n for Exam Hypertension Performed By: #### C BC, CMP, LIPID ####[place] [id number] [facility] Lymphocytes (Bld) [#/Vol] 1.8 10*3/uL Normal 1.00-4.8 [facility] Comment on above: Order Comment: Reaso n for Exam Hypertension Performed By: #### C BC, CMP, LIPID ####[address] Lymphocytes/100 WBC (Bld) 19.4 % Normal . [facility] Comment on above: Order Comment: Reaso n for Exam Hypertension Performed By: #### C BC, CMP, LIPID ####[address] MCH (RBC) [Entitic mass] 32.2 pg Normal 27.5-35.2 [facility] Comment on above: Order Comment: Reaso n for Exam Hypertension Performed By: #### C BC, CMP, LIPID ####[address] MCV (RBC) [Entitic vol] 95.2 fL Normal 83.5-101 F [facility] Comment on above: Order Comment: Reaso n for Exam Hypertension Performed By: #### C BC, CMP, LIPID ####[address] Mean Corpuscular HGB Conc 33.8 g/dL Normal 32.5-35.6 [facility] Comment on above: Order Comment: Reaso n for Exam Hypertension Performed By: #### C BC, CMP, LIPID ####[address] Monocytes (Bld) [#/Vol] 0.8 10*3/uL Normal 0.0-0.8 [facility] Comment on above: Order Comment: Reaso n for Exam Hypertension Performed By: #### C BC, CMP, LIPID ####[address] Monocytes/100 WBC (Bld) 9.1 % Normal . F [facility] Comment on above: Order Comment: Reaso n for Exam Hypertension Performed By: #### C BC, CMP, LIPID ####[place] [address] [place] Neutrophils (Bld) [#/Vol] 6.5 10*3/uL Normal 1.8-7.7 [facility] Comment on above: Order Comment: Reaso n for Exam Hypertension Performed By: #### C BC, CMP, LIPID ####[place] [id number] [place] [address] [facility] Neutrophils/100 WBC (Bld) 70.3 % Normal . [facility] Comment on above: Order Comment: Reaso n for Exam Hypertension Performed By: #### C BC, CMP, LIPID ####[address] [address] [facility] NRBC% 0.1 /100{WBC} Normal 0-0.5 [facility] Comment on above: Order Comment: Reaso n for Exam Hypertension Performed By: #### C BC, CMP, LIPID ####[address] [address] [facility] Platelet mean volume (Bld) [Entitic vol] 9.4 fL Normal 6.6-10.1 [facility] Comment on above: Order Comment: Reaso n for Exam Hypertension Performed By: #### C BC, CMP, LIPID ####[place] [id number] [facility] WBC (Bld) [#/Vol] 9.3 10*3/uL Normal 4.1-10.5 [facility] Comment on above: Order Comment: Reaso n for Exam Hypertension Performed By: #### C BC, CMP, LIPID ####[place] [id number] [facility] Complete Blood Count Auto Di ffOrdered By: Jesse García on 10-08-2022 Platelets (Bld) [#/Vol] 156 10*3/uL Normal 150-450 [facility] Comment on above: Order Comment: Reaso n for Exam Hypertension Performed By: #### C BC, CMP, LIPID ####[address] [address] [facility] RBC (Bld) [#/Vol] 4.53 10*6/uL Normal 3.90-5.60 [facility] Comment on above: Order Comment: Reaso n for Exam Hypertension Performed By: #### C BC, CMP, LIPID ####[facility] [id number] [place] [address] [facility] Comprehensive Metabolic Pane trav 10-08-2022 Albumin [Mass/Vol] 3.005580 g/dL Normal 3.2-5.5 g/dL [employer] Other Bilirubin [Mass/Vol] 1.0869977 mg/dL Normal 0.3- 1.2 mg/dL [employer] Other Calcium [Mass/Vol] 8.8938743 mg/dL Normal 8.2-10 .2 mg/dL [employer] Other CO2 [Moles/Vol] 27.16060350 mmol/L Normal 22.0-3 0.0 mmol/L [employer] Other Creatinine [Mass/Vol] 1.59615719 mg/dL Normal 0. 64-1.27 mg/dL [employer] Other Potassium [Moles/Vol] 4.03578484 mmol/L Normal 3 .5-5.1 mmol/L [employer] Other Protein [Mass/Vol] 6.322666 g/dL Low 6.1-7.9 g/dL [employer] Other Comprehensive Metabolic Panel 60 [employer] Other Comprehensive Metabolic Panel > 60 [employer] Other Comprehensive Metabolic Panel 2.2 g/dL [employer] Other Albumin [Mass/Vol] 3.8 g/dL Normal 3.2-5.5 [facility] Comment on above: Order Comment: Reaso n for Exam Hypertension Reason for Exam Hyperlipidemia Performed By: #### C BC, CMP, LIPID ####[facility] [id number] [place] [address] [facility] ALT [Catalytic activity/Vol] 23 U/L Normal 10-60 [employer] Other Comment on above: Order Comment: Reaso n for Exam Hypertension Reason for Exam Hyperlipidemia Performed By: #### C BC, CMP, LIPID ####[place] [id number] [place] [address] [facility] Anion gap [Moles/Vol] 9.9 mmol/L Normal 6.0-15.0 [facility] Comment on above: Order Comment: Reaso n for Exam Hypertension Reason for Exam Hyperlipidemia Performed By: #### C BC, CMP, LIPID ####[address] [address] [facility] Bilirubin [Mass/Vol] 1.0 mg/dL Normal 0.3-1.2 [facility] Comment on above: Order Comment: Reaso n for Exam Hypertension Reason for Exam Hyperlipidemia Performed By: #### C BC, CMP, LIPID ####[address] [address] [facility] Calcium [Mass/Vol] 8.8 mg/dL Normal 8.2-10.2 [facility] Comment on above: Order Comment: Reaso n for Exam Hypertension Reason for Exam Hyperlipidemia Performed By: #### C BC, CMP, LIPID ####[place] [address] [place] [address] [facility] CO2 [Moles/Vol] 27.4 mmol/L Normal 22.0-30.0 [facility] Comment on above: Order Comment: Reaso n for Exam Hypertension Reason for Exam Hyperlipidemia Performed By: #### C BC, CMP, LIPID ####[address] [address] [facility] Creatinine [Mass/Vol] 1.17 mg/dL Normal 0.64-1.27 [facility] Comment on above: Order Comment: Reaso n for Exam Hypertension Reason for Exam Hyperlipidemia Performed By: #### C BC, CMP, LIPID ####[address] [address] [facility] Estimated GFR ( Sandra > 60 Normal [facility] Comment on above: Order Comment: Reaso n for Exam Hypertension Reason for Exam Hyperlipidemia Result Comment: GFR estimated reference range: According to KDOQI guidelines, <60 ml/min/1.73m2 is sufficient to diagnose a patient with chronic kidney disease. Performed By: #### C BC, CMP, LIPID ####[place] [id number] [place] [id number] [facility] Estimated GFR (Non- Am 60 [facility] Comment on above: Order Comment: Reaso n for Exam Hypertension Reason for Exam Hyperlipidemia Performed By: #### C BC, CMP, LIPID ####[place] [id number] [facility] Globulin (S) [Mass/Vol] 2.2 g/dL Normal [facility] Comment on above: Order Comment: Reaso n for Exam Hypertension Reason for Exam Hyperlipidemia Performed By: #### C BC, CMP, LIPID ####[address] Potassium [Moles/Vol] 4.3 mmol/L Normal 3.5-5.1 [facility] Comment on above: Order Comment: Reaso n for Exam Hypertension Reason for Exam Hyperlipidemia Performed By: #### C BC, CMP, LIPID ####[place] [id number] [facility] Protein [Mass/Vol] 6.0 g/dL Low 6.1-7.9 [facility] Comment on above: Order Comment: Reaso n for Exam Hypertension Reason for Exam Hyperlipidemia Performed By: #### C BC, CMP, LIPID ####[place] [id number] [facility] Comprehensive Metabolic Pane lOrdered By: Jesse García on 10-08-2022 Albumin/Globulin [Mass ratio] 1.7 {ratio} [facility] Comment on above: Order Comment: Reaso n for Exam Hypertension Reason for Exam Hyperlipidemia Performed By: #### C BC, CMP, LIPID ####[place] [id number] [facility] ALP [Catalytic activity/Vol] 75 U/L Normal 32-92 [facility] Comment on above: Order Comment: Reaso n for Exam Hypertension Reason for Exam Hyperlipidemia Performed By: #### C BC, CMP, LIPID ####[address] [place] [address] [facility] AST [Catalytic activity/Vol] 21 U/L Normal 10-42 [facility] Comment on above: Order Comment: Reaso n for Exam Hypertension Reason for Exam Hyperlipidemia Performed By: #### C BC, CMP, LIPID ####[facility] [id number] [place] [address] [place] Chloride [Moles/Vol] 107 mmol/L Normal 95-114 [facility] Comment on above: Order Comment: Reaso n for Exam Hypertension Reason for Exam Hyperlipidemia Performed By: #### C BC, CMP, LIPID ####[facility] [place] [address] [facility] Glucose [Mass/Vol] 96 mg/dL Normal 70-100 [facility] Comment on above: ADA recommended refe rence rangeRandom Glucose Reference Range is dependent on time and content of last meal. Glucose of more than 200 mg/dL in a nonstressed, ambulatory subject supports the diagnosis of Diabetes Mellitus. Order Comment: Reaso n for Exam Hypertension Reason for Exam Hyperlipidemia Result Comment: [place] om Glucose Reference Range is dependent on time and content of last meal. Glucose of more than 200 mg/dL in a nonstressed, ambulatory subject supports the diagnosis of Diabetes Mellitus. ADA recommended reference range Performed By: #### C BC, CMP, LIPID ####[facility] [place] [address] [facility] Sodium [Moles/Vol] 140 mmol/L Normal 136-146 [facility] Comment on above: Order Comment: Reaso n for Exam Hypertension Reason for Exam Hyperlipidemia Performed By: #### C BC, CMP, LIPID ####[facility] [id number] [place] [address] [place] Urea nitrogen [Mass/Vol] 26 mg/dL High 9-23 [facility] Comment on above: Order Comment: Reaso n for Exam Hypertension Reason for Exam Hyperlipidemia Performed By: #### C BC, CMP, LIPID ####[facility] [place] [address] [place] Creatinine and Glomerular fi ltration rate.predicted panel (S/P/Bld)Ordered By: Jesse García on 10-08-2022 Creatinine [Mass/Vol] 1.17 mg/dL 0.64-1.27 [facility] Eosinophils Auto (Bld) [#/Vo l]Ordered By: Jesse Ricky on 10-08-2022 Eosinophils (Bld) [#/Vol] 0.1 10*3/uL 0.0-0.45 [facility] Eosinophils/100 WBC Auto (Bl d)Ordered By: Jesse García on 10-08-2022 Eosinophils/100 WBC (Bld) 0.8 % . [facility] Erythrocyte distribution wid th Auto (RBC) [Ratio]Ordered By: Ejsse Ricky on 10-08-2022 Erythrocyte distribution width (RBC) [Ratio] 12.4 % 12.0-14.8 [facility] Estimated glomerular filtrat ion rate (GFR) non- AmericanOrdered By: Jesse Ricky on 10-08-2022 GFR/1.73 sq M.predicted among non-blacks MDRD (S/P/Bld) [Vol rate/Area] 60 mL/Min [facility] Globulin Calc (S) [Mass/Vol] Ordered By: Jesse Ricky on 10-08-2022 Globulin (S) [Mass/Vol] 2.2 g/dL F [facility] Hematocrit Auto (Bld) [Volum e fraction]Ordered By: [facility] on 10-08-2022 Hematocrit (Bld) [Volume fraction] 43.2 % 38.8-50.0 [facility] Hemoglobin [Mass/volume] in BloodOrdered By: Jesse Ricky on 10-08-2022 Hemoglobin (Bld) [Mass/Vol] 14.6 g/dL 13.0-17.0 [facility] Leukocytes [#/volume] correc charity for nucleated erythrocytes in Blood by Automated counOrdered By: Jesse Ricky on 10-08-2022 WBC corrected for nucl RBC Auto (Bld) [#/Vol] 9.3 10*3/uL 4.1-10.5 [facility] Lipid Panelon 10-08-2022 Cholesterol in LDL Elph Qn 54 mg/dL Normal 0-100 mg/dL [employer] Other Lipid Panel 58 mg/dL Normal 35-149 mg/dL [employer] Other Lipid Panel 11 mg/dL [facility] [employer] Other LDL Cholesterol,Calculated 54 mg/dL Normal 0-100 [facility] Comment on above: Order Comment: Reaso n for Exam Hypertension Reason for Exam Hyperlipidemia Result Comment: LDL ATP III CLASSIFICATION LDL less than 100 mg/dL Optimal LDL 100-129 mg/dL Near or above optimal LDL 130-159 mg/dL Borderline high LDL 160-189 mg/dL High LDL greater than 189 mg/dL Very high Performed By: #### C BC, CMP, LIPID ####[facility] [id number] [place] [address] [facility] Triglyceride w/Reflex 58 mg/dL Normal 35-149 [facility] Comment on above: Order Comment: Reaso n for Exam Hypertension Reason for Exam Hyperlipidemia Result Comment: TRIG ATP III CLASSIFICATION TRIG less than 150 mg/dL Normal TRIG 150-199 mg/dL Borderline high TRIG 200-500 mg/dL High TRIG greater than 500 mg/dL Very high Standard traceable to the Center for Disease Conrtrol and Prevention (CDC) test method. Performed By: #### C BC, CMP, LIPID ####[facility] [id number] [place] [address] [facility] VLDL CHOLESTEROL 11 mg/dL Normal [facility] Comment on above: Order Comment: Reaso n for Exam Hypertension Reason for Exam Hyperlipidemia Performed By: #### C BC, CMP, LIPID ####[facility] [id number] [place] [address] [facility] Lipid PanelOrdered By: Jesse García on 10-08-2022 Cholesterol [Mass/Vol] 114 mg/dL Low 140-200 [facility] Comment on above: Chol less than 200 m g/dl low riskChol 201-239 mg/dl borderline riskChol 240 mg/dl and greater high risk Order Comment: Reaso n for Exam Hypertension Reason for Exam Hyperlipidemia Result Comment: Chol less than 200 mg/dl low risk Chol 201-239 mg/dl borderline risk Chol 240 mg/dl and greater high risk Performed By: #### C BC, CMP, LIPID ####[facility] [id number] [place] [address] [facility] Cholesterol in HDL [Mass/Vol] 48 mg/dL Normal 29-71 [facility] Comment on above: HDL CHOL ATP-III CLA SSIFICATION Cardiovascular RiskHDL > or equal to 60 mg/dL LOWHDL < 40 mg/dL HIGH Order Comment: Reaso n for Exam Hypertension Reason for Exam Hyperlipidemia Result Comment: HDL CHOL ATP-III CLASSIFICATION Cardiovascular Risk HDL > or equal to 60 mg/dL LOW HDL < 40 mg/dL HIGH Performed By: #### C BC, CMP, LIPID ####[facility] [id number] [place] [id number] [facility] Cholesterol.total/Lidna sterol in HDL [Mass ratio] 2.4 {ratio} Normal <5.0 [facility] Comment on above: Order Comment: Reaso n for Exam Hypertension Reason for Exam Hyperlipidemia Result Comment: PERF ORMED BY: [facility] [address] [facility] [place] [id number] PATHOLOGIST HVAC CONTROLS TECHNICIAN LATONIA VASQUEZ M.D. Performed By: #### C BC, CMP, LIPID ####[facility] [place] [address] [facility] Lymphocytes Auto (Bld) [#/Vo l]Ordered By: Jesse Mast on 10-08-2022 Lymphocytes (Bld) [#/Vol] 1.8 10*3/uL 1.00-4.8 [facility] Lymphocytes/100 WBC Auto (Bl d)Ordered By: Jesse Mast on 10-08-2022 Lymphocytes/100 WBC (Bld) 19.4 % . [facility] MCH Auto (RBC) [Entitic mass ]Ordered By: Jesse Mast on 10-08-2022 MCH (RBC) [Entitic mass] 32.2 pg 27.5-35.2 [facility] MCHC Auto (RBC) [Mass/Vol]Or dered By: Jesse Mast on 10-08-2022 MCHC (RBC) [Mass/Vol] 33.8 g/dL 32.5-35.6 [facility] MCV Auto (RBC) [Entitic vol] Ordered By: Jesse Mast on 10-08-2022 MCV (RBC) [Entitic vol] 95.2 fL 83.5-101 F [facility] Monocytes Auto (Bld) [#/Vol] Ordered By: Jesse Mast on 10-08-2022 Monocytes (Bld) [#/Vol] 0.8 10*3/uL 0.0-0.8 [facility] Monocytes/100 WBC Auto (Bld) Ordered By: Jesse Mast on 10-08-2022 Monocytes/100 WBC (Bld) 9.1 % . [facility] Neutrophils Auto (Bld) [#/Vo l]Ordered By: Jesse Mast on 10-08-2022 Neutrophils (Bld) [#/Vol] 6.5 10*3/uL 1.8-7.7 [facility] Neutrophils/100 WBC Auto (Bl d)Ordered By: Jesse Mast on 10-08-2022 Neutrophils/100 WBC (Bld) 70.3 % . [facility] No Panel InformationOrdered By: Jesse Ricky on 10-08-2022 Estimated GFR () > 60 mL/Min [facility] Comment on above: GFR estimated refere nce range: According to KDOQI guidelines, <60 ml/min/1.73m2 is sufficient to diagnose a patient with chronic kidney disease. Pharmacy Creatinine Clearance (Chem N/A [facility] No Panel InformationOrdered By: Gopal Graf on 10-08-2022 Prostate Specific Antigen Total 2.890 ng/mL 0.000-4.000 [facility] Nucleated erythrocytes [Pres ence] in Blood by Automated countOrdered By: [facility] on 10-08-2022 Nucleated RBC Auto Ql (Bld) 0.1 /100{WBC} 0-0.5 [facility] PSA Total (Not a Screen)on 0 10-08-2022 PSA Total (Not a Screen) 2.890 ng/mL Normal 0.000-4.000 [facility] Comment on above: Result Comment: PERF ORMED BY: [place] [address] PATHOLOGIST HVAC CONTROLS TECHNICIAN LATONIA VASQUEZ M.D. Performed By: #### P SATOTAL #### [address] Platelet mean volume Auto (B ld) [Entitic vol]Ordered By: Jesse Mast on 10-08-2022 Platelet mean volume (Bld) [Entitic vol] 9.4 fL 6.6-10.1 [facility] Potassium [Moles/volume] in Serum or PlasmaOrdered By: Jesse Mast on 10-08-2022 Potassium [Moles/Vol] 4.3 mmol/L 3.5-5.1 [facility] Protein [Mass/volume] in Ser um or PlasmaOrdered By: Jesse Mast on 10-08-2022 Protein [Mass/Vol] 6.0 g/dL 6.1-7.9 [facility] Serum or plasma alanine cavanaugh otransferase measurement without P-5'-P (enzymatic activiOrdered By: Jesse Mast on 10-08-2022 ALT No additional P-5'-P [Catalytic activity/Vol] 23 U/L 10-60 [facility] Serum or plasma anion gap de terminationOrdered By: Jesse Mast on 10-08-2022 Anion gap [Moles/Vol] 9.9 mmol/L 6.0-15.0 [facility] Triglyceride [Mass/volume] i n Serum or PlasmaOrdered By: Jesse Mast on 10-08-2022 Triglyceride [Mass/Vol] 58 mg/dL 35-149 [facility] Comment on above: TRIG ATP III CLASSIF ICATIONTRIG less than 150 mg/dL NormalTRIG 150-199 mg/dL Borderline highTRIG 200-500 mg/dL High TRIG greater than 500 mg/dL Very highStandard traceable to the Center for Disease Conrtrol and Prevention (CDC) test method. WBC Auto (Bld) [#/Vol]Ordere d By: Jesse Mast on 10-08-2022 WBC (Bld) [#/Vol] 9.3 10*3/uL 4.1-10.[address] [facility] [address] abdomen pelvis w conon CT abdomen pelvis w con [facility] [employer] Other CT abdomen pelvis w con [facility] [employer] Other CT abdomen pelvis w con [address] [place] [address] [place] [address] [employer] [address] abdomen pelvis w con CT Scan Report [employer] Other CT abdomen pelvis w con Signed N [employer] Other CT abdomen pelvis w con Patient: Erik García MR#: [id number] [employer] Other [address] abdomen pelvis w con [id number] [address] abdomen pelvis w con : 1940 Acct:[id number] [employer] Other CT abdomen pelvis w con Age/Sex: 81 / M ADM Date: 08/09/[address] [address] abdomen pelvis w con Loc: CT Room: pe: [facility] [employer] Other CT abdomen pelvis w con Attending Dr: Ananth García DO [employer] Other CT abdomen pelvis w con Copies to: Jesse García DO [employer] Other CT abdomen pelvis w con Ordering Provide r: Jesse García DO [employer] Other CT abdomen pelvis w con Date of Service: 08/09/[address] [employer] [address] abdomen pelvis w con CT/CT abdomen pelvis w con: RLQ abdominal pain [employer] Other CT abdomen pelvis w con CT ABDOMEN AND P ABIDA WITH CONTRAST [employer] Other CT abdomen pelvis w con COMPARISON: 03/12/[address] [employer] [address] abdomen pelvis w con CLINICAL DATA: Right-sided umbilical pain. Previous repair. [employer] Other CT abdomen pelvis w con Spiral images we re obtained through the abdomen pelvis following oral and 90 mL of Isovue-300. [employer] Other CT abdomen pelvis w con This CT exam was performed using one or more following dose reduction techniques: Automated exposure [employer] Other CT abdomen pelvis w con control, adjustm ent of the mA and/or kV according to patient size, or use of iterative [employer] Other CT abdomen pelvis w con reconstruction technique. [employer] Other CT abdomen pelvis w con Limited cuts thr ough the lung bases show minor atelectasis or scarring. [employer] Other CT abdomen pelvis w con Fatty infiltrati on of the liver is present. No intrahepatic masses are seen. There are no [employer] Other CT abdomen pelvis w con calcified gallst ones. The spleen, pancreas and adrenal glands show no acute findings. There are [facility] Other CT abdomen pelvis w con symmetric bilate ral renal nephrograms, without hydronephrosis. There are multiple bilateral renal [facility] Other CT abdomen pelvis w con calculi measurin g up to 7 mm on the left and 9 mm on the right. There is also a left renal cyst. [facility] Other CT abdomen pelvis w con There is no uret eral dilatation however there is a distal left ureteral stone just proximal to the [facility] Other CT abdomen pelvis w con ureterovesical junction measuring 5 mm in size. [facility] Other CT abdomen pelvis w con The abdominal ao rta is normal caliber and there is minor plaque. There are no enlarged lymph nodes [facility] Other CT abdomen pelvis w con or ascites. The small bowel loops are not dilated. There is mild stool within the colon. Patient [facility] Other CT abdomen pelvis w con has a tiny umbil ical hernia containing fat. Appearance is similar to the prior. There is slight [facility] Other CT abdomen pelvis w con levoscoliotic curvature and degenerative changes involving the spine. [facility] Other CT abdomen pelvis w con Images through t he pelvis show normal caliber small bowel loops. There is stool at the cecum and [facility] Other CT abdomen pelvis w con mild at the dist al colon. There are some descending and sigmoid diverticula. No active [facility] Other CT abdomen pelvis w con inflammation is present. The urinary bladder is not well-distended and the wall appears thickened. [facility] Other CT abdomen pelvis w con The prostate is within normal limits for size and contains calcification. No ascites is seen. [facility] Other CT abdomen pelvis w con 15 CT/CT abdomen pelvis w con [facility] Other CT abdomen pelvis w con IMPRESSION: [facility] Other CT abdomen pelvis w con BILATERAL NEPHROLITHIASIS. [facility] Other CT abdomen pelvis w con NONOBSTRUCTING D ISTAL LEFT URETERAL STONE. [facility] Other CT abdomen pelvis w con LEFT RENAL CYST. [facility] Other CT abdomen pelvis w con FATTY LIVER. [facility] Other CT abdomen pelvis w con DIVERTICULOSIS. [facility] Other CT abdomen pelvis w con URINARY BLADDER WALL THICKENING THAT MAY RELATE TO UNDERDISTENTION. [facility] Other CT abdomen pelvis w con SMALL FAT-CONTAI FRANKLIN UMBILICAL HERNIA, SIMILAR TO THE COMPARISON. [facility] Other CT abdomen pelvis w con NO OTHER ACUTE FINDINGS. [facility] Other CT abdomen pelvis w con Impression dicta charity by: Jossie Pineda M.D.08/09/2022 10:[address] [facility] [address] abdomen pelvis w con Dictation Locati on: [id number] [address] abdomen pelvis w con Transcribed By: PWS 08/09/[address] [address] abdomen pelvis w con Dictated By: Carlos Pineda MD 08/09/[address] [address] abdomen pelvis w con Signed By: N [employer] Other CT abdomen pelvis w con 08/09/22 1048 [facility] Other Creatinine and Glomerular fi ltration rate.predicted panel (S/P/Bld)Ordered By: Jesse García on 08-09-2022 Creatinine [Mass/Vol] 1.17 mg/dL 0.64-1.27 [facility] Estimated glomerular filtrat ion rate (GFR) non- AmericanOrdered By: Jesse García on 08-09-2022 GFR/1.73 sq M.predicted among non-blacks MDRD (S/P/Bld) [Vol rate/Area] 60 mL/Min [facility] No Panel InformationOrdered By: Jesse García on 08-09-2022 Estimated GFR () > 60 mL/Min [facility] Comment on above: GFR estimated refere nce range: According to KDOQI guidelines, <60 ml/min/1.73m2 is sufficient to diagnose a patient with chronic kidney disease. Pharmacy Creatinine Clearance (Chem N/A [facility] Serum or plasma urea nitroge n measurement (mass/volume)Ordered By: Jesse García on 08-09-2022 Urea nitrogen [Mass/Vol] 16 mg/dL 05-11 [facility] Office Visit (Cardiology)on 06-05-2022 Follow-up visit [...] Metabolic Panel; Status:Active - Retrospective Authorization; Requested for:[id number]; Complete Blood Count; Status:Active - Retrospective Authorization; Requested for:[id number]; Class 1 obesity with body mass index (BMI) of 34.0 to 34.9 in adult Healthy Weight Tips; Status:Complete - Retrospective Authorization; Done: [id number] Some eating tips that can help you lose weight.; Status:Complete - Retrospective Authorization; Done: [id number] Fatigue, Loud snoring Adult Sleep Medicine Referral Evaluation and Treatment Evaluate AND Treat Status: Hold For - Scheduling,Retrospect comfort Authorization Requested for: [id number] SocHx: Never a smoker Tobacco Use Screening; Status:Complete; Done: [id number] Patient Instructions Please bring all medicines, vitamins, [...] sleep study ordered labs Chief Complaint ERIK GARCÍA is being seen for a 6 month [...] continued to exercise on regular basis at [employer] 4. Dyslipidemia. On atorvastatin , LDL is [...] sleep study and he is agreeable Summer Bejarano MD, [facility] Surgical History Problems History of Cardiac catheterization [...] of breath (more content not included)... Normal [facility] Tobacco Screening.on 022 Adult depression screening assessment No [facility] 250 DO Work Phone: Fall risk assessment b) One or more fall s in the last year [facility] 250 DO Work Phone: Tobacco use status CPHS b) No [facility] [employer] 250 DO Work Phone: XR shoulder RT min 2V*on XR shoulder RT min 2V* [facility] [employer] Other XR shoulder RT min 2V* [facility] [employer] Other XR shoulder RT min 2V* [address] [place] [address] [employer] Other XR shoulder RT min 2V* [place] [address] [employer] Other XR shoulder RT min 2V* XRay Report N [facility] [employer] Other XR shoulder RT min 2V* Signed No rt [employer] Other XR shoulder RT min 2V* Patient: Erik García MR#: [id number] [facility] Other XR shoulder RT min 2V* 7129 No rt [employer] Other XR shoulder RT min 2V* : 1940 Acct:[id number] [employer] Other XR shoulder RT min 2V* Age/Sex: 81 / M A DM Date: 02/01/22 [employer] Other XR shoulder RT min 2V* Loc: XDS Room: Type: [facility] [employer] Other XR shoulder RT min 2V* Attending Dr: Brisa García DO [employer] Other XR shoulder RT min 2V* Copies to: Jesse García DO [employer] Other XR shoulder RT min 2V* Ordering Provider : Jesse Jarrod Ricky DO [employer] Other XR shoulder RT min 2V* Date of Service: 02/01/22 [employer] Other XR shoulder RT min 2V* XR/XR shoulder RT min 2V*: Acute pain of right shoulder [employer] Other XR shoulder RT min 2V* RIGHT SHOULDER - - 3 views [facility] Other XR shoulder RT min 2V* CLINICAL HISTORY: Right shoulder pain fall one month ago. [employer] Other XR shoulder RT min 2V* COMPARISON: None [employer] Other XR shoulder RT min 2V* FINDINGS: No rtGrid20/20 Other XR shoulder RT min 2V* Mild degenerative changes of the right AC and glenohumeral joints. No acute bony process is seen. [facility] Other XR shoulder RT min 2V* Subacromial space appears maintained. Visualized right lung field is clear. [employer] Other XR shoulder RT min 2V* 5 XR/XR shoulder RT min 2V* [employer] Other XR shoulder RT min 2V* IMPRESSION: N [employer] Other XR shoulder RT min 2V* MILD DEGENERATIVE CHANGES OF THE RIGHT SHOULDER WITHOUT ACUTE BONY PROCESS. [facility] Other XR shoulder RT min 2V* Impression dictat ed by: Cory Shepherd Jr., D.O.02/01/2022 4:14 PM [facility] Other XR shoulder RT min 2V* Dictation Locatio n: [id number] [employer] Other XR shoulder RT min 2V* Transcribed By: Randall WS 02/01/221613 [employer] Other XR shoulder RT min 2V* Dictated By: Eligio Shepherd Jr, DO 02/01/221611 [employer] Other XR shoulder RT min 2V* Signed By: No rt [employer] Other XR shoulder RT min 2V* 02/01/221613 [facility] Other Laboratory - Chemistry and C hemistry - challengeon 11-28-2021 Cholesterol [Mass/Vol] 116\S\116 below low threshold 140-200 [facility] [employer] 250 DO Work Phone: Comment on above: Chol less than 200 m g/dl low risk Chol 201-239 mg/dl borderline risk Chol 240 mg/dl and greater high risk Cholesterol in LDL [Mass/Vol] 54\S\54 Normal 0-[address] [facility] [employer] 250 DO Work Phone: Comment on above: LDL ATP III CLASSIFI CATION LDL less than 100 mg/dL Optimal LDL 100-129 mg/dL Near or above optimal LDL 130-159 mg/dL Borderline high LDL 160-189 mg/dL High LDL greater than 189 mg/dL Very high No Panel Informationon 11-28 57.2\S\57.[address] [facility] [employer] 250 DO Work Phone: 9.5\S\9.5 Normal 6.6-10.[address] [facility] [employer] 250 DO Work Phone: 151\S\151 Normal 150-[address] [facility] [employer] 250 DO Work Phone: 13.2\S\13.2 Normal 12.0-14.[address] [facility] [employer] 250 DO Work Phone: 33.9\S\33.9 Normal 32.5-35.[address] [facility] 250 DO Work Phone: 31.4\S\31.4 Normal 27.5-35.2 [facility] 250 DO Work Phone: 3.0\S\3.0 Normal 1.8-7.[address] [facility] 250 DO Work Phone: 0.1\S\0.1 Normal 0-0.5 [facility] 250 DO Work Phone: 0.7\S\0.[address] [facility] 250 DO Work Phone: 4.6\S\4.[address] [facility] 250 DO Work Phone: 10.2\S\10.[address] [facility] 250 DO Work Phone: 27.3\S\27.[address] [facility] 250 DO Work Phone: 0.0\S\0.0 Normal 0.0-0.[address] [facility] 250 DO Work Phone: Comment on above: PERFORMED BY:[place] [address] [place], [place] [id number] MEDICAL DIRECTORLATONIA VASQUEZ M.D. 0.2\S\0.2 Normal 0.0-0.[address] [facility] 250 DO Work Phone: 0.5\S\0.5 Normal 0.0-0.[address] [facility] 250 DO Work Phone: 1.4\S\1.4 Normal 1.00-4.[address] [facility] 250 DO Work Phone: 92.5\S\92.5 Normal 83.5-[address] [facility] 250 DO Work Phone: 43.1\S\43.1 Normal 38.8-50.[address] [facility] 250 DO Work Phone: 14.6\S\14.6 Normal 13.0-17.[address] [facility] 250 DO Work Phone: 4.66\S\4.66 Normal 3.90-5.[address] [facility] 250 DO Work Phone: 5.3\S\5.3 Normal 4.1-10.[address] [facility] 250 DO Work Phone: 9.2\S\9.2 Normal 8.2-10.[address] [facility] 250 DO Work Phone: 24.1\S\24.1 Normal 22.0-30.[address] [facility] 250 DO Work Phone: 104\S\104 Normal 95-[address] [facility] 250 DO Work Phone: 4.3\S\4.3 Normal 3.5-5.[address] [facility] 250 DO Work Phone: 140\S\140 Normal 136-[address] [facility] 250 DO Work Phone: > [address] [facility] 250 DO Work Phone: Comment on above: GFR estimated refere nce range: According to KDOQI guidelines, <60 ml/min/1.73m2 is sufficient to diagnose a patient with chronic kidney disease. 1.14\S\1.14 Normal 0.64-1.[address] [facility] 250 DO Work Phone: 11\S\11 Normal 9-[address] [facility] 250 DO Work Phone: 103\S\103 above high threshold 70-[address] [facility] 250 DO Work Phone: Comment on above: Random Glucose Refer ence Range is dependent on time and content of last meal. Glucose of more than 200 mg/dL in a nonstressed, ambulatory subject supports the diagnosis of Diabetes Mellitus. ADA recommended reference range 25\S\25 Normal 10-[address] [facility] [employer] 250 DO Work Phone: 22\S\22 Normal 10-60 [facility] Work Phone: 2.8\S\2.8 Normal <5.0 [facility] DO Work Phone: Comment on above: PERFORMED BY:[place] [address] [address] [place], [place] [id number] MEDICAL DIRECTORLATONIA VASQUEZ M.D. 20\S\20 Normal [facility] Work Phone: 101\S\101 Normal 35-149 [facility] Work Phone: Comment on above: TRIG ATP III CLASSIF ICATION TRIG less than 150 mg/dL Normal TRIG 150-199 mg/dL Borderline high TRIG 200-500 mg/dL High TRIG greater than 500 mg/dL Very high Standard traceable to the Center for Disease Conrtrol and Prevention (CDC) test method. 42\S\42 Normal 29-71 [facility] Work Phone: Comment on above: HDL CHOL ATP-III CLA SSIFICATION Cardiovascular Risk HDL > or equal to 60 mg/dL LOW HDL < 40 mg/dL HIGH Tobacco Screening.on 022 Adult depression screening assessment No [facility] Wu Mckeon DO Work Phone: Fall risk assessment b) One or more fall s in the last year [facility] Work Phone: Tobacco use status CPHS b) [facility] Work Phone: Laboratory - Chemistry and C hemistry - challengeon 10-15-2021 Cholesterol [Mass/Vol] 121\S\121 below low threshold 140-[address] [facility] [employer] Work Phone: Comment on above: Chol less than 200 m g/dl low risk Chol 201-239 mg/dl borderline risk Chol 240 mg/dl and greater high risk Cholesterol in LDL [Mass/Vol] 57\S\57 Normal 0-[address] [facility] [employer] Work Phone: Comment on above: LDL ATP III CLASSIFI CATION LDL less than 100 mg/dL Optimal LDL 100-129 mg/dL Near or above optimal LDL 130-159 mg/dL Borderline high LDL 160-189 mg/dL High LDL greater than 189 mg/dL Very high No Panel Informationon 06-02 9.2\S\9.2 Normal 8.2-10.[address] [facility] [employer] Work Phone: 25.0\S\25.0 Normal 22.0-30.[address] [facility] [employer] Work Phone: 103\S\103 above high threshold 70-100 [facility] [employer] Work Phone: Comment on above: Random Glucose Refer ence Range is dependent on time and content of last meal. Glucose of more than 200 mg/dL in a nonstressed, ambulatory subject supports the diagnosis of Diabetes Mellitus. ADA recommended reference range 4.3\S\4.3 Normal 3.5-5.[address] [facility] [employer] Work Phone: 138\S\138 Normal 136-[address] [facility] [employer] Work Phone: > [address] [facility] [employer] Work Phone: Comment on above: GFR estimated refere nce range: According to KDOQI guidelines, <60 ml/min/1.73m2 is sufficient to diagnose a patient with chronic kidney disease. 1.08\S\1.08 Normal 0.64-1.27 [facility] [place] [facility] [place] Work Phone: 12\S\12 Normal 9-23 [facility] [place] Work Phone: 26\S\26 Normal 10-[address] [facility] 250[facility] [place] Work Phone: 20\S\20 Normal 10-60 [facility] [place] Work Phone: 2.7\S\2.7 Normal <5.0 [facility] [address] [place] Work Phone: Comment on above: PERFORMED BY:[place] [address] [place] [place], [place] [id number] MEDICAL DIRECTORLATONIA VASQUEZ M.D. 19\S\19 Normal [facility] [place] Work Phone: 95\S\95 Normal 35-149 [facility] [place] Work Phone: Comment on above: TRIG ATP III CLASSIF ICATION TRIG less than 150 mg/dL Normal TRIG 150-199 mg/dL Borderline high TRIG 200-500 mg/dL High TRIG greater than 500 mg/dL Very high Standard traceable to the Center for Disease Conrtrol and Prevention (CDC) test method. 45\S\45 Normal 29-71 [facility] MckeonA [place] Work Phone: Comment on above: HDL CHOL ATP-III CLA SSIFICATION Cardiovascular Risk HDL > or equal to 60 mg/dL LOW HDL < 40 mg/dL HIGH Tobacco Screening.on 021 Fall risk assessment a) No falls within the last year [facility] Mckeon DO Work Phone: Tobacco use status CPHS b) No [facility] Mike DO Work Phone: Vital Signs Date Time Vital Sign Value Performing Clinician Facility 09-18-2023 10:40-0500 Body height 182.25 cm Stefania Arenas Other [employer] Other 09-18-2023 10:40-0500 Body mass index (BMI) [Ratio] 32.64 kg/m2 Stefania Arenas Other [facility] Other 09-18-2023 10:40-0500 Body temperature 99.4 [degF] Stefania Arenas Other [facility] Other 09-18-2023 10:40-0500 Body weight 108.41 kg Stefania Arenas Other [facility] Other 09-18-2023 10:40-0500 Diastolic blood pressure 80 mm[Hg] Stefania Arenas Other [facility] Other 09-18-2023 10:40-0500 Respiratory rate 18 /min Stefania Arenas Other [facility] Other 09-18-2023 10:40-0500 SaO2% (BldA) [Mass fraction] 92 % Stefania Arenas Other [facility] Other 09-18-2023 10:40-0500 Systolic blood pressure 178 mm[Hg] Stefania Arenas Other [facility] Other 06-05-2023 09:35-0400 Body height 182.[address] 06-05-2023 09:35-0400 Body mass index (BMI) [Ratio] 33.91 kg/m2 [address] 06-05-2023 09:35-0400 Body weight 113.[address] 06-05-2023 09:35-0400 Diastolic blood pressure 76 mm[Hg] Fiona 1 [facility] 06-05-2023 09:35-0400 Heart rate 59 /min Fiona 1 [facility] 06-05-2023 09:35-0400 Systolic blood pressure 126 mm[Hg] Fiona 1 [facility] 04-25-2023 13:08-0400 Blood Pressure Location DEIRDRE MARIAJOSE [facility] 04-25-2023 13:08-0400 Body temperature 98.06 [degF] DEIRDRE MARIAJOSE [facility] 04-25-2023 13:08-0400 Diastolic blood pressure 68 mm[Hg] DEIRDRE MARIAJOSE [facility] 04-25-2023 13:08-0400 Heart rate 62 /min DEIRDRE MARIAJOSE [facility] 04-25-2023 13:08-0400 Systolic blood pressure 132 mm[Hg] DEIRDRE MARIAJOSE [facility] 04-01-2023 10:15-0400 Body height 182.25 cm Jesse Mast Other [facility] Other 04-01-2023 10:15-0400 Body mass index (BMI) [Ratio] 32.64 kg/m2 Jesse Mast Other [facility] Other 04-01-2023 10:15-0400 Body temperature 96.8 [degF] Jesse Mast Other [facility] Other 04-01-2023 10:15-0400 Body weight 108.41 kg Jesse Mast Other [facility] Other 04-01-2023 10:15-0400 Diastolic blood pressure 72 mm[Hg] Jesse Mast Other [facility] Other 04-01-2023 10:15-0400 Respiratory rate 18 /min Jesse Mast Other [facility] Other 04-01-2023 10:15-0400 SaO2% (BldA) [Mass fraction] 97 % Jesse Mast Other [facility] Other 04-01-2023 10:15-0400 Systolic blood pressure 130 mm[Hg] Jesse Mast Other [facility] Other 11-28-2022 09:09-0400 Body height 182.88 cm Jesse E Mast Work Phone: [employer] DO Work Phone: 11-28-2022 09:09-0400 Body mass index (BMI) [Ratio] 33.09 kg/m2 Jesse E Mast Work Phone: [employer] [employer] 250 DO Work Phone: 11-28-2022 09:09-0400 Body surface area Derived from formula 2.32 m2 Jesse E Mast Work Phone: [employer] 250 DO Work Phone: 11-28-2022 09:09-0400 Body weight 110.68 kg Jesse E Mast Work Phone: [employer] 250 DO Work Phone: 11-28-2022 09:09-0400 Diastolic blood pressure 76 mm[Hg] Jesse E Mast Work Phone: [facility] [employer] 250 DO Work Phone: 11-28-2022 09:09-0400 Heart rate 60 /min Jesse E Mast Work Phone: [facility] 250 DO Work Phone: 11-28-2022 09:09-0400 Systolic blood pressure 132 mm[Hg] Jesse E Mast Work Phone: [facility] 250 DO Work Phone: 11-22-2022 11:30-0400 Body height 182.25 cm Erik Diaz Other [employer] Other 11-22-2022 11:30-0400 Body mass index (BMI) [Ratio] 33.73 kg/m2 Erik Diaz Other [employer] Other 11-22-2022 11:30-0400 Body weight 112.04 kg Erik Diaz Other [employer] Other 11-22-2022 11:30-0400 Diastolic blood pressure 78 mm[Hg] Erik Diaz Other [employer] Other 11-22-2022 11:30-0400 SaO2% (BldA) [Mass fraction] 95 % Erik Diaz Other [employer] Other 11-22-2022 11:30-0400 Systolic blood pressure 138 mm[Hg] Erik Diaz Other [employer] Other 10-15-2022 08:27-0500 Blood Pressure Location Gopal RICE [facility] 10-15-2022 08:27-0500 Diastolic blood pressure 84 mm[Hg] Gopal RICE [facility] 10-15-2022 08:27-0500 Heart rate 55 /min Gopal RICE [facility] 10-15-2022 08:27-0500 Systolic blood pressure 188 mm[Hg] Gopal RICE [facility] 10-04-2022 14:00-0500 Body height 182.25 cm Jesse Mast Other [employer] Other 10-04-2022 14:00-0500 Body mass index (BMI) [Ratio] 34.67 kg/m2 Jesse Mast Other [facility] Other 10-04-2022 14:00-0500 Body temperature 97.5 [degF] Jesse Mast Other [facility] Other 10-04-2022 14:00-0500 Body weight 115.17 kg Jesse Mast Other [facility] Other 10-04-2022 14:00-0500 Diastolic blood pressure 72 mm[Hg] Jesse Mast Other [facility] Other 10-04-2022 14:00-0500 Respiratory rate 18 /min Jesse Mast Other [facility] Other 10-04-2022 14:00-0500 SaO2% (BldA) [Mass fraction] 94 % Jesse Mast Other [facility] Other 10-04-2022 14:00-0500 Systolic blood pressure 118 mm[Hg] Jesse Mast Other [employer] Other 08-06-2022 10:30-0500 Body height 182.25 cm Jesse Mast Other [employer] Other 08-06-2022 10:30-0500 Body mass index (BMI) [Ratio] 34.14 kg/m2 Jesse Mast Other [employer] Other 08-06-2022 10:30-0500 Body weight 113.4 kg Jesse Mast Other [employer] Other 08-06-2022 10:30-0500 Diastolic blood pressure 82 mm[Hg] Jesse Mast Other [employer] Other 08-06-2022 10:30-0500 Respiratory rate 18 /min Jesse Mast Other [employer] Other 08-06-2022 10:30-0500 SaO2% (BldA) [Mass fraction] 94 % Jesse Mast Other [facility] Other 08-06-2022 10:30-0500 Systolic blood pressure 130 mm[Hg] Jesse Mast Other [employer] Other 08-01-2022 16:00-0500 Body height 182.25 cm Erik Diaz Other [employer] Other 08-01-2022 16:00-0500 Body mass index (BMI) [Ratio] 34.96 kg/m2 Erik Diaz Other [employer] Other 08-01-2022 16:00-0500 Body temperature 98 [degF] Erik Diaz Other [employer] Other 08-01-2022 16:00-0500 Body weight 116.12 kg Erik Diaz Other [facility] Other 08-01-2022 16:00-0500 Diastolic blood pressure 81 mm[Hg] Erik Diaz Other [employer] Other 08-01-2022 16:00-0500 SaO2% (BldA) [Mass fraction] 97 % Erik Diaz Other [facility] Other 08-01-2022 16:00-0500 Systolic blood pressure 138 mm[Hg] Erik Diaz Other [employer] Other 06-05-2022 08:51-0400 Body height 182.88 cm Jesse E Mast Work Phone: [facility] [employer] 250 DO Work Phone: 06-05-2022 08:51-0400 Body mass index (BMI) [Ratio] 34.72 kg/m2 Jesse E Mast Work Phone: [facility] [employer] 250 DO Work Phone: 06-05-2022 08:51-0400 Body surface area Derived from formula 2.37 m2 Jesse E Mast Work Phone: [facility] [employer] 250 DO Work Phone: 06-05-2022 08:51-0400 Body weight 116.12 kg Jesse E Mast Work Phone: [facility] [employer] 250 DO Work Phone: 06-05-2022 08:51-0400 Diastolic blood pressure 60 mm[Hg] Jesse E Mast Work Phone: [facility] [employer] 250 DO Work Phone: 06-05-2022 08:51-0400 Heart rate 60 /min Jesse E Mast Work Phone: [facility] [employer] 250 DO Work Phone: 06-05-2022 08:51-0400 Systolic blood pressure 122 mm[Hg] Jesse E Mast Work Phone: [facility] [employer] 250 DO Work Phone: 04-02-2022 10:15-0400 Body height 182.25 cm Jesse Mast Other [employer] Other 04-02-2022 10:15-0400 Body mass index (BMI) [Ratio] 33.46 kg/m2 Jesse Mast Other [employer] Other 04-02-2022 10:15-0400 Body temperature 97 [degF] Jesse Mast Other [employer] Other 04-02-2022 10:15-0400 Body weight 111.13 kg Jesse Mast Other [employer] Other 04-02-2022 10:15-0400 Diastolic blood pressure 78 mm[Hg] Jesse Mast Other [employer] Other 04-02-2022 10:15-0400 Respiratory rate 18 /min Jesse Mast Other [employer] Other 04-02-2022 10:15-0400 SaO2% (BldA) [Mass fraction] 95 % Jesse Mast Other [employer] Other 04-02-2022 10:15-0400 Systolic blood pressure 130 mm[Hg] Jesse Mast Other [employer] Other 02-21-2022 15:45-0400 Body height 182.25 cm Jesse Mast Other [employer] Other 02-21-2022 15:45-0400 Body mass index (BMI) [Ratio] 33.39 kg/m2 Jesse Mast Other [employer] Other 02-21-2022 15:45-0400 Body temperature 95.4 [degF] Jesse Mast Other [employer] Other 02-21-2022 15:45-0400 Body weight 110.91 kg Jesse Mast Other [employer] Other 02-21-2022 15:45-0400 Diastolic blood pressure 78 mm[Hg] Jesse Mast Other [employer] Other 02-21-2022 15:45-0400 Respiratory rate 18 /min Jesse Mast Other [employer] Other 02-21-2022 15:45-0400 SaO2% (BldA) [Mass fraction] 97 % Jesse Mast Other [employer] Other 02-21-2022 15:45-0400 Systolic blood pressure 130 mm[Hg] Jesse Mast Other [employer] Other 02-05-2022 10:00-0400 Body height 182.25 cm Jesse Mast Other [employer] Other 02-05-2022 10:00-0400 Body mass index (BMI) [Ratio] 34.28 kg/m2 Jesse Mast Other [employer] Other 02-05-2022 10:00-0400 Body weight 113.85 kg Jesse Mast Other [employer] Other 02-05-2022 10:00-0400 Diastolic blood pressure 81 mm[Hg] Jesse Mast Other [employer] Other 02-05-2022 10:00-0400 Respiratory rate 18 /min Jesse Mast Other [employer] Other 02-05-2022 10:00-0400 SaO2% (BldA) [Mass fraction] 96 % Jesse Mast Other [employer] Other 02-05-2022 10:00-0400 Systolic blood pressure 134 mm[Hg] Jesse Mast Other [employer] Other 02-01-2022 15:15-0400 Body height 182.25 cm Jesse Mast Other [employer] Other 02-01-2022 15:15-0400 Body mass index (BMI) [Ratio] 34.55 kg/m2 Jesse Mast Other [employer] Other 02-01-2022 15:15-0400 Body weight 114.76 kg Jesse Mast Other [employer] Other 02-01-2022 15:15-0400 Diastolic blood pressure 75 mm[Hg] Jesse Mast Other [employer] Other 02-01-2022 15:15-0400 Respiratory rate 18 /min Jesse Mast Other [employer] Other 02-01-2022 15:15-0400 SaO2% (BldA) [Mass fraction] 95 % Jesse Mast Other [employer] Other 02-01-2022 15:15-0400 Systolic blood pressure 152 mm[Hg] Jesse Mast Other [facility] [employer] Other 11-23-2021 10:31-0400 Body height 182.88 cm Jesse E Mast Work Phone: [facility] [facility] DO Work Phone: 11-23-2021 10:31-0400 Body mass index (BMI) [Ratio] 33.91 kg/m2 Jesse E Mast Work Phone: [facility] 250 DO Work Phone: 11-23-2021 10:31-0400 Body surface area Derived from formula 2.34 m2 Jesse E Mast Work Phone: [facility] 250 DO Work Phone: 11-23-2021 10:31-0400 Body weight 113.4 kg Jesse E Mast Work Phone: [facility] 250 DO Work Phone: 11-23-2021 10:31-0400 Diastolic blood pressure 85 mm[Hg] Jesse E Mast Work Phone: [facility] 250 DO Work Phone: 11-23-2021 10:31-0400 Heart rate 60 /min Jesse E Mast Work Phone: [facility] 250 DO Work Phone: 11-23-2021 10:31-0400 Systolic blood pressure 137 mm[Hg] Jesse E Mast Work Phone: [facility] 250 DO Work Phone: 10-02-2021 11:15-0500 Body height 182.25 cm Jesse Mast Other [employer] Other 10-02-2021 11:15-0500 Body mass index (BMI) [Ratio] 34 kg/m2 Jesse Mast Other [employer] Other 10-02-2021 11:15-0500 Body weight 112.95 kg Jesse Mast Other [employer] Other 10-02-2021 11:15-0500 Diastolic blood pressure 82 mm[Hg] Jesse Mast Other [employer] Other 10-02-2021 11:15-0500 Respiratory rate 18 /min Jesse Mast Other [employer] Other 10-02-2021 11:15-0500 SaO2% (BldA) [Mass fraction] 97 % Jesse Mast Other [employer] Other 10-02-2021 11:15-0500 Systolic blood pressure 149 mm[Hg] Jesse Mast Other [employer] Other 07-24-2021 12:15-0500 Body height 182.25 cm Jesse Mast Other [employer] Other 07-24-2021 12:15-0500 Body mass index (BMI) [Ratio] 33.77 kg/m2 Jesse Mast Other [employer] Other 07-24-2021 12:15-0500 Body temperature 96.6 [degF] Jesse Mast Other [employer] Other 07-24-2021 12:15-0500 Body weight 112.18 kg Jesse Mast Other [employer] Other 07-24-2021 12:15-0500 Diastolic blood pressure 90 mm[Hg] Jesse Mast Other [employer] Other 07-24-2021 12:15-0500 Respiratory rate 18 /min Jesse Mast Other [employer] Other 07-24-2021 12:15-0500 SaO2% (BldA) [Mass fraction] 94 % Jesse Mast Other [employer] Other 07-24-2021 12:15-0500 Systolic blood pressure 130 mm[Hg] Jesse Mast Other [employer] Other 07-12-2021 14:45-0500 Body height 182.25 cm Jesse Mast Other [employer] Other 07-12-2021 14:45-0500 Body mass index (BMI) [Ratio] 33.89 kg/m2 Jesse Mast Other [employer] Other 07-12-2021 14:45-0500 Body temperature 97.2 [degF] Jesse Mast Other [employer] Other 07-12-2021 14:45-0500 Body weight 112.58 kg Jesse Mast Other [employer] Other 07-12-2021 14:45-0500 Diastolic blood pressure 72 mm[Hg] Jesse Mast Other [employer] Other 07-12-2021 14:45-0500 Respiratory rate 18 /min Jesse Mast Other [employer] Other 07-12-2021 14:45-0500 SaO2% (BldA) [Mass fraction] 96 % Jesse Mast Other [facility] [employer] Other 07-12-2021 14:45-0500 Systolic blood pressure 120 mm[Hg] Jesse Mast Other [facility] [employer] Other 06-02-2021 00:00-0400 57 1 Jesse E Mast Work Phone: [facility] [address] [place] Work Phone: Comment on above: FSL 05-31-2021 10:10-0400 Body height 182.88 cm Jesse E Mast Work Phone: [facility] 250 DO Work Phone: 05-31-2021 10:10-0400 Body mass index (BMI) [Ratio] 33.23 kg/m2 Jesse E Mast Work Phone: [facility] 250 DO Work Phone: 05-31-2021 10:10-0400 Body surface area Derived from formula 2.32 m2 Jesse E Mast Work Phone: [facility] 250 DO Work Phone: 05-31-2021 10:10-0400 Body weight 111.13 kg Jesse E Mast Work Phone: [facility] 250 DO Work Phone: 05-31-2021 10:10-0400 Diastolic blood pressure 64 mm[Hg] Jesse E Mast Work Phone: [facility] 250 DO Work Phone: 05-31-2021 10:10-0400 Heart rate 60 /min Jesse E Mast Work Phone: [facility] [employer] 250 DO Work Phone: 05-31-2021 10:10-0400 Systolic blood pressure 130 mm[Hg] Jesse E Mast Work Phone: [facility] [employer] 250 DO Work Phone: 05-29-2021 10:15-0400 Body height 182.25 cm Jesse Mast Other [employer] Other 05-29-2021 10:15-0400 Body mass index (BMI) [Ratio] 33.16 kg/m2 Jesse Mast Other [employer] Other 05-29-2021 10:15-0400 Body temperature 97 [degF] Jesse Mast Other [employer] Other 05-29-2021 10:15-0400 Body weight 110.13 kg Jesse Mast Other [employer] Other 05-29-2021 10:15-0400 Diastolic blood pressure 80 mm[Hg] Jesse Mast Other [employer] Other 05-29-2021 10:15-0400 Respiratory rate 18 /min Jesse Mast Other [employer] Other 05-29-2021 10:15-0400 SaO2% (BldA) [Mass fraction] 96 % Jesse Mast Other [employer] Other 05-29-2021 10:15-0400 Systolic blood pressure 118 mm[Hg] Jesse Mast Other [employer] Other Encounters Encounter Date Encounter Type Care Provider Facility Start: 10-21-2023 ambulatory Gautam CRUZ Facility :[facility] Start: 09-26-2023 ambulatory Matilda M. Lue Facility:[facility] Start: 09-18-2023 End: 09-18-2023 ambulatory Stefania Arenas Other [facility] [employer] Other Start: 09-18-2023 Office outpatient vi sit 15 minutes Stefania Arenas [facility] Start: 09-16-2023 End: 09-16-2023 ambulatory Matilda M Lue Facility:[facility] Start: 09-02-2023 End: 09-02-2023 ambulatory Matilda M Lue Facility:[facility] Start: 07-22-2023 End: 07-23-2023 ambulatory Matilda M. Lue Facility:[facility] Start: 07-22-2023 End: 07-22-2023 Patient encounter procedure Matilda M. Lue [facility] Start: 07-17-2023 End: 07-18-2023 ambulatory Matilda M. Lue Facility:[id number] Start: 06-19-2023 End: 06-20-2023 ambulatory Matilda M. Lue Facility:[id number] Start: 06-06-2023 End: 06-06-2023 ambulatory [facility] Start: 06-05-2023 End: 06-06-2023 ambulatory [facility] Start: 06-05-2023 End: 06-05-2023 Encounter for preprocedural cardiovascular examination [facility] Start: 06-05-2023 End: 06-05-2023 Subsequent hospital visit by physician Fiona Anders [facility] Room [facility] Comment on above: ASHD (arteriosclerot ic heart disease) (Primary Dx) Start: 06-04-2023 End: 06-04-2023 ambulatory [facility] Facility:[facility] Start: 06-04-2023 End: 06-04-2023 Encounter for preprocedural cardiovascular examination [facility] Ambulatory Start: 06-04-2023 End: 06-04-2023 ambulatory DO Jesse Mast Work Phone: [facility] Work Phone: Start: 06-04-2023 End: 06-04-2023 Patient encounter procedure DO Jesse Mast Work Phone: [facility] [place] Work Phone: Start: 05-22-2023 ambulatory Matilda Murphy Facility:C [id number] Start: 05-17-2023 End: 05-18-2023 ambulatory Matildanazia Murphy Facility: [place] Start: 05-08-2023 End: 05-09-2023 ambulatory Matilda Murphy Facility: [place] Start: 05-08-2023 End: 05-08-2023 Patient encounter procedure Matilda Murphy [facility] Start: 04-27-2023 End: 04-27-2023 ambulatory Deirdre Bernstein Facility:[facility] Start: 04-27-2023 End: 04-27-2023 ambulatory DO Jesse Mast Work Phone: [facility] Work Phone: Start: 04-27-2023 End: 04-27-2023 Patient encounter procedure DO Jesse Mast Work Phone: [facility] [place] Work Phone: Start: 04-25-2023 End: 04-26-2023 ambulatory DEIRDRE BERNSTEIN Facility:[facility] Start: 04-25-2023 End: 04-25-2023 Patient encounter procedure DEIRDRE BERNSTEIN [facility] [place] Start: 04-01-2023 End: 04-01-2023 ambulatory Jesse Mast Other [facility] [employer] Other Start: 04-01-2023 Patient encounter procedure Jesse Mast [facility] Start: 03-19-2023 Rx Renewal Jesse E Mast Work Phone: [facility] 250 DO Work Phone: Start: 11-28-2022 Chart Update Jesse E Mast Work Phone: [facility] 250 DO Work Phone: Start: 11-28-2022 Office outpatient vi sit 25 minutes Jesse E Mast Work Phone: [facility] 250 DO Work Phone: Start: 11-28-2022 ambulatory [facility] Start: 11-26-2022 End: 11-26-2022 ambulatory [facility] Facility:[facility] Start: 11-26-2022 End: 11-26-2022 ambulatory DO Jesse Mast Work Phone: [facility] Work Phone: Start: 11-26-2022 End: 11-26-2022 Patient encounter procedure DO Jesse Mast Work Phone: [facility] Start: 11-22-2022 Office outpatient vi sit 25 minutes Erik Diaz [facility] Start: 11-22-2022 End: 11-22-2022 ambulatory DO Jesse Mast Work Phone: [facility] [employer] Other Start: 11-22-2022 End: 11-22-2022 Patient encounter procedure DO Jesse Mast Work Phone: [facility] Work Phone: Start: 10-15-2022 End: 10-16-2022 ambulatory Gopal GRAF Facility:[facility] Start: 10-15-2022 End: 10-15-2022 Patient encounter procedure Gopal GRAF [facility] Start: 10-08-2022 Telephone encounter Jesse Mast [facility] Start: 10-08-2022 End: 10-08-2022 ambulatory Gopal Graf [facility] [employer] Other Start: 10-08-2022 End: 10-08-2022 Patient encounter procedure DO Jesse Mast Work Phone: [facility] Start: 10-04-2022 End: 10-04-2022 ambulatory Jesse Mast Other [facility] [employer] Other Start: 10-04-2022 Office outpatient vi sit 25 minutes Jesse Mast [facility] Start: 08-09-2022 End: 08-09-2022 ambulatory DO Jesse Mast Work Phone: [facility] Work Phone: Start: 08-09-2022 End: 08-09-2022 Patient encounter procedure DO Jesse Mast Work Phone: [facility] [place] Work Phone: Start: 08-06-2022 End: 08-06-2022 ambulatory Jesse Mast Other [facility] [employer] Other Start: 08-06-2022 Office outpatient vi sit 25 minutes Jesse Mast [facility] Start: 08-01-2022 End: 08-01-2022 Patient encounter procedure DO Jesse Mast Work Phone: [facility] Start: 08-01-2022 End: 08-01-2022 ambulatory DO Jesse Mast Work Phone: [facility] Work Phone: Start: 08-01-2022 Office outpatient vi sit 40 minutes Erik [facility] Start: 06-05-2022 Office outpatient vi sit 25 minutes Jesse E Mast Work Phone: [facility] 250 DO Work Phone: Start: 06-05-2022 ambulatory Summer Bejarano Facility : Start: 05-08-2022 End: 05-08-2022 Patient encounter procedure DO Jesse Mast Work Phone: [facility] Start: 04-02-2022 End: 04-02-2022 ambulatory Jesse Mast Other [employer] Other Start: 04-02-2022 Office outpatient vi sit 25 minutes Jesse Mast [facility] Start: 04-02-2022 Rx Renewal Jesse E Mast Work Phone: [facility] 250 DO Work Phone: Start: 02-21-2022 End: 02-21-2022 ambulatory Jesse Mast Other [employer] Other Start: 02-21-2022 Office outpatient vi sit 15 minutes Jesse Mast [facility] Start: 02-05-2022 End: 02-05-2022 ambulatory Jesse Mast Other [employer] Other Start: 02-05-2022 Patient encounter procedure Jesse Mast [facility] Start: 02-01-2022 End: 02-01-2022 ambulatory Jesse Mast Other [employer] Other Start: 02-01-2022 Office outpatient vi sit 25 minutes Jesse Mast [facility] Start: 01-02-2022 Rx Renewal Jesse E Mast Work Phone: [facility] 250 DO Work Phone: Start: 12-01-2021 ([facility] Vac) [facility] Co vid Vaccine Sona House [facility] Start: 12-01-2021 End: 12-01-2021 ambulatory Sona House Other [employer] Other Start: 11-29-2021 Chart Update Jesse E Mast Work Phone: [facility] [employer] 250 DO Work Phone: Start: 11-23-2021 Office outpatient vi sit 25 minutes Jesse E Mast Work Phone: [facility] [employer] 250 DO Work Phone: Start: 10-09-2021 End: 10-09-2021 ambulatory Jesse Mast Other [employer] Other Start: 10-09-2021 Telephone encounter Jesse Mast [facility] Start: 10-02-2021 End: 10-02-2021 ambulatory Jesse Mast Other [employer] Other Start: 10-02-2021 Patient encounter procedure Jesse Mast [facility] Start: 07-25-2021 Rx Renewal Jesse E Mast Work Phone: [facility] [employer] 250 DO Work Phone: Start: 07-24-2021 End: 07-24-2021 ambulatory Jesse Mast Other [employer] Other Start: 07-24-2021 Office outpatient vi sit 15 minutes Jesse Mast [facility] [place] Start: 07-12-2021 End: 07-12-2021 ambulatory Jesse Mast Other [employer] Other Start: 07-12-2021 Office outpatient vi sit 15 minutes Jesse Mast [facility] [place] Start: 07-11-2021 End: 07-11-2021 ambulatory Jesse Mast Other [facility] [employer] Other Start: 07-11-2021 Telephone encounter Jesse Mast [facility] Start: 06-12-2021 Chart Update Jesse E Mast Work Phone: [facility] [address] [place] Work Phone: Start: 05-31-2021 Office outpatient vi sit 25 minutes Jesse E Mast Work Phone: -[facility] 250 DO Work Phone: Start: 05-29-2021 Office outpatient vi sit 15 minutes Jesse Mast [facility] Procedures Date Procedure Procedure Detail Performing Clinician Start: 07-17-2023 Ureteroscopy and electrohydraulic lithotripsy of calculus of ureter Matilda Lue Comment on above: cysto/LRG/ URS/laser /basket w/ L stent exchange Start: 06-19-2023 Ureteroscopy and electrohydraulic lithotripsy of calculus of ureter Matilda Lue Comment on above: w/ L stent placement Start: 06-06-2023 Cv strs tst xers&/or rx cont ecg trcg only Summer Bejarano MD Work Phone: Start: 06-05-2023 NUCLEAR STRESS TEST IRENE JEROME Start: 06-04-2023 Aspartate aminotrans ferase [Enzymatic activity/volume] in Serum or Plasma SUMMER BEJARANO Start: 06-04-2023 Basic metabolic 2000 panel - Serum or Plasma SUMMER BEJARANO Start: 06-04-2023 CBC panel - Blood by Automated count SUMMER BEJARANO Start: 06-04-2023 Lipid panel SUMMER VILLAGRAN [facility] Start: 06-04-2023 Alanine aminotransfe rase [Enzymatic activity/volume] in Serum or Plasma SUMMER BEJARANO Start: 04-27-2023 CT of abdomen and pe lvis without contrast DO Jesse Mast Work Phone: Start: 08-09-2022 Computed tomography of abdomen and pelvis with contrast DO Jesse Mast Work Phone: Start: 09-15-2018 Cystoscopic removal of ureteric stent Gopal GRAF Start: 09-10-2018 Extracorporeal shock wave lithotripsy of calculus of kidney Gopal GRAF Start: 09-21-2016 cystoscopy, retrogra de, stenting and cystoscopy, lithotripsy Gopal GRAF Start: 08-19-2016 Cystoscope, device ( physical object) Gopal GRAF Start: 05-28-2010 Colonoscopy Gopal Garay Start: 05-28-2010 hernia Gopal Garay Arthroscopy of knee Gopal MARISCAL Cardiac catheterization Jesse E Mast Work Phone: Cardiac catheterization LUCIANA OSBORN MARIAJOSE Cataract extraction and insertion of intraocular lens DEIRDRE BERNSTEIN Cataract surgery Jesse E Mast Work Phone: Endoscopy Jesse E Mast Work Phone: Endoscopy DEIRDRE BERNSTEIN Hernia repair Jesse E Mast Work Phone: Lithotripsy Jesse E Mast Work Phone: Operative procedure on knee Jesse E Mast Work Phone: Sigmoidoscopy Jesse E Mast Work Phone: Sigmoidoscopy DEIRDRE BERNSTEIN Total colonoscopy Jesse E Mas t Work Phone: YAG - laser (physica l object) DEIRDRE BERNSTEIN Plan of Treatment Date Care Activity Detail Author Start: 05-22-2027 DTaP/Tdap/Td Vaccine s (2 - Td or Tdap) DTaP/Tdap/Td Vaccines (2 - Td or Tdap) [facility] Start: 12-11-2023 End: 12-11-2023 Patient encounter procedure 12/11/2023 9:50 AM EDT Office Visit [facility] [address] [id number] Summer Bejarano MD [address] [facility] [address] [place] [address] [facility] Start: 09-15-2023 COVID-19 Vaccine (6 - Additional dose for Olga series) COVID-19 Vaccine (6 - Additional dose for Olga series) [facility] Start: 06-04-2023 FUV, Provider: Summer Bejarano, Status: Pen, Time: 9:20 AM FUV, Provider: Summer Bejarano, Status: Pen, Time: 9:20 AM [place] [address] DO Work Phone: Start: 11-28-2022 FUV, Provider: Summer Bejarano, Status: Pen, Time: 9:00 AM FUV, Provider: Summer Bejarano, Status: Pen, Time: 9:00 AM [facility] 250 DO Work Phone: Start: 07-03-2022 NPV, Provider: Yolande Brewster, Status: Pen, Time: 11:15 AM NPV, Provider: Yolande Brewster, Status: Pen, Time: 11:15 AM [facility] Work Phone: Start: 06-05-2022 FUV, Provider: Summer Bejarano, Status: Pen, Time: 8:50 AM FUV, Provider: Summer Bejarano, Status: Pen, Time: 8:50 AM [facility] 250 DO Work Phone: Start: 11-23-2021 FUV, Provider: Summer Bejarano, Status: Pen, Time: 9:50 AM FUV, Provider: Summer Bejarano, Status: Pen, Time: 9:50 AM [facility] 250 DO Work Phone: Start: 1940 Lipid panel Lipid Panel [facility] Start: 1940 Medicare Annual Wellness Visit Medicare Annual Wellness Visit (AWV) [facility] Immunizations Immunization Date Immunization Notes Care Provider Henry grimaldo 05-16-2022 Fluzone High-Dose Quadrivalent 0.7 ML Intramuscular Suspension Prefilled Syringe Jesse E Mast Work Phone: [facility] 250 DO Work Phone: 05-16-2022 influenza virus vaccine, unspecified formulation Gopal RICE [facility] 05-08-2022 Moderna COVID-19 Biv al Booster 50 MCG/0.5ML Intramuscular Suspension Jesse E Mast Work Phone: [facility] 12-01-2021 COVID-19 Moderna Sona Fitt Other [facility] 06-20-2021 Moderna COVID-19 Vaccine 100 MCG/0.5ML Intramuscular Suspension Jesse E Mast Work Phone: [facility] 05-11-2021 influenza, high dose seasonal, preservative-free Jesse Mast Other [facility] [employer] Other 05-11-2021 Fluzone High-Dose Quadrivalent 0.7 ML Intramuscular Suspension Prefilled Syringe Jesse E Mast Work Phone: [facility] 250 DO Work Phone: 05-11-2021 influenza virus vaccine, unspecified formulation Gopal RICE [facility] 11-06-2020 SARS-CoV-2 (COVID-19 ) Ad26 vaccine, recombinant Gopal RICE [facility] 11-03-2020 Moderna COVID-19 Vaccine 100 MCG/0.5ML Intramuscular Suspension Jesse E Mast Work Phone: [facility] 10-09-2020 SARS-CoV-2 (COVID-19 ) Ad26 vaccine, recombinant Gopal RICE [facility] Comment on above: Result Comment: dupl ication 10-06-2020 Moderna COVID-19 Vaccine 100 MCG/0.5ML Intramuscular Suspension Jesse E Mast Work Phone: [facility] 05-19-2020 influenza virus vaccine, unspecified formulation Gopal RICE [facility] 05-05-2020 Fluzone High-Dose Quadrivalent 0.7 ML Intramuscular Suspension Prefilled Syringe Jesse E Mast Work Phone: [facility] 250 DO Work Phone: 05-05-2020 influenza virus vaccine, unspecified formulation Jesse E Mast Work Phone: [facility] 07-03-2019 zoster vaccine recombinant Jesse E Mast Work Phone: [facility] 05-19-2019 influenza virus vaccine, live, attenuated, for intranasal use Gopal RICE [facility] 05-06-2019 zoster vaccine recombinant Jesse E Mast Work Phone: [facility] 05-03-2019 influenza virus vaccine, unspecified formulation Jesse E Mast Work Phone: [facility] 05-03-2019 influenza, high dose seasonal, preservative-free Jesse E Mast Work Phone: [facility] 250 DO Work Phone: 05-28-2018 pneumococcal polysaccharide vaccine, 23 valent Jesse E Mast Work Phone: [facility] 05-23-2018 influenza virus vaccine, unspecified formulation Jesse E Mast Work Phone: [place] [address] DO Work Phone: 05-23-2018 pneumococcal conjuga te vaccine, 13 valent Jesse E Mast Work Phone: [place] [address] DO Work Phone: 05-22-2017 influenza virus vaccine, unspecified formulation Gopal RICE [facility] 05-22-2017 influenza, seasonal, injectable Jesse E Mast Work Phone: [place] [address] DO Work Phone: 05-22-2017 tetanus toxoid, redu nathan diphtheria toxoid, and acellular pertussis vaccine, adsorbed Jesse E Mast Work Phone: [facility] 09-05-2015 pneumococcal conjuga te vaccine, 13 valent Jesse E Mast Work Phone: [facility] 08-19-2015 pneumococcal conjuga te vaccine, 13 valent Jesse E Mast Work Phone: [place] [address] DO Work Phone: 05-19-2014 influenza, high dose seasonal, preservative-free Jesse Mast Other [employer] Other 06-22-2008 zoster vaccine, live Jesse E Mast Work Phone: [facility] Payers Date Payer Category Payer Self-pay [id number] 2022 Unknown 2016 Unknown [id number] 2014 Unknown [id number] 2.16.840.1.731371.19 2014 Unknown [id number] 2007 Medicare [id number] 2.16.840.1.775791.19 2007 Medicare MEDICARE MEDICAR E PART A AND B [id number] 2007-Present [address] [place] [address] 1.2.840.338024.1.13.647.2.7.3. [id number] 1942 Unknown [id number] 2.16.840.1.993468.3.579.2.356 1942 Unknown [id number] 2.16.840.1.261337.3.579.2.356 1942 Unknown [id number] 2.16.840.1.210701.3.579.2.1244 1942 Unknown [id number] 2.16.840.1.071240.3.579.2.1246 1942 Unknown [id number] 2.16.840.1.005139.3.579.2.1246 1942 Unknown [id number] 2.16.840.1.488663.3.579.2.1246 1942 Unknown [id number] 2.16.840.1.348523.3.579.2.1246 1942 Unknown [id number] 2.16.840.1.138301.3.579.2.1246 1942 Unknown [id number] 2.16.840.1.186631.3.579.2.727 1942 Unknown [id number] 2.16.840.1.069887.3.579.2.727 1942 Unknown [id number] 2.16.840.1.504599.3.579.2.727 1942 Unknown [id number] 2.16.840.1.459453.3.579.2.7 1942 Unknown [id number] 2.16.840.1.182913.3.579.2. 1942 Unknown [id number] 2.16.840.1.920617.3.579.2. 1942 Unknown [id number] 2.16.840.1.293269.3.579.2. 1942 Unknown [id number] 2.16.840.1.024915.3.579.2.7 1942 Unknown [id number] 2.16.840.1.188941.3.579.2.727 Unknown [id number] 2.16.840.1.611902.3.579.2.531 Unknown [id number] 2.16.840.1.137829.3.579.2.531 Unknown [id number] 2.16.840.1.130322.3.579.2.531 Unknown [id number] 2.16.840.1.638436.3.579.2.531 Unknown [id number] 2.16.840.1.070417.3.579.2.531 Unknown [id number] 2.16.840.1.335727.3.579.2.531 Unknown [id number] 2.16.840.1.258394.3.579.2.531 Social History Date Type Detail Facility Start: 06-04-2023 No illicit drug use No illicit drug use [place] [address] DO Work Phone: Comment on above: 3 cups coffee daily; socially; slight; Start: 06-04-2023 Sex Assigned At F [facility] Start: 08-18-2021 End: 05-17-2023 Tobacco smoking status NHIS Never smoked tobacco (finding) [facility] Start: 1940 Sex Assigned At Male F [facility] Tobacco smoking status Never [facility] Start: 06-04-2023 Tobacco use and exposure Smokeless tobacco non-user [facility] Work Phone: Start: 06-04-2023 Alcohol intake Current drinke r of alcohol (finding) [facility] Work Phone: Start: 1940 Sex Assigned At Not on file [facility] Work Phone: Start: 05-27-2023 End: 06-06-2023 Exposure to SARS-CoV-2 (event) Not sure [facility] Medical Equipment Procedure Code Equipment Code [...] 09-10-2018 Femoral artery closure plug/patch, synthetic polymer ()[id number] FDA Start: 06-27-2020 Functional Status Date Assessment Result Facility 07-22-2023 Functional Status N/A [facility] 04-25-2023 Functional Status N/A [facility] 10-15-2022 Functional Status N/A [facility] Clinical Notes 05-29-2021 to 09-18-2023 Note Date & Type Note Facility 09-18-2023 Evaluation note Encounter Date Diagnosis Assessment Notes Aug, Cough, unspecified type (ICD-10 - R05.9) Aug, Influenza A (ICD-10 - J10.1) Discussed dx with patient and . Tamiflu as directed. Tessalon as needed for cough. Discussed dx with patient. Advised that sx typically last 7-10 days, antibiotics are not indicated at this time, no signs of pneumonia or other secondary infection at this time. Tamiflu as directed. Tessalon as needed for cough. Tylenol/Motrin as needed for aches/fever. Supportive care as directed, push fluids/rest, cool mist humidification, nasal saline irrigation/spray . Follow up with PCP in 5-7 days, sooner if sx change or worsen, immediate eval for warning s/sx as discussed, including worsening SOB, difficulty breathing, chest pain, fevers unresponsive to antipyretics. Patient verbalizes understanding and is agreeable to treatment plan.Influenza: adult home care material was printed. [facility] Other 12-04-2023 Note [id number] NoteCystoscopy with Stent Removal ? Voiding after the procedure: there may be some pain, burning, urgency, frequency and blood tingedurine following the procedure. These symptoms usually resolve [...] if you have a fever over 100 degrees.[facility] 07-22-2023 Hospital Discharge instructions Patient Education 07/22/2023 10:31:18 EU - [...] Up Care 07/18/2023 09:25:59 With:Matilda Murphy Address: [address] [phone] Business (1) When: Unknown Comments:Office to schedule follow up in 6-8 weeks to review renal [facility]09-07-2023 Hospital Discharge instructions Patient Education 04/25/2023 13:40:03 Dietary Guidelines [...] include: ?8 oz (237 mL) of milk, qmwtpva-tichyvhmsrsz-fpxol milk, and calcium- fortifiedfruit juice. Calcium-fortified means that calcium has been [...] protein (TVP), or tofu, instead of meat inpasta, casseroles, and soups. Meal planning Eat less [...] ?Spinach (cooked), rhubarb, beets, sweet potatoes, and [place]er chard. ?Peanuts. ?Potato chips, english fries, and baked potatoes with skin on. ?Nuts and nut products. ?Chocolate. If you regularly take a diuretic medicine, make sure to eat at least 1 or 2 servings of fruits or vegetables that are high in potassium each day. These include: ?Avocado. ?Banana. ?Elkin, prune, carrot, or tomato juice. ?Baked potato. [...] taking daily supplements. You may be told thefollowing depending on your health and the cause of your kidney stones: ?Not to take supplements with vitamin C. ?To take a calcium supplement. ?To take a daily probiotic supplement. ?To take other supplements such as magnesium, fish oil, or vitamin B6. Take cakh-zjm-lbnsneh and prescription medicines only as told by [...] Casseroles. Pizza. Lasagna. Frozen meals. Potato chips. Polish fries. The items listed above may not be a complete list of foods and beverages you should limit. Contact a dietitian for more information. What foods should I avoid? Talk to your dietitian about specific foods you should avoid based on the type of kidney stones youhave and your overall health. Fruits Grapefruit. The item listed above may not be a complete list of foods and beverages you should avoid. Contact adietitian for more information. Summary Kidney stones are [...] provider. Document Revised: 04/16/2022 Document Reviewed: 04/16/2022 [employer] Patient Education 2022 Pharmacopeia. Follow Up Care 04/24/2023 14:12:10 With:DEIRDRE BERNSTEIN PA-C, URL Address: [address] [place] [address] When: Unknown Comments:[facility] pt. [facility]14[facility] Evaluation note* Encounter Date Diagnosis Assessment Notes Treatment Notes Treatment Clinical Notes Mar, Medicare annual wellness visit, subsequent [...] Recheck in 6 months, sooner if problems [facility] Other 04-06-2023 Evaluation note* Encounter Date Diagnosis [...] sleepiness, or poor response to treatment. . [facility] Other 02-27-2023 Hospital Discharge instructions Patient Education [...] include: ?Spinach. ?Rhubarb. ?Beets. ?Potato chips and english fries. ?Nuts. If you regularly take a diuretic medicine, make sure to eat at least 1 2 fruits or vegetables high in potassium each day. These include: ?Avocado. ?Banana. ?Elkin, prune, carrot, or tomato juice. ?Baked potato. [...] Casseroles. Pizza. Lasagna. Frozen meals. Potato chips. Polish fries. Summary You can reduce your risk [...] 11/30/2011 Document Revised: 11/25/2019 Document Reviewed: 07/16/2017 [employer] Patient Education 2020 Pharmacopeia. 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 [facility] Other 12-14-2022 Evaluation note* Encounter Date Diagnosis [...] changes in symptoms and/or problems with treatment [facility] Other 08-15-2022 Evaluation note* Encounter Date Diagnosis Assessment Notes Treatment Notes Treatment Clinical Notes Mar, Hypertension (ICD-10 - I10) BP controlled, continue present Rx. Work on weight loss. 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 [facility] Other 07-06-2022 Evaluation note* Encounter Date Diagnosis [...] follow-up, we will recheck at that time. [facility] Other 06-20-2022 Evaluation note* Encounter Date Diagnosis [...] related to shoulder pathology and may be account maintenance representative of cervical radiculopathy [facility] Other 06-16-2022 Evaluation note* Encounter Date Diagnosis [...] bring the weight down, limit sodium intake. [facility] Other 04-15-2022 Evaluation note* Encounter Date Diagnosis Assessment Notes Treatment Notes Treatment Clinical Notes Nov, Encounter for immunization (ICD-10 - Z23) Patient presents for COVID-19 vaccination BOOSTER #2. Pre-screening form answers evaluated with patient. Patient denies current illness or allergic reaction to component of COVID-19 vaccine. Patient provided with current copy of EUA. [facility] Other 02-14-2022 Evaluation note* Encounter Date Diagnosis [...] Recheck in 6 months, sooner if problems. [facility] Other 12-06-2021 Evaluation note* Encounter Date Diagnosis [...] Recheck in 2 months as already scheduled [facility] Other 11-24-2021 Evaluation note* Encounter Date Diagnosis Assessment Notes Treatment Notes Treatment Clinical Notes Jun, Diarrhea, unspecified type (ICD-10 - R19.7) Check stool studies for completeness, this may represent a flare of his ulcerative colitis. I will treat him with a short burst of oral prednisone, then recheck early next month. Warning signs reviewed, call or go to ER if problems arise. [facility] Other 10-11-2021 Evaluation note* Encounter Date Diagnosis [...] per GI. No evidence of recurrent bleeding. [facility] Other Evaluation + Plan note Future Appointments Appointment Date:10/21/2023 08:15:00 AM Scheduled Provider:Gopal GRAF MD Location:[facility] Appointment Type:URO Office Visit Diagnostic Tests Pending * PSA Total 10/15/22 [facility] Evaluation + Plan note Future Appointments Appointment Date:10/21/2023 08:45:00 AM Scheduled Provider:Gautam CRUZ MD Location:[facility] Appointment Type:URO Office Visit [facility] Evaluation + Plan note Future Appointments Appointment Date:05/17/2023 08:00:00 AM Scheduled Provider:Matilda Murphy MD Location:[facility] Appointment Type:URO Office Visit Appointment Date:10/21/2023 08:45:00 AM Scheduled Provider:Gautam CRUZ MD Location:[facility] Appointment Type:URO Office Visit [facility] evaluation noteNo InformationNort [employer] Other Evaluation noteNo assessment information available [facility] Work Phone: Evaluation note* Diagnosis ASHD (arteriosclerotic heart disease)- Primary Coronary atherosclerosis of unspecified type of vessel, nooksack or graft documented in this encounter [facility] Work Phone: History general Narrative - [...] 2018 Hospitalization History see above Hospitalization History [facility] Other Hiswjeu general Narrative - Reported* Type Description Date [...] 2018 Hospitalization History see above Hospitalization History [facility] Other Hisycwr general Narrative - Reported* Type Description Date [...] 2018 Hospitalization History see above Hospitalization History [facility] Other Hospital course Narrative No data available for this section [facility] Hospital Discharge instructions No data available for this section [facility] progress note No data available for this section [facility] Chief Complaint * ERIK GARCÍA is being seen for a 6 month [...] continued to exercise on regular basis at [employer] * 4. Dyslipidemia. On atorvastatin under great control, will continue to follow lipid profile * 5. 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 Presently stable * Summer Bejarano MD, FACC * ERIK GARCÍA is being seen for a 6 month [...] continued to exercise on regular basis at [employer] * 4. Dyslipidemia. On atorvastatin ,will continue to follow lipid profile * 5. 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 Presently stable * 6. Dyspnea on exertion and fatigue following COVID-19 infection which has not resolved yet. His exam was normal in that regard * Summer Bejarano MD, FACC * ERIK GARCÍA is being seen for a 6 month [...] to exercise on regular basis at [employer] * 4. Dyslipidemia. On atorvastatin , LDL [...] study and he is agreeable * Summer Bejarano MD, FACC * ERIK GARCÍA is being seen for a 6 month [...] continued to exercise on regular basis at [employer] * 4. Dyslipidemia. On atorvastatin , LDL [...] study and he is agreeable * Summer Bejarano MD, FACC * ERIK GARCÍA is being seen for a 6 month [...] continued to exercise on regular basis at [employer] * 4. Dyslipidemia. On atorvastatin , LDL [...] study and he is agreeable * Summer Bejarano MD, FACC * ERIK GARCÍA is being seen for a 6 month [...] continued to exercise on regular basis at [employer] * 4. Dyslipidemia. On atorvastatin , LDL [...] study and he is agreeable * Summer Bejarano MD, FACC * ERIK GARCÍA is being seen for a 6 month [...] continued to exercise on regular basis at [employer] * 4. Dyslipidemia. On atorvastatin , LDL [...] study and he is agreeable * Summer Bejarano MD, FACC * ERIK NATY is being seen for a 6 month [...] side effect of the device. * Summer Bejarano MD, [facility] Family History No Family History Records FoundUnknown [...] content) Specialty Diagnoses / Procedures Referred By Sonny erazo Referred To Contact Radiology Diagnoses Preop cardiovascular exam ASHD (arteriosclerotic heart disease) Essential hypertension, benign Procedures Nuclear Stress Test CHG MYOCARDIAL SPECT MULTIPLE STUDIES CHG MYOCARDIAL SPECT SINGLE STUDY AT REST OR STRESS Summer Bejarano MD [address] [facility] [address] [place] [address] [employer] [id number] [facility] [address] [facility] [address] [place] [address] Referral ID Status Reason Start Date Expiration Date V isits Requested Visits Authorized [id number] Authorized 06/04/2023 06/03/2024 5 5 Care Teams [...] Care Provider, Attending Provid er Active Gopal Graf MD Referring Provider Active Team Status: Inactive Member Role Status Dates Jesse Mast , DO Primary Care Provider Active Summer Bejarano MD Attending Provider Active Team Status: Inactive Member Role Status Dates Jesse Mast , DO Primary Care Provider Active Deirdre Bernstein PA-C Attending Provider Active Polls Or Surveys Interviewer Relationship Specialty Start Date End Date Mast, Jesse Edward, DO [address] [facility] [place] [address] PCP - General 08/19/1998 Goals (unrecognized section and content) Goals may be documented in a n alternate section (unrecognized sect ion and content) No Status Records FoundNo Status Records FoundNo Status Records FoundNo Status Records FoundNo Status Records FoundNo Status Records Found INFORMATION SOURCE (unrecogn ized section and content) DATE CREATED AUTHOR 11/30/2022 [employer] DATE CREATED AUTHOR AUTHOR'S ORGANIZ ATION 11/30/2022 [facility] DATE CREATED AUTHOR AUTHOR'S ORGANIZ ATION 06/05/2023 [facility] DATE CREATED AUTHOR AUTHOR'S ORGANIZ ATION 06/10/2023 [facility] DATE CREATED AUTHOR AUTHOR'S ORGANIZ ATION 09/21/2023 [facility] DATE CREATED AUTHOR AUTHOR'S ORGANIZ ATION 09/24/2023 [facility] FOR RECORDS PERTAINING TO PATIENTS WHO ARE [...] BE BASED ON THE PRIMARY CLINICAL RECORDS. [facility] [employer] provides no warranty or guarantee of the accuracy or completeness of information in this document.
--- NOTE | 2023-09-26 12:51 | P.GSHP_ITS ---
History of Present Illness History of Present Illness Chief complaint: Kidney Stone, ureteral stones, hydronephrosis Narrative: Patient presents for preadmission testing accompanied by his . The patient reports a long history of kidney stones. He last had a procedure here on 07/17/2023, since that time he states he's been feeling fairly well other than an episode of influenza A which started on September 16. He states that has since resolved. At this time he denies any urinary complaints and states he has not had flank pain, abdominal pain, nausea, vomiting, hematuria, or any other complaints. Review of Systems ROS Narrative REVIEW OF SYSTEMS: Negative except as stated in HPI, ten or more systems reviewed. Constitutional: No fever , chills, weakness ENT: No sore throat or epistaxis Cardiovascular: No edema, chest pain, or palpitations Respiratory: No shortness of breath, cough, or wheezing Musculoskeletal: No joint pain or swelling Gastrointestinal: No abdominal pain, constipation, diarrhea, or vomiting Genitourinary: No dysuria or hematuria Neurological: No numbness, tingling, weakness, or headache Psychiatric: No mood changes [facility] Medical History (Updated 09/26/23 @ 12:55 by Jeannette Avila NP) Hydronephrosis ?N13.30 - Unspecified hydronephrosis (ICD-10) Influenza A (09/18/23) ?J10.1 - Influenza due to other identified influenza virus with other respiratory manifestations (ICD-10) Sigmoidoscopy performed (~12/2018) ?Z98.890 - Other specified postprocedural states (ICD-10) S/P extracorporeal shock wave therapy (~08/2018) ?Z98.890 - Other specified postprocedural states (ICD-10) S/P extracorporeal shock wave therapy (~09/2016) ?Z98.890 - Other specified postprocedural states (ICD-10) Rectal bleeding (2019) ?K62.5 - Hemorrhage of anus and rectum (ICD-10) History of blood transfusion (2018) ?Z92.89 - Personal history of other medical treatment (ICD-10) Arthritis ?M19.90 - Unspecified osteoarthritis, unspecified site (ICD-10) Pneumonia ?J18.9 - Pneumonia, unspecified organism (ICD-10) Sleep apnea ?G47.30 - Sleep apnea, unspecified (ICD-10) COVID-19 ?U07.1 - COVID-19 (ICD-10) GERD (gastroesophageal reflux disease) ?K21.9 - Gastro-esophageal reflux disease without esophagitis (ICD-10) High cholesterol ?E78.00 - Pure hypercholesterolemia, unspecified (ICD-10) Hypertension ?I10 - Essential (primary) hypertension (ICD-10) Coronary artery disease ?I25.10 - Atherosclerotic heart disease of lime coronary artery without angina pectoris (ICD-10) Urinary urgency ?R39.15 - Urgency of urination (ICD-10) Renal cyst ?N28.1 - Cyst of kidney, acquired (ICD-10) Nocturia ?R35.1 - Nocturia (ICD-10) Kidney stones ?N20.0 - Calculus of kidney (ICD-10) Gross hematuria ?R31.0 - Gross hematuria (ICD-10) Frequent urination ?R35.0 - Frequency of micturition (ICD-10) Flank pain ?R10.9 - Unspecified abdominal pain (ICD-10) Incomplete bladder emptying ?R33.9 - Retention of urine, unspecified (ICD-10) Dysuria ?R30.0 - Dysuria (ICD-10) BPH with obstruction/lower urinary tract symptoms ?N40.1 - Benign prostatic hyperplasia with lower urinary tract symptoms (ICD- 10) ?N13.8 - Other obstructive and reflux uropathy (ICD-10) Anticoagulated ?Z79.01 - tank terminal gauger (current) use of anticoagulants (ICD-10) Ureteral stone ?N20.1 - Calculus of ureter (ICD-10) Surgical History (Updated 09/26/23 @ 08:57 by Jeannette vAila NP) H/O cystoscopy (07/17/23) ?Z98.890 - Other specified postprocedural states (ICD-10) S/P YAG capsulotomy (~06/2021) ?Z98.890 - Other specified postprocedural states (ICD-10) H/O endoscopy (~02/2021) ?Z98.890 - Other specified postprocedural states (ICD-10) H/O cardiac catheterization (~06/2020) ?Z98.890 - Other specified postprocedural states (ICD-10) H/O cataract extraction (~05/2019) ?Z98.49 - Cataract extraction status, unspecified eye (ICD-10) H/O cataract extraction (~04/2019) ?Z98.49 - Cataract extraction status, unspecified eye (ICD-10) H/O endoscopy (~12/2018) ?Z98.890 - Other specified postprocedural states (ICD-10) H/O cardiac catheterization (~02/2018) ?Z98.890 - Other specified postprocedural states (ICD-10) H/O cystoscopy (~08/2016) ?Z98.890 - Other specified postprocedural states (ICD-10) H/O colonoscopy (~05/2010) ?Z98.890 - Other specified postprocedural states (ICD-10) History of hernia repair (~05/2010) ?Z98.890 - Other specified postprocedural states (ICD-10) ?Z87.19 - Personal history of other diseases of the digestive system (ICD-10) S/P arthroscopic knee surgery (~07/2003) ?Z98.890 - Other specified postprocedural states (ICD-10) Family History (Updated 05/21/23 @ 12:57 by Jeannette Avila NP) Other Family history of diabetes mellitus Family history of heart disease Family history of hypertension Family history of myocardial infarction Social History (Updated 05/21/23 @ 12:47 by Jeannette Avila NP) Within the past year, how often did you have a drink containing alcohol: 4 or more times a week Within the past year, how many standard drinks containing alcohol did you have on a typical day: 1 or 2 Total score: 0 Score interpretation: A score less than 4 is consistent with normal alcohol consumption. Smoking status: Never smoker Highest level of school completed/degree received: high school graduate Meds Home Medications and Allergies Home Medications Medication Instructions Recorded Confirmed Type amlodipine 5 mg tablet 5 mg PO QPM 05/21/23 09/26/23 History atorvastatin 20 mg tablet 20 mg PO QPM 05/21/23 09/26/23 History clopidogrel 75 mg tablet 75 mg PO DAILY 05/21/23 09/26/23 History isosorbide dinitrate 30 mg tablet 30 mg PO QPM 05/21/23 09/26/23 History krill 350 mg-omega-3 90 mg-dha 24 1 cap PO DAILY 05/21/23 09/26/23 History mg-epa 50 [id number] capsule (Almyra-3 Krill Oil) meloxicam 15 mg tablet 15 mg PO DAILY 05/21/23 09/26/23 History metoprolol tartrate 50 mg tablet 50 mg PO DAILY 05/21/23 09/26/23 History (Lopressor) multivitamin (Daily Multi-Vitamin 1 tab PO DAILY 05/21/23 09/26/23 History tablet) nitroglycerin 0.4 mg sublingual 0.4 mg sublingual Q5M 05/21/23 09/26/23 History tablet (Nitrostat) omeprazole 40 mg capsule,delayed 40 mg PO DAILY 05/21/23 09/26/23 History release paroxetine HCl 10 mg tablet 10 mg PO DAILY 05/21/23 09/26/23 History valsartan 80 mg tablet 80 mg PO DAILY 05/21/23 09/26/23 History Allergies Allergy/AdvReac Type Severity Reaction Status Date / Time No Known Drug Allergies Allergy Verified 05/21/23 12:37 Exam Narrative Exam Narrative: Constitutional: Awake, alert, comfortable, well-appearing, nontoxic, interactive, vital signs as charted Head: Normocephalic, atraumatic Neck: Supple, normal appearance, normal range of motion, no meningeal signs, no lymphadenopathy Respiratory: No respiratory distress, breath sounds clear Cardiovascular: Regular rate and rhythm, strong and regular heart tones Abdomen: Nontender, normal bowel sounds, soft, no CVA tenderness Musculoskeletal: Normal gait, no swelling or edema Skin: No rashes or induration, no lesions, only visible skin inspected Neuro: No neurological deficits, normal sensation Psychiatric: Oriented ?3, normal affect Assessment and Plan Assessment and Plan (1) Kidney stones: (2) Hydronephrosis: Plan Cystoscopy, left retrograde, ureteral dilation, left stent placement, possible laser litho-scheduled with Dr. Murphy 10/02/2023.
[2023-09-26 12:54] LABS: Anion Gap 10.4; BUN Creatinine Ratio 16.4; Calcium 8.6 mg/dL (8.5-10.1); Carbon Dioxide 29.1 mmol/L (21.0-32.0); Chloride 104 mmol/L (98-107); Estimated GFR (African America >60 (>=60); Estimated GFR (Non-African Ame 54 (>=60); Glucose 115 mg/dL (74-106); Potassium 4.5 mmol/L (3.5-5.1); Sodium 139 mmol/L (136-145)
[2023-09-26 12:58] LABS: Basophils Absolute Auto 0.1 10^3/uL (0.0-0.1); Basophils Percent Auto 0.7 % (0.2-2.0); Eosinophils Absolute Auto 0.3 10^3/uL (0.0-0.7); Hematocrit 38.4 % (42.0-54.0); INR 1.08; Immature Granulocytes Pct Auto 1.4 % (0.0-0.5); Lymphocytes Absolute Auto 1.3 10^3/uL (1.2-3.8); Lymphocytes Percent Auto 18.1 % (20.5-60.0); Mean Corpuscular HGB Conc 33.9 g/dL (29.9-35.2); Mean Corpuscular Volume 94.6 fL (80.0-94.0); Mean Platelet Volume 10.2 fL (9.5-13.5); Monocytes Absolute Auto 0.6 10^3/uL (0.3-0.8); Monocytes Percent Auto 8.8 % (1.7-12.0); Neutrophils Absolute Auto 4.7 10^3/uL (1.4-6.5); Partial Thromboplastin Time 26.8 sec (22.3-36.2); Platelet Count 186 10^3/uL (150-450); Prothrombin Time 11.4 sec (9.0-11.6); Red Blood Count 4.06 10^6/uL (4.70-6.10); Red Cell Distribution Width 11.7 % (11.0-15.0)
== END 2023-09-26 11:36 | disposition home or self-care (01) ==
LOC: PST 11:36
PROVIDERS: Visit Provider Urology
DX: Z01.812 Encounter for preprocedural laboratory examination (principal); Z01.818 Encounter for other preprocedural examination; N13.30 Unspecified hydronephrosis; N20.0 Calculus of kidney
CPT/HCPCS: 36415; 80048; 85025; 85610; 85730; G0463

== ENCOUNTER 2023-10-02 11:18 | Day surgery (SDC) | payer MEDICARE, OTHER, SELFPAY ==
[2023-09-26 12:35] VITALS: BP 140/74; PULSE 63; RESP 18; TEMP 36.4; O2SAT 94; BMI 33.5
[2023-10-02] VITALS (9 sets, daily range): BP systolic 113–142; BP diastolic 60–96; PULSE 57–72; RESP 16–24; TEMP 36.3–36.5; O2SAT 92–97; BMI 33.8
--- OUTSIDE RECORDS SUMMARY | 2023-10-02 11:26 | XMS_ITS | CCD ---
Author Name Unknown Address [address] [facility] [address] [place] [address] Organization [facility] Care Team Providers Care Computing Services Director Name Role Phone Mast, Jesse E Unavailable Unavailable Unavailable Mast, Jesse Unavailable Mast, Jesse Unavailable Sona House Unavailable Unavailable Unavailable Mast, DO Jesse Primary Care Provider [phone] MD Leonides Frey Attending Provider Mast, DO Jesse Primary Care Provider [phone] MD Leonides Frey Attending Provider MD Erik Diaz Attending Provider Mast, DO Jesse Primary Care Provider Mast, DO Jesse Attending Provider [phone] Erik Diaz Unavailable MAST, JESSE E Primary Care Physician Mast, DO Jesse Primary Care Provider Mast, DO Jesse Attending Provider [phone] MD Gopal Graf Referring Provider [phone] MD Erik Diaz Attending Provider MD Summer Bejarano Attending Provider Summer Bejarano Referring Unavailable Mast, Dr. Jesse Payan Primary Care Unavailabl e Summer Bejarano Attending Unavailable Summer Bejarano Referring Unavailable Mast, Dr. Jesse Edward Primary Care Unavailabl e Summer Bejarano Attending Unavailable MAST, JESSE E Primary Care Physician Mast, DO Jesse Primary Care Provider [phone] ALTA Bernstein Attending Provider MD Summer Bejarano Attending Provider [phone] SUMMER BEJARANO Attending Unavailable MAST, JESSE EDWARD Primary Care Unavailable BEJARANOSUMMER M Referring Unavailable MAST, JESSE EDWARD Primary Care Unavailable BEJARANO, WHEELER M Referring Unavailable MAST, JESSE EDWARD Primary Care Unavailable BEJARANO, WHEELER M Referring Unavailable MAST, JESSE EDWARD Primary Care Unavailable BEJARANO, WHEELER M Referring Unavailable MAST, JESSE EDWARD Primary Care Unavailable Mast DO, Jesse Edward Primary Care Provider [phone] ArenasStefania Unavailable Summer Bejarano Admitting Unavailable Summer Bejarano [...] Attending Unavailable Mast, Jesse Primary Care Unavailable BejaranoSummer Admitting Unavailable Summer Bejarano Attending Unavailable Mast, Jesse Primary Care Unavailable Deirdre Bernstein Admitting Unavailable Deirdre Bernstein Attending Unavailable Mast, Jesse Primary Care Unavailable ALTA BERNSTEIN Attending Unavailab le Lue, Matilda M. Attending Unavailable Lue, Matilda M. Attending Unavailable Gopal GRAF Attending Unavailable Lue, Matilda M. Attending Unavailable Lue, Matilda M. Attending Unavailable Lue, Matilda M. Attending Unavailable Lue, Matilda M. Admitting Unavailable Lue, Matilda M. Referring Unavailable Lue, Matilda M. Attending Unavailable Lue, Matilda M. Attending Unavailable Lue, Matilda M. Attending Unavailable Gautam CRUZ Attending Unavailable Allergies Allergy Classification Reported Allergen(s) Allergy Type Date of Onset Reaction(s) Facility (19 sources) Angiotensin Converting Enzyme (Manuela) Inhibitors; Translations: [MANUELA Inhibitors] Allergy to drug (finding) 3 [facility] 3 Repository (1 source) Angiotensin-conv erting enzyme inhibitor agent Drug Intolerance 3 [facility] (1 source) No Known Medication Allergies; Translations: [No Known Medication Allergies] Propensity to adverse reactions (disorder) [facility] Repository Medications Current Medications Medication Drug Class(es) [...] Start Date: 10/12/21 Status: Ordered Fish Oils (5 sources) Start: 04-16-2019 Fish Oil Oral, Refill(s) 0 Start Date: 04/16/19 Status: Ordered geriatric jtckteni-ddcl-twnl (Complete Senior) tablet (1 source) take 1 tablet by mouth once daily geriatric wbvmxwrs-tvlk-ajv s (Complete Senior) tablet Take 1 tablet [...] take 1 capsule by mouth once daily Cicip-Fyyyx-3-Igo-Lwx-Gpteep (Krill Oil) 491-34-54-50 mg Capsule Active 1 CAP PO Daily March 05, 2018 11:00pm Start: 03-06-2018 take 1 capsule by mo uth once daily Nmqay-Dungp-8-Bja-Ryx-Bryiax (Krill Oil) 983-70-47-50 mg Capsule Active 1 CAP PO Daily March 06, 2018 12:00am take 1 tablet by gisela th once daily Krill Oil 350 MG 1 Tablet Orally daily Active take 1 capsule by mo uth once daily Krill Oil 350 MG Oral Capsule TAKE 1 CAP C[place]TON Daily Quantity: 0 Refills: 0 Ordered: 31-May-2021 DO Active ehmia-klqmj-5-kax-dxe-mulczy 511-86-96-50 mg capsule (1 source) take 1 capsule by mouth once daily zsjhx-aieoa-5-ehl-iwj-jekzod 071-86-09-50 mg capsule Take 1 capsule by mouth once daily. 0 Active meloxicam 15 mg oral tablet (20 sources) Nonsteroidal Anti-inflammat ory Drug [facility] t: take 1 mg [...] 2019 2:09pm take 2 tablets by mo [facility] every twenty-four hours Meloxicam 7.5 MG 2 [...] 11:00pm Start: 03-06-2018 take 1 tablet by [facility] once daily Multivitamin Active 1 TAB PO Daily March 06, 2018 12:00am Multivitamins and Minerals (5 sources) Start: 09-18-2016 take 1 tablet by [...] chest pain Start Date: 10/12/21 Status: Ordered [place] 3 (18 sources) Ker[place]on 3 Active [place] 3 Not-Taki ng omeprazole 40 mg delayed [...] 23, 2020 10:32am take 1 capsule by [facility] every other day Omeprazole 40 MG 1 [...] 12:00am tamsulosin hydrochloride 0.4 mg oral capsule (2 sources) alpha-Adrenergic Lissa Start: 05-17-2023 End: 05-11-2024 take 1 capsule by mouth once daily Flomax 0.4 mg Cap 0.4 mg = 1 cap(s), Oral, Daily, X 30 day(s), # 30 cap(s), Refills(s) 11, Pharmacy: [facility] [id number], 187, cm, 05/17/23 11:14:00 EDT, Height/Length Dosing, [...] by mouth every six hours Hydrocodone-Acetam inophen (Bison) 5-325 mg tablet Discontinued 1 TAB PO [...] [Coronary atherosclerosis of unspecified type of vessel, kaw or graft] Onset: 2 Resolved: 2 Chronic [...] or abscess without bleeding] Chronic Esophageal disorders (2 sources) Gastroesophageal reflux disease 07-18-2023 Chronic Essential hypertension [...] adjustment of urinary device] Onset: 3 Chronic Genitourinary symptoms and ill-defined conditions (20 sources) Microscopic hematuria; Translations: [Other microscopic hematuria] Onset: 3 Episodic Hemorrhoids (18 sources) Hemorrhoids; Translations: [Unspecified hemorrhoids] Episodic Hyperplasia of prostate (9 sources) Benign prostatic hypertrophy without outflow obstruction; [...] aftercare (7 sources) Patient encounter status; Translations: [termite technician (current) use of non-steroidal anti-inflammatories (NSAID)] 03-15-2021 Episodic Other aftercare (2 sources) Long-term current use of anticoagulant; Translations: [termite technician (current) use of anticoagulants] Onset: 3 Episodic Other diseases of kidney and ureters (2 sources) Acquired renal cyst without neoplastic change; Translations: [Cyst of kidney, acquired] Onset: 3 Episodic Other diseases of kidney and ureters (5 sources) Cyst of kidney 05-07-2023 Episodic Other diseases of kidney and ureters (2 sources) Hydronephrosis; Translations: [Hydronephrosis with ureteral stricture, not elsewhere classified] Onset: 4 Episodic Other disorders of stomach and duodenum [...] apnea, unspecified; Translations: [Sleep apnea, unspecified] Onset: Chronic Residual codes; unclassified (2 sources) Other [...] apnea (adult) (pediatric)] Onset: 3 Chronic Unclassified (5 sources) Finding of sensation of bladder 10-12-2019 Unclassified (3 sources) Drug therapy finding 05-07-2023 Unclassified (2 sources) Patient encounter status 05-17-2023 Viral infection (7 [...] Test Name Value Interpretation Reference Range Facility Consent for Procedure/Surger yon 09-27-2023 Consent for Procedure/Surgery [id number] IFF Normal [facility] Lab Reportson 09-27-2023 Lab Reports [id number] IFF Normal [facility] Screenson 09-27-2023 Screens [id number] IFF Normal [facility] Screens [id number] IFF Normal [facility] Ambulatory Visit Summaryon 0 09-26-2023 Ambulatory Visit Summary ERIK GARCÍA :1940 Visit Date:09/26/2023 Ambulatory Visit Instructions Your Diagnosis Hydronephrosis Kidney stones Ureteral stricture Renal cyst, left BPH with obstruction/lower urinary tract symptoms Incomplete bladder emptying Anticoagulated Your Care Team Attending Physician - Matilda Murphy MD Primary Care Physician - [facility] Quoc ()JESSE This Is Your Medications List Contact prescribing physician if questions or concerns [...] mg Cap-DR) paroxetine (paroxetine 10 mg Tab) tamsulosin (Flomax 0.4 mg Cap) valsartan (valsartan 80 mg Tab) Procedures Performed Cystoscopic removal of ureteric stent (07/22/2023), Ureteroscopy and electrohydraulic lithotripsy of calculus of ureter (07/17/2023), Ureteroscopy and electrohydraulic lithotripsy of calculus of ureter (06/19/2023), Cystoscopic removal of ureteric stent (09/15/2018), ESWL of kidney (09/10/2018), cystoscopy, retrograde, stenting and cystoscopy, lithotripsy (09/21/2016), Cystoscope (08/19/2016), colonoscopy (05/28/2010), hernia (05/28/2010), Arthroscopy of knee, Cardiac catheterization, Cataract extraction and insertion of intraocular lens, Cataract extraction and insertion of intraocular lens, Endoscopy, Sigmoidoscopy, YAG - laser. Discharge Vitals Heart Rate (Peripheral) 71 Blood Pressure 135/80 Height 187 cm Height 74 in Weight 113 kg Weight 248.6 lb BMI 32.31 What to do next You Need to Schedule the Following Appointments Follow Up with Matilda Murphy MD, URL, URO When: Where: [address], [place] [address]- [phone] Medications What How Much When Instructions Unchanged amlodipine (amLODIPine 5 mg Tab) 1 Tablets By Mouth Every day Contact prescribing physician if questions or concerns Unchanged atorvastatin 20 Milligram By Mouth Every day Contact prescribing physician if questions or concerns Unchanged clopidogrel (clopidogrel 75 mg Tab) 1 Tablets By Mouth Every day Contact prescribing physician if questions or concerns Unchanged isosorbide dinitrate (isosorbide dinitrate 30 mg oral tablet) 1 Tablets By Mouth 2 times a day Contact prescribing physician if questions or concerns Unchanged meloxicam (meloxicam 15 mg Tab) By Mouth Every day Contact prescribing physician if questions or concerns Unchanged metoprolol (Metoprolol tartrate 50 mg Tab) 1 Tablets By Mouth Every day Contact prescribing physician if questions or concerns Unchanged multivitamin with minerals (Multivitamins and Minerals) 1 tab By Mouth Every day Contact prescribing physician if questions or concerns Unchanged nitroglycerin (nitroglycerin 0.4 mg sublingual Tab) 1 Tablets Sublingual Every 5 minutes as needed for for chest pain Contact prescribing physician if questions or concerns Unchanged omega-3 polyunsaturated fatty acids (Fish Oil) By Mouth Contact prescribing physician if questions or concerns Unchanged omeprazole (omeprazole 40 mg Cap-DR) 1 Capsules By Mouth Every day Contact prescribing physician if questions or concerns Unchanged paroxetine (paroxetine 10 mg Tab) 1 Tablets By Mouth Every day Contact prescribing physician if questions or concerns Unchanged tamsulosin (Flomax 0.4 mg Cap) 1 Capsules By Mouth Every day Duration: 30 Days Contact prescribing physician if questions or concerns Unchanged valsartan (valsartan 80 mg Tab) By Mouth Every day Contact prescribing physician if questions or concerns Allergies No Known Medication Allergies Problems Ongoing - Any problem that you are currently receiving treatment for. Abdominal tenderness Anticoagulated Antiplatelet or antithrombotic long-term use BPH with obstruction/lower urinary tract symptoms CAD (coronary artery disease) Dysuria Feeling of incomplete bladder emptying Flank pain Frequent urination GERD (gastroesophageal reflux disease) Gross hematuria Hesitancy Hydronephrosis Hyperlipidemia Incomplete bladder emptying Kidney stones Microhematuria Nocturia Renal cyst Renal cyst, left Ureteral stone Ureteral stricture Urinary urgency Patient Survey You may receive a survey via text or e-mail asking about your office visit. Please share your experience with us by completing your survey. We appreciate your feedback and thank you for choosing us for your care. Normal [facility] Consent for Procedure/Surger n 09-26-2023 Consent for Procedure/Surgery [id number] IFF Normal [facility] Formson 09-26-2023 Forms [id number] IFF Normal [facility] Patient Educationon 09-26-19 24 Patient Education Urology Hydronephrosis Hydronephrosis is the swelling of one or both kidneys due to a blockage that stops urine from flowing out of the body. Kidneys filter waste from the blood and produce urine. This condition can lead to kidney failure and may become life-threatening if not treated promptly. What are the causes? In infants and children, common causes include problems that occur when a baby is developing in the womb. These can include problems in the kidneys or in the tubes that drain urine into the bladder (ureters). In adults, common causes include: ? Kidney stones. ? . ? A tumor or cyst in the abdomen or pelvis. ? An enlarged prostate gland. Other causes include: ? Bladder infection. ? Scar tissue from a previous surgery or injury. ? A blood clot. ? Cancer of the prostate, bladder, uterus, ovary, or colon. What are the signs or symptoms? Symptoms of this condition include: ? Pain or discomfort in your side (flank) or abdomen. ? Swelling in your abdomen. ? Nausea and vomiting. ? Fever. ? Pain when passing urine. ? Feelings of urgency when you need to urinate. ? Urinating more often than normal. In some cases, you may not have any symptoms. How is this diagnosed? This condition may be diagnosed based on: ? Your symptoms and medical history. ? A physical exam. ? Blood and urine tests. ? Imaging tests, such as an ultrasound, CT scan, or MRI. ? A procedure to look at your urinary tract and bladder by inserting a scope into the urethra (cystoscopy). How is this treated? Treatment for this condition depends on where the blockage is, how long it has been there, and what caused it. The goal of treatment is to remove the blockage. Treatment may include: ? Antibiotic medicines to treat or prevent infection. ? A procedure to place a small, thin tube (stent) into a blocked ureter. The stent will keep the ureter open so that urine can drain through it. ? A nonsurgical procedure that crushes kidney stones with shock waves (extracorporeal shock wave lithotripsy). ? If kidney failure occurs, treatment may include dialysis or a kidney transplant. Follow these instructions at home: ? Take qpyh-avt-rmseiqn and prescription medicines only as told by your health care provider. ? If you were prescribed an antibiotic medicine, take it exactly as told by your health care provider. Do not stop taking the antibiotic even if you start to feel better. ? Rest and return to your normal activities as told by your health care provider. Ask your health care provider what activities are safe for you. ? Drink enough fluid to keep your urine pale yellow. ? Keep all follow-up visits. This is important. Contact a health care provider if: ? You continue to have symptoms after treatment. ? You develop new symptoms. ? Your urine becomes cloudy or bloody. ? You have a fever. Get help right away if: ? You have severe flank or abdominal pain. ? You cannot drink fluids without vomiting. Summary ? Hydronephrosis is the swelling of one or both kidneys due to a blockage that stops urine from flowing out of the body. ? Hydronephrosis can lead to kidney failure and may become life-threatening if not treated promptly. ? The goal of treatment is to remove the blockage. It may include a procedure to insert a stent into a blocked ureter, a procedure to break up kidney stones, or taking antibiotic medicines. ? Follow your health care provider's instructions for taking care of yourself at home, including instructions about drinking fluids, taking medicines, and limiting activities. This information is not intended to replace advice given to you by your health care provider. Make sure you discuss any questions you have with your health care provider. Document Revised: 11/22/2020 Document Reviewed: 11/22/2020 [employer] Patient Education ? 2022 [employer]. Normal [facility] Urology Office/Clinic Noteon 09-26-2023 Urology Office/Clinic Note Chief Complaint Pt is here for 1 wk w/ DAMARI/CTU HPI Staff Follow up to stent removal 07/22/23. DAMARI 09/02/23, CTU 09/16/23 Previous DX: BPH, dysuria, feeling of incomplete bladder emptying, flank pain, frequent urination, gross hematuria, hesitancy, kidney stones, microhematuria, nocturia, ureteral stone, urinary urgency. *Tamsulosin 0.4mg qd. Dysuria: denies Incomplete bladder emptying: denies Hematuria: denies Frequency: 3x a day Urgency: denies Nocturia: 2x a night Stream: steady stream Leaking: denies Post void dripping: denies Wearing pads/ Depends: denies Urge incontinence: denies Stress incontinence: denies Incontinence without Sensory Awareness: denies Abdominal pain: denies Flank pain: denies Sexual complaints: _ History of Present Illness Tests reviewed: reviewed UA, CTU, DAMARI, stone analysis I have reviewed the previous health record information and history for this patient from Dr. Murphy. I have reviewed and verified the staff HPI to be accurate for this encounter. Review of Systems PHQ Score Initial Depression Screen Score: 0 SCORE ROS - Provider Constitutional: denies weight loss, [...] HPI. Physical Exam Vitals & Measurements HR: 71(Peripheral) BP: 135/80 HT: 74 in HT: 187 cm WT: 113 kg WT: 248.6 lb BMI: 32.31 General Appearance: alert, no distress, well nourished, well developed male. Genitourinary: Flank Pain: none. Bladder: nonpalpable. Assessment/Plan 83-year-old male with a history of recurrent nephrolithiasis prior Dr. Graf pt, here for f/u to CTU Following ureteroscopy for impacted ureteral stone for over a year. DAVID 1 (5). 1. Hydronephrosis with ureteral stricture (N13.1: Hydronephrosis with ureteral stricture, not elsewhere classified) CT AP wo con 04/27/23 [facility] - L UVJ stone 6 x 10 mm (present since 07/2022) s/p URS per #2. DAMARI 09/02/23 [facility] - Persistent L hydro CTU 09/16/23 [facility] - Persistent L hydroureteronephrosis at UVJ without definitive obstructing mass or stone. A punctate stone involving distal L ureter, dilation distal to this. 06/04/23 - Cr 1.13 08/2023 - POC Cr 1.5 Discussed imaging results. Advised pt he likely has a stricture from retained left UVJ stone for over a year causing hydronephrosis. Discussed management options including ureteral dilation with stent placement x3wks (high rate of failure) vs definitive repair with left ureteral reimplant vs chronic stent/nephrostomy tube. Pt elects to proceed with ureteral dilation with stent placement for less invasive management. Discussed possible referral to tertiary care center for definitive repair if needed or unable to be done prior to leave -Will schedule a Cystoscopy with Left Retrograde pyelogram, left ureteral dilation, left stent placement. The procedure risks, benefits, alternatives and complications have been discussed with the patient. These include but are not limited to bleeding, pain, infection, ureteral perforation, extravasation, stricture formation, sepsis, obstruction. The need for ancillary procedures such as stent placement and removal, retrograde urography, and percutaneous nephrostomy were also discussed. The patient also understood that a ureteral stent may be placed and removal of the stent is critical. Failure to follow up for stent removal can result in recurrent UTIs, encrustation of the stent, loss of kidney function and need for nephrectomy. All of their questions and concerns have been addressed. Full informed consent has been obtained. Will order General anesthesia. 2. Kidney stones (N20.0: Calculus of kidney) Same stone present since 07/2022 CT AP wo con 04/27/23 [facility] - No hydro. No ureteral dilation however, large stone at the distal L ureter just proximal to the UVJ 7 mm. Personal review: L UVJ stone 6 x 10 mm. Several bilateral renal stones. Largest on the R 11 mm and 7 mm on the L. Personal review: 9 stones in L kidney, largest 7 mm. 7 stones on the R. 11/26/22 - BUN 20. Crea 1.02. eGFR >60. Thinks he passed some small frags after ESWL. Never passed stone from Jul. S/p Cysto/L RGP/URS/laser litho/stone extraction/stent placement 06/19/23 - 2 left distal ureteral stones extracted. -Stone analysis 80% [place] Ca Ox, 20% Di Ca Ox S/p Cysto/L RGP/URS/laser litho/stone extraction/stent exchange 07/17/23 - 7 small left kidney stones extracted. - Has Cristino's plaques and angled kidneys so not all stones could be extracted. S/p Cysto/L stent removal 07/22/23. KUB 07/14/23 [facility] - Bilateral renal calculi, measuring up to 6mm on L and up to 7mm on R. L stent i (more content not included)... Normal [facility] Comment on above: Result Comment: Elec tronically Signed By: Jeffrey ORTEGA, Matilda Moraes\.br\Date and Time Signed: 09/26/23 17:19 EST\.br\Electronically Co-Signed By: Ying Brewer\.br\Date and Time Co-Signed: 09/26/23 08:44 EST RAD - CT Reporton 09-19-2023 RAD - CT Report [id number] IFF Normal [facility] COVID/FLU RT-PCRon SARS-CoV-2 (COVID-19) RNA TWILA+probe Ql (Unsp spec) Negative [facility] Other COVID/FLU RT-PCR Positive [facility] Other COVID/FLU RT-PCR Negative [facility] Other RAD - CT Reporton 09-17-2023 RAD - CT Report [id number] IFF Normal [facility] CT urogramon 09-16-2023 CT urogram [facility] [place] [address] CT Scan Report Signed Patient: Erik García MR#: [id number] : 1940 Acct:[id number] Age/Sex: 83 / M ADM Date: 09/16/23 Loc: CT Room: Type: [facility] Attending Dr: Matilda Murphy MD Copies to: [...] bowel appears nondilated. Sigmoid diverticulosis.[ Pelvis:[No lymphadenopathy.] Peritoneum/Retroperiton eum:No free air, free fluid or lymphadenopathy.[ Abd [...] be correlated with cystoscopy. Impression dictated by: Cory Shepherd Jr., D.O.09/16/2023 12:12 PM Dictation Location: [place] [address] Transcribed By: [facility] 09/16/23 1212 Dictated By: Cory Shepherd Jr, DO 09/16/23 1206 Signed By: 09/16/23 1212 Normal [facility] ISTAT XRay CREon 09-16-2023 Creatinine [Mass/Vol] 1.5 mg/dL High 0.6-1.3 [facility] Comment on above: Result Comment: ER/E SD physician is notified/shown all ISTAT results. Critical values may be confirmed by laboratory testing if deemed necessary by ER attending doctor. Performed By: #### I SCRE #### [facility] [address] [place] [address] ISTAT GFR 46.482 [facility] Comment on above: Result Comment: PERF ORMED BY: [place] [address] PATHOLOGIST LOGISTICS/SHIPPER LATONIA VASQUEZ M.D. Performed By: #### I SCRE #### [facility] [address] [place] [address] RAD - Ultrasound Reporton RAD - Ultrasound Report [id number] FF Normal [facility] US renal BIon 09-02-2023 US renal BI [facility] [place] [address] [place] [address] Ultrasound Report Signed Patient: Erik García MR#: [id number] : 1940 Acct:[id number] Age/Sex: 82 / M ADM Date: 09/02/23 Loc: Room: Type: [facility] Attending Dr: Matilda Murphy MD Ordering Provider: [...] CALCULUS. Impression dictated by: Cory Shepherd Jr., DTateOTate09/02/2023 12:01 PM Dictation Location: [place] [address] Tech: Leia [place] Transcribed By: PWS 09/02/23 1201 Dictated By: Cory Shepherd Jr, DO 09/02/23 1157 Signed By: 09/02/23 1201 [facility] Consent for Procedure/Surger yon 07-22-2023 Consent for Procedure/Surgery [id number] IFF Normal [facility] Consent for Treatmenton Consent for Treatment [id number]#1.00T IFF Normal [facility] Inpatient Patient Summaryon 07-22-2023 Inpatient Patient Summary [place] [id number] Clinical Summary Person Information Name: ERIK GARCÍA Age: 82 Years : 1940 Sex: Male PCP: JESSE GARCÍA DO Marital Status: Race: White Ethnicity: Non- or Language: Martiniquais Visit Id: Visit Reason: URETERAL STONE Speciality: Acuity: Enc Type: Outpatient Med Service: Surgery Arrival: 07/22/2023 09:24:26 Discharge: Dispo Type: Address: [address] [place] [address] [phone] Provider Notes: Diagnosis: Encounter for removal of [...] Follow up: With: Address: When: Matilda Murphy [address] [place] [phone] Business (1) Comments: Office to schedule follow up in 6-8 weeks to review renal US Type Location Start [facility] Office Visit [facility] MARNIE Olvera 10/21/2023 8:45 AM 10/21/2023 9:00 AM Confirmed Patient Education Information: EU - Cystoscopy with Stent Removal Discharge Instructions (CUSTOM) Normal [facility] IntraOperative Documentson 1 09-22-2022 IntraOperative Documents [id number]#1.00T IFF Normal [facility] Main OR Intraoperative Recor don 07-22-2023 Main OR Intraoperative Record IntraOp Document Type FTURO Summary Primary Physician: Matilda Murphy MD Finalized Date/Time: 07/22/23 10:28:07 Pt. Name: ERIK GARCÍA Kol[place] Garza/Sex: 1940 Male Med Rec #: [id number] Physician: Matilda Murphy MD Financial #: [id number] Pt. Type: O Room/Bed: / Admit/Disch: 07/22/23 09:24:26 - Institution: Case Times FTURO Entry 1 Patient Times In Room 07/22/23 10:17:00 Out Room 07/22/23 10:33:00 Procedure Times Start 07/22/23 10:25:00 Stop 07/22/23 10:28:00 Anesthesia Times Last Modified By: Shawna KIM, Pia LEDESMA 07/22/23 10:27:57 Case Attendance FTURO Entry 1 Entry 2 Entry 3 Case Attendee Jeffrey ORTEGA, Matilda Matos RN, CNOR, Mae Gil CST Role Performed Surgeon - Primary Mixer Lever Operator - Primary Scrub - Primary Time In 07/22/23 10:17:00 07/22/23 10:17:00 07/22/23 10:17:00 Time Out 07/22/23 10:33:00 07/22/23 10:33:00 07/22/23 10:33:00 Procedure CYSTOSCOPY LOCAL WITH CYSTOSCOPY LOCAL WITH CYSTOSCOPY LOCAL WITH STENT REMOVAL(Left) STENT REMOVAL(Left) STENT REMOVAL(Left) Comments Last Modified By: Shawna RN, CNOR, Shawna RN, DAYAOR, Shawna RN, Pia LEDESMA 07/22/23 Pia 07/22/23 Pia 07/22/23 10:27:58 10:27:58 [...] By: BALTAZAR Matos RN, Ruthann 07/22/23 10:28 [facility] Main OR Preoperative Recordo n 07-22-2023 Main OR Preoperative Record Holding Area Document Type FTURO Summary Primary Physician: Matilda Murphy MD Finalized Date/Time: 07/22/23 10:19:17 Pt. Name: NATYERIK/Sex: 1940 Male Med Rec #: [id number] Physician: Matilda Murphy MD Financial #: [id number] Pt. Type: O Room/Bed: / Admit/Disch: 07/22/23 [...] Complaints of Pain: No Skin Integrity Intact, [place], Warm, & Dry Vitals - EU Blood Pressure 130/71 Pulse 68 bpm Respirations 18 br/min SPO2 95 % RN Reviewed Yes Last Modified By: BALTAZAR Matos RN, Ruthann 07/22/23 10:19:15 General Comments: Temp. 36.5 Finalized By: BALTAZAR Matos RN, Ruthann Document Signatures Signed By: Haily Barrett LPN 07/22/23 09:41 BALTAZAR Matos RN, Ruthann 07/22/23 10:19 Normal [facility] Operative Reporton Operative Report Patient: ERIK GARCÍA Age: 82 years Sex: Male : 1940 Associated Diagnoses: None Author: Matilda Murphy MD Procedure Operative Information Details: Date/ Time: 07/22/2023 10:31:00. Pre-Op Dx: Encounter for removal of ureteral stent (URY90-JH Z46.6, Discharge, Medical), Kidney stones (THD58-VX N20.0, Discharge, Medical). Post-Op Dx: Same. Anesthesia [...] discuss potential treatment of right side. Normal [facility] Comment on above: Result Comment: Elec tronically Signed By: Jeffrey ORTEGA, Matilda Moraes\.br\Date and Time Signed: 07/22/23 10:37 EST Outpatient Surgery Discharge Instructionon 07-22-2023 Outpatient Surgery Discharge Instruction [place] [id number] Patient Discharge Instructions PERSON INFORMATION Name: ERIK [...] Follow up: With: Address: When: Matilda Murphy [address] [place] [address] [phone] [facility] (1) Comments: Office to schedule follow up in 6-8 weeks to review renal US Type Location Start [facility] Office Visit [facility] M[facility] Olvera 10/21/2023 8:45 AM 10/21/2023 9:00 [...] a fever over 100 degrees. I, ERIK GARCÍA, have received the attached patient education materials/instructions and have verbalized understanding: May we do a follow up call? Yes No I was present when discharge instructions were given Patient Signature Date Clinican/Nurse Signature _ Date You may receive a survey from [employer] asking you to rate your care experience. Your feedback is important and will help us understand what we do well and how we can improve the quality of care we provide to you, your loved ones and our community. It?s an honor to serve you. Thank you for choosing [facility] Normal [facility] [id number]#1.00T IFF Normal [facility] Operative Reporton Operative Report [id number]#1.00T IFF Normal [facility] Lab Reportson 07-09-2023 Lab Reports [id number]#1.00TI FF Normal [facility] Operative Reporton Operative Report [id number]#1.00T IFF Normal [facility] Patient Correspondenceon Patient Correspondence [id number] IFF Normal [facility] Cardiovascular Reporton 05-20 Cardiovascular Report [id number]#1.00T IFF Normal [facility] Lab Reportson 06-07-2023 Lab Reports [id number]#1.00T IFF Normal [facility] NUCLEAR STRESS TESTon 2022 NUCLEAR STRESS TEST Interpreted By: Summer Bejarano and Rito Grant STUDY: MYOCARDIAL PERFUSION STRESS TEST WITH LEXISCAN Performing facility: [facility], [address] [place] [address], [address], [address] Provider: Summer Bejarano MD, FACC PCP: Dr. Felicitas García Supervising provider: Summer Bejarano MD, FACC INDICATION: CAD; HTN Pre-operative risk assessment for Urology scheduled at [facility] on [facility]. HISTORY: Gender: M; Age: 82 y/o ; Height: HT 182.9 cm cm; Weight: WT 113.399 kg kg. CAD; High Cholesterol; HTN; Denies smoking. Cardiac catheterization on . COMPARISON: Previous nuclear testing completed [id number] at [facility]. ACCESSION NUMBER(S): [id number] ORDERING CLINICIAN: SUMMER BEJARANO TECHNIQUE: TWO DAY [...] Summer Bejarano 06/06/2023 10:40 AM Dictation workstation: [id number] Normal [facility] Alanine Aminotransferaseon 1 ALT [Catalytic activity/Vol] 25 U/L Normal [facility] Comment on above: Performed By: #### B MP, AST, ALT, LIPID, CBC #### [facility] [address] Alanine aminotransferase [En zymatic activity/volume] in Serum or PlasmaOrdered By: Summer Bejarano on 06-04-2023 ALT [Catalytic activity/Vol] 25 U/L [facility] Aspartate Amino Transferaseo n 06-04-2023 AST [Catalytic activity/Vol] 29 U/L Normal 13-39 [facility] Comment on above: Performed By: #### B MP, AST, ALT, LIPID, CBC #### [facility] [address] [place] [id number] [facility] Aspartate aminotransferase [ Enzymatic activity/volume] in Serum or PlasmaOrdered By: Summer Bejarano on 06-04-2023 AST [Catalytic activity/Vol] 29 U/L 13-39 [facility] Basic Metabolic Panelon 05-19 Anion gap [Moles/Vol] 10.5 mmol/L Normal 6.0-15.0 [facility] Comment on above: Performed By: #### B MP, AST, ALT, LIPID, CBC #### [facility] [address] Calcium [Mass/Vol] 8.7 mg/dL Normal 8.6-10.3 [facility] Comment on above: Performed By: #### B MP, AST, ALT, LIPID, CBC #### [facility] [address] Chloride [Moles/Vol] 106 mmol/L Normal 98-107 [facility] Comment on above: Performed By: #### B MP, AST, ALT, LIPID, CBC #### [facility] [address] CO2 [Moles/Vol] 28.1 mmol/L Normal 21.0-31.0 [facility] Comment on above: Performed By: #### B MP, AST, ALT, LIPID, CBC #### [facility] [address] Creatinine [Mass/Vol] 1.13 mg/dL Normal 0.70-1.30 [facility] Comment on above: Performed By: #### B MP, AST, ALT, LIPID, CBC #### [facility] [address] [place] [address] [place] GFR/1.73 sq M.predicted MDRD (S/P/Bld) [Vol rate/Area] mL/min/{1.73_m2} Normal [facility] Comment on above: Performed By: #### B MP, AST, ALT, LIPID, CBC #### [facility] [address] Glucose [Mass/Vol] 99 mg/dL Normal 70-100 [facility] Comment on above: Result Comment: [facility] Glucose Reference Range is dependent on time and content of last meal. Glucose of more than 200 mg/dL in a nonstressed, ambulatory subject supports the diagnosis of Diabetes Mellitus. ADA recommended reference range Performed By: #### B MP, AST, ALT, LIPID, CBC #### [facility] [address] Potassium [Moles/Vol] 4.6 mmol/L Normal 3.5-5.1 [facility] Comment on above: Performed By: #### B MP, AST, ALT, LIPID, CBC #### [facility] [address] Sodium [Moles/Vol] 140 mmol/L Normal 136-145 [facility] Comment on above: Performed By: #### B MP, AST, ALT, LIPID, CBC #### [facility] [address] Urea nitrogen [Mass/Vol] 22 mg/dL Normal 7-25 [facility] Comment on above: Performed By: #### B MP, AST, ALT, LIPID, CBC #### [facility] [address] Basophils Auto (Bld) [#/Vol] Ordered By: Summer Bejarano on 06-04-2023 Basophils (Bld) [#/Vol] 0.0 10*3/uL 0.0-0.2 [facility] Basophils/100 WBC Auto (Bld) Ordered By: Summer Bejarano on 06-04-2023 Basophils/100 WBC (Bld) 0.8 % . [facility] Calcium [Mass/volume] in Ser um or PlasmaOrdered By: Summer Bejarano on 06-04-2023 Calcium [Mass/Vol] 8.7 mg/dL 8.6-10.3 [facility] Carbon dioxide, total [Moles /volume] in Serum or PlasmaOrdered By: Summer Bejarano on 06-04-2023 CO2 [Moles/Vol] 28.1 mmol/L 21.0-31.0 [facility] Chloride [Moles/volume] in S daniel or PlasmaOrdered By: Summer Bejarano on 06-04-2023 Chloride [Moles/Vol] 106 mmol/L 98-107 [facility] Cholesterol [Mass/volume] in Serum or PlasmaOrdered By: Summer Bejarano on 06-04-2023 Cholesterol [Mass/Vol] 112 mg/dL 140-200 [facility] Comment on above: Chol less than 200 m g/dl low riskChol 201-239 mg/dl borderline riskChol 240 mg/dl and greater high risk Cholesterol in LDL Calc [Mas s/Vol]Ordered By: Summer Bejarano on 06-04-2023 Cholesterol in LDL [Mass/Vol] 49 mg/dL 0-100 [facility] Comment on above: LDL ATP III CLASSIFI CATIONLDL less than 100 mg/dL OptimalLDL 100-129 mg/dL Near or above optimalLDL 130-159 mg/dL Borderline highLDL 160-189 mg/dL HighLDL greater than 189 mg/dL Very high Cholesterol in VLDL Calc [Ma ss/Vol]Ordered By: Summer Bejarano on 06-04-2023 Cholesterol in VLDL [Mass/Vol] 20 mg/dL [facility] Complete Blood Count Auto Di ffon 06-04-2023 Basophils (Bld) [#/Vol] 0.0 10*3/uL Normal 0.0-0.2 [facility] Comment on above: Result Comment: PERF ORMED BY: [place] [address] PATHOLOGIST LOGISTICS/SHIPPER LATONIA VASQUEZ M.D. Performed By: #### B MP, AST, ALT, LIPID, CBC #### [facility] [address] [place] [address] [place] Basophils/100 WBC (Bld) 0.8 % Normal . [facility] Comment on above: Performed By: #### B MP, AST, ALT, LIPID, CBC #### [facility] [address] [place] [address] [place] Eosinophils (Bld) [#/Vol] 0.2 10*3/uL Normal 0.0-0.45 [facility] Comment on above: Performed By: #### B MP, AST, ALT, LIPID, CBC #### [facility] [address] [place] [address] [place] Eosinophils/100 WBC (Bld) 4.4 % Normal . [facility] Comment on above: Performed By: #### B MP, AST, ALT, LIPID, CBC #### [address] Erythrocyte distribution width (RBC) [Ratio] 12.7 % Normal 12.0-14.8 [facility] Comment on above: Performed By: #### B MP, AST, ALT, LIPID, CBC #### [address] Hematocrit (Bld) [Volume fraction] 39.7 % Normal 38.8-50.0 [facility] Comment on above: Performed By: #### B MP, AST, ALT, LIPID, CBC #### [address] Hemoglobin (Bld) [Mass/Vol] 13.5 g/dL Normal 13.0-17.0 [facility] Comment on above: Performed By: #### B MP, AST, ALT, LIPID, CBC #### [address] Lymphocytes (Bld) [#/Vol] 1.5 10*3/uL Normal 1.00-4.8 [facility] Comment on above: Performed By: #### B MP, AST, ALT, LIPID, CBC #### [address] Lymphocytes/100 WBC (Bld) 28.3 % Normal . [facility] Comment on above: Performed By: #### B MP, AST, ALT, LIPID, CBC #### [address] MCH (RBC) [Entitic mass] 32.7 pg Normal 27.5-35.2 [facility] Comment on above: Performed By: #### B MP, AST, ALT, LIPID, CBC #### [address] MCV (RBC) [Entitic vol] 96.5 fL Normal 83.5-101 [facility] Comment on above: Performed By: #### B MP, AST, ALT, LIPID, CBC #### [address] Mean Corpuscular HGB Conc 33.9 g/dL Normal 32.5-35.6 [facility] Comment on above: Performed By: #### B MP, AST, ALT, LIPID, CBC #### [address] Monocytes (Bld) [#/Vol] 0.5 10*3/uL Normal 0.0-0.8 [facility] Comment on above: Performed By: #### B MP, AST, ALT, LIPID, CBC #### [address] Monocytes/100 WBC (Bld) 10.1 % Normal . [facility] Comment on above: Performed By: #### B MP, AST, ALT, LIPID, CBC #### [address] Neutrophils (Bld) [#/Vol] 2.9 10*3/uL Normal 1.8-7.7 [facility] Comment on above: Performed By: #### B MP, AST, ALT, LIPID, CBC #### [address] Neutrophils/100 WBC (Bld) 56.4 % Normal . [facility] Comment on above: Performed By: #### B MP, AST, ALT, LIPID, CBC #### [address] NRBC% 0.1 /100{WBC} Normal 0-0.5 [facility] Comment on above: Performed By: #### B MP, AST, ALT, LIPID, CBC #### [address] Platelet mean volume (Bld) [Entitic vol] 9.0 fL Normal 6.6-10.1 [facility] Comment on above: Performed By: #### B MP, AST, ALT, LIPID, CBC #### [address] Platelets (Bld) [#/Vol] 140 10*3/uL Low 150-450 [facility] Comment on above: Performed By: #### B MP, AST, ALT, LIPID, CBC #### [facility] [address] RBC (Bld) [#/Vol] 4.12 10*6/uL Normal 3.90-5.60 [facility] Comment on above: Performed By: #### B MP, AST, ALT, LIPID, CBC #### [facility] [address] WBC (Bld) [#/Vol] 5.2 10*3/uL Normal 4.1-10.5 [facility] Comment on above: Performed By: #### B MP, AST, ALT, LIPID, CBC #### [facility] [address] Creatinine [Mass/volume] in Serum or PlasmaOrdered By: Summer Bejarano on 06-04-2023 Creatinine [Mass/Vol] 1.13 mg/dL 0.70-1.30 [facility] Eosinophils Auto (Bld) [#/Vo l]Ordered By: Summer Bejarano on 06-04-2023 Eosinophils (Bld) [#/Vol] 0.2 10*3/uL 0.0-0.45 [facility] Eosinophils/100 WBC Auto (Bl d)Ordered By: Summer Bejarano on 06-04-2023 Eosinophils/100 WBC (Bld) 4.4 % . [facility] Erythrocyte distribution wid th Auto (RBC) [Ratio]Ordered By: Summer Bejarano on 06-04-2023 Erythrocyte distribution width (RBC) [Ratio] 12.7 % 12.0-14.8 [facility] Glucose [Mass/volume] in Ser um or PlasmaOrdered By: Summer Bejarano on 06-04-2023 Glucose [Mass/Vol] 99 mg/dL 70-100 [facility] Comment on above: ADA recommended refe rence rangeRandom Glucose Reference Range is dependent on time and content of last meal. Glucose of more than 200 mg/dL in a nonstressed, ambulatory subject supports the diagnosis of Diabetes Mellitus. Hematocrit Auto (Bld) [Volum e fraction]Ordered By: Summer Bejarano on 06-04-2023 Hematocrit (Bld) [Volume fraction] 39.7 % 38.8-50.0 [facility] Hemoglobin [Mass/volume] in BloodOrdered By: Summer Bejarano on 06-04-2023 Hemoglobin (Bld) [Mass/Vol] 13.5 g/dL 13.0-17.0 [facility] Leukocytes [#/volume] correc charity for nucleated erythrocytes in Blood by Automated counOrdered By: Summer Bejarano on 06-04-2023 WBC corrected for nucl RBC Auto (Bld) [#/Vol] 5.2 10*3/uL 4.1-10.5 [facility] Lipid Panelon 06-04-2023 Cholesterol [Mass/Vol] 112 mg/dL Low 140-200 [facility] Comment on above: Result Comment: Chol less than 200 mg/dl low risk Chol 201-239 mg/dl borderline risk Chol 240 mg/dl and greater high risk Performed By: #### B MP, AST, ALT, LIPID, CBC #### [facility] [address] Cholesterol in HDL [Mass/Vol] 43 mg/dL Normal 23-92 [facility] Comment on above: Result Comment: HDL CHOL ATP-III CLASSIFICATION Cardiovascular Risk HDL > or equal to 60 mg/dL LOW HDL < 40 mg/dL HIGH Performed By: #### B MP, AST, ALT, LIPID, CBC #### [facility] [address] Cholesterol.total/Chol esterol in HDL [Mass ratio] 2.6 {ratio} Normal <5.0 [facility] Comment on above: Result Comment: PERF ORMED BY: [place] [address] PATHOLOGIST LOGISTICS/[employer]IPPER LATONIA VASQUEZ M.D. Performed By: #### B MP, AST, ALT, LIPID, CBC #### [facility] [address] LDL Cholesterol,Calculated 49 mg/dL Normal 0-100 [facility] Comment on above: Result Comment: LDL ATP III CLASSIFICATION LDL less than 100 mg/dL Optimal LDL 100-129 mg/dL Near or above optimal LDL 130-159 mg/dL Borderline high LDL 160-189 mg/dL High LDL greater than 189 mg/dL Very high Performed By: #### B MP, AST, ALT, LIPID, CBC #### [facility] [address] Triglyceride w/Reflex 101 mg/dL Normal 0-149 [facility] Comment on above: Result Comment: TRIG ATP III CLASSIFICATION TRIG less than 150 mg/dL Normal TRIG 150-199 mg/dL Borderline high TRIG 200-500 mg/dL High TRIG greater than 500 mg/dL Very high Standard traceable to the Center for Disease Conrtrol and Prevention (CDC) test method. Performed By: #### B MP, AST, ALT, LIPID, CBC #### [facility] [address] VLDL CHOLESTEROL 20 mg/dL Normal [facility] Comment on above: Performed By: #### B MP, AST, ALT, LIPID, CBC #### [facility] [address] Lymphocytes Auto (Bld) [#/Vo l]Ordered By: Summer Bejarano on 06-04-2023 Lymphocytes (Bld) [#/Vol] 1.5 10*3/uL 1.00-4.8 [facility] Lymphocytes/100 WBC Auto (Bl d)Ordered By: Summer Bejarano on 06-04-2023 Lymphocytes/100 WBC (Bld) 28.3 % . [facility] MCH Auto (RBC) [Entitic mass ]Ordered By: Summer Bejarano on 06-04-2023 MCH (RBC) [Entitic mass] 32.7 pg 27.5-35.2 [facility] MCHC Auto (RBC) [Mass/Vol]Or dered By: Summer Bejarano on 06-04-2023 MCHC (RBC) [Mass/Vol] 33.9 g/dL 32.5-35.6 [facility] MCV Auto (RBC) [Entitic vol] Ordered By: Summer Bejarano on 06-04-2023 MCV (RBC) [Entitic vol] 96.5 fL 83.5-101 [facility] Monocytes Auto (Bld) [#/Vol] Ordered By: Summer Bejarano on 06-04-2023 Monocytes (Bld) [#/Vol] 0.5 10*3/uL 0.0-0.8 [facility] Monocytes/100 WBC Auto (Bld) Ordered By: Summer Bejarano on 06-04-2023 Monocytes/100 WBC (Bld) 10.1 % . [facility] Neutrophils Auto (Bld) [#/Vo l]Ordered By: Summer Bejarano on 06-04-2023 Neutrophils (Bld) [#/Vol] 2.9 10*3/uL 1.8-7.7 [facility] Neutrophils/100 WBC Auto (Bl d)Ordered By: Summer Bejarano on 06-04-2023 Neutrophils/100 WBC (Bld) 56.4 % . [facility] No Panel InformationOrdered By: Summer Bejarano on 06-04-2023 Estimated GFR (CKD-EPI) > 60.0 mL/Min [facility] Creatinine Clearance (Chem N/A [facility] Nucleated erythrocytes [Pres ence] in Blood by Automated countOrdered By: Summer Bejarano on 06-04-2023 Nucleated RBC Auto Ql (Bld) 0.1 /100{WBC} 0-0.5 [facility] Platelet mean volume Auto (B ld) [Entitic vol]Ordered By: Summer Bejarano on 06-04-2023 Platelet mean volume (Bld) [Entitic vol] 9.0 fL 6.6-10.1 [facility] Platelets Auto (Bld) [#/Vol] Ordered By: Summer Bejarano on 06-04-2023 Platelets (Bld) [#/Vol] 140 10*3/uL 150-450 [facility] Potassium [Moles/volume] in Serum or PlasmaOrdered By: Summer Bejarano on 06-04-2023 Potassium [Moles/Vol] 4.6 mmol/L 3.5-5.1 [facility] RBC Auto (Bld) [#/Vol]Ordere d By: Summer Bejarano on 06-04-2023 RBC (Bld) [#/Vol] 4.12 10*6/uL 3.90-5.60 [facility] Serum or plasma anion gap de terminationOrdered By: Summer Bejarano on 06-04-2023 Anion gap [Moles/Vol] 10.5 mmol/L 6.0-15.0 [facility] Serum or plasma high density lipoprotein (HDL) cholesterol measurementOrdered By: Summer Bejarano on 06-04-2023 Cholesterol in HDL [Mass/Vol] 43 mg/dL 23- [facility] Comment on above: HDL CHOL ATP-III CLA SSIFICATION Cardiovascular RiskHDL > or equal to 60 mg/dL LOWHDL < 40 mg/dL HIGH Serum or plasma total choles terol/high density lipoprotein (HDL) cholesterol mass ratOrdered By: Summer Bejarano on 06-04-2023 Cholesterol.total/Chol esterol in HDL [Mass ratio] 2.6 {ratio} <5.0 [facility] Sodium [Moles/volume] in Ser um or PlasmaOrdered By: Summer Bejarano on 06-04-2023 Sodium [Moles/Vol] 140 mmol/L 136-145 [facility] Triglyceride [Mass/volume] i n Serum or PlasmaOrdered By: Summer Bejarano on 06-04-2023 Triglyceride [Mass/Vol] 101 mg/dL 0-149 [facility] Comment on above: TRIG ATP III CLASSIF ICATIONTRIG less than 150 mg/dL NormalTRIG 150-199 mg/dL Borderline highTRIG 200-500 mg/dL High TRIG greater than 500 mg/dL Very highStandard traceable to the Center for Disease Conrtrol and Prevention (CDC) test method. Urea nitrogen [Mass/volume] in Serum or PlasmaOrdered By: Summer Bejarano on 06-04-2023 Urea nitrogen [Mass/Vol] 22 mg/dL 7- [facility] WBC Auto (Bld) [#/Vol]Ordere d By: Summer Bejarano on 06-04-2023 WBC (Bld) [#/Vol] 5.2 10*3/uL 4.1-10.5 [facility] Reportson 05-22-2023 Lab Reports [id number]#[id number] D:127 Normal [facility] RAD - MISCon 05-22-2023 RAD - MISC [id number] D:127 Normal [facility] Formson 05-20-2023 Forms [id number] D:127 Normal [facility] Ambulatory Visit Summaryon 0 05-17-2023 Ambulatory Visit Summary ERIK GARCÍA :1940 Visit Date:05/17/2023 Ambulatory Visit Instructions Your Diagnosis Ureteral stone Kidney stones Renal cyst, left BPH with obstruction/lower urinary tract symptoms Incomplete bladder emptying Antiplatelet or antithrombotic long-term use Tests Performed Urnls Dip Stick Auto w/o Microscopy POC 69449 Your Care Team Attending Physician - Jeffrey [...] ORTEGA, Gautam Pereira Where: [facility] Patient Educationon 05-17-20 23 Patient Education [...] these instructions at home: Medicines ? Take jong-ilb-ptypdpe and prescription medicines only as told by [...] or treat constipation, such as: ? Take rkhe-cwg-lppvtgb or prescription medicines. ? Eat foods that [...] of blood in your urine. ? Take efld-caj-enkgaje and prescription medicines only as told by [...] provider. Document Revised: 04/09/2022 Document Reviewed: 04/09/2022 [employer] Patient Education ? 2022 [employer] Laser Therapy for Kidney Stones Laser [...] including vitamins, herbs, eye drops, creams, and mrls-nkk-kqrdhkd medicines. ? Any problems you or family members have had with anesthetic medicines. ? Any blood disorders you have. ? Any surgeries you have had. ? Any medical conditions you have. ? Whether you are or may be . What are the ris (more content not included)... Normal [facility] Screenson 05-17-2023 Screens [id number] CD:127 Normal [facility] Screens [id number] CD:127 Normal [facility] Urology Office/Clinic Noteon 05-17-2023 Urology Office/Clinic Note [...] since 07/2022 CT AP wo con 04/27/23 [facility] - No hydro. No ureteral dilation however, [...] of kidney) CT AP wo con 04/27/23 [facility] - Several bilateral renal stones. Largest on [...] kidney, acquired) CT AP wo con 04/27/23 [facility] - LMP hypodensity posteriorly 2.5 cm. Potential [...] 6. 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 Normal [facility] Comment on above: Result Comment: Elec tronically Signed By: Matilda Murphy MD\.jenn\Date and Time Signed: 05/17/23 16:48 EDT\.br\Electronically Co-Signed By: Nika Watson\.br\Date and Time Co-Signed: 05/17/23 11:51 EDT\.br\Electronically Co-Signed By: Nika Watson\.br\Date and Time Co-Signed: 05/17/23 11:52 EDT RAD - CT Reporton 04-30-2023 RAD - CT Report [id number] :127 Normal [facility] CT abdomen pelvis wo conon 0 04-27-2023 CT abdomen pelvis wo con [facility] [place] [address] CT Scan Report Signed Patient: Erik García MR#: [id number] : 1940 Acct:[id number] Age/Sex: 82 / M ADM Date: 04/27/23 Loc: CT Room: Type: [facility] Attending Dr: Deirdre Bernstein PA-C Copies to: [...] Jossie Pineda M.D.04/27/2023 12:33 PM Dictation Location: [place] [address] Transcribed By: [facility] 04/27/23 1233 Dictated By: Jossie Pineda MD 04/27/23 1225 Signed By: 04/27/23 1233 [facility] Ambulatory Visit Summaryon 0 04-25-2023 Ambulatory Visit Summary ERIK GARCÍA :1940 Visit Date:04/25/2023 Ambulatory Visit Instructions Your Diagnosis Gross hematuria BPH (benign prostatic hyperplasia) Kidney stones Ureteral stone Tests Performed Urnls Dip Stick Auto w/o Microscopy POC 70279 CT Abdomen/Pelvis w/o Contrast -- Results Pending [...] ORTEGA, Gautam Pereira Where: [facility] Patient Educationon 04-25-20 Patient Education Nephrology Dietary [...] ? 8 oz (237 mL) of milk, uyufbyy-zslwvfqfdxlb-vl iry milk, and calcium-fortifiedfruit juice. Calcium-fortified means that [...] Spinach (cooked), rhubarb, beets, sweet potatoes, and Uzbek chard. ? Peanuts. ? Potato chips, trinidadian fries, and baked potatoes with skin on. ? Nuts and nut products. ? Chocolate. ? If you regularly take a diuretic medicine, make sure to eat at least 1 or 2 servings of fruits or vegetables that are high in potassium each day. These include: ? Avocado. ? Banana. ? Napoleon, prune, carrot, or tomato juice. ? Baked [...] fish oil, or vitamin B6. ? Take jtsb-vvc-vylyfot and prescription medicines only as told by your health care provider. These include supplements. What foods should I limit? Limit your in (more content not included)... Normal [facility] Urology Office/Clinic Noteon 04-25-2023 Urology [...] to be some clots occasionally. No difficulty voiding/straining/hesit giacomo. Advised pt that this may be a [...] stat, pt will get this done at [facility]. -Hold off the Plavix. -Increase Fluid Intake. [...] understanding. Follow-up With When Contact Information DEIRDRE BERNSTEIN PA-C, URL [address] [place] [address] Additional Instructions: We will call pt. Patient Education Dietary Guidelines to Help Prevent Kidney Stones Rhiannon Haji, personally scribed for Deirdre Bernstein PA-C on 04/25/2023 13:44:15. . Documentation recorded by the scribe Rhiannon Montoya accurately reflects the services(s) I performed [...] Oral, Ena (more content not included)... Normal [facility] Comment on above: Result Comment: Elec tronically [...] KUB order PROVIDER RELATED REMINDER:_ ( ) Blood Bank Business Manager ( ) Call Pharmacy ( ) Call Lab ( ) Other: Special Instructions:_ Comments:_ Normal [facility] Office Visit (Cardiology)on 11-28-2022 Follow-up [...] Weight Tips; Status:Complete - Retrospective Authorization; Done: 28Nov2022 Some eating tips that can help you lose weight.; Status:Complete - Retrospective Authorization; Done: 28Nov2022 Essential hypertension, benign Renew: Metoprolol Succinate ER 50 MG Oral Tablet Extended Release 24 Hour; Take 1 tablet once daily SocHx: Never a smoker Tobacco Use Screening; Status:Complete; Done: 28Nov2022 Patient Instructions Please bring all medicines, vitamins, [...] effect of the device. Summer Bejarano MD, [facility] Surgical History Problems History of Cardiac catheterization History of Cataract surgery History of Complete colonoscopy Managed By: Dana ORTEGA, (Gastroenterology) History of Endoscopy History of Hernia [...] use Rev (more content not included)... Normal [facility] Tobacco Screening.on 023 Adult depression screening assessment No [facility] [address] DO Work Phone: Fall risk assessment a) No falls within the last year [facility] [address] DO Work Phone: Tobacco use status CPHS b) No [facility] [address] DO Work Phone: Basic Metabolic Panelon 11-17 Anion gap [Moles/Vol] 10.0 mmol/L Normal 6.0-15.0 [facility] Comment on above: Order Comment: FASTI NG. JKW Performed By: #### C BC, BMP ####[place] [address] [place] [address] [facility] Calcium [Mass/Vol] 8.8 mg/dL Normal 8.6-10.3 [facility] Comment on above: Order Comment: FASTI NG. JKW Result Comment: PERF ORMED BY: [facility] [address] [place] [address] PATHOLOGIST LOGISTICS/SHIPPER LATONIA VASQUEZ M.D. Performed By: #### C BC, BMP ####[facility] [address] [place] [address] [place] Chloride [Moles/Vol] 107 mmol/L Normal 98-107 [facility] Comment on above: Order Comment: FASTI NG. JKW Performed By: #### C BC, BMP ####[facility] [address] [place] [address] [place] CO2 [Moles/Vol] 29.1 mmol/L Normal 21.0-31.0 [facility] Comment on above: Order Comment: FASTI NG. JKW Performed By: #### C BC, BMP ####[place] [place] [address] [facility] Creatinine [Mass/Vol] 1.02 mg/dL Normal 0.70-1.30 [facility] Comment on above: Order Comment: FASTI NG. JKW Performed By: #### C BC, BMP ####[address] [address] [place] GFR/1.73 sq M.predicted MDRD (S/P/Bld) [Vol rate/Area] mL/min/{1.73_m2} Normal [facility] Comment on above: Order Comment: FASTI NG. JKW Performed By: #### C BC, BMP ####[address] [address] [facility] Glucose [Mass/Vol] 98 mg/dL Normal 70-100 [facility] Comment on above: Order Comment: FASTI NG. JKW Result Comment: [facility] Glucose Reference Range is dependent on time and content of last meal. Glucose of more than 200 mg/dL in a nonstressed, ambulatory subject supports the diagnosis of Diabetes Mellitus. ADA recommended reference range Performed By: #### C BC, BMP ####[address] [address] [facility] Potassium [Moles/Vol] 4.1 mmol/L Normal 3.5-5.1 [facility] Comment on above: Order Comment: FASTI NG. JKW Performed By: #### C BC, BMP ####[address] [address] [place] Sodium [Moles/Vol] 142 mmol/L Normal 136-145 [facility] Comment on above: Order Comment: FASTI NG. JKW Performed By: #### C BC, BMP ####[address] [address] [facility] Urea nitrogen [Mass/Vol] 20 mg/dL Normal 7-25 [facility] Comment on above: Order Comment: FASTI NG. JKW Performed By: #### C BC, BMP ####[facility] [place] [id number] [place] Basophils Auto (Bld) [#/Vol] Ordered By: Summer Bejarano on 11-26-2022 Basophils (Bld) [#/Vol] 0.0 10*3/uL 0.0-0.2 [facility] Basophils/100 WBC Auto (Bld) Ordered By: Summer Bejarano on 11-26-2022 Basophils/100 WBC (Bld) 0.6 % . [facility] Calcium [Mass/volume] in Ser um or PlasmaOrdered By: Wheeler Bejarano on 11-26-2022 Calcium [Mass/Vol] 8.8 mg/dL 8.6-10.3 [facility] Carbon dioxide, total [Moles /volume] in Serum or PlasmaOrdered By: Wheeler [facility] on 11-26-2022 CO2 [Moles/Vol] 29.1 mmol/L 21.0-31.0 [facility] Chloride [Moles/volume] in S daniel or PlasmaOrdered By: Wheeler [facility] on 11-26-2022 Chloride [Moles/Vol] 107 mmol/L 98-107 [facility] Complete Blood Count Auto Di ffon 11-26-2022 Basophils (Bld) [#/Vol] 0.0 10*3/uL Normal 0.0-0.2 [facility] Comment on above: Order Comment: FASTRaissa NelsonKW Result Comment: PERF ORMED BY: [facility] [address] [place] [address] PATHOLOGIST LOGISTICS/SHIPPER LATONIA VASQUEZ M.D. Performed By: #### C LING, BMP ####[facility] Basophils/100 WBC (Bld) 0.6 % Normal . [facility] Comment on above: Order Comment: ALLIE NelsonKW Performed By: #### C BC, BMP ####[facility] [place] [id number] [place] Eosinophils (Bld) [#/Vol] 0.2 10*3/uL Normal 0.0-0.45 [facility] Comment on above: Order Comment: FASTI NG. JKW Performed By: #### C BC, BMP ####[address] Eosinophils/100 WBC (Bld) 4.6 % Normal . [facility] Comment on above: Order Comment: FASTI NG. JKW Performed By: #### C BC, BMP ####[address] Erythrocyte distribution width (RBC) [Ratio] 13.6 % Normal 12.0-14.8 [facility] Comment on above: Order Comment: FASTI NG. JKW Performed By: #### C BC, BMP ####[address] Hematocrit (Bld) [Volume fraction] 41.8 % Normal 38.8-50.0 [facility] Comment on above: Order Comment: FASTI NG. JKW Performed By: #### C BC, BMP ####[address] Hemoglobin (Bld) [Mass/Vol] 14.3 g/dL Normal 13.0-17.0 [facility] Comment on above: Order Comment: FASTI NG. JKW Performed By: #### C BC, BMP ####[address] Lymphocytes (Bld) [#/Vol] 1.5 10*3/uL Normal 1.00-4.8 [facility] Comment on above: Order Comment: FASTI NG. JKW Performed By: #### C BC, BMP ####[address] Lymphocytes/100 WBC (Bld) 30.6 % Normal . [facility] Comment on above: Order Comment: FASTI NG. JKW Performed By: #### C BC, BMP ####[address] MCH (RBC) [Entitic mass] 32.9 pg Normal 27.5-35.2 [facility] Comment on above: Order Comment: FASTI NG. JKW Performed By: #### C BC, BMP ####[address] MCV (RBC) [Entitic vol] 96.1 fL Normal 83.5-101 [facility] Comment on above: Order Comment: FASTI NG. JKW Performed By: #### C BC, BMP ####[address] Mean Corpuscular HGB Conc 34.2 g/dL Normal 32.5-35.6 [facility] Comment on above: Order Comment: FASTI NG. JKW Performed By: #### C BC, BMP ####[address] Monocytes (Bld) [#/Vol] 0.5 10*3/uL Normal 0.0-0.8 [facility] Comment on above: Order Comment: FASTI NG. JKW Performed By: #### C BC, BMP ####[address] Monocytes/100 WBC (Bld) 9.7 % Normal . [facility] Comment on above: Order Comment: FASTI NG. JKW Performed By: #### C BC, BMP ####[address] Neutrophils (Bld) [#/Vol] 2.7 10*3/uL Normal 1.8-7.7 [facility] Comment on above: Order Comment: FASTI NG. JKW Performed By: #### C BC, BMP ####[address] Neutrophils/100 WBC (Bld) 54.5 % Normal . [facility] Comment on above: Order Comment: FASTI NG. JKW Performed By: #### C BC, BMP ####[place] [address] [place] NRBC% 0.1 /100{WBC} Normal 0-0.5 [facility] Comment on above: Order Comment: FASTI NG. JKW Performed By: #### C LING, BMP ####[address] Platelet mean volume (Bld) [Entitic vol] 8.7 fL Normal 6.6-10.1 [facility] Comment on above: Order Comment: FASTI NG. JKW Performed By: #### C LING, BMP ####[address] Platelets (Bld) [#/Vol] 143 10*3/uL Low 150-450 [facility] Comment on above: Order Comment: FASTI NG. JKW Performed By: #### C LING, BMP ####[address] RBC (Bld) [#/Vol] 4.35 10*6/uL Normal 3.90-5.60 [facility] Comment on above: Order Comment: FASTI NG. JKW Performed By: #### C LING, BMP ####[address] WBC (Bld) [#/Vol] 5.0 10*3/uL Normal 4.1-10.5 [facility] Comment on above: Order Comment: FASTI NG. JKW Performed By: #### Lissa DUBON, BMP ####[address] Creatinine [Mass/volume] in Serum or PlasmaOrdered By: Summer Bejarano on 11-26-2022 Creatinine [Mass/Vol] 1.02 mg/dL 0.70-1.30 [facility] Eosinophils Auto (Bld) [#/Vo l]Ordered By: Summer Bejarano on 11-26-2022 Eosinophils (Bld) [#/Vol] 0.2 10*3/uL 0.0-0.45 [facility] Eosinophils/100 WBC Auto (Bl d)Ordered By: Summer Bejarano on 11-26-2022 Eosinophils/100 WBC (Bld) 4.6 % . [facility] Erythrocyte distribution wid th Auto (RBC) [Ratio]Ordered By: Summer Bejarano on 11-26-2022 Erythrocyte distribution width (RBC) [Ratio] 13.6 % 12.0-14.8 [facility] Glucose [Mass/volume] in Ser um or PlasmaOrdered By: Summer Bejarano on 11-26-2022 Glucose [Mass/Vol] 98 mg/dL 70-100 [facility] Comment on above: ADA recommended refe rence rangeRandom Glucose Reference Range is dependent on time and content of last meal. Glucose of more than 200 mg/dL in a nonstressed, ambulatory subject supports the diagnosis of Diabetes Mellitus. Hematocrit Auto (Bld) [Volum e fraction]Ordered By: Summer Bejarano on 11-26-2022 Hematocrit (Bld) [Volume fraction] 41.8 % 38.8-50.0 [facility] Hemoglobin [Mass/volume] in BloodOrdered By: Summer Bejarano on 11-26-2022 Hemoglobin (Bld) [Mass/Vol] 14.3 g/dL 13.0-17.0 [facility] Leukocytes [#/volume] correc charity for nucleated erythrocytes in Blood by Automated counOrdered By: Summer Bejarano on 11-26-2022 WBC corrected for nucl RBC Auto (Bld) [#/Vol] 5.0 10*3/uL 4.1-10.5 [facility] Lymphocytes Auto (Bld) [#/Vo l]Ordered By: Summer Bejarano on 11-26-2022 Lymphocytes (Bld) [#/Vol] 1.5 10*3/uL 1.00-4.8 [facility] Lymphocytes/100 WBC Auto (Bl d)Ordered By: Summer Bejarano on 11-26-2022 Lymphocytes/100 WBC (Bld) 30.6 % . [facility] MCH Auto (RBC) [Entitic mass ]Ordered By: Summer Bejarano on 11-26-2022 MCH (RBC) [Entitic mass] 32.9 pg 27.5-35.2 [facility] MCHC Auto (RBC) [Mass/Vol]Or dered By: Summer Bejarano on 11-26-2022 MCHC (RBC) [Mass/Vol] 34.2 g/dL 32.5-35.6 [facility] MCV Auto (RBC) [Entitic vol] Ordered By: Summer Bejarano on 11-26-2022 MCV (RBC) [Entitic vol] 96.1 fL 83.5-101 [facility] Monocytes Auto (Bld) [#/Vol] Ordered By: Summer Bejarano on 11-26-2022 Monocytes (Bld) [#/Vol] 0.5 10*3/uL 0.0-0.8 [facility] Monocytes/100 WBC Auto (Bld) Ordered By: Summer Bejarano on 11-26-2022 Monocytes/100 WBC (Bld) 9.7 % . [facility] Neutrophils Auto (Bld) [#/Vo l]Ordered By: Summer Bejarano on 11-26-2022 Neutrophils (Bld) [#/Vol] 2.7 10*3/uL 1.8-7.7 [facility] Neutrophils/100 WBC Auto (Bl d)Ordered By: Summer Bejarano on 11-26-2022 Neutrophils/100 WBC (Bld) 54.5 % . [facility] No Panel InformationOrdered By: Summer Bejarano on 11-26-2022 Estimated GFR (CKD-EPI) > 60.0 mL/Min [facility] Pharmacy Creatinine Clearance (Chem N/A [facility] No Panel Informationon 11-26 54.5\S\54.5 Normal . -[facility] [facility] [address] DO Work Phone: 8.7\S\8.7 Normal 6.6-10.1 -[facility] [address] DO Work Phone: 143\S\143 below low threshold 150-450 [facility] [address] DO Work Phone: 13.6\S\13.6 Normal 12.0-14.8 [facility] [address] DO Work Phone: 34.2\S\34.2 Normal 32.5-35.6 [facility] [address] DO Work Phone: [phone] 32.9\S\32.9 Normal 27.5-35.2 [facility] [address] DO Work Phone: [phone] 2.7\S\2.7 Normal 1.8-7.7 [facility] [address] DO Work Phone: 0.1\S\0.1 Normal 0-0.5 [facility] [address] DO Work Phone: [phone] 0.6\S\0.6 Normal . [facility] [address] DO Work Phone: [phone] 4.6\S\4.6 Normal . [facility] [address] DO Work Phone: [phone] 9.7\S\9.7 Normal . [facility] [address] DO Work Phone: [phone] 30.6\S\30.6 Normal . [facility] [address] DO Work Phone: [phone] 0.0\S\0.0 Normal 0.0-0.2 [facility] [address] DO Work Phone: [phone] Comment on above: PERFORMED BY:[facility] [place] [id number] MEDICAL DIRECTORLATONIA VASQUEZ M.D. 0.2\S\0.2 Normal 0.0-0.45 [facility] [address] DO Work Phone: [phone] 0.5\S\0.5 Normal 0.0-0.8 [facility] [address] DO Work Phone: [phone] 1.5\S\1.5 Normal 1.00-4.8 [facility] [address] DO Work Phone: 96.1\S\96.1 Normal 83.5-101 [facility] [address] DO Work Phone: 41.8\S\41.8 Normal 38.8-50.0 [facility] [address] DO Work Phone: [phone] 14.3\S\14.3 Normal 13.0-17.0 [facility] [address] DO Work Phone: 4.35\S\4.35 Normal 3.90-5.60 [facility] [address] DO Work Phone: 5.0\S\5.0 Normal 4.1-10.5 [facility] [address] DO Work Phone: [phone] > 60.0 Normal [facility] [address] DO Work Phone: [phone] 10.0\S\10.0 Normal 6.0-15.0 [facility] [address] DO Work Phone: [phone] 8.8\S\8.8 Normal 8.6-10.3 [facility] [address] DO Work Phone: [phone] Comment on above: PERFORMED BY:[place] [address] [place], [place] [phone] MEDICAL DIRECTORLATONIA VASQUEZ M.D. 29.1\S\29.1 Normal 21.0-31.0 [facility] [address] DO Work Phone: [phone] 107\S\107 Normal 98-107 [facility] [address] DO Work Phone: 4.1\S\4.1 Normal 3.5-5.1 [facility] [address] DO Work Phone: [phone] 142\S\142 Normal 136-145 [facility] [address] DO Work Phone: 1.02\S\1.02 Normal 0.70-1.30 -[facility] [address] DO Work Phone: 20\S\20 Normal 7-25 [facility] [address] DO Work Phone: 98\S\98 Normal 70-100 -[facility] [address] DO Work Phone: Comment on above: [...] RBC Auto Ql (Bld) 0.1 /100{WBC} 0-0.5 [facility] Platelet mean volume Auto (B ld) [Entitic vol]Ordered By: Summer Bejarano on 11-26-2022 Platelet mean volume (Bld) [Entitic vol] 8.7 fL 6.6-10.1 [facility] Platelets Auto (Bld) [#/Vol] Ordered By: Summer Bejarano on 11-26-2022 Platelets (Bld) [#/Vol] 143 10*3/uL 150-450 [facility] Potassium [Moles/volume] in Serum or PlasmaOrdered By: Summer Bejarano on 11-26-2022 Potassium [Moles/Vol] 4.1 mmol/L 3.5-5.1 [facility] RBC Auto (Bld) [#/Vol]Ordere d By: Summer Bejarano on 11-26-2022 RBC (Bld) [#/Vol] 4.35 10*6/uL 3.90-5.60 [facility] Serum or plasma anion gap de terminationOrdered By: Summer Bejarano on 11-26-2022 Anion gap [Moles/Vol] 10.0 mmol/L 6.0-15.0 [facility] Sodium [Moles/volume] in Ser um or PlasmaOrdered By: Summer Bejarano on 11-26-2022 Sodium [Moles/Vol] 142 mmol/L 136-145 [facility] Urea nitrogen [Mass/volume] in Serum or PlasmaOrdered By: Summer Bejarano on 11-26-2022 Urea nitrogen [Mass/Vol] 20 mg/dL 7-25 [facility] WBC Auto (Bld) [#/Vol]Ordere d By: Summer Bejarano on 11-26-2022 WBC (Bld) [#/Vol] 5.0 10*3/uL 4.1-10.5 [facility] Screenson 10-16-2022 Screens [id number] CD:[address] [facility] Ambulatory Visit Summaryon 0 10-15-2022 Ambulatory Visit Summary ERIK GARCÍA [place] :1940 Visit Date:10/15/2022 Ambulatory Visit Instructions Your Diagnosis BPH (benign prostatic hyperplasia) Kidney stone Microhematuria Ureteral stone Tests Performed Urnls Dip Stick Auto w/o Microscopy POC 07247 XR Abdomen 1 View -- Results Pending [...] ORTEGA, Gopal Lopez Where: [facility] Patient Educationon 10-15-19 23 Patient Education Urology [...] Rhubarb. ? Beets. ? Potato chips and trinidadian fries. ? Nuts. ? If you regularly take a diuretic medicine, make sure to eat at least 1?2 fruits or vegetables high in potassium each day. These include: ? Avocado. ? Banana. ? Napoleon, prune, carrot, or tomato juice. ? Baked [...] dr (more content not included)... Normal [facility] Urology Office/Clinic Noteon 10-15-2022 Urology Office/Clinic Note [...] staff HPI to be accurate for this encounter.Homar I have reviewed the previous health record [...] the left lower quadrant pain back before [place] actually July family doctor got the CAT [...] is on (more content not included)... Normal [facility] Comment on above: Result Comment: Elec tronically Signed By: Gopal GRAF MD\.br\Date and Time Signed: 10/15/22 09:20 EST\.br\Electronically Co-Signed By: Carmen Mathew\.br\Date and Time Co-Signed: 10/15/22 09:07 EST Lab Report[facility] 10-09-2022 Lab Reports [id number] D:127 Normal [facility] Albumin [Mass/volume] in Ser um or PlasmaOrdered By: Jesse Mast on 10-08-2022 Albumin [Mass/Vol] 3.8 g/dL 3.2-5.5 [facility] Basophils Auto (Bld) [#/Vol] Ordered By: Jesse Mast on 10-08-2022 Basophils (Bld) [#/Vol] 0.0 10*3/uL 0.0-0.2 [facility] Basophils/100 WBC Auto (Bld) Ordered By: Jesse Mast on 10-08-2022 Basophils/100 WBC (Bld) 0.4 % . [facility] Bilirubin.total [Mass/volume ] in Serum or PlasmaOrdered By: Jesse Mast on 10-08-2022 Bilirubin [Mass/Vol] 1.0 mg/dL 0.3-1.2 [facility] Calcium [Mass/volume] in Ser um or PlasmaOrdered By: Jesse Mast on 10-08-2022 Calcium [Mass/Vol] 8.8 mg/dL 8.2-10.2 [facility] Carbon dioxide, total [Moles /volume] in Serum or PlasmaOrdered By: Jesse Mast on 10-08-2022 CO2 [Moles/Vol] 27.4 mmol/L 22.0-30.0 [facility] Cholesterol in LDL Calc [Mas s/Vol]Ordered By: Jesse Mast on 10-08-2022 Cholesterol in LDL [Mass/Vol] 54 mg/dL 0-100 [facility] Comment on above: LDL ATP III CLASSIFI CATIONLDL less than 100 mg/dL OptimalLDL 100-129 mg/dL Near or above optimalLDL 130-159 mg/dL Borderline highLDL 160-189 mg/dL HighLDL greater than 189 mg/dL Very high Cholesterol in VLDL Calc [Ma ss/Vol]Ordered By: Jesse García on 10-08-2022 Cholesterol in VLDL [Mass/Vol] 11 mg/dL [facility] Complete Blood Count Auto Di ffon 10-08-2022 Basophils (Bld) [#/Vol] 0.542000123 10*3/uL Normal 0.0-0.2 10*3/uL [facility] Other Basophils/100 WBC (Bld) 0.400 % . % [facility] Other Eosinophils (Bld) [#/Vol] 0.400613516 10*3/uL Normal 0.0-0.45 10*3/uL [facility] Other Eosinophils/100 WBC (Bld) 0.800 % . % [facility] Other Erythrocyte distribution width (RBC) [Ratio] 12.400 % Normal 12.0-14.8 % [facility] Other Hematocrit (Bld) [Volume fraction] 43.200 % Normal 38.8-50.0 % [facility] Other Hemoglobin (Bld) [Mass/Vol] 14.927319 g/dL Normal 13.0-17.0 g/dL [facility] Other Lymphocytes (Bld) [#/Vol] 1.986436646 10*3/uL Normal 1.00-4.8 10*3/uL [facility] Other Lymphocytes/100 WBC (Bld) 19.400 % . % [facility] Other MCH (RBC) [Entitic mass] 32.2000 pg Normal 27.5-35.2 pg [facility] Other MCV (RBC) [Entitic vol] 95.2000 fL Normal 83.5-101 fL [facility] Other Monocytes (Bld) [#/Vol] 0.632201081 10*3/uL Normal 0.0-0.8 10*3/uL [facility] Other Monocytes/100 WBC (Bld) 9.100 % . % [facility] Other Neutrophils (Bld) [#/Vol] 6.275389930 10*3/uL Normal 1.8-7.7 10*3/uL [facility] Other Neutrophils/100 WBC (Bld) 70.300 % . % [facility] Other Platelet mean volume (Bld) [Entitic vol] 9.4000 fL Normal 6.6-10.1 fL [facility] Other WBC (Bld) [#/Vol] 9.871158168 10*3/uL Normal 4.1 -10.5 10*3/uL [facility] Other Complete Blood Count Auto Diff 9.3 10*3/uL Normal 4.1-10.5 10*3/uL [facility] Other Complete Blood Count Auto Diff 33.8 g/dL Normal 32.5-35.6 g/dL [facility] Other Complete Blood Count Auto Diff 0.1 /100{WBC} Normal 0-0.5 /100{WBC} [facility] Other Basophils (Bld) [#/Vol] 0.0 10*3/uL Normal 0.0-0.2 [facility] Comment on above: Order Comment: Reaso n for Exam Hypertension Result Comment: PERF ORMED BY: [facility] [address] [place] [address] PATHOLOGIST LOGISTICS/SHIPPER LATONIA VASQUEZ M.D. Performed By: #### C BC, CMP, LIPID ####[facility] [id number] [place] [address] [facility] Basophils/100 WBC (Bld) 0.4 % Normal . [facility] Comment on above: Order Comment: Reaso n for Exam Hypertension Performed By: #### C BC, CMP, LIPID ####[place] [id number] [facility] Eosinophils (Bld) [#/Vol] 0.1 10*3/uL Normal 0.0-0.45 [facility] Comment on above: Order Comment: Reaso n for Exam Hypertension Performed By: #### C BC, CMP, LIPID ####[place] [id number] [facility] Eosinophils/100 WBC (Bld) 0.8 % Normal . [facility] Comment on above: Order Comment: Reaso n for Exam Hypertension Performed By: #### C BC, CMP, LIPID ####[place] [id number] [facility] Erythrocyte distribution width (RBC) [Ratio] 12.4 % Normal 12.0-14.8 [facility] Comment on above: Order Comment: Reaso n for Exam Hypertension Performed By: #### C BC, CMP, LIPID ####[place] [id number] [facility] Hematocrit (Bld) [Volume fraction] 43.2 % Normal 38.8-50.0 [facility] Comment on above: Order Comment: Reaso n for Exam Hypertension Performed By: #### C BC, CMP, LIPID ####[place] [id number] [facility] Hemoglobin (Bld) [Mass/Vol] 14.6 g/dL Normal 13.0-17.0 [facility] Comment on above: Order Comment: Reaso n for Exam Hypertension Performed By: #### C BC, CMP, LIPID ####[place] [id number] [place] Lymphocytes (Bld) [#/Vol] 1.8 10*3/uL Normal 1.00-4.8 [facility] Comment on above: Order Comment: Reaso n for Exam Hypertension Performed By: #### C BC, CMP, LIPID ####[place] [address] [facility] Lymphocytes/100 WBC (Bld) 19.4 % Normal . [facility] Comment on above: Order Comment: Reaso n for Exam Hypertension Performed By: #### C BC, CMP, LIPID ####[place] [id number] [facility] MCH (RBC) [Entitic mass] 32.2 pg Normal 27.5-35.2 [facility] Comment on above: Order Comment: Reaso n for Exam Hypertension Performed By: #### C BC, CMP, LIPID ####[place] [id number] [facility] MCV (RBC) [Entitic vol] 95.2 fL Normal 83.5-101 [facility] Comment on above: Order Comment: Reaso n for Exam Hypertension Performed By: #### C BC, CMP, LIPID ####[address] Mean Corpuscular HGB Conc 33.8 g/dL Normal 32.5-35.6 [facility] Comment on above: Order Comment: Reaso n for Exam Hypertension Performed By: #### C BC, CMP, LIPID ####[place] [id number] [facility] Monocytes (Bld) [#/Vol] 0.8 10*3/uL Normal 0.0-0.8 [facility] Comment on above: Order Comment: Reaso n for Exam Hypertension Performed By: #### C BC, CMP, LIPID ####[place] [id number] [facility] Monocytes/100 WBC (Bld) 9.1 % Normal . [facility] Comment on above: Order Comment: Reaso n for Exam Hypertension Performed By: #### C BC, CMP, LIPID ####[place] [id number] [facility] Neutrophils (Bld) [#/Vol] 6.5 10*3/uL Normal 1.8-7.7 [facility] Comment on above: Order Comment: Reaso n for Exam Hypertension Performed By: #### C BC, CMP, LIPID ####[address] [address] [facility] Neutrophils/100 WBC (Bld) 70.3 % Normal . [facility] Comment on above: Order Comment: Reaso n for Exam Hypertension Performed By: #### C BC, CMP, LIPID ####[place] [id number] [place] [address] [facility] NRBC% 0.1 /100{WBC} Normal 0-0.5 [facility] Comment on above: Order Comment: Reaso n for Exam Hypertension Performed By: #### C BC, CMP, LIPID ####[place] [id number] [facility] Platelet mean volume (Bld) [Entitic vol] 9.4 fL Normal 6.6-10.1 [facility] Comment on above: Order Comment: Reaso n for Exam Hypertension Performed By: #### C BC, CMP, LIPID ####[place] [id number] [facility] WBC (Bld) [#/Vol] 9.3 10*3/uL Normal 4.1-10.5 [facility] Comment on above: Order Comment: Reaso n for Exam Hypertension Performed By: #### C BC, CMP, LIPID ####[place] [id number] [facility] Complete Blood Count Auto Di ffOrdered By: Jesse García on 10-08-2022 Platelets (Bld) [#/Vol] 156 10*3/uL Normal 150-450 [facility] Comment on above: Order Comment: Reaso n for Exam Hypertension Performed By: #### C BC, CMP, LIPID ####[address] [address] [facility] RBC (Bld) [#/Vol] 4.53 10*6/uL Normal 3.90-5.60 [facility] Comment on above: Order Comment: Reaso n for Exam Hypertension Performed By: #### C BC, CMP, LIPID ####[address] [address] [facility] Comprehensive Metabolic Pane trav 10-08-2022 Albumin [Mass/Vol] 3.095812 g/dL Normal 3.2-5.5 g/dL [facility] Other Bilirubin [Mass/Vol] 1.5687224 mg/dL Normal 0.3- 1.2 mg/dL [facility] Other Calcium [Mass/Vol] 8.6532346 mg/dL Normal 8.2-10 .2 mg/dL [facility] Other CO2 [Moles/Vol] 27.92556876 mmol/L Normal 22.0-3 0.0 mmol/L [facility] Other Creatinine [Mass/Vol] 1.48855530 mg/dL Normal 0. 64-1.27 mg/dL [facility] Other Potassium [Moles/Vol] 4.03061287 mmol/L Normal 3 .5-5.1 mmol/L [facility] Other Protein [Mass/Vol] 6.301061 g/dL Low 6.1-7.9 g/dL [facility] Other Comprehensive Metabolic Panel 60 [facility] Other Comprehensive Metabolic Panel > 60 [facility] Other Comprehensive Metabolic Panel 2.2 g/dL [facility] Other Albumin [Mass/Vol] 3.8 g/dL Normal 3.2-5.5 [facility] Comment on above: Order Comment: Reaso n for Exam Hypertension Reason for Exam Hyperlipidemia Performed By: #### C BC, CMP, LIPID ####[facility] [id number] [place] [address] [facility] ALT [Catalytic activity/Vol] 23 U/L Normal 10-60 [facility] [employer] Other Comment on above: Order Comment: Reaso n for Exam Hypertension Reason for Exam Hyperlipidemia Performed By: #### C BC, CMP, LIPID ####[facility] [id number] [place] [address] [facility] Anion gap [Moles/Vol] 9.9 mmol/L Normal 6.0-15.0 [facility] Comment on above: Order Comment: Reaso n for Exam Hypertension Reason for Exam Hyperlipidemia Performed By: #### C BC, CMP, LIPID ####[address] [address] [facility] Bilirubin [Mass/Vol] 1.0 mg/dL Normal 0.3-1.2 [facility] Comment on above: Order Comment: Reaso n for Exam Hypertension Reason for Exam Hyperlipidemia Performed By: #### C BC, CMP, LIPID ####[place] [id number] [facility] Calcium [Mass/Vol] 8.8 mg/dL Normal 8.2-10.2 [facility] Comment on above: Order Comment: Reaso n for Exam Hypertension Reason for Exam Hyperlipidemia Performed By: #### C BC, CMP, LIPID ####[address] [address] [facility] CO2 [Moles/Vol] 27.4 mmol/L Normal 22.0-30.0 [facility] Comment on above: Order Comment: Reaso n for Exam Hypertension Reason for Exam Hyperlipidemia Performed By: #### C BC, CMP, LIPID ####[address] [address] [facility] Creatinine [Mass/Vol] 1.17 mg/dL Normal 0.64-1.27 [facility] Comment on above: Order Comment: Reaso n for Exam Hypertension Reason for Exam Hyperlipidemia Performed By: #### C BC, CMP, LIPID ####[address] [address] [facility] Estimated GFR ( Sandra > 60 Normal [facility] Comment on above: Order Comment: Reaso n for Exam Hypertension Reason for Exam Hyperlipidemia Result Comment: GFR estimated reference range: According to KDOQI guidelines, <60 ml/min/1.73m2 is sufficient to diagnose a patient with chronic kidney disease. Performed By: #### C BC, CMP, LIPID ####[address] [address] [facility] Estimated GFR (Non- Am 60 Normal [facility] Comment on above: Order Comment: Reaso n for Exam Hypertension Reason for Exam Hyperlipidemia Performed By: #### C BC, CMP, LIPID ####[facility] [id number] [place] [address] [facility] Globulin (S) [Mass/Vol] 2.2 g/dL [facility] Comment on above: Order Comment: Reaso n for Exam Hypertension Reason for Exam Hyperlipidemia Performed By: #### C BC, CMP, LIPID ####[facility] [id number] [place] [address] [facility] Potassium [Moles/Vol] 4.3 mmol/L Normal 3.5-5.1 [facility] Comment on above: Order Comment: Reaso n for Exam Hypertension Reason for Exam Hyperlipidemia Performed By: #### C BC, CMP, LIPID ####[place] [id number] [place] [address] [facility] Protein [Mass/Vol] 6.0 g/dL Low 6.1-7.9 [facility] Comment on above: Order Comment: Reaso n for Exam Hypertension Reason for Exam Hyperlipidemia Performed By: #### C BC, CMP, LIPID ####[facility] [id number] [place] [address] [facility] Comprehensive Metabolic Pane lOrdered By: Jesse García on 10-08-2022 Albumin/Globulin [Mass ratio] 1.7 {ratio} [facility] Comment on above: Order Comment: Reaso n for Exam Hypertension Reason for Exam Hyperlipidemia Performed By: #### C BC, CMP, LIPID ####[facility] [id number] [place] [address] [facility] ALP [Catalytic activity/Vol] 75 U/L Normal 32-92 [facility] Comment on above: Order Comment: Reaso n for Exam Hypertension Reason for Exam Hyperlipidemia Performed By: #### C BC, CMP, LIPID ####[facility] [id number] [place] [address] [facility] AST [Catalytic activity/Vol] 21 U/L Normal 10-42 [facility] Comment on above: Order Comment: Reaso n for Exam Hypertension Reason for Exam Hyperlipidemia Performed By: #### C BC, CMP, LIPID ####[facility] [id number] [place] [address] [place] Chloride [Moles/Vol] 107 mmol/L Normal 95-114 [facility] Comment on above: Order Comment: Reaso n for Exam Hypertension Reason for Exam Hyperlipidemia Performed By: #### C BC, CMP, LIPID ####[facility] [id number] [place] [address] [facility] Glucose [Mass/Vol] 96 mg/dL Normal 70-100 [facility] Comment on above: ADA recommended refe rence rangeRandom Glucose Reference Range is dependent on time and content of last meal. Glucose of more than 200 mg/dL in a nonstressed, ambulatory subject supports the diagnosis of Diabetes Mellitus. Order Comment: Reaso n for Exam Hypertension Reason for Exam Hyperlipidemia Result Comment: [place] om Glucose Reference Range is dependent on time and content of last meal. Glucose of more than 200 mg/dL in a nonstressed, ambulatory subject supports the diagnosis of Diabetes Mellitus. ADA recommended reference range Performed By: #### C BC, CMP, LIPID ####[facility] [id number] [place] [address] [place] Sodium [Moles/Vol] 140 mmol/L Normal 136-146 [facility] Comment on above: Order Comment: Reaso n for Exam Hypertension Reason for Exam Hyperlipidemia Performed By: #### C BC, CMP, LIPID ####[facility] [place] [address] [place] Urea nitrogen [Mass/Vol] 26 mg/dL High 9-23 [facility] Comment on above: Order Comment: Reaso n for Exam Hypertension Reason for Exam Hyperlipidemia Performed By: #### C BC, CMP, LIPID ####[facility] [place] [address] [place] Creatinine and Glomerular fi ltration rate.predicted panel (S/P/Bld)Ordered By: Jesse García on 10-08-2022 Creatinine [Mass/Vol] 1.17 mg/dL 0.64-1.27 [facility] Eosinophils Auto (Bld) [#/Vo l]Ordered By: Jesse García on 10-08-2022 Eosinophils (Bld) [#/Vol] 0.1 10*3/uL 0.0-0.45 [facility] Eosinophils/100 WBC Auto (Bl d)Ordered By: Jesse García on 10-08-2022 Eosinophils/100 WBC (Bld) 0.8 % . [facility] Erythrocyte distribution wid th Auto (RBC) [Ratio]Ordered By: Jesse García on 10-08-2022 Erythrocyte distribution width (RBC) [Ratio] 12.4 % 12.0-14.8 [facility] Estimated glomerular filtrat ion rate (GFR) non- AmericanOrdered By: Jessejudah García on 10-08-2022 GFR/1.73 sq M.predicted among non-blacks MDRD (S/P/Bld) [Vol rate/Area] 60 mL/Min [facility] Globulin Calc (S) [Mass/Vol] Ordered By: Jesse García on 10-08-2022 Globulin (S) [Mass/Vol] 2.2 g/dL [facility] Hematocrit Auto (Bld) [Volum e fraction]Ordered By: Jesse García on 10-08-2022 Hematocrit (Bld) [Volume fraction] 43.2 % 38.8-50.0 [facility] Hemoglobin [Mass/volume] in BloodOrdered By: Jessejudah García on 10-08-2022 Hemoglobin (Bld) [Mass/Vol] 14.6 g/dL 13.0-17.0 [facility] Leukocytes [#/volume] correc charity for nucleated erythrocytes in Blood by Automated counOrdered By: Jesse García on 10-08-2022 WBC corrected for nucl RBC Auto (Bld) [#/Vol] 9.3 10*3/uL 4.1-10.5 [facility] Lipid Panelon 10-08-2022 Cholesterol in LDL Elph Qn 54 mg/dL Normal 0-100 mg/dL [facility] Other Lipid Panel 58 mg/dL Normal 35-149 mg/dL [facility] Other Lipid Panel 11 mg/dL [facility] Other LDL Cholesterol,Calculated 54 mg/dL Normal 0-100 [facility] Comment on above: Order Comment: Reaso n for Exam Hypertension Reason for Exam Hyperlipidemia Result Comment: LDL ATP III CLASSIFICATION LDL less than 100 mg/dL Optimal LDL 100-129 mg/dL Near or above optimal LDL 130-159 mg/dL Borderline high LDL 160-189 mg/dL High LDL greater than 189 mg/dL Very high Performed By: #### C BC, CMP, LIPID ####[facility] [id number] [place] [id number] [facility] Triglyceride w/Reflex 58 mg/dL Normal 35-149 [facility] Comment on above: Order Comment: Reaso n for Exam Hypertension Reason for Exam Hyperlipidemia Result Comment: TRIG ATP III CLASSIFICATION TRIG less than 150 mg/dL Normal TRIG 150-199 mg/dL Borderline high TRIG 200-500 mg/dL High TRIG greater than 500 mg/dL Very high Standard traceable to the Center for Disease Conrtrol and Prevention (CDC) test method. Performed By: #### C BC, CMP, LIPID ####[place] [id number] VLDL CHOLESTEROL 11 mg/dL Normal [facility] Comment on above: Order Comment: Reaso n for Exam Hypertension Reason for Exam Hyperlipidemia Performed By: #### C BC, CMP, LIPID ####[address] Lipid PanelOrdered By: Jesse García on 10-08-2022 Cholesterol [Mass/Vol] 114 mg/dL Low 140-200 [facility] Comment on above: Chol less than 200 m g/dl low riskChol 201-239 mg/dl borderline riskChol 240 mg/dl and greater high risk Order Comment: Reaso n for Exam Hypertension Reason for Exam Hyperlipidemia Result Comment: Chol less than 200 mg/dl low risk Chol 201-239 mg/dl borderline risk Chol 240 mg/dl and greater high risk Performed By: #### C BC, CMP, LIPID ####[facility] [id number] Cholesterol in HDL [Mass/Vol] 48 mg/dL Normal 29-71 [facility] Comment on above: HDL CHOL ATP-III CLA SSIFICATION Cardiovascular RiskHDL > or equal to 60 mg/dL LOWHDL < 40 mg/dL HIGH Order Comment: Reaso n for Exam Hypertension Reason for Exam Hyperlipidemia Result Comment: HDL CHOL ATP-III CLASSIFICATION Cardiovascular Risk HDL > or equal to 60 mg/dL LOW HDL < 40 mg/dL HIGH Performed By: #### C BC, CMP, LIPID ####[facility] [id number] [place] [address] [facility] Cholesterol.total/Chol esterol in HDL [Mass ratio] 2.4 {ratio} Normal <5.0 [facility] Comment on above: Order Comment: Reaso n for Exam Hypertension Reason for Exam Hyperlipidemia Result Comment: PERF ORMED BY: [facility] [address] [place] [address] PATHOLOGIST LOGISTICS/SHIPPER LATONIA VASQUEZ M.D. Performed By: #### C BC, CMP, LIPID ####[facility] [id number] [place] [address] [facility] Lymphocytes Auto (Bld) [#/Vo l]Ordered By: Jesse Mast on 10-08-2022 Lymphocytes (Bld) [#/Vol] 1.8 10*3/uL 1.00-4.8 [facility] Lymphocytes/100 WBC Auto (Bl d)Ordered By: Jesse Mast on 10-08-2022 Lymphocytes/100 WBC (Bld) 19.4 % . [facility] MCH Auto (RBC) [Entitic mass ]Ordered By: Jesse Mast on 10-08-2022 MCH (RBC) [Entitic mass] 32.2 pg 27.5-35.2 [facility] MCHC Auto (RBC) [Mass/Vol]Or dered By: Jesse Mast on 10-08-2022 MCHC (RBC) [Mass/Vol] 33.8 g/dL 32.5-35.6 [facility] MCV Auto (RBC) [Entitic vol] Ordered By: Jesse Mast on 10-08-2022 MCV (RBC) [Entitic vol] 95.2 fL 83.5-101 [facility] Monocytes Auto (Bld) [#/Vol] Ordered By: Jesse Mast on 10-08-2022 Monocytes (Bld) [#/Vol] 0.8 10*3/uL 0.0-0.8 [facility] Monocytes/100 WBC Auto (Bld) Ordered By: Jesse García on 10-08-2022 Monocytes/100 WBC (Bld) 9.1 % . [facility] Neutrophils Auto (Bld) [#/Vo l]Ordered By: Jesse García on 10-08-2022 Neutrophils (Bld) [#/Vol] 6.5 10*3/uL 1.8-7.7 [facility] Neutrophils/100 WBC Auto (Bl d)Ordered By: Jesse García on 10-08-2022 Neutrophils/100 WBC (Bld) 70.3 % . [facility] No Panel InformationOrdered By: Jesse García on 10-08-2022 Estimated GFR () > 60 mL/Min [facility] Comment on above: GFR estimated refere nce range: According to KDOQI guidelines, <60 ml/min/1.73m2 is sufficient to diagnose a patient with chronic kidney disease. Pharmacy Creatinine Clearance (Chem N/A [facility] No Panel InformationOrdered By: Gopal Graf on 10-08-2022 Prostate Specific Antigen Total 2.890 ng/mL 0.000-4.000 [facility] Nucleated erythrocytes [Pres ence] in Blood by Automated countOrdered By: Jesse García on 10-08-2022 Nucleated RBC Auto Ql (Bld) 0.1 /100{WBC} 0-0.5 [facility] PSA Total (Not a Screen)on 0 10-08-2022 PSA Total (Not a Screen) 2.890 ng/mL Normal 0.000-4.000 [facility] Comment on above: Result Comment: PERF ORMED BY: [place] [address] PATHOLOGIST LOGISTICS/SHIPPER LATONIA VASQUEZ M.D. Performed By: #### P SATOTAL #### [address] Platelet mean volume Auto (B ld) [Entitic vol]Ordered By: Jesse García on 10-08-2022 Platelet mean volume (Bld) [Entitic vol] 9.4 fL 6.6-10.1 [facility] Potassium [Moles/volume] in Serum or PlasmaOrdered By: Jesse García on 10-08-2022 Potassium [Moles/Vol] 4.3 mmol/L 3.5-5.1 [facility] Protein [Mass/volume] in Ser um or PlasmaOrdered By: Jesse García on 10-08-2022 Protein [Mass/Vol] 6.0 g/dL 6.1-7.9 [facility] Serum or plasma alanine cavanaugh otransferase measurement without P-5'-P (enzymatic activiOrdered By: Jesse García on 10-08-2022 ALT No additional P-5'-P [Catalytic activity/Vol] 23 U/L 10-60 [facility] Serum or plasma anion gap de terminationOrdered By: Jesse García on 10-08-2022 Anion gap [Moles/Vol] 9.9 mmol/L 6.0-15.0 [facility] Triglyceride [Mass/volume] i n Serum or PlasmaOrdered By: Jesse García on 10-08-2022 Triglyceride [Mass/Vol] 58 mg/dL 35-149 [facility] Comment on above: TRIG ATP III CLASSIF ICATIONTRIG less than 150 mg/dL NormalTRIG 150-199 mg/dL Borderline highTRIG 200-500 mg/dL High TRIG greater than 500 mg/dL Very highStandard traceable to the Center for Disease Conrtrol and Prevention (CDC) test method. WBC Auto (Bld) [#/Vol]Ordere d By: Jesse García on 10-08-2022 WBC (Bld) [#/Vol] 9.3 10*3/uL 4.1-10.[address] [facility] [address] abdomen pelvis w conon CT abdomen pelvis w con [facility] [employer] Other CT abdomen pelvis w con [facility] [employer] [facility] Other CT abdomen pelvis w con [address] [place] [address] abdomen pelvis w [place], [place] [id number] [place] [address] abdomen pelvis w con CT Scan Report [facility] Other CT abdomen pelvis w con Signed [facility] Other CT abdomen pelvis w con Patient: Erik García MR#: [id number] [facility] Other CT abdomen pelvis w con [id number] [facility] [address] abdomen pelvis w con : 1940 Acct:[id number] [facility] Other CT abdomen pelvis w con Age/Sex: 81 / M ADM Date: 08/09/[address] abdomen pelvis w con Loc: CT Room: Type: [facility] Other CT abdomen pelvis w con Attending Dr: Jesse García DO [place] Other CT abdomen pelvis w con Copies to: Jesse García DO [place] Other CT abdomen pelvis w con Ordering Provider: Jesse García [place] Other CT abdomen pelvis w con Date of Service: 08/09/[address] abdomen pelvis w con CT/CT abdomen pelvis w con: RLQ abdominal pain [place] Other CT abdomen pelvis w con CT ABDOMEN AND PELVIS WITH CONTRAST [place] Other CT abdomen pelvis w con COMPARISON: 03/12/2021 [employer] [address] abdomen pelvis w con CLINICAL DATA: Right-sided umbilical pain. Previous repair. [place] Other CT abdomen pelvis w con Spiral images were obtained through the abdomen pelvis following oral and 90 mL of Isovue-300. [place] Other CT abdomen pelvis w con This CT exam was performed using one or more following dose reduction techniques: Automated exposure [place] Other CT abdomen pelvis w con control, adjustment of the mA and/or kV according to patient size, or use of iterative [place] Other CT abdomen pelvis w con reconstruction technique. [place] Other CT abdomen pelvis w con Limited cuts through the lung bases show minor atelectasis or scarring. [place] Other CT abdomen pelvis w con Fatty infiltration of the liver is present. No intrahepatic masses are seen. There are no [place] Other CT abdomen pelvis w con calcified gallstones. The spleen, pancreas and adrenal glands show no acute findings. There are [place] Other CT abdomen pelvis w con symmetric bilateral renal nephrograms, without hydronephrosis. There are multiple bilateral renal [place] Other CT abdomen pelvis w con calculi measuring up to 7 mm on the left and 9 mm on the right. There is also a left renal cyst. [place] Other CT abdomen pelvis w con There is no ureteral dilatation however there is a distal left ureteral stone just proximal to the [place] Other CT abdomen pelvis w con ureterovesical junction measuring 5 mm in size. [place] Other CT abdomen pelvis w con The abdominal aorta is normal caliber and there is minor plaque. There are no enlarged lymph nodes [place] Other CT abdomen pelvis w con or ascites. The small bowel loops are not dilated. There is mild stool within the colon. Patient [place] Other CT abdomen pelvis w con has a tiny umbilical hernia containing fat. Appearance is similar to the prior. There is slight [place] Other CT abdomen pelvis w con levoscoliotic curvature and degenerative changes involving the spine. [place] Other CT abdomen pelvis w con Images through the pelvis show normal caliber small bowel loops. There is stool at the cecum and [place] Other CT abdomen pelvis w con mild at the distal colon. There are some descending and sigmoid diverticula. No active [place] Other CT abdomen pelvis w con inflammation is present. The urinary bladder is not well-distended and the wall appears thickened. [place] Other CT abdomen pelvis w con The prostate is within normal limits for size and contains calcification. No ascites is seen. [place] Other CT abdomen pelvis w con CT/CT abdomen pelvis w con [place] Other CT abdomen pelvis w con IMPRESSION: [place] Other CT abdomen pelvis w con BILATERAL NEPHROLITHIASIS. [place] Other CT abdomen pelvis w con NONOBSTRUCTING DISTAL LEFT URETERAL STONE. [place] Other CT abdomen pelvis w con LEFT RENAL CYST. [place] Other CT abdomen pelvis w con FATTY LIVER. [place] Other CT abdomen pelvis w con DIVERTICULOSIS. [place] Other CT abdomen pelvis w con URINARY BLADDER WALL THICKENING THAT MAY RELATE TO UNDERDISTENTION. [place] Other CT abdomen pelvis w con SMALL FAT-CONTAINING UMBILICAL HERNIA, SIMILAR TO THE COMPARISON. [place] Other CT abdomen pelvis w con NO OTHER ACUTE FINDINGS. [place] Other CT abdomen pelvis w con Impression dictated by: Jossie Pineda M.D.08/09/2022 10:[address] [place] [address] abdomen pelvis w con Dictation Location: [place] [address] abdomen pelvis w con Transcribed By: SARAH 08/09/[address] abdomen pelvis w con Dictated By: Jossie Pineda MD 08/09/[address] abdomen pelvis w con Signed By: [facility] Other CT abdomen pelvis w con 08/09/22 1045 [place] Other Creatinine and Glomerular fi ltration rate.predicted panel (S/P/Bld)Ordered By: Jesse García on 08-09-2022 Creatinine [Mass/Vol] 1.17 mg/dL 0.64-1.27 [facility] Estimated glomerular filtrat ion rate (GFR) non- AmericanOrdered By: Jesse García on 08-09-2022 GFR/1.73 sq M.predicted among non-blacks MDRD (S/P/Bld) [Vol rate/Area] 60 mL/Min [facility] No Panel InformationOrdered By: Jesse García on 08-09-2022 Estimated GFR () > 60 mL/Min [facility] Comment on above: GFR estimated refere nce range: According to KDOQI guidelines, <60 ml/min/1.73m2 is sufficient to diagnose a patient with chronic kidney disease. Pharmacy Creatinine Clearance (Chem N/A [facility] Serum or plasma urea nitroge n measurement (mass/volume)Ordered By: Jesse García on 08-09-2022 Urea nitrogen [Mass/Vol] 16 mg/dL 05-11 [facility] Office Visit (Cardiology)on 06-05-2022 Follow-up visit Diagnoses/Problems [...] Metabolic Panel; Status:Active - Retrospective Authorization; Requested for:[id number]; Complete Blood Count; Status:Active - Retrospective Authorization; Requested for:[id number]; Class 1 obesity with body mass index (BMI) of 34.0 to 34.9 in adult Healthy Weight Tips; Status:Complete - Retrospective Authorization; Done: [id number] Some eating tips that can help you lose weight.; Status:Complete - Retrospective Authorization; Done: [id number] Fatigue, Loud snoring Adult Sleep Medicine Referral Evaluation and Treatment Evaluate AND Treat Status: Hold For - Scheduling,Retrospectiv e Authorization Requested for: [id number] SocHx: Never a smoker Tobacco Use Screening; Status:Complete; Done: [id number] Patient Instructions Please bring all medicines, vitamins, [...] continued to exercise on regular basis at [employer] [facility]. Dyslipidemia. On atorvastatin , LDL is [...] and he is agreeable Summer Bejarano MD, [facility] Surgical History Problems History of Cardiac catheterization History of Cataract surgery History of Complete colonoscopy Managed By: Martin Cortez MD (Gastroenterology) History of Endoscopy History of Hernia [...] of breath (more content not included)... Normal [facility] Tobacco Screening.on 022 Adult depression screening assessment No [facility] [facility] [facility] 250 DO Work Phone: Fall risk assessment b) One or more fall s in the last year [facility] [facility] 250 DO Work Phone: Tobacco use status [facility] b) No [facility] 250 DO Work Phone: XR shoulder RT min 2V*on XR shoulder RT min 2V* [facility] [employer] Other XR shoulder RT min 2V* [facility] [employer] Other XR shoulder RT min 2V* [address] [facility] [employer] Other XR shoulder RT min 2V* [place] [address] [facility] [employer] Other XR shoulder RT min 2V* XRay Report N [facility] [employer] Other XR shoulder RT min 2V* Signed No rt [employer] Other XR shoulder RT min 2V* Patient: Erik García MR#: [id number] [place] [employer] Other XR shoulder RT min 2V* 7129 No rt [employer] Other XR shoulder RT min 2V* : 1940 Acct:[id number] [facility] Other XR shoulder RT min 2V* Age/Sex: 81 / M A DM Date: 02/01/22 [facility] Other XR shoulder RT min 2V* Loc: XDS Room: Type: [facility] Other XR shoulder RT min 2V* Attending Dr: Brisa García DO [facility] Other XR shoulder RT min 2V* Copies to: Jesse García DO [facility] Other XR shoulder RT min 2V* Ordering Provider : Jesse García DO [facility] Other XR shoulder RT min 2V* Date of Service: 02/01/22 [facility] Other XR shoulder RT min 2V* XR/XR shoulder RT min 2V*: Acute pain of right shoulder [facility] Other XR shoulder RT min 2V* RIGHT SHOULDER - - 3 views [facility] Other XR shoulder RT min 2V* CLINICAL HISTORY: Right shoulder pain fall one month ago. [facility] Other XR shoulder RT min 2V* COMPARISON: None [facility] Other XR shoulder RT min 2V* FINDINGS: No [employer] Other XR shoulder RT min 2V* Mild degenerative changes of the right AC and glenohumeral joints. No acute bony process is seen. [facility] Other XR shoulder RT min 2V* Subacromial space appears maintained. Visualized right lung field is clear. [facility] Other XR shoulder RT min 2V* 5 XR/XR shoulder RT min 2V* [facility] Other XR shoulder RT min 2V* IMPRESSION: N Mir Vracha Other XR shoulder RT min 2V* MILD DEGENERATIVE CHANGES OF THE RIGHT SHOULDER WITHOUT ACUTE BONY PROCESS. [facility] Other XR shoulder RT min 2V* Impression dictat ed by: Cory Shepherd Jr., D.O.02/01/2022 4:14 PM [facility] Other XR shoulder RT min 2V* Dictation Locatio n: [facility]-08 [facility] Other XR shoulder RT min 2V* Transcribed By: Randall VELAZQUEZ 02/01/22 [facility] Other XR shoulder RT min 2V* Dictated By: Eligio Shepherd Jr, 02/01/22 [facility] Other XR shoulder RT min 2V* Signed By: No rt [employer] Other XR shoulder RT min 2V* 02/01/22 1614 [place] [employer] Other Laboratory - Chemistry and C hemistry - challengeon 11-28-2021 Cholesterol [Mass/Vol] 116\S\116 below low threshold 140-200 [facility] 250 DO Work Phone: Comment on above: Chol less than 200 m g/dl low risk Chol 201-239 mg/dl borderline risk Chol 240 mg/dl and greater high risk Cholesterol in LDL [Mass/Vol] 54\S\54 Normal 0-100 [facility] 250 DO Work Phone: Comment on above: LDL ATP III CLASSIFI CATION LDL less than 100 mg/dL Optimal LDL 100-129 mg/dL Near or above optimal LDL 130-159 mg/dL Borderline high LDL 160-189 mg/dL High LDL greater than 189 mg/dL Very high No Panel Informationon 11-28 57.2\S\57.2 Normal . [facility] 250 DO Work Phone: 9.5\S\9.5 Normal 6.6-10.1 [facility] 250 DO Work Phone: 151\S\151 Normal 150-450 [facility] 250 DO Work Phone: 13.2\S\13.2 Normal 12.0-14.8 [facility] [facility] 250 DO Work Phone: 33.9\S\33.9 Normal 32.5-35.6 [facility] 250 DO Work Phone: [phone] 31.4\S\31.4 Normal 27.5-35.2 [facility] [facility] 250 DO Work Phone: 3.0\S\3.0 Normal 1.8-7.7 [facility] [facility] 250 DO Work Phone: [phone] 0.1\S\0.1 Normal 0-0.5 [facility] [facility] 250 DO Work Phone: [phone] 0.7\S\0.7 Normal . [facility] [facility] 250 DO Work Phone: [phone] 4.6\S\4.6 Normal . [facility] [facility] 250 DO Work Phone: [phone] 10.2\S\10.2 Normal . [facility] [facility] 250 DO Work Phone: [phone] 27.3\S\27.3 Normal . [facility] [facility] 250 DO Work Phone: [phone] 0.0\S\0.0 Normal 0.0-0.2 [facility] [facility] 250 DO Work Phone: [phone] Comment on above: PERFORMED BY:[place] [address] [address] [place], [place] [phone] MEDICAL DIRECTORLATONIA VASQUEZ M.D. 0.2\S\0.2 Normal 0.0-0.45 [facility] [facility] 250 DO Work Phone: [phone] 0.5\S\0.5 Normal 0.0-0.8 [facility] [facility] 250 DO Work Phone: [phone] 1.4\S\1.4 Normal 1.00-4.8 [facility] [facility] 250 DO Work Phone: [phone] 92.5\S\92.5 Normal 83.5-101 [facility] [facility] 250 DO Work Phone: [phone] 43.1\S\43.1 Normal 38.8-50.0 [facility] [facility] 250 DO Work Phone: [phone] 14.6\S\14.6 Normal 13.0-17.0 [facility] [facility] 250 DO Work Phone: [phone] 4.66\S\4.66 Normal 3.90-5.60 [facility] Melvi joshi 250 DO Work Phone: [phone] 5.3\S\5.3 Normal 4.1-10.5 [facility] Melvi joshi 250 DO Work Phone: [phone] 9.2\S\9.2 Normal 8.2-10.2 [facility] Melvi joshi 250 DO Work Phone: [phone] 24.1\S\24.1 Normal 22.0-30.0 [facility] Melvi joshi 250 DO Work Phone: [phone] 104\S\104 Normal 95-114 [facility] Melvi Mckeon DO Work Phone: [phone] 4.3\S\4.3 Normal 3.5-5.1 [facility] Melvi joshi 250 DO Work Phone: [phone] 140\S\140 Normal 136-146 [facility] Melvi Mckeon DO Work Phone: [phone] > [phone] Normal [facility] Melvi Mckeon DO Work Phone: Comment on above: GFR estimated refere nce range: According to KDOQI guidelines, <60 ml/min/1.73m2 is sufficient to diagnose a patient with chronic kidney disease. 1.14\S\1.14 Normal 0.64-1.27 [facility] Melvi joshi 250 DO Work Phone: [phone] 11\S\11 Normal 9-23 [facility] Melvi joshi 250 DO Work Phone: [phone] 103\S\103 above high threshold 70-100 [facility] Melvi joshi 250 DO Work Phone: [phone] Comment on above: Random Glucose Refer ence Range is dependent on time and content of last meal. Glucose of more than 200 mg/dL in a nonstressed, ambulatory subject supports the diagnosis of Diabetes Mellitus. ADA recommended reference range 25\S\25 Normal 10-42 [facility] 250 DO Work Phone: 22\S\22 Normal 10-60 [facility] Melvi y 250 DO Work Phone: 2.8\S\2.8 Normal <5.0 [facility] 250 DO Work Phone: Comment on above: PERFORMED BY:[facility] [place], [place] [id number] MEDICAL DIRECTORLATONIA VASQUEZ M.D. 20\S\20 Normal [facility] Melvi joshi 250 DO Work Phone: 101\S\101 Normal 35-149 [facility] Melvi joshi 250 DO Work Phone: Comment on above: TRIG ATP III CLASSIF ICATION TRIG less than 150 mg/dL Normal TRIG 150-199 mg/dL Borderline high TRIG 200-500 mg/dL High TRIG greater than 500 mg/dL Very high Standard traceable to the Center for Disease Conrtrol and Prevention (CDC) test method. 42\S\42 Normal 29-71 [facility] Melvi joshi 250 DO Work Phone: Comment on above: HDL CHOL ATP-III CLA SSIFICATION Cardiovascular Risk HDL > or equal to 60 mg/dL LOW HDL < 40 mg/dL HIGH Tobacco Screening.on 022 Adult depression screening assessment No [facility] nic Heart[facility]ron joshi 250 DO Work Phone: Fall risk assessment b) One or more fall s in the last year [facility] Melvi joshi 250 DO Work Phone: Tobacco use status [facility] b) No [facility] Melvi joshi 250 DO Work Phone: Laboratory - Chemistry and C hemistry - challengeon 06-02-2021 Cholesterol [Mass/Vol] 121\S\121 below low threshold 140-200 [facility] Melvi joshi 250A [place] Work Phone: Comment on above: Chol less than 200 m g/dl low risk Chol 201-239 mg/dl borderline risk Chol 240 mg/dl and greater high risk Cholesterol in LDL [Mass/Vol] 57\S\57 Normal 0-100 [facility] [place] [facility] Work Phone: Comment on above: LDL ATP III CLASSIFI CATION LDL less than 100 mg/dL Optimal LDL 100-129 mg/dL Near or above optimal LDL 130-159 mg/dL Borderline high LDL 160-189 mg/dL High LDL greater than 189 mg/dL Very high No Panel Informationon 06-02 9.2\S\9.2 Normal 8.2-10.2 [facility] [place] [facility] Work Phone: 25.0\S\25.0 Normal 22.0-30.0 [facility]athe MckeonA [facility] Work Phone: 103\S\103 above high threshold 70-100 [facility]athe [place] [facility] Work Phone: Comment on above: Random Glucose Refer ence Range is dependent on time and content of last meal. Glucose of more than 200 mg/dL in a nonstressed, ambulatory subject supports the diagnosis of Diabetes Mellitus. ADA recommended reference range 4.3\S\4.3 Normal 3.5-5.1 [facility]athe MckeonA [facility] Work Phone: 138\S\138 Normal 136-146 [facility]Kathe MckeonA [facility] Work Phone: > 60 Normal [facility] [place] [facility] Work Phone: Comment on above: GFR estimated refere nce range: According to KDOQI guidelines, <60 ml/min/1.73m2 is sufficient to diagnose a patient with chronic kidney disease. 1.08\S\1.08 Normal 0.64-1.27 [facility] MckeonA [place] Work Phone: 12\S\12 Normal 9-23 [facility] Melvi MckeonA [place] Work Phone: 26\S\26 Normal 10-42 [facility] Melvi MckeonA [place] Work Phone: 20\S\20 Normal 10-60 [facility] Melvi MkceonA [place] Work Phone: 2.7\S\2.7 Normal <5.0 [facility] Melvi MckeonA [place] Work Phone: Comment on above: PERFORMED BY:[facility] [place], [place] [phone] MEDICAL DIRECTORLATONIA VASQUEZ M.D. 19\S\19 Normal [facility] Melvi [place] Work Phone: 95\S\95 Normal 35-149 [facility] Melvi [place] Work Phone: Comment on above: TRIG ATP III CLASSIF ICATION TRIG less than 150 mg/dL Normal TRIG 150-199 mg/dL Borderline high TRIG 200-500 mg/dL High TRIG greater than 500 mg/dL Very high Standard traceable to the Center for Disease Conrtrol and Prevention (CDC) test method. 45\S\45 Normal 29-71 [facility] eMlvi MckeonA [place] Work Phone: Comment on above: HDL CHOL ATP-III CLA SSIFICATION Cardiovascular Risk HDL > or equal to 60 mg/dL LOW HDL < 40 mg/dL HIGH Tobacco Screening.on 021 Fall risk assessment a) No falls within the last year [facility] Melvi Mckeon DO Work Phone: Tobacco use status CP b) No [facility] Melvi Mckeon DO Work Phone: Vital Signs Date Time Vital Sign Value Performing Clinician Facility 09-26-2023 08:06-0500 Diastolic blood pressure 80 mm[Hg] Matilda Murphy [facility] 09-26-2023 08:06-0500 Heart rate 71 /min Matilda Murphy [facility] 09-26-2023 08:06-0500 Systolic blood pressure 135 mm[Hg] Matilda Naylore [facility] 09-18-2023 10:40-0500 Body height 182.25 cm Stefania Arenas Other [facility] Other 09-18-2023 10:40-0500 Body mass index (BMI) [Ratio] 32.64 kg/m2 Stefania Arenas Other [facility] Other 09-18-2023 10:40-0500 Body temperature 99.4 [degF] Stefania Arenas Other [facility] Other 09-18-2023 10:40-0500 Body weight 108.41 kg Stefania Arenas Other [facility] Other 09-18-2023 10:40-0500 Diastolic blood pressure 80 mm[Hg] Stefania Arenas Other [facility] Other 09-18-2023 10:40-0500 Respiratory rate 18 /min Stefania Arenas Other [facility] Other 09-18-2023 10:40-0500 SaO2% (BldA) [Mass fraction] 92 % Stefania Arenas Other [facility] Other 09-18-2023 10:40-0500 Systolic blood pressure 178 mm[Hg] Stefania Arenas Other [facility] Other 06-05-2023 09:35-0400 Body height 182.9 cm Fiona 1 [facility] 06-05-2023 09:35-0400 Body mass index (BMI) [Ratio] 33.91 kg/m2 Fiona 1 [facility] 06-05-2023 09:35-0400 Body weight 113.4 kg Fiona 1 [facility] 06-05-2023 09:35-0400 Diastolic blood pressure 76 mm[Hg] Fiona 1 [facility] 06-05-2023 09:35-0400 Heart rate 59 /min Fiona 1 [facility] 06-05-2023 09:35-0400 Systolic blood pressure 126 mm[Hg] Fiona 1 [facility] 04-25-2023 13:08-0400 Blood Pressure Location DEIRDRE SEVILLARY [facility] 04-25-2023 13:08-0400 Body temperature 98.06 [degF] DEIRDRE MARIAJOSE [facility] 04-25-2023 13:08-0400 Diastolic blood pressure 68 mm[Hg] DEIRDRE MARIAJOSE [facility] 04-25-2023 13:08-0400 Heart rate 62 /min DEIRDRE MARIAJOSE [facility] 04-25-2023 13:08-0400 Systolic blood pressure 132 mm[Hg] DEIRDRE MARIAJOSE [facility] 04-01-2023 10:15-0400 Body height 182.25 cm Jesse Mast Other [facility] Other 04-01-2023 10:15-0400 Body mass index (BMI) [Ratio] 32.64 kg/m2 Jesse Mast Other [facility] Other 04-01-2023 10:15-0400 Body temperature 96.8 [degF] Jesse Mast Other [facility] Other 04-01-2023 10:15-0400 Body weight 108.41 kg Jesse Mast Other [facility] Other 04-01-2023 10:15-0400 Diastolic blood pressure 72 mm[Hg] Jesse Mast Other [facility] Other 04-01-2023 10:15-0400 Respiratory rate 18 /min Jesse Mast Other [facility] Other 04-01-2023 10:15-0400 SaO2% (BldA) [Mass fraction] 97 % Jesse Mast Other [facility] Other 04-01-2023 10:15-0400 Systolic blood pressure 130 mm[Hg] Jesse Mast Other [facility] Other 11-28-2022 09:09-0400 Body height 182.88 cm Jesse E Mast Work Phone: [facility] [employer] 250 DO Work Phone: 11-28-2022 09:09-0400 Body mass index (BMI) [Ratio] 33.09 kg/m2 Jesse E Mast Work Phone: [facility] [employer] 250 DO Work Phone: 11-28-2022 09:09-0400 Body surface area Derived from formula 2.32 m2 Jesse E Mast Work Phone: [facility] [employer] 250 DO Work Phone: 11-28-2022 09:09-0400 Body weight 110.68 kg Jesse E Mast Work Phone: [facility] 250 DO Work Phone: 11-28-2022 09:09-0400 Diastolic blood pressure 76 mm[Hg] Jesse E Mast Work Phone: [facility] 250 DO Work Phone: 11-28-2022 09:09-0400 Heart rate 60 /min Jesse E Mast Work Phone: [facility] 250 DO Work Phone: 11-28-2022 09:09-0400 Systolic blood pressure 132 mm[Hg] Jesse E Mast Work Phone: [facility] [employer] 250 DO Work Phone: 11-22-2022 11:30-0400 Body height 182.25 cm Erik Diaz Other [facility] Other 11-22-2022 11:30-0400 Body mass index (BMI) [Ratio] 33.73 kg/m2 Erik Diaz Other [facility] Other 11-22-2022 11:30-0400 Body weight 112.04 kg Erik Diaz Other [facility] Other 11-22-2022 11:30-0400 Diastolic blood pressure 78 mm[Hg] Erik Diaz Other [facility] Other 11-22-2022 11:30-0400 SaO2% (BldA) [Mass fraction] 95 % Erik Diaz Other [facility] Other 11-22-2022 11:30-0400 Systolic blood pressure 138 mm[Hg] Erik Diaz Other [facility] Other 10-15-2022 08:27-0500 Blood Pressure Location Gopal RICE [facility] 10-15-2022 08:27-0500 Diastolic blood pressure 84 mm[Hg] Gopal RICE [facility] 10-15-2022 08:27-0500 Heart rate 55 /min Gopal RICE [facility] 10-15-2022 08:27-0500 Systolic blood pressure 188 mm[Hg] Gopal RICE [facility] 10-04-2022 14:00-0500 Body height 182.25 cm Jesse Mast Other [facility] Other 10-04-2022 14:00-0500 Body mass index (BMI) [Ratio] 34.67 kg/m2 Jesse Mast Other [facility] Other 10-04-2022 14:00-0500 Body temperature 97.5 [degF] Jesse Mast Other [facility] Other 10-04-2022 14:00-0500 Body weight 115.17 kg Jesse Mast Other [facility] Other 10-04-2022 14:00-0500 Diastolic blood pressure 72 mm[Hg] Jesse Mast Other [facility] Other 10-04-2022 14:00-0500 Respiratory rate 18 /min Jesse Mast Other [facility] Other 10-04-2022 14:00-0500 SaO2% (BldA) [Mass fraction] 94 % Jesse Mast Other [facility] Other 10-04-2022 14:00-0500 Systolic blood pressure 118 mm[Hg] Jesse Mast Other [facility] Other 08-06-2022 10:30-0500 Body height 182.25 cm Jesse Mast Other [facility] Other 08-06-2022 10:30-0500 Body mass index (BMI) [Ratio] 34.14 kg/m2 Jesse Mast Other [facility] Other 08-06-2022 10:30-0500 Body weight 113.4 kg Jesse Mast Other [facility] Other 08-06-2022 10:30-0500 Diastolic blood pressure 82 mm[Hg] Jesse Mast Other [facility] Other 08-06-2022 10:30-0500 Respiratory rate 18 /min Jesse Mast Other [facility] Other 08-06-2022 10:30-0500 SaO2% (BldA) [Mass fraction] 94 % Jesse Mast Other [facility] Other 08-06-2022 10:30-0500 Systolic blood pressure 130 mm[Hg] Jesse Mast Other [facility] Other 08-01-2022 16:00-0500 Body height 182.25 cm Erik Diaz Other [facility] Other 08-01-2022 16:00-0500 Body mass index (BMI) [Ratio] 34.96 kg/m2 Erik Diaz Other [facility] Other 08-01-2022 16:00-0500 Body temperature 98 [degF] Erik Joe Other [facility] Other 08-01-2022 16:00-0500 Body weight 116.12 kg Erik Joe Other [facility] Other 08-01-2022 16:00-0500 Diastolic blood pressure 81 mm[Hg] Erik Joe Other [facility] Other 08-01-2022 16:00-0500 SaO2% (BldA) [Mass fraction] 97 % Erik Joe Other [facility] Other 08-01-2022 16:00-0500 Systolic blood pressure 138 mm[Hg] Erik Joe Other [facility] Other 06-05-2022 08:51-0400 Body height 182.88 cm Jesse Momo Work Phone: [employer] DO Work Phone: 06-05-2022 08:51-0400 Body mass index (BMI) [Ratio] 34.72 kg/m2 Jesse E Mast Work Phone: [employer] DO Work Phone: 06-05-2022 08:51-0400 Body surface area Derived from formula 2.37 m2 Jesse E Mast Work Phone: [employer] 250 DO Work Phone: 06-05-2022 08:51-0400 Body weight 116.12 kg Jesse E Mast Work Phone: [employer] DO Work Phone: 06-05-2022 08:51-0400 Diastolic blood pressure 60 mm[Hg] Jesse E Mast Work Phone: [facility] [employer] 250 DO Work Phone: 06-05-2022 08:51-0400 Heart rate 60 /min Jesse E Mast Work Phone: [facility] 250 DO Work Phone: 06-05-2022 08:51-0400 Systolic blood pressure 122 mm[Hg] Jesse E Mast Work Phone: [facility] 250 DO Work Phone: 04-02-2022 10:15-0400 Body height 182.25 cm Jesse Mast Other [facility] Other 04-02-2022 10:15-0400 Body mass index (BMI) [Ratio] 33.46 kg/m2 Jesse Mast Other [facility] Other 04-02-2022 10:15-0400 Body temperature 97 [degF] Jesse Mast Other [facility] Other 04-02-2022 10:15-0400 Body weight 111.13 kg Jesse Mast Other [facility] Other 04-02-2022 10:15-0400 Diastolic blood pressure 78 mm[Hg] Jesse Mast Other [facility] Other 04-02-2022 10:15-0400 Respiratory rate 18 /min Jesse Mast Other [facility] Other 04-02-2022 10:15-0400 SaO2% (BldA) [Mass fraction] 95 % Jesse Mast Other [facility] Other 04-02-2022 10:15-0400 Systolic blood pressure 130 mm[Hg] Jesse Mast Other [facility] Other 02-21-2022 15:45-0400 Body height 182.25 cm Jesse Mast Other [facility] Other 02-21-2022 15:45-0400 Body mass index (BMI) [Ratio] 33.39 kg/m2 Jesse Mast Other [facility] Other 02-21-2022 15:45-0400 Body temperature 95.4 [degF] Jesse Mast Other [facility] Other 02-21-2022 15:45-0400 Body weight 110.91 kg Jesse Mast Other [facility] Other 02-21-2022 15:45-0400 Diastolic blood pressure 78 mm[Hg] Jesse Mast Other [facility] Other 02-21-2022 15:45-0400 Respiratory rate 18 /min Jesse Mast Other [facility] Other 02-21-2022 15:45-0400 SaO2% (BldA) [Mass fraction] 97 % Jesse Mast Other [facility] Other 02-21-2022 15:45-0400 Systolic blood pressure 130 mm[Hg] Jesse Mast Other [facility] Other 02-05-2022 10:00-0400 Body height 182.25 cm Jesse Mast Other [facility] Other 02-05-2022 10:00-0400 Body mass index (BMI) [Ratio] 34.28 kg/m2 Jesse Mast Other [facility] Other 02-05-2022 10:00-0400 Body weight 113.85 kg Jesse Mast Other [facility] Other 02-05-2022 10:00-0400 Diastolic blood pressure 81 mm[Hg] Jesse Mast Other [facility] Other 02-05-2022 10:00-0400 Respiratory rate 18 /min Jesse Mast Other [facility] Other 02-05-2022 10:00-0400 SaO2% (BldA) [Mass fraction] 96 % Jesse Mast Other [facility] Other 02-05-2022 10:00-0400 Systolic blood pressure 134 mm[Hg] Jesse Mast Other [facility] Other 02-01-2022 15:15-0400 Body height 182.25 cm Jesse Mast Other [facility] Other 02-01-2022 15:15-0400 Body mass index (BMI) [Ratio] 34.55 kg/m2 Jesse Mast Other [facility] Other 02-01-2022 15:15-0400 Body weight 114.76 kg Jesse Mast Other [facility] Other 02-01-2022 15:15-0400 Diastolic blood pressure 75 mm[Hg] Jesse Mast Other [facility] Other 02-01-2022 15:15-0400 Respiratory rate 18 /min Jesse Mast Other [facility] Other 02-01-2022 15:15-0400 SaO2% (BldA) [Mass fraction] 95 % Jesse Mast Other [facility] Other 02-01-2022 15:15-0400 Systolic blood pressure 152 mm[Hg] Jesse Mast Other [facility] Other 11-23-2021 10:31-0400 Body height 182.88 cm Jesse E Mast Work Phone: [facility] [employer] 250 DO Work Phone: 11-23-2021 10:31-0400 Body mass index (BMI) [Ratio] 33.91 kg/m2 Jesse E Mast Work Phone: [facility] [employer] 250 DO Work Phone: 11-23-2021 10:31-0400 Body surface area Derived from formula 2.34 m2 Jesse E Mast Work Phone: [facility] [employer] 250 DO Work Phone: 11-23-2021 10:31-0400 Body weight 113.4 kg Jesse E Mast Work Phone: [facility] 250 DO Work Phone: 11-23-2021 10:31-0400 Diastolic blood pressure 85 mm[Hg] Jesse E Mast Work Phone: [facility] 250 DO Work Phone: 11-23-2021 10:31-0400 Heart rate 60 /min Jesse E Mast Work Phone: [facility] [employer] 250 DO Work Phone: 11-23-2021 10:31-0400 Systolic blood pressure 137 mm[Hg] Jesse E Mast Work Phone: [facility] [employer] 250 DO Work Phone: 10-02-2021 11:15-0500 Body height 182.25 cm Jesse Mast Other [facility] Other 10-02-2021 11:15-0500 Body mass index (BMI) [Ratio] 34 kg/m2 Jesse Mast Other [facility] Other 10-02-2021 11:15-0500 Body weight 112.95 kg Jesse Mast Other [facility] Other 10-02-2021 11:15-0500 Diastolic blood pressure 82 mm[Hg] Jesse Mast Other [facility] Other 10-02-2021 11:15-0500 Respiratory rate 18 /min Jesse Mast Other [facility] Other 10-02-2021 11:15-0500 SaO2% (BldA) [Mass fraction] 97 % Jesse Mast Other [facility] Other 10-02-2021 11:15-0500 Systolic blood pressure 149 mm[Hg] Jesse Mast Other [facility] Other 07-24-2021 12:15-0500 Body height 182.25 cm Jesse Mast Other [facility] Other 07-24-2021 12:15-0500 Body mass index (BMI) [Ratio] 33.77 kg/m2 Jesse Mast Other [facility] Other 07-24-2021 12:15-0500 Body temperature 96.6 [degF] Jesse Mast Other [facility] Other 07-24-2021 12:15-0500 Body weight 112.18 kg Jesse Mast Other [facility] Other 07-24-2021 12:15-0500 Diastolic blood pressure 90 mm[Hg] Jesse Mast Other [facility] Other 07-24-2021 12:15-0500 Respiratory rate 18 /min Jesse Mast Other [facility] Other 07-24-2021 12:15-0500 SaO2% (BldA) [Mass fraction] 94 % Jesse Mast Other [facility] Other 07-24-2021 12:15-0500 Systolic blood pressure 130 mm[Hg] Jesse Mast Other [facility] Other 07-12-2021 14:45-0500 Body height 182.25 cm Jesse Mast Other [facility] Other 07-12-2021 14:45-0500 Body mass index (BMI) [Ratio] 33.89 kg/m2 Jesse Mast Other [facility] Other 07-12-2021 14:45-0500 Body temperature 97.2 [degF] Jesse Mast Other [facility] Other 07-12-2021 14:45-0500 Body weight 112.58 kg Jesse Mast Other [facility] Other 07-12-2021 14:45-0500 Diastolic blood pressure 72 mm[Hg] Jesse Mast Other [facility] Other 07-12-2021 14:45-0500 Respiratory rate 18 /min Jesse Mast Other [facility] Other 07-12-2021 14:45-0500 SaO2% (BldA) [Mass fraction] 96 % Jesse Mast Other [facility] Other 07-12-2021 14:45-0500 Systolic blood pressure 120 mm[Hg] Jesse Mast Other [facility] Other 06-02-2021 00:00-0400 57 1 Jesse E Mast Work Phone: [facility] [employer] [address] [place] Work Phone: Comment on above: [facility] 05-31-2021 10:10-0400 Body height 182.88 cm Jesse E Mast Work Phone: [facility] [employer] 250 DO Work Phone: 05-31-2021 10:10-0400 Body mass index (BMI) [Ratio] 33.23 kg/m2 Jesse E Mast Work Phone: [facility] [employer] 250 DO Work Phone: 05-31-2021 10:10-0400 Body surface area Derived from formula 2.32 m2 Jesse E Mast Work Phone: [facility] [employer] 250 DO Work Phone: 05-31-2021 10:10-0400 Body weight 111.13 kg Jesse E Mast Work Phone: [facility] [employer] 250 DO Work Phone: 05-31-2021 10:10-0400 Diastolic blood pressure 64 mm[Hg] Jesse E Mast Work Phone: [facility] [employer] 250 DO Work Phone: 05-31-2021 10:10-0400 Heart rate 60 /min Jesse E Mast Work Phone: [facility] [employer] 250 DO Work Phone: 05-31-2021 10:10-0400 Systolic blood pressure 130 mm[Hg] Jesse E Mast Work Phone: [facility] [employer] 250 DO Work Phone: 05-29-2021 10:15-0400 Body height 182.25 cm Jesse Mast Other [facility] Other 05-29-2021 10:15-0400 Body mass index (BMI) [Ratio] 33.16 kg/m2 Jesse Mast Other [facility] Other 05-29-2021 10:15-0400 Body temperature 97 [degF] Jesse Mast Other [facility] Other 05-29-2021 10:15-0400 Body weight 110.13 kg Jesse Mast Other [facility] Other 05-29-2021 10:15-0400 Diastolic blood pressure 80 mm[Hg] Jesse Mast Other [facility] Other 05-29-2021 10:15-0400 Respiratory rate 18 /min Jesse Mast Other [facility] Other 05-29-2021 10:15-0400 SaO2% (BldA) [Mass fraction] 96 % Jesse Mast Other [facility] Other 05-29-2021 10:150400 Systolic blood pressure 118 mm[Hg] Jesse Mast Other [facility] Other Encounters Encounter Date Encounter Type Care Provider Facility Start: 10-21-2023 ambulatory Gautam CRUZ Facility :[facility] Start: 10-02-2023 ambulatory Matilda M. Lue Facility:[facility] Start: 09-26-2023 End: 09-27-2023 ambulatory Matilda M. Lue Facility:[facility] Start: 09-26-2023 End: 09-26-2023 Patient encounter procedure Matilda M. Lue [facility] [place] Start: 09-18-2023 End: 09-18-2023 ambulatory Stefania Arenas Other [facility] Other Start: 09-18-2023 Office outpatient vi sit 15 minutes Stefania Arenas [facility] Start: 09-16-2023 End: 09-16-2023 ambulatory Matilda M Lue Facility:[facility] Start: 09-02-2023 End: 09-02-2023 ambulatory Matilda M Lue Facility:[facility] Start: 07-22-2023 End: 07-23-2023 ambulatory Matilda M. Lue Facility:[facility] Start: 07-22-2023 End: 07-22-2023 Patient encounter procedure Matilda M. Lue [facility] Start: 07-17-2023 End: 07-18-2023 ambulatory Matilda M. Lue Facility:[id number] Start: 06-19-2023 End: 06-20-2023 ambulatory Matilda M. Lue Facility:[id number] Start: 06-06-2023 End: 06-06-2023 ambulatory [facility] Start: 06-05-2023 End: 06-06-2023 ambulatory [facility] Start: 06-05-2023 End: 06-05-2023 Encounter for preprocedural cardiovascular examination [facility] Start: 06-05-2023 End: 06-05-2023 Subsequent hospital visit by physician Fiona Olvera Stress Room 1 [facility] Comment on above: ASHD (arteriosclerot ic heart disease) (Primary Dx) Start: 06-04-2023 End: 06-04-2023 ambulatory [facility] Facility:[facility] Start: 06-04-2023 End: 06-04-2023 Encounter for preprocedural cardiovascular examination [facility] Start: 06-04-2023 End: 06-04-2023 ambulatory DO Jesse Mast Work Phone: [facility] Work Phone: Start: 06-04-2023 End: 06-04-2023 Patient encounter procedure DO Jesse Mast Work Phone: [facility] [place] Work Phone: Start: 05-22-2023 ambulatory Matilda Murphy Facility:C [id number] Start: 05-17-2023 End: 05-18-2023 ambulatory Matilda Murphy Facility:[facility] Start: 05-08-2023 End: 05-09-2023 ambulatory Matilda Murphy Facility:[facility] Start: 05-08-2023 End: 05-08-2023 Patient encounter procedure Matilda Murphy [facility] [place] Start: 04-27-2023 End: 04-27-2023 ambulatory Deirdre Bernstein Facility:[facility] Start: 04-27-2023 End: 04-27-2023 ambulatory DO Jesse Mast Work Phone: [facility] Work Phone: Start: 04-27-2023 End: 04-27-2023 Patient encounter procedure DO Jesse Mast Work Phone: [facility]-CT Scan [facility] [place] Work Phone: Start: 04-25-2023 End: 04-26-2023 ambulatory PA-C DEIRDRE BERNSTEIN Facility:[facility] Start: 04-25-2023 End: 04-25-2023 Patient encounter procedure DEIRDRE BERNSTEIN [facility] Start: 04-01-2023 End: 04-01-2023 ambulatory Jesse Mast Other [facility] [employer] Other Start: 04-01-2023 Patient encounter procedure Jesse Mast [facility] [place] Start: 03-19-2023 Rx Renewal Jesse E Mast Work Phone: [facility] 250 DO Work Phone: Start: 11-28-2022 Chart Update Jesse E Mast Work Phone: [facility] 250 DO Work Phone: Start: 11-28-2022 Office outpatient vi sit 25 minutes Jesse E Mast Work Phone: [facility] 250 DO Work Phone: Start: 11-28-2022 ambulatory Summer Bejarano Facility :[id number] Start: 11-26-2022 End: 11-26-2022 ambulatory Weheler Bejarano Facility:[facility] Start: 11-26-2022 End: 11-26-2022 ambulatory DO Jesse Mast Work Phone: [facility] Work Phone: Start: 11-26-2022 End: 11-26-2022 Patient encounter procedure DO Jesse Mast Work Phone: [facility]-Lab [facility] Start: 11-22-2022 Office outpatient vi sit 25 minutes Erik Diaz [facility] Start: 11-22-2022 End: 11-22-2022 ambulatory DO Jesse Mast Work Phone: [facility] [employer] Other Start: 11-22-2022 End: 11-22-2022 Patient encounter procedure DO Jesse Mast Work Phone: [facility]-Sleep Lab Work Phone: Start: 10-15-2022 End: 10-16-2022 ambulatory Gopal GRAF Facility:[facility] Start: 10-15-2022 End: 10-15-2022 Patient encounter procedure Gopal GRAF [facility] Start: 10-08-2022 Telephone encounter Jesse Mast [facility] Start: 10-08-2022 End: 10-08-2022 ambulatory [facility] [employer] Other Start: 10-08-2022 End: 10-08-2022 Patient encounter procedure DO Jesse Mast Work Phone: [facility] Start: 10-04-2022 End: 10-04-2022 ambulatory Jesse Mast Other [facility] [employer] Other Start: 10-04-2022 Office outpatient vi sit 25 minutes Jesse Mast [facility] [place] Start: 08-09-2022 End: 08-09-2022 ambulatory DO Jesse Mast Work Phone: [facility] Work Phone: Start: 08-09-2022 End: 08-09-2022 Patient encounter procedure DO Jesse Mast Work Phone: [facility]-CT Scan [facility] [place] Work Phone: Start: 08-06-2022 End: 08-06-2022 ambulatory Jesse Mast Other [facility] [employer] Other Start: 08-06-2022 Office outpatient vi sit 25 minutes Jesse Mast [facility] Start: 08-01-2022 End: 08-01-2022 Patient encounter procedure DO Jesse Mast Work Phone: [facility]-Sleep Lab Start: 08-01-2022 End: 08-01-2022 ambulatory DO Jesse Mast Work Phone: [facility] Work Phone: Start: 08-01-2022 Office outpatient vi sit 40 minutes [facility] Start: 06-05-2022 Office outpatient vi sit 25 minutes Jesse E Mast Work Phone: [facility] 250 DO Work Phone: Start: 06-05-2022 ambulatory Summer Meansim Facility : Start: 05-08-2022 End: 05-08-2022 Patient encounter procedure DO Jesse Mast Work Phone: [facility]-Covid Vaccine Off Site Start: 04-02-2022 End: 04-02-2022 ambulatory Jesse Mast Other [facility] [employer] Other Start: 04-02-2022 Office outpatient vi sit 25 minutes Jesse Mast [facility] Start: 04-02-2022 Rx Renewal Jesse E Mast Work Phone: [facility] 250 DO Work Phone: Start: 02-21-2022 End: 02-21-2022 ambulatory Jesse Mast Other [facility] [employer] Other Start: 02-21-2022 Office outpatient vi sit 15 minutes Jesse Mast [facility] [place] Start: 02-05-2022 End: 02-05-2022 ambulatory Jesse Mast Other [facility] Other Start: 02-05-2022 Patient encounter procedure Jesse Mast [facility] [place] Start: 02-01-2022 End: 02-01-2022 ambulatory Jesse Mast Other [facility] Other Start: 02-01-2022 Office outpatient vi sit 25 minutes Jesse Mast [facility] Start: 01-02-2022 Rx Renewal Jesse E Mast Work Phone: [facility] 250 DO Work Phone: Start: 12-01-2021 ([facility] C Vac) [facility] Co vid Vaccine Sona Claudiot [facility] Start: 12-01-2021 End: 12-01-2021 ambulatory Sona Fitt Other [facility] Other Start: 11-29-2021 Chart Update Jesse E Mast Work Phone: [facility] [place] 250 DO Work Phone: Start: 11-23-2021 Office outpatient vi sit 25 minutes Jesse E Mast Work Phone: [facility] 250 DO Work Phone: Start: 10-09-2021 End: 10-09-2021 ambulatory Jesse Mast Other [facility] Other Start: 10-09-2021 Telephone encounter Jesse Mast [facility] Start: 10-02-2021 End: 10-02-2021 ambulatory Jesse Mast Other [facility] Other Start: 10-02-2021 Patient encounter procedure Jesse Mast [facility] Start: 07-25-2021 Rx Renewal Jesse E Mast Work Phone: [facility] 250 DO Work Phone: Start: 07-24-2021 End: 07-24-2021 ambulatory Jesse Mast Other [facility] Other Start: 07-24-2021 Office outpatient vi sit 15 minutes Jesse Mast [facility] Start: 07-12-2021 End: 07-12-2021 ambulatory Jesse Mast Other [facility] Other Start: 07-12-2021 Office outpatient vi sit 15 minutes Jesse Mast [facility] Start: 07-11-2021 End: 07-11-2021 ambulatory Jesse Mast Other [facility] Other Start: 07-11-2021 Telephone encounter Jesse Mast [facility] Start: 06-12-2021 Chart Update Jesse E Mast Work Phone: [facility] [address] [place] Work Phone: Start: 05-31-2021 Office outpatient vi sit 25 minutes Jesse E Mast Work Phone: [facility] 250 DO Work Phone: Start: 05-29-2021 Office outpatient vi sit 15 minutes Jesse Mast [facility] Procedures Date Procedure Procedure Detail Performing Clinician Start: 07-22-2023 Cystoscopic removal of ureteric stent Matilda Lue Start: 07-17-2023 Ureteroscopy and electrohydraulic lithotripsy of calculus of ureter Matilda Lue Comment on above: cysto/LRG/ URS/laser /basket w/ L stent exchange Start: 06-19-2023 Ureteroscopy and electrohydraulic lithotripsy of calculus of ureter Matilda Murphy Comment on above: w/ L stent placement Start: 06-06-2023 Cv strs tst xers&/or rx cont ecg trcg only Summer Bejarano MD Work Phone: Start: 06-05-2023 NUCLEAR STRESS TEST IRENE JEROME Start: 06-04-2023 Aspartate aminotrans ferase [Enzymatic activity/volume] in Serum or Plasma [facility]CHARIS[facility]AR[facility] Start: 06-04-2023 Basic metabolic 2000 panel - Serum or Plasma [facility]ER [facility]AR[facility] Start: 06-04-2023 CBC panel - Blood by Automated count WHEELER BEJARANO Start: 06-04-2023 Lipid panel [facility] [employer] [facility] Start: 06-04-2023 Alanine aminotransfe rase [Enzymatic activity/volume] in Serum or Plasma [employer] BEJAR[facility] Start: 04-27-2023 CT of abdomen and [...] object) Gopal GRAF Start: 05-28-2010 Colonoscopy Gopal ERICH E Start: 05-28-2010 hernia Gopal ERICH E Arthroscopy of knee Gopal R ICE Cardiac catheterization Jesse E Mast Work Phone: Cardiac catheterization LUCIANA BERNSTEIN Cataract extraction and insertion of intraocular lens [...] DTaP/Tdap/Td Vaccines (2 - Td or Tdap) [facility] Start: 12-11-2023 End: 12-11-2023 Patient encounter procedure 12/11/2023 9:50 AM EDT Office Visit [facility] [address] [id number] Summer Bejarano MD 703 [facility] [address], [address] [address] [facility] Start: 09-15-2023 COVID-19 Vaccine (6 - Additional dose for Olga series) COVID-19 Vaccine (6 - Additional dose for Olga series) [facility] Start: 06-04-2023 FUV, Provider: Summer Bejarano, Status: Pen, Time: 9:20 AM FUV, Provider: Summer Bejarano, Status: Pen, Time: 9:20 AM [facility] 250 DO Work Phone: Start: 11-28-2022 FUV, Provider: Summer Bejarano, Status: Pen, Time: 9:00 AM FUV, Provider: Summer Bejarano, Status: Pen, Time: 9:00 AM [facility] 250 DO Work Phone: Start: 07-03-2022 NPV, Provider: Yolande Brewster, Status: Pen, Time: 11:15 AM NPV, Provider: Yolande Brewster, Status: Pen, Time: 11:[address] [facility] Work Phone: Start: 06-05-2022 FUV, Provider: Summer Bejarano, Status: Pen, Time: 8:50 AM FUV, Provider: Summer Bejarano, Status: Pen, Time: 8:50 AM [facility] 250 DO Work Phone: Start: 11-23-2021 FUV, Provider: Summer Bejarano, Status: Pen, Time: 9:50 AM FUV, Provider: Summer Bejarano, Status: Pen, Time: 9:50 AM [facility] 250 DO Work Phone: Start: 1940 Lipid panel Lipid Panel [facility] Start: 1940 Medicare Annual Wellness Visit Medicare Annual Wellness Visit (AWV) [facility] Immunizations Immunization Date Immunization Notes Care Provider Henry grimaldo 05-08-2023 influenza virus vaccine, unspecified formulation Matilda Murphy [facility] 05-16-2022 Fluzone High-Dose Quadrivalent 0.7 ML Intramuscular Suspension Prefilled Syringe Jesse E Mast Work Phone: [facility] 250 DO Work Phone: 05-16-2022 influenza virus vaccine, unspecified formulation Gopal GRAF [facility] 05-08-2022 Moderna COVID-19 Biv al Booster 50 MCG/0.5ML Intramuscular Suspension Jesse E Mast Work Phone: [facility] 12-01-2021 COVID-19 Moderna Sona House Other [facility] 06-20-2021 Moderna COVID-19 Vaccine 100 MCG/0.5ML Intramuscular Suspension Jesse E Mast Work Phone: [facility] 05-11-2021 influenza, high dose seasonal, preservative-free Jesse Mast Other [facility] [employer] Other 05-11-2021 Fluzone High-Dose Quadrivalent 0.7 ML Intramuscular Suspension Prefilled Syringe Jesse E Mast Work Phone: [facility] 250 DO Work Phone: 05-11-2021 influenza virus vaccine, unspecified formulation Gopal RICE [facility] 11-06-2020 SARS-CoV-2 (COVID-19 ) Ad26 vaccine, recombinant Gopal RICE [facility] 11-03-2020 Moderna COVID-19 Vaccine 100 MCG/0.5ML Intramuscular Suspension Jesse E Mast Work Phone: [facility] 10-09-2020 SARS-CoV-2 (COVID-19 ) Ad26 vaccine, recombinant Gopal RICE [facility] Comment on above: Result Comment: dupl ication 10-06-2020 Moderna COVID-19 Vaccine 100 MCG/0.5ML Intramuscular Suspension Jesse E Mast Work Phone: [facility] 05-19-2020 influenza virus vaccine, unspecified formulation Gopal RICE [facility] 05-05-2020 Fluzone High-Dose Quadrivalent 0.7 ML Intramuscular Suspension Prefilled Syringe Jesse E Mast Work Phone: [place] [address] [place] Work Phone: 05-05-2020 influenza virus vaccine, unspecified formulation Jesse E Mast Work Phone: [facility] 07-03-2019 zoster vaccine recombinant Jesse E Mast Work Phone: [facility] 05-19-2019 influenza virus vaccine, live, attenuated, for intranasal use Gopal RICE [facility] 05-06-2019 zoster vaccine recombinant Jesse E Mast Work Phone: [facility] 05-03-2019 influenza virus vaccine, unspecified formulation Jesse E Mast Work Phone: [facility] 05-03-2019 influenza, high dose seasonal, preservative-free Jesse E Mast Work Phone: [place] [address] DO Work Phone: 05-28-2018 pneumococcal polysaccharide vaccine, 23 valent Jesse E Mast Work Phone: [facility] 05-23-2018 influenza virus vaccine, unspecified formulation Jesse E Mast Work Phone: [place] [address] DO Work Phone: 05-23-2018 pneumococcal conjuga te vaccine, 13 valent Jesse E Mast Work Phone: [place] [address] DO Work Phone: 05-22-2017 influenza virus vaccine, unspecified formulation Gopal RICE [facility] 05-22-2017 influenza, seasonal, injectable Jesse E Mast Work Phone: [place] [address] DO Work Phone: 05-22-2017 tetanus toxoid, redu nathan diphtheria toxoid, and acellular pertussis vaccine, adsorbed Jesse E Mast Work Phone: [facility] 09-05-2015 pneumococcal conjuga te vaccine, 13 valent Jesse E Mast Work Phone: [facility] 08-19-2015 pneumococcal conjuga te vaccine, 13 valent Jesse E Mast Work Phone: [facility] 250 DO Work Phone: 05-19-2014 influenza, high dose seasonal, preservative-free Jesse Mast Other [facility] Other 06-22-2008 zoster vaccine, live Jesse E Mast Work Phone: [facility] Payers Date Payer Category Payer Self-pay [id number] 2022 Unknown 2016 Unknown [id number] 2014 Unknown [id number] 2.16.840.1.468723.19 2014 Unknown [id number] 2007 Medicare [id number] 2.16.840.1.048871.19 2007 Medicare MEDICARE MEDICAR E PART A AND B [id number] 2007-Present [address] [place] [address] [id number].3. 060612.315 1942 Unknown [id number] 2.16.840.1.560368.3.579.2.356 1942 Unknown [id number] 2.16.840.1.120115.3.579.2.356 1942 Unknown [id number] 2.16.840.1.881659.3.579.2.1244 1942 Unknown [id number] 2.16.840.1.963660.3.579.2.1246 1942 Unknown [id number] 2.16.840.1.234079.3.579.2.1246 1942 Unknown [id number] 2.16.840.1.778211.3.579.2.1246 1942 Unknown [id number] 2.16.840.1.034351.3.579.2.1246 1942 Unknown [id number] 2.16.840.1.939048.3.579.2.1246 1942 Unknown [id number] 2.16.840.1.110676.3.579.2.727 1942 Unknown [id number] 2.16.840.1.213941.3.579.2.727 1942 Unknown [id number] 2.16.840.1.044585.3.579.2.727 1942 Unknown [id number] 2.16.840.1.896102.3.579.2.727 1942 Unknown [id number] 2.16.840.1.181420.3.579.2.727 1942 Unknown [id number] 2.16.840.1.522232.3.579.2.727 1942 Unknown [id number] 2.16.840.1.609371.3.579.2.727 1942 Unknown [id number] 2.16.840.1.542133.3.579.2.727 1942 Unknown [id number] 2.16.840.1.509803.3.579.2.727 Unknown [id number] 2.16.840.1.356466.3.579.2.531 Unknown [id number] 2.16.840.1.503507.3.579.2.531 Unknown [id number] 2.16.840.1.471774.3.579.2.531 Unknown [id number] 2.16.840.1.777775.3.579.2.531 Unknown [id number] 2.16.840.1.188947.3.579.2.531 Unknown [id number] 2.16.840.1.196082.3.579.2.531 Unknown [id number] 2.16.840.1.947317.3.579.2.531 Social History Date Type Detail Facility Start: 06-04-2023 No illicit drug use No illicit drug use [place] [address] DO Work Phone: Comment on above: 3 cups coffee daily; socially; slight; Start: 06-04-2023 Sex Assigned At F [facility] Start: 08-18-2021 End: 09-26-2023 Tobacco smoking status NHIS Never smoked tobacco (finding) [facility] Start: 1940 Sex Assigned At Male F [facility] Tobacco smoking status Never [facility] Start: 06-04-2023 Tobacco use and exposure Smokeless tobacco non-user [facility] Work Phone: Start: 06-04-2023 Alcohol intake Current drinke r of alcohol (finding) [facility] Work Phone: Start: 1940 Sex Assigned At Not on file [facility] Work Phone: Start: 05-27-2023 End: 06-06-2023 Exposure to SARS-CoV-2 (event) Not sure [facility] Medical Equipment Procedure Code Equipment Code Equipment [...] 09-10-2018 Femoral artery closure plug/patch, synthetic polymer ()[id number] FDA Start: 06-27-2020 Functional Status Date Assessment Result Facility 09-26-2023 Functional Status N/A [facility] 07-22-2023 Functional Status N/A [facility] 04-25-2023 Functional Status N/A [facility] 10-15-2022 Functional Status N/A [facility] Clinical Notes 05-29-2021 to 09-26-2023 Note Date & Type Note Facility 09-26-2023 Hospital Discharg e instructions Patient Education 09/26/2023 08:43:16 Hydronephrosis Hydronephrosis Hydronephrosis is the swelling of one or both kidneys due to a blockage that stops urine from flowing out of the body. Kidneys filter waste from the blood and produce urine. This condition can lead to kidney failure and may become life-threatening if not treated promptly. What are the causes? In infants and children, common causes include problems that occur when a baby is developing in the womb. These can include problems in the kidneys or in the tubes that drain urine into the bladder (ureters). In adults, common causes include: Kidney stones. . A tumor or cyst in the abdomen or pelvis. An enlarged prostate gland. Other causes include: Bladder infection. Scar tissue from a previous surgery or injury. A blood clot. Cancer of the prostate, bladder, uterus, ovary, or colon. What are the signs or symptoms? Symptoms of this condition include: Pain or discomfort in your side (flank) or abdomen. Swelling in your abdomen. Nausea and vomiting. Fever. Pain when passing urine. Feelings of urgency when you need to urinate. Urinating more often than normal. In some cases, you may not have any symptoms. How is this diagnosed? This condition may be diagnosed based on: Your symptoms and medical history. A physical exam. Blood and urine tests. Imaging tests, such as an ultrasound, CT scan, or MRI. A procedure to look at your urinary tract and bladder by inserting a scope into the urethra (cystoscopy). How is this treated? Treatment for this condition depends on where the blockage is, how long it has been there, and what caused it. The goal of treatment is to remove the blockage. Treatment may include: Antibiotic medicines to treat or prevent infection. A procedure to place a small, thin tube (stent) into a blocked ureter. The stent will keep the ureter open so that urine can drain through it. A nonsurgical procedure that crushes kidney stones with shock waves (extracorporeal shock wave lithotripsy). If kidney failure occurs, treatment may include dialysis or a kidney transplant. Follow these instructions at home: Take uskf-dbs-okpdcre and prescription medicines only as told by your health care provider. If you were prescribed an antibiotic medicine, take it exactly as told by your health care provider. Do not stop taking the antibiotic even if you start to feel better. Rest and return to your normal activities as told by your health care provider. Ask your health care provider what activities are safe for you. Drink enough fluid to keep your urine pale yellow. Keep all follow-up visits. This is important. Contact a health care provider if: You continue to have symptoms after treatment. You develop new symptoms. Your urine becomes cloudy or bloody. You have a fever. Get help right away if: You have severe flank or abdominal pain. You cannot drink fluids without vomiting. Summary Hydronephrosis is the swelling of one or both kidneys due to a blockage that stops urine from flowing out of the body. Hydronephrosis can lead to kidney failure and may become life-threatening if not treated promptly. The goal of treatment is to remove the blockage. It may include a procedure to insert a stent into a blocked ureter, a procedure to break up kidney stones, or taking antibiotic medicines. Follow your health care provider's instructions for taking care of yourself at home, including instructions about drinking fluids, taking medicines, and limiting activities. This information is not intended to replace advice given to you by your health care provider. Make sure you discuss any questions you have with your health care provider. Document Revised: 11/22/2020 Document Reviewed: 11/22/2020 [employer] Patient Education 2022 [employer]. Follow Up Care 09/18/2023 13:25:53 With:Jeffrey ORTEGA, Matilda Moraes URL, URO Address: [address], [facility] [place] [phone] When: Unknown Comments:sched cysto/L RGP/stent placement [facility] [place] 09-18-2023 Evaluation note Encounter Date Diagnosis Assessment [...] plan.Influenza: adult home care material was printed. [facility] Other 12-04-2023 Note [id number] [facility] 07-22-2023 NoteCystoscopy with Stent Removal ? [...] if you have a fever over 100 degrees.[facility] 07-22-2023 Hospital Discharge instructions Patient Education [...] Up Care 07/18/2023 09:25:59 With:Matilda Murphy Address: [address] [place] [address]- [phone] Business (1) When: Unknown Comments:Office to schedule follow up in 6-8 weeks to review renal [facility]09-07-2023 Hospital Discharge instructions Patient Education 04/25/2023 13:40:03 [...] include: ?8 oz (237 mL) of milk, gkbcjgj-hemhymjwdhcb-gwsqs milk, and calcium- fortifiedfruit juice. Calcium-fortified means [...] ?Spinach (cooked), rhubarb, beets, sweet potatoes, and Uzbek chard. ?Peanuts. ?Potato chips, trinidadian fries, and baked potatoes with skin on. ?Nuts and nut products. ?Chocolate. If you regularly take a diuretic medicine, make sure to eat at least 1 or 2 servings of fruits or vegetables that are high in potassium each day. These include: ?Avocado. ?Banana. ?Napoleon, prune, carrot, or tomato juice. ?Baked potato. [...] magnesium, fish oil, or vitamin B6. Take jtia-kve-dgpruva and prescription medicines only as told by [...] Casseroles. Pizza. Lasagna. Frozen meals. Potato chips. Bruneian fries. The items listed above may not [...] provider. Document Revised: 04/16/2022 Document Reviewed: 04/16/2022 [employer] Patient Education 2022 [employer]. Follow Up Care 04/24/2023 14:12:10 With:MARIAJOSE HOLM, DEIRDRE Garay, URL Address: [address] [place] [address] When: Unknown Comments:We will call pt. [facility] [place] 08-14-2023 Evaluation note* Encounter Date Diagnosis Assessment [...] Recheck in 6 months, sooner if problems [facility] Other 04-06-2023 Evaluation note* Encounter Date Diagnosis [...] sleepiness, or poor response to treatment. . [facility] Other 02-27-2023 Hospital Discharge instructions Patient Education [...] include: ?Spinach. ?Rhubarb. ?Beets. ?Potato chips and trinidadian fries. ?Nuts. If you regularly take a diuretic medicine, make sure to eat at least 1 2 fruits or vegetables high in potassium each day. These include: ?Avocado. ?Banana. ?Napoleon, prune, carrot, or tomato juice. ?Baked potato. [...] Casseroles. Pizza. Lasagna. Frozen meals. Potato chips. Bruneian fries. Summary You can reduce your risk [...] 11/30/2011 Document Revised: 11/25/2019 Document Reviewed: 07/16/2017 [employer] Patient Education 2020 [employer] Follow Up Care 10/12/2021 11:30:14 With:HOMAR ORTEGA, Gopal Lopez, URL Address: [address] [place] [address]- When:1 year Comments:[place]/ [facility] [employer] BR[facility] 02-16-2023 Evaluation note* Encounter Date Diagnosis [...] disorder (ICD-10 - F42) Controlled, continue Rx [facility] Other 12-19-2022 Evaluation note* Encounter Date Diagnosis [...] repeat CT abdomen/pelvis, further treatment pending results. [facility] Other 12-14-2022 Evaluation note* Encounter Date Diagnosis [...] changes in symptoms and/or problems with treatment [facility] Other 08-15-2022 Evaluation note* Encounter Date Diagnosis Assessment Notes Treatment Notes Treatment Clinical Notes Mar, Hypertension (ICD-10 - I10) BP controlled, continue present Rx. Work on weight loss. 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 [facility] Other 07-06-2022 Evaluation note* Encounter Date Diagnosis [...] follow-up, we will recheck at that time. [facility] Other 06-20-2022 Evaluation note* Encounter Date Diagnosis [...] related to shoulder pathology and may be treasury representative of cervical radiculopathy [facility] Other 06-16-2022 Evaluation note* Encounter Date Diagnosis [...] bring the weight down, limit sodium intake. [facility] Other 04-15-2022 Evaluation note* Encounter Date Diagnosis Assessment Notes Treatment Notes Treatment Clinical Notes Nov, Encounter for immunization (ICD-10 - Z23) Patient presents for COVID-19 vaccination BOOSTER #2. Pre-screening form answers evaluated with patient. Patient denies current illness or allergic reaction to component of COVID-19 vaccine. Patient provided with current copy of EUA. [facility] Other 02-14-2022 Evaluation note* Encounter Date Diagnosis [...] Recheck in 6 months, sooner if problems. [facility] Other 12-06-2021 Evaluation note* Encounter Date Diagnosis [...] Recheck in 2 months as already scheduled [facility] Other 11-24-2021 Evaluation note* Encounter Date Diagnosis Assessment Notes Treatment Notes Treatment Clinical Notes Jun, Diarrhea, unspecified type (ICD-10 - R19.7) Check stool studies for completeness, this may represent a flare of his ulcerative colitis. I will treat him with a short burst of oral prednisone, then recheck early next month. Warning signs reviewed, call or go to ER if problems arise. [facility] Other 10-11-2021 Evaluation note* Encounter Date Diagnosis [...] per GI. No evidence of recurrent bleeding. [facility] Other Evaluation + Plan note Future Appointments Appointment Date:10/21/2023 08:15:00 AM Scheduled Provider:Gopal GRAF MD Location:[facility] Appointment Type:URO Office Visit Diagnostic Tests Pending * PSA Total 10/15/22 [facility] Evaluation + Plan note Future Appointments Appointment Date:10/21/2023 08:45:00 AM Scheduled Provider:Gautam CRUZ MD Location:[facility] Appointment Type:URO Office Visit [facility] [place] Evaluation + Plan note Future Appointments Appointment Date:05/17/2023 08:00:00 AM Scheduled Provider:Matilda Murphy MD Location:[facility] Appointment Type:URO Office Visit Appointment Date:10/21/2023 08:45:00 AM Scheduled Provider:Gautam CRUZ MD Location:[facility] Appointment Type:URO Office Visit [facility] [place] evaluation noteNo Information[facility] Other Evaluation noteNo assessment information [facility] Work Phone: Evaluation note* Diagnosis ASHD (arteriosclerotic heart disease)- Primary Coronary atherosclerosis of unspecified type of vessel, kaw or graft documented in this encounter [facility] Work Phone: Hisriiq general Narrative - Reported* Type Description Date [...] 2018 Hospitalization History see above Hospitalization History [facility] Other Hisyjhx general Narrative - Reported* Type Description Date Medical History Hypertension Medical History Medullary sponge kidney Medical History Obsessive-compulsive disorder Medical History Schatzki's Ring Medical History ULCERS Medical History DIVERTICULITIS Medical History Kidney stones Surgical History Arthroscopy: L knee Surgical History Hernia Repair: 2010; right ingu inal Surgical History EGD [DR. [place]] 03-10-14 Surgical History COLONOSCOPY 06-06-2010 Surgical History ESWL 10-01-2016 Surgical History SIGMOIDOSCOPY 01/16/2019 Surgical History EGD Surgical History BILAT-CATARACT 2018 Hospitalization History see above Hospitalization History [facility] 9 [facility] Other History general Narrative - Reported* Type [...] 2018 Hospitalization History see above Hospitalization History [facility] 9 [facility] Other Hospital course Narrative No data available for this section [facility] Hospital Discharge instructions No data available for this section [facility] progress note No data available for this section [facility] Chief Complaint * ERIK GARCÍA is being [...] continued to exercise on regular basis at [employer] * 4. Dyslipidemia. On atorvastatin under great [...] continued to exercise on regular basis at [facility] * 4. Dyslipidemia. On atorvastatin ,will continue [...] continued to exercise on regular basis at [facility] * 4. Dyslipidemia. On atorvastatin , LDL [...] continued to exercise on regular basis at [facility] * 4. Dyslipidemia. On atorvastatin , LDL [...] continued to exercise on regular basis at [facility] * 4. Dyslipidemia. On atorvastatin , LDL [...] continued to exercise on regular basis at [facility] * 4. Dyslipidemia. On atorvastatin , LDL [...] continued to exercise on regular basis at [facility] * 4. Dyslipidemia. On atorvastatin , LDL [...] * Summer Bejarano MD, FACC * ERIK HAGENHOLZ is being [...] of the device. * Summer Bejarano MD, [facility] Family History No Family History Records [...] REST OR STRESS Summer Bejarano MD [address] [facility] 2, [address] [facility] [address] [address] Referral ID Status Reason Start Date Expiration Date V isits Requested Visits Authorized [id number] Authorized 06/04/2023 06/03/2024 5 5 Care Teams [...] Active Deirdre Bernstein PA-C Attending Provider Active Computing Services Director Relationship Specialty Start Date End Date Jesse García DO [address] [facility] [place] [address] PCP - General 08/19/1998 Goals (unrecognized section and content) Goals may be documented in a n alternate section (unrecognized sect ion and content) No Status Records FoundNo Status Records FoundNo Status Records FoundNo Status Records FoundNo Status Records FoundNo Status Records Found INFORMATION SOURCE (unrecogn ized section and content) DATE CREATED AUTHOR 11/30/2022 [employer] DATE CREATED AUTHOR AUTHOR'S ORGANIZ ATION 11/30/2022 [facility] DATE CREATED AUTHOR AUTHOR'S ORGANIZ ATION 06/05/2023 [facility] DATE CREATED AUTHOR AUTHOR'S ORGANIZ ATION 06/10/2023 [facility] DATE CREATED AUTHOR AUTHOR'S ORGANIZ ATION 09/21/2023 [facility] DATE CREATED AUTHOR AUTHOR'S ORGANIZ ATION 09/28/2023 [facility] FOR RECORDS PERTAINING TO PATIENTS WHO [...] BE BASED ON THE PRIMARY CLINICAL RECORDS. [facility]. provides no warranty or guarantee of the accuracy or completeness of information in this document.
[2023-10-02] MEDS: LACTATED RINGER'S SOLUTION 1,000 ML 50 ML IV ×2 (11:49→15:02)
[2023-10-02] MEDS: CEFAZOLIN SODIUM/DEXTROSE,ISO 2 GM/50 ML PIGGYBACK IV (12:31)
[2023-10-02] MEDS: IOHEXOL 240 MG/ML - 10 ML VIAL 360 MG INJ (14:08)
--- NOTE | 2023-10-02 14:37 | PM.URSON ---
Urology Surgery Operative Note Operative Note Procedure Date: 10/02/23 Time Out Performed: yes Pre-op Diagnosis: 1. Left hydroureteronephrosis 2. Left renal stones Post-op Diagnosis: other (1. 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 Left renal stones) Procedures performed: 1. Cystoscopy, left retrograde pyelogram, ureteroscopy with stone extraction, stent placement 2. Left ureteral dilation Anesthesia: General-LMA (Dr. Clemente ) Primary Surgeon: Matilda Murphy Complications: none Estimated blood loss (mL): 0 Findings: Mod bilobar prostatic hyperplasia with significantly elevated bladder neck. 2+ trabeculated bladder. Left RPG: severely dilated left collecting system and ureter down to UVJ. < 1 cm distal ureter/UVJ pinpoint stricture, barely able to accommodate wire, unable to accommodate semirigid ureteroscope. Left UVJ dilated with 15Fr x 4 cm balloon dilator. Angled UPJ into drooping renal pelvis. Lower pole calyx with 4-5 stone fragments basket extracted, severe angulation with difficulty reaching stones, each ~ 3-4mm. Few 1-2 mm fragments left unable to reach. Multiple rossy's plaques. Specimens: left kidney stones Drains: 7Fr x 22-30 cm JJ left ureteral stent Incision: none Indications for Procedures: 83 year old male who I recently started caring for underwent staged left ureteroscopy with laser lithotripsy/stone extraction, stent placement for large stone burden involving left distal ureteral and kidney stones, last on 07/17/23 presents for treatment of suspected ureteral stricture and residual stones. Of note, his left UVJ stone was present since 07/2022 prior to my care. Post stent removal renal US showed left hydronephrosis and CT Urogram 09/16/23 confirmed moderate to severe left hydroureteronephrosis down to UVJ without obstructing stone. Few stone fragments in left lower pole remained. After discussion of risks/benefits of management options, he elected to proceed with ureteral dilation and treatment of remaining stones. He understands the high risk of ureteral stricture recurrence with dilation. Risks were discussed including but not limited to bleeding, pain, infection, damage to surrounding structures, inability to treat the stone/place a stent, and need for additional procedures. The patient understands the stent is not permanent and needs to be removed or exchanged within 3 months to prevent encrustation, infection, invasive procedures and/or permanent renal damage. Detailed description of Procedure: After informed consent was obtained, the patient was brought to the operating room and transferred onto the operating table in supine position. Sequential compression devices were placed on bilateral lower extremities. The patient received the appropriate dose of preoperative IV antibiotics and general anesthesia LMA was induced. They were positioned in modified dorsolithotomy with the appropriate pressure points padded, prepped, and draped in the usual sterile fashion for this procedure. An operative safety timeout was performed confirming the patient's identity, laterality and procedure, and all present agreed to proceed. I began by inserting a 22 Turkish rigid cystoscope with 30 degree lens into the patient's urethra and bladder without difficulty. There were no bladder tumors, lesions, stones or foreign bodies. Bilateral ureteral orifices were orthotopic and patent. I turned my attention to the left ureteral orifice and a 6- Turkish open-ended catheter was inserted into the ureteral orifice and dilute contrast was injected for retrograde pyelogram with findings as above. A Sensor wire was inserted into the ureter with mild difficulty, up to the renal pelvis confirmed on fluoroscopy. Next a semirigid ureteroscope insertion was attempted alongside and over the wire without success, unable to fully intubate the UO. A 15Fr x 4 cm balloon dilator was inserted over the wire traversing the stricture. Under direct and fluoroscopic guidance, the balloon was inflated to dilate the stricture. After adequate treatment, the balloon was deflated, removed and the semirigid ureteroscope was able to easily enter the ureter without evidence of obstructing stones or tumors. The ureteroscope and dilator were removed and the wire was left behind. An 11/13 Turkish by 36 cm ureteral access sheath was inserted over the wire in a sequential fashion to gain access to the renal pelvis. Next a flexible ureteroscope was inserted through the sheath and advanced to renal pelvis under fluoroscopic guidance. A renoscopy was performed with finding as above. Once the larger lower pole stone fragments were extracted with a 1.8 zerotip basket, a renoscopy was performed confirming no significant residual stones remained. Again lower pole stone retrieval was limited by severe angulation. Contrast was injected to assist with mapping for the renoscopy. The wire was reinserted and a pull down ureteroscopy was performed, basket extracting any remaining ureteral stones. The wire was backloaded through the cystoscope and a 7Fr x 22-30cm JJ variable length ureteral stent was advanced over the wire, noting adequate curl in the renal pelvis and bladder on fluoroscopic and direct visualization. The bladder was drained and inspected one final time to ensure adequate position of stent and no undue trauma to the bladder was done. The stones were sent for pathology and the cystoscope was removed. The patient tolerated the procedure well without complication. The patient was awakened from anesthesia and sent to PACU in stable condition. Plan: Discharge home with stent pain medications. Follow up in 3 weeks for in-office cystoscopy, stent removal. Pt will need renal US at least 6 weeks after stent has been removed to see if hydronephrosis from distal ureteral stricture has recurred. If so, would recommend referral to tertiary center for evaluation of definitive repair vs chronic indwelling left ureteral stent or nephrostomy tube. Other Provider present: No Post Operative care instructions: See discharge instructions Attending Doc Confirm Attending Attestation: Yes
[2023-10-09 22:06] LABS: Calcium Oxalate Monohydrate 100 % (.); Size 2x4 mm (.)
== END 2023-10-02 16:35 | disposition home or self-care (01) ==
PROVIDERS: Visit Provider Urology
PROC: (CPT 52332; principal; 2023-10-02 12:30)
DX: N13.2 Hydronephrosis with renal and ureteral calculous obstruction (principal); Z79.01 Long term (current) use of anticoagulants; I25.10 Atherosclerotic heart disease of native coronary artery without angina pectoris; Q62.12 Congenital occlusion of ureterovesical orifice; Z87.442 Personal history of urinary calculi; Z86.16 Personal history of COVID-19; K21.9 Gastro-esophageal reflux disease without esophagitis; E78.00 Pure hypercholesterolemia, unspecified; I10 Essential (primary) hypertension; G47.30 Sleep apnea, unspecified; M19.90 Unspecified osteoarthritis, unspecified site; Z87.01 Personal history of pneumonia (recurrent); R31.0 Gross hematuria; R35.0 Frequency of micturition; R33.9 Retention of urine, unspecified; R30.0 Dysuria; N40.1 Benign prostatic hyperplasia with lower urinary tract symptoms
CPT/HCPCS: 52332; 52344; 52352; 36415; 74420; 82365; 99999; C1874; J0690; J2250; J2405; J2704; J3010; Q9966

== ENCOUNTER 2024-01-27 10:54 | Outpatient (OUT) | payer MEDICARE, OTHER, SELFPAY ==
--- NOTE | 2024-01-27 11:29 | ECG_ITS ---
The [facility] Test Date: 2024-01-27 Pat Name: ERIK ALFONSO Department: Room: - Gender: Male [employer]: : 1940 Requested By: Order Number: [id number] Reading MD: CHRISTOPHER MUSA Measurements Intervals [place] Rate: 57 P: 23 FL: 175 QRS: 14 QRSD: 141 T: 45 QT: 434 QTc: 425 Interpretive Statements SINUS BRADYCARDIA RIGHT BUNDLE BRANCH BLOCK [120+ ms QRS DURATION, UPRIGHT V1, 40+ ms S IN I/aVL/V4/V5/V6] Compared to ECG 05/21/2023 13:09:07 Right bundle-branch block now present Electronically Signed On 01-27-2024 22:49:18 EDT by CHRISTOPHER MUSA
--- NOTE | 2024-01-27 11:30 | XR_ITS ---
The [address] [address] Patient Name: ERIK ALFONSO MRN: [id number] date: 1940 Sex: M Assigned Patient Location: [facility] Current Patient Location: [facility] Accession/Order Number: [id number] Exam Date: 01/27/2024 12:02 Report Date: 01/27/2024 12:21 At the request of: OTIS RODRIGUEZ Procedure: XR chest 2V EXAM: XR chest 2V HISTORY: pre-op COMPARISON: 05/21/2023 TECHNIQUE: Upright PA and lateral chest x-ray FINDINGS: The heart is not enlarged and the vasculature is not distended. No acute infiltrate, effusion or pneumothorax is identified. A small amount of atelectasis or scarring is noted at the lung bases, greater on the left. Flattening of the hemidiaphragms indicates COPD. The osseous structures are grossly intact. XR/XR chest 2V IMPRESSION: No acute infiltrate or evidence of cardiac decompensation. Mild chronic changes are noted. The overall appearance of the chest is unchanged. Electronically authenticated by: JESSE WRIGHT Date: 01/27/2024 12:21
[2024-01-27 11:56] LABS: Basophils Absolute Auto 0.1 10^3/uL (0.0-0.1); Basophils Percent Auto 0.9 % (0.2-2.0); Eosinophils Absolute Auto 0.3 10^3/uL (0.0-0.7); Eosinophils Percent Auto 3.7 % (0.9-7.0); Hematocrit 38.5 % (42.0-54.0); Hemoglobin 13.1 g/dL (14.0-18.0); Immature Granulocytes Abs Auto 0.05 10^3/uL (0.00-0.03); Immature Granulocytes Pct Auto 0.7 % (0.0-0.5); Lymphocytes Absolute Auto 1.7 10^3/uL (1.2-3.8); Lymphocytes Percent Auto 25.2 % (20.5-60.0); Mean Corpuscular Hemoglobin 32.5 pg (25.9-34.0); Mean Corpuscular Volume 95.5 fL (80.0-94.0); Monocytes Absolute Auto 0.7 10^3/uL (0.3-0.8); Monocytes Percent Auto 9.6 % (1.7-12.0); Neutrophils Percent Auto 59.9 % (43.0-75.0); Platelet Count 170 10^3/uL (150-450); Red Blood Count 4.03 10^6/uL (4.70-6.10); Red Cell Distribution Width 12.2 % (11.0-15.0); White Blood Count 6.8 10^3/uL (4.0-11.0)
[2024-01-27 12:13] LABS: INR 1.06; Partial Thromboplastin Time 26.9 sec (22.3-36.2); Prothrombin Time 11.2 sec (9.0-11.6)
[2024-01-27 12:16] LABS: Anion Gap 11.1; BUN Creatinine Ratio 22.5; Calcium 8.5 mg/dL (8.5-10.1); Carbon Dioxide 27.4 mmol/L (21.0-32.0); Chloride 105 mmol/L (98-107); Estimated GFR (African America >60 (>=60); Estimated GFR (Non-African Ame 53 (>=60); Glucose 90 mg/dL (74-106); Potassium 4.5 mmol/L (3.5-5.1); Sodium 139 mmol/L (136-145)
== END 2024-01-27 10:55 | disposition home or self-care (01) ==
LOC: PST 10:55
PROVIDERS: Visit Provider Urology
DX: Z01.810 Encounter for preprocedural cardiovascular examination (principal); Z01.812 Encounter for preprocedural laboratory examination; N20.0 Calculus of kidney
CPT/HCPCS: 36415; 71046; 80048; 85025; 85610; 85730; 93005

== ENCOUNTER 2024-02-05 11:51 | Day surgery (SDC) | payer MEDICARE, OTHER, SELFPAY ==
[2024-01-27 11:36] VITALS: BP 134/71; PULSE 57; TEMP 36.3; O2SAT 96; BMI 34.8
[2024-02-05] VITALS (14 sets, daily range): BP systolic 120–152; BP diastolic 55–82; PULSE 61–73; TEMP 35.9–36.3; O2SAT 91–98; BMI 34.9
[2024-02-05] MEDS: LACTATED RINGER'S SOLUTION 1,000 ML 50 ML IV ×2 (12:19→14:11)
[2024-02-05] MEDS: CEFAZOLIN SODIUM/DEXTROSE,ISO 2 GM/50 ML PIGGYBACK IV (12:19)
--- NOTE | 2024-02-05 12:27 | PM.URSON ---
Urology Surgery Operative Note Operative Note Procedure Date: 02/05/24 Time Out Performed: yes Pre-op Diagnosis: Right nephrolithiasis Post-op Diagnosis: same as pre-op Procedures performed: Cystoscopy, right retrograde pyelogram, ureteroscopy laser lithotripsy/stone extraction, stent placement Anesthesia: General-LMA (Dr. Rdz ) Primary Surgeon: Matilda Murphy Complications: none Estimated blood loss (mL): 0 Findings: Moderate bilobar prostatic hypertrophy with elevated bladder neck. 1-2+ trabeculations Multiple right kidney stones in all calyces (5 measuring 7-10 mm each, multiple smaller stones) underwent uncomplicated laser lithotripsy fragmenting with stone extraction. Angled upper and lower pole calyces. Cristino's plaques and few impacted stones within renal papilla remained. R RPG- no hydro, extravasation or concerning filling defects. Radiopaque stones in upper and lower pole calyces Specimens: Right kidney stones Drains: 6Fr x 22-32 cm JJ right ureteral stent Incision: none Indications for Procedures: 83 year old male with history of nephrolithiasis including multiple right kidney stones in all calyces measuring 7-10 mm each. After discussion of risks/benefits of management options, he elected to proceed with definitive stone treatment of cystoscopy, right retrograde pyelogram, ureteroscopy with laser lithotripsy/stone extraction, ureteral stent placement under general anesthesia. Risks were discussed including but not limited to bleeding, pain, infection, damage to surrounding structures, inability to treat the stone/place a stent, and need for additional procedures. The patient understands the stent is not permanent and needs to be removed or exchanged within 3 months to prevent encrustation, infection, invasive procedures and/or permanent renal damage. Detailed description of Procedure: After informed consent was obtained, the patient was brought to the operating room and transferred onto the operating table in supine position. Sequential compression devices were placed on bilateral lower extremities. The patient received the appropriate dose of preoperative IV antibiotics and general anesthesia LMA was induced. They were positioned in modified dorsolithotomy with the appropriate pressure points padded, prepped, and draped in the usual sterile fashion for this procedure. An operative safety timeout was performed confirming the patient's identity, laterality and procedure, and all present agreed to proceed. I began by inserting a 22 Slovenian rigid cystoscope with 30 degree lens into the patient's urethra and bladder without difficulty. There were no bladder tumors, lesions, stones or foreign bodies. Bilateral ureteral orifices were orthotopic and patent. I turned my attention to the right ureteral orifice and a 6- Slovenian open-ended catheter was inserted into the ureteral orifice and dilute contrast was injected for retrograde pyelogram with findings as above. A Sensor wire was inserted into the ureter up to the renal pelvis confirmed on fluoroscopy. An 11/13 Slovenian by 36 cm ureteral access sheath was inserted over the wire in a sequential fashion to gain access to the renal pelvis. Next a flexible ureteroscope was inserted through the sheath and advanced to the renal pelvis under fluoroscopic guidance. Renoscopy was performed with findings as above. A 270 ?m Thulium laser fiber was used to break the stone into fragments, removed with a 1.9 tipless nitinol basket. After the stones were adequately treated, a full renoscopy was performed confirming no significant residual stones or fragments remained. Contrast was injected to assist with mapping for the renoscopy. The wire was reinserted and a pull down ureteroscopy was performed confirming no stones remained in the ureter. The wire was backloaded through the cystoscope and 6Fr x 22-32cm JJ variable length ureteral stent was advanced over the wire, noting adequate curl in the renal pelvis and bladder on fluoroscopic and direct visualization. The bladder was drained and inspected one final time to ensure adequate position of stent and no undue trauma to the bladder was done. The stones were sent for pathology and the cystoscope was removed. The patient tolerated the procedure well without complication. The patient was awakened from anesthesia and sent to PACU in stable condition. Plan: Discharge home with stent pain medications. Follow up next week for in-office cystoscopy, stent removal within 1 week Other Provider present: No Post Operative care instructions: See discharge instructions Attending Doc Confirm Attending Attestation: Yes
[2024-02-05] MEDS: IOHEXOL 240 MG/ML - 10 ML VIAL INJ (13:19)
--- NOTE | 2024-02-05 15:07 | XR_ITS ---
[address] [address] Patient Name: ERIK ALFONSO MRN: [id number] date: 1940 Sex: M Assigned Patient Location: [facility] Current Patient Location: Accession/Order Number: [id number] Exam Date: 02/05/2024 12:55 Report Date: 02/06/2024 11:31 At the request of: OTIS RODRIGUEZ Procedure: XR urethrogram retrograde EXAM: XR urethrogram retrograde HISTORY: right renal stone COMPARISON: None. TECHNIQUE: FINDINGS: Two images demonstrate retrograde injection of iodinated contrast into the right renal collecting system. No definite filling defects. Placement of a ureteral stent, incompletely formed proximally. XR/XR urethrogram retrograde IMPRESSION: Right ureteral stent placement Electronically authenticated by: ERIK SCHMITT Date: 02/06/2024 11:31
--- NOTE | 2024-02-05 17:13 | PC.NURSE ---
urine was blood tinged
[2024-02-12 18:07] LABS: Calcium Oxalate Dihydrate 10 % (.); Calcium Oxalate Monohydrate 90 % (.); Size 6x3 mm (.)
== END 2024-02-05 17:15 | disposition home or self-care (01) ==
PROVIDERS: Visit Provider Urology
PROC: (CPT 52352; principal; 2024-02-05 13:00)
DX: N20.0 Calculus of kidney (principal); N40.0 Benign prostatic hyperplasia without lower urinary tract symptoms; N32.89 Other specified disorders of bladder; G47.33 Obstructive sleep apnea (adult) (pediatric); E78.5 Hyperlipidemia, unspecified; I10 Essential (primary) hypertension; I25.10 Atherosclerotic heart disease of native coronary artery without angina pectoris; M19.90 Unspecified osteoarthritis, unspecified site
CPT/HCPCS: 52352; 52356; 36415; 74420; 82365; 99999; J0690; Q9966